=== PATIENT | female | born 1930 | race African-American/Black ===

== ENCOUNTER 2017-01-25 10:47 | Inpatient (IN) | payer OTHER, BC ==
[2017-01-25 11:01] VITALS: BMI 31.3
--- NOTE | 2017-01-25 11:21 | PDOC ---
History of Present Illness - General History Source: Family (Grand-daughter) Exam Limitations: No Limitations - History of Present Illness Initial Comments: 01/25/17 11:23 The patient is an 86-year-old woman, accompanied by her grand-daughter, with a significant past medical history of hypertension, hypercholesterolemia, coronary artery disease, atrial fibrillation (status post mechanical valve placement), left breast Ca(status post left mastectomy) who presents to the emergency department via EMS for further evaluation for shortness of breath and hypoxia. Patient was noted to be in the low 90s on room air and was immediately placed on NC O2 on 2L with improvement. Grand-daughter also states that the patient has been noted to endorse a productive cough with white sputum over the past week with noted increasing bilateral lower leg swelling and shortness of breath. Patient's grand-daughter states that the patient is complaint with a no- sodium diet and drinks lots of water and reports compliance with her Milieu Counselor's recommendation of taking Torsemide (20mg BID) for the past 2 days. She also states that the patient was noted to complain of her thyroid, yesterday. Patient was in this ED on 12/21 for and admitted for congestive heart failure. Grand-daughter also states that the patient has been noted to be increasingly weak over the past week. She states that the patient is able to perform daily activities, such as dressing herself, on her own with minimal help of her health aide. However, the patient has needed some more help than usual. No fever, chills, chest pain, nausea, vomiting, diarrhea. Allergies: No Known Drug Allergies. Past Surgical History: Mechanical Valve Placement. Left Mastectomy. Hysterectomy. Social History: Retired. Lives with daughter and granddaughter. No tobacco, ETOH or recreational drug use. Primary Care Physician: Milieu Counselor: Dr. Michael Bautista [phone] <Taya Sanches - Last Filed: 01/25/17 12:05> <Markell Erickson - Last Filed: 01/25/17 17:39> <Jenn Sheriff - Last Filed: 01/27/17 07:22> - General Chief Complaint: Shortness of Breath Stated Complaint: SOB Time Seen by Provider: 01/25/17 10:52 Past History <Taya Sanches - Last Filed: 01/25/17 12:05> <Markell Erickson - Last Filed: 01/25/17 17:39> - Past Medical History Anemia: No Asthma: No Cancer: Yes (L BREAST) Cardiac Disorders: Yes COPD: No CHF: Yes HTN: Yes Hypercholesterolemia: Yes Thyroid Disease: Yes - Surgical History Cardiac Surgery: Yes (VALVE REPALCEMENT) - Psycho/Social/Smoking Cessation Hx Anxiety: No Suicidal Ideation: No Smoking History: Former smoker Have you smoked in the past 12 months: No If you are a former smoker, when did you quit?: 1996 Information on smoking cessation initiated: No Hx Alcohol Use: No Drug/Substance Use Hx: No Substance Use Type: None <Jenn Sheriff - Last Filed: 01/27/17 07:22> - Past Medical History Allergies/Adverse Reactions: Allergies Allergy/AdvReac Type Severity Reaction Status Date / Time No Known Allergies Allergy Verified 01/25/17 10:51 Home Medications: Ambulatory Orders Allopurinol [Zyloprim -] 100 mg PO DAILY 12/21/16 Cholecalciferol (Vitamin D3) [Vitamin D -] 50,000 unit PO MONTHLY 12/21/16 Methimazole [Tapazole] 5 mg PO DAILY 12/21/16 Nebivolol HCl [Bystolic] 10 mg PO DAILY 12/21/16 Omeprazole 40 mg PO DAILY 12/21/16 Ranolazine [Ranexa] 500 mg PO BID 12/21/16 Rosuvastatin Calcium [Crestor] 10 mg PO HS 12/21/16 Amlodipine Besylate [Norvasc -] 10 mg PO DAILY #30 tablet 12/23/16 Torsemide [Demadex -] 10 mg PO DAILY #30 tablet 12/23/16 Warfarin Na [Coumadin -] 5 mg PO DAILY #0 12/23/16 Review of Systems - Review of Systems Able to Perform ROS?: Yes Comments:: 01/25/17 11:24 GENERAL/CONSTITUTIONAL: Yes: Generalized Weakness. No fever or chills. HEAD, EYES, EARS, NOSE AND THROAT: Yes: Neck Swelling. No change in vision. No ear pain or discharge. No sore throat. CARDIOVASCULAR: Yes: Shortness of breath. No chest pain. RESPIRATORY: Yes: Shortness of breath. No cough, wheezing, or hemoptysis. GASTROINTESTINAL: No nausea, vomiting, diarrhea or constipation. GENITOURINARY: No dysuria, frequency, or change in urination. MUSCULOSKELETAL: Yes: Bilateral lower extremity swelling. No neck or back pain. SKIN: No rash NEUROLOGIC: No headache, vertigo, loss of consciousness, or change in strength/ sensation. ENDOCRINE: No increased thirst. No abnormal weight change. HEMATOLOGIC/LYMPHATIC: No anemia, easy bleeding, or history of blood clots. ALLERGIC/IMMUNOLOGIC: No hives or skin allergy. <Taya Sanches - Last Filed: 01/25/17 12:05> *Physical Exam - Vital Signs Last Vital Signs Temp Pulse Resp BP Pulse Ox 98.3 F 56 L 24 107/54 92 L 01/25/17 10:48 01/25/17 10:48 01/25/17 10:48 01/25/17 10:48 01/25/17 10:48 <Taya Sanches - Last Filed: 01/25/17 12:05> - Vital Signs Last Vital Signs Temp Pulse Resp BP Pulse Ox 98.3 F 61 18 107/72 94 L 01/25/17 10:48 01/25/17 16:57 01/25/17 16:57 01/25/17 16:57 01/25/17 16:57 <Markell Erickson - Last Filed: 01/25/17 17:39> - Vital Signs Last Vital Signs Temp Pulse Resp BP Pulse Ox 98.3 F 56 L 24 107/54 92 L 01/25/17 10:48 01/25/17 10:48 01/25/17 10:48 01/25/17 10:48 01/25/17 10:48 - Physical Exam Comments: GENERAL: Somnolent, awakens to voice, answers yes and no questions. Respirations appear moderately labored. HEAD: No signs of trauma EYES: PERRLA, EOMI, sclera anicteric, conjunctiva clear ENT: Auricles normal inspection, hearing grossly normal, nares patent, oropharynx clear without exudates. Moist mucosa NECK: Normal ROM, supple, no lymphadenopathy, no JVD. +Goiter, nontender. LUNGS: +Diffuse rales. HEART: Regular rate and rhythm, normal S1 and S2, no murmurs, rubs or gallops ABDOMEN: Soft, nontender, normoactive bowel sounds. No guarding, no rebound. No masses EXTREMITIES: Normal range of motion, 2+ pitting edema to BLE, to level of ankles. No clubbing or cyanosis. No cords, erythema, or tenderness NEUROLOGICAL: Cranial nerves II through XII grossly intact. Normal speech, normal gait SKIN: Warm, Dry, normal turgor, no rashes or lesions noted. <Jenn Sheriff - Last Filed: 01/27/17 07:22> Heart Score/ECG Review - ECG Impressions Comment:: EKG read 11:04- afib, ventricular rate 70 bpm, RBBB, LAFB <Jenn Sheriff - Last Filed: 01/27/17 07:22> ED Treatment Course - LABORATORY CBC & Chemistry Diagram: 01/25/17 12:00 01/25/17 12:00 - RADIOLOGY Radiograph Interpretation: 01/25/17 12:05 EXAM: RAD/CHEST X-RAY PORTABLE* IMPRESSION: Since 12/21/2016, there remains moderate cardiomegaly. Interval left lower lobe consolidation/ atelectasis/pneumonia and moderate left pleural effusion. Increased interstitial lung markings are also suggestive of mild pulmonary venous congestion versus interstitial infiltrates in both upper lobes and the right lower lobe. <Taya Sanches - Last Filed: 01/25/17 12:05> - LABORATORY CBC & Chemistry Diagram: 01/25/17 12:00 01/25/17 12:00 - ADDITIONAL ORDERS Additional order review: Laboratory Results 01/25/17 01/25/17 12:00 12:00 INR 21.83 H* Sodium 136 Potassium 4.5 D Chloride 97 L Carbon Dioxide 29 Anion Gap 10 BUN 59 H D Creatinine 3.2 H D Creat Clearance w eGFR 13.70 Random Glucose 107 H Calcium 10.4 H Total Bilirubin 0.6 D AST 19 D ALT 15 D Alkaline Phosphatase 88 D Creatine Kinase 75 Troponin I 0.02 B-Natriuretic Peptide 98960.64 H Total Protein 6.8 Albumin 3.0 L TSH 5.83 H D 01/25/17 12:00 RBC 4.03 MCV 81.5 MCHC 31.0 L RDW 16.3 H MPV 8.5 Neutrophils % 71.4 Lymphocytes % 11.9 Monocytes % 15.3 H Eosinophils % 0.6 Basophils % 0.8 - Medications Given in the ED: ED Medications Discontinued Medications Generic Name Dose Route Start Last Admin Trade Name Justen PRN Reason Stop Dose Admin Furosemide 40 mg 01/25/17 13:41 01/25/17 14:42 Lasix Injection - IVPUSH 01/25/17 13:42 40 mg ONCE ONE Administration <Markell Erickson - Last Filed: 01/25/17 17:39> - LABORATORY CBC & Chemistry Diagram: 01/26/17 07:25 01/26/17 06:30 - RADIOLOGY Radiology Studies Ordered: Category Date Time Status CHEST X-RAY PORTABLE* [RAD] Stat Radiology 01/25/17 10:51 Ordered <Jenn Sheriff - Last Filed: 01/27/17 07:22> *DC/Admit/Observation/Transfer - Attestations Scribe Attestion: 01/25/17 11:24 Documentation prepared by Taya Sanches, acting as medical charge entry specialist for Jenn Sheriff MD. <Taya Sanches - Last Filed: 01/25/17 12:05> - Discharge Dispostion Admit: Yes <Markell Erickson - Last Filed: 01/25/17 17:39> <Jenn Sheriff - Last Filed: 01/27/17 07:22> Diagnosis at time of Disposition: Acute exacerbation of CHF (congestive heart failure) Qualifiers: Congestive heart failure type: diastolic Qualified Code(s): I50.33 - Acute on chronic diastolic (congestive) heart failure - Referrals
[2017-01-25 12:08] LABS: BASOPHIL 0.8 % (0-2.0); EOSINOPHIL 0.6 % (0-4.5); MCH 25.3 pg (25.7-33.7); MEAN CELL VOLUME 81.5 fl (80-96); MEAN PLT VOLUME 8.5 fl (7.5-11.1); NEUTROPHILS 71.4 % (42.8-82.8); PLATELET COUNT 382 K/MM3 (134-434); RDW 16.3 % (11.6-15.6); WHITE BLOOD COUNT 8.8 K/mm3 (4.0-10.0)
[2017-01-25 12:39] LABS: PROTHROMBIN TIME (PATIENT) 255.7 SEC (9.98-11.88)
[2017-01-25 12:41] LABS: BILIRUBIN,TOTAL 0.6 mg/dL (0.2-1.0); CALCIUM 10.4 mg/dL (8.5-10.1); CREATININE 3.2 mg/dL (0.55-1.02); TOT PROT 6.8 g/dl (6.4-8.2)
[2017-01-25 12:42] LABS: INR 21.83 (0.82-1.09)
[2017-01-25 12:49] LABS: THYROID STIMULATING HORMONE 5.83 uIU/ml (0.358-3.74); TROPONIN I 0.02 ng/ml (0.00-0.05)
--- NOTE | 2017-01-25 13:19 | CON.CARD ---
Consult Consult Specialty:: Cardiology Referred by:: Hospitalist Medicine Reason for Consultation:: Dyspnea - History of Present Illness Chief Complaint: Dyspnea History of Present Illness: This is a 86 y/o woman with a past medical history of CAD, angina pectoris, diastolic dysfunction, CKD, paroxysmal aflutter [id number] on coumadin per INR , s/p bioprosthetic MVR and AVR, HCVD, HLD, Left Breast Cancer post mastectomy, mod carotid stenosis, CKD, ILD referred to the emergency room with SOB, productive cough with white phlegm, hypoxia and LE edema despite increased outpatient diuretic regimen. She denies chest tightness, near or true syncope, palpitations, orthopnea, PND, diet or medication noncompliance similar to previous presentation for failure. - History Source History Provided By: Family Member Limitations to Obtaining History: Poor Historian - Past Medical History Cardio/Vascular: Yes: AFIB, CAD, CHF, HTN, Hyperlipdemia - Past Surgical History Past Surgical History: Yes: Valve Replacement - Alcohol/Substance Use Hx Alcohol Use: No - Smoking History Smoking history: Former smoker Have you smoked in the past 12 months: No If you are a former smoker, when did you quit?: 1996 Home Medications - Allergies Allergies/Adverse Reactions: Allergies Allergy/AdvReac Type Severity Reaction Status Date / Time No Known Allergies Allergy Verified 01/25/17 10:51 - Home Medications Home Medications: Ambulatory Orders Allopurinol [Zyloprim -] 100 mg PO DAILY 12/21/16 Cholecalciferol (Vitamin D3) [Vitamin D -] 50,000 unit PO MONTHLY 12/21/16 Methimazole [Tapazole] 5 mg PO DAILY 12/21/16 Nebivolol HCl [Bystolic] 10 mg PO DAILY 12/21/16 Omeprazole 40 mg PO DAILY 12/21/16 Ranolazine [Ranexa] 500 mg PO BID 12/21/16 Rosuvastatin Calcium [Crestor] 10 mg PO HS 12/21/16 Amlodipine Besylate [Norvasc -] 10 mg PO DAILY #30 tablet 12/23/16 Torsemide [Demadex -] 10 mg PO DAILY #30 tablet 12/23/16 Warfarin Na [Coumadin -] 5 mg PO DAILY #0 12/23/16 Review of Systems - Review of Systems Cardiovascular: reports: Edema, Shortness of Breath Respiratory: reports: Cough Vital Signs: Vital Signs Temperature 98.3 F 01/25/17 10:48 Pulse Rate 56 L 01/25/17 10:48 Respiratory Rate 24 01/25/17 10:48 Blood Pressure 107/54 01/25/17 10:48 O2 Sat by Pulse Oximetry (%) 92 L 01/25/17 11:34 Constitutional: Yes: No Distress, Calm Neck: Yes: Supple Respiratory: Yes: Regular, Diminished, On Nasal O2 Gastrointestinal: Yes: Normal Bowel Sounds, Soft, Abdomen, Obese Cardiovascular: Yes: Pulse Irregular JVD: Yes Carotid Bruit: No Heart Sounds: Yes: S1, S2 Murmur: Yes: Systolic Murmur, Grade 2 Edema: Yes Edema: LLE: 1+, RLE: 1+ - Other Data Labs, Other Data: CBC, BMP 01/25/17 12:00 01/25/17 12:00 INR, PTT INR 21.83 (0.82-1.09) H* 01/25/17 12:00 Troponin, BNP 01/25/17 12:00 Troponin I 0.02 B-Natriuretic Peptide 60958.64 H Troponin, BNP 01/25/17 12:00 Troponin I 0.02 B-Natriuretic Peptide 02012.64 H Afib @ 70 RBBB, LAFB similar to previous 12/30/2016 Echo: Report Reviewed Ejection Fraction %: LVEF > or = 40 % Imaging - Results Chest X-ray: Report Reviewed (CHF) Assessment/Plan 04/07/2016 Normal LV and RV size and fxn, mild LAE, bioMVR and AVR with transaortic MG 26 mmHg, RVSP 40-50 mmHg, mild-mod TR 12/22/2016 Normal LV and RV size and fxn, mild LAE, bioMVR and AVR with transvalvular MG 32 mmHg, RVSP 40-50 mmHg, mild-mod TR 1. Acute on chronic diastolic failure recurrent 2. H/o bioMVR, AVR with mildly elevated transaortic gradient, consider prosthesis-patient mismatch 2. Acute on CKD referable to above 3. CAD, angina pectoris 4. Persistent afib on coumadin with supratherapeutic INR 5. Hyperlipidemia 6. Hyperuricemia 7. Left breast ca s/p mastectomy 8. Hyperthyroidism 9. PVC 10. Anemia P: 1. Initiate IV diuresis with monitor diuretic response, renal fxn and electrolytes 2. Continue Bystolic 10 qd, Norvasc 10 qd, Ranexa 500 bid, Crestor 10 qhs and hold coumadin per INR. Resume Benicar once renal fxn stabilizes. Recheck INR, no active bleeding, check FT4 3. Thank you for consultative opportunity
[2017-01-25] MEDS ORDERED: FUROSEMIDE 40 MG/4 ML INJECTABLE VIAL IVPUSH ONE (13:41)
--- NOTE | 2017-01-25 13:58 | EKG ---
Test Reason : Blood Pressure : / mmHG Vent. Rate : 070 BPM Atrial Rate : 214 BPM P-R Int : 000 ms QRS Dur : 160 ms QT Int : 442 ms P-R-T Axes : 000 -63 111 degrees QTc Int : 477 ms ATRIAL FIBRILLATION RIGHT BUNDLE BRANCH BLOCK LEFT ANTERIOR FASCICULAR BLOCK BIFASCICULAR BLOCK T WAVE ABNORMALITY, CONSIDER LATERAL ISCHEMIA ABNORMAL ECG WHEN COMPARED WITH ECG OF 21-DEC-2016 16:35, RIGHT BUNDLE BRANCH BLOCK HAS REPLACED NON-SPECIFIC INTRA-VENTRICULAR CONDUCTION BLOCK Confirmed by LEXIS THOMPSON, XUAN ([id number]) on 01/25/2017 1:58:18 PM Referred By: Confirmed By:XUAN PIRES MD
[2017-01-25] MEDS ORDERED: FUROSEMIDE 40 MG/4 ML INJECTABLE VIAL ONE (14:36)
[2017-01-25] MEDS ORDERED: ACETAMINOPHEN 325 MG TABLET (FP) ONE (16:23)
[2017-01-25] MEDS: ACETAMINOPHEN 325 MG TABLET (FP) PO PRN (16:25)
--- NOTE | 2017-01-25 16:33 | HP ---
CHIEF COMPLAINT: shortness of breath PCP:Dr. Michel Cardio: Dr. Gallo Endocrin: Dr. Ford HISTORY OF PRESENT ILLNESS: 86 yr old woman with CKD, diastolic CHF, hx of breast cancer, afib (on coumadin) , HTN, CAD, bioprosthetic valve(aortic/mitral), BIBEMS for difficulty breathing this morning, presents with worsening dyspnea, weight gain for the past 2 days and cough productive of frothy sputum. Overnight she was frequently getting up to urinate, this morning while in bed she started to have difficulty breathing even with smallest of positional change. She recently went to [place] via bus for the weekend, since she came back she has been having worsening extertional dyspnea and increasing lower leg edema. Yesterday she was 179lbs, this morning she was 182.4lbs. She called Dr. Gallo on Monday, who advised increasing Torsemide from 20mg daily to 40, which she took on Monday and Monday. She also c/o increasing throat size during the last 2 days, left more than right and episodes of "gagging" to food. Family and patient denied dietary indiscretions. Also c/o alternating diarrhea and constipation for past 2 days. Denies fever,chest pain, palpitations, ER course was notable for: (1) BNP 09116.64 (2) Chest xray with pleural effusion in left (3) elevated Cr 3.2, INR 21.83 Recent Travel: [place] PAST MEDICAL HISTORY: Bioprosthetic valves (mitral/aortic)- 2000 CKD Left breast cancer - mastectomy 2005, did not require chemo/radiation, no further follow-up Enlarged thyroid, Hyperthyroidism Afib HTN CAD COPD - chest ct finding of interstitial thickening suggestive of COPD changes PAST SURGICAL HISTORY: Left mastectomy Hysterectomy Partial thyroidectomy - does not remember which side, more than 20 yrs ago Social History: Lives with daughter and granddaughter, 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 Smoking: never Alcohol: none Drugs: none Family History:NC Allergies No Known Allergies Allergy (Verified 01/25/17 10:51) HOME MEDICATIONS: Home Medications Medication Instructions Recorded Allopurinol [Zyloprim -] 100 mg PO DAILY 12/21/16 Cholecalciferol (Vitamin D3) 50,000 unit PO MONTHLY 12/21/16 [Vitamin D -] Methimazole [Tapazole] 5 mg PO DAILY 12/21/16 Nebivolol HCl [Bystolic] 10 mg PO DAILY 12/21/16 Omeprazole 40 mg PO DAILY 12/21/16 Ranolazine [Ranexa] 500 mg PO BID 12/21/16 Rosuvastatin Calcium [Crestor] 10 mg PO HS 12/21/16 Amlodipine Besylate [Norvasc -] 10 mg PO DAILY #30 tablet 12/23/16 Torsemide [Demadex -] 10 mg PO DAILY #30 tablet 12/23/16 Warfarin Na [Coumadin -] 5 mg PO DAILY #0 12/23/16 REVIEW OF SYSTEMS CONSTITUTIONAL: Present:weight change Absent: fever, chills, diaphoresis, generalized weakness, malaise, loss of appetite, HEENT: Absent: rhinorrhea, nasal congestion, throat pain, throat swelling, difficulty swallowing, mouth swelling, ear pain, eye pain, visual changes CARDIOVASCULAR: Present: irregular heart rate,peripheral edema Absent: chest pain, syncope, palpitations, lightheadedness, RESPIRATORY: Present: dyspnea with exertion, Absent: cough, shortness of breath, orthopnea, wheezing, stridor, hemoptysis GASTROINTESTINAL: Present:diarrhea, constipation, Absent: abdominal pain, abdominal distension, nausea, vomiting, melena, hematochezia GENITOURINARY: Absent: dysuria, frequency, urgency, hesitancy, hematuria, flank pain, genital pain MUSCULOSKELETAL: Absent: myalgia, arthralgia, joint swelling, back pain, neck pain SKIN: Absent: rash, itching, pallor HEMATOLOGIC/IMMUNOLOGIC: Absent: easy bleeding, easy bruising, lymphadenopathy, frequent infections ENDOCRINE: Absent: unexplained weight gain, unexplained weight loss, heat intolerance, cold intolerance NEUROLOGIC: Absent: headache, focal weakness or paresthesias, dizziness, unsteady gait, seizure, mental status changes, bladder or bowel incontinence PSYCHIATRIC: Absent: anxiety, depression, suicidal or homicidal ideation, hallucinations. PHYSICAL EXAMINATION Vital Signs - 24 hr 01/25/17 01/25/17 01/25/17 10:48 11:34 13:20 Temperature 98.3 F Pulse Rate 56 L Pulse Rate [ 65 Apical] Respiratory 24 19 Rate Blood Pressure 107/54 Blood Pressure 112/77 [Right] O2 Sat by Pulse 92 L 92 L 93 L Oximetry (%) GENERAL: Awake, alert, and fully oriented, in no acute distress. HEAD: Normal with no signs of trauma. EYES: Pupils equal, round and reactive to light, extraocular movements intact, sclera anicteric, conjunctiva clear. No lid lag. EARS, NOSE, THROAT: Ears normal, nares patent, oropharynx clear without exudates. enlarged thyroid with firm mobile nontender mass on right. Moist mucous membranes. NECK: wnl range of motion, supple, JVD. LUNGS: Breath sounds diminished on left, quiet at right base. No wheezes, and no crackles. No accessory muscle use. CHEST: nontender, s/p left mastectomy. HEART: irregular rate and rhythm, normal S1 and S2 with systolic murmur, rub or gallop. ABDOMEN: Soft, nontender, not distended, normoactive bowel sounds, no guarding, no rebound, no masses. MUSCULOSKELETAL: wnl range of motion at all joints. No bony deformities or tenderness. No CVA tenderness. UPPER EXTREMITIES: 2+ pulses, warm, well-perfused. No cyanosis. No clubbing. No peripheral edema. LOWER EXTREMITIES: 2+ pulses, warm, well-perfused. No calf tenderness. 1+ pitting edema upto b/l knees. NEUROLOGICAL: Cranial nerves II-XII intact. Normal speech. strength 4/5 in UE, 5/5 hand scientist electronics, 2/5 at b/l hips and knees, 5/5 at b/l ankle. no hand tremor PSYCHIATRIC: Cooperative. Good eye contact. Appropriate mood and affect. SKIN: Warm, dry, normal turgor, no rashes or lesions noted. Laboratory Results - last 24 hr 01/25/17 01/25/17 01/25/17 12:00 12:00 12:00 WBC 8.8 RBC 4.03 Hgb 10.2 L Hct 32.8 MCV 81.5 MCHC 31.0 L RDW 16.3 H Plt Count 382 MPV 8.5 Neutrophils % 71.4 Lymphocytes % 11.9 Monocytes % 15.3 H Eosinophils % 0.6 Basophils % 0.8 INR 21.83 H* Sodium 136 Potassium 4.5 D Chloride 97 L Carbon Dioxide 29 Anion Gap 10 BUN 59 H D Creatinine 3.2 H D Creat Clearance w eGFR 13.70 Random Glucose 107 H Calcium 10.4 H Total Bilirubin 0.6 D AST 19 D ALT 15 D Alkaline Phosphatase 88 D Creatine Kinase 75 Troponin I 0.02 B-Natriuretic Peptide 20856.64 H Total Protein 6.8 Albumin 3.0 L TSH 5.83 H D Active Medications Acetaminophen (Tylenol -) 650 mg PO Q6H PRN PRN Reason: FEVER OR PAIN Last Admin: 01/25/17 16:25 Dose: 650 mg Amlodipine Besylate (Norvasc -) 10 mg PO DAILY ALOK Ergocalciferol (Drisdol -) 50,000 unit PO Q30D@10 ALOK Furosemide (Lasix Injection -) 40 mg IVPB BID ALOK Methimazole (Tapazole -) 5 mg PO DAILY ALOK Nebivolol (Bystolic -) 10 mg PO DAILY ALOK Pantoprazole Sodium (Protonix -) 40 mg PO DAILY ALOK Ranolazine (Ranexa -) 500 mg PO BID ALOK Rosuvastatin Calcium (Crestor -) 10 mg PO HS ALOK ASSESSMENT/PLAN: 86 y/o woman multiple co-morbidities presented with difficulty breathing admitted for acute on chronic diastolic CHF. - chest xray with left lower lobe consiladation/atelectasis/pna with moderate left pleural effusion ( no effusion on cxy 12/21/2016, 12/19/[address] shows small left and trace right pleural effusion), low suspicion for infection, likely secondary to chf. provide incentive spirometry and nasal cannula 3lpm, will repeat cxay in the morning. 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 Pt is followed by ENT as outpatient. #Acute on Chronic CHF Exacerbation(given bnp, weight increase) - Lasix 40mg IVPB BID - daily weights, I&O monitoring - Dr. Castellon consulted #MADONNA on CKD (likely stage 4 given last gfr 27, currently gfr <15) - Likely cardiorenal in nature - Will continue to monitor renal function - hold allopurinol #Supratherapeutic INR - no overt signs of bleeding - repeat in the morning - hold coumadin, avoid aspirin #CAD - Continue Bystolic closely monitor renal function #Afib - currently rate controlled - repeat INR, goal 2.5-3.5 #HLD - crestor 10mg po hs #Diet: low sodium #DVT - supratheruapuetic INR, given le edema no scd's Code status: DNR/DNI Visit type - Emergency Visit Emergency Visit: Yes ED Registration Date: 01/25/17 Care time: The patient presented to the Emergency Department on the above date and was hospitalized for further evaluation of their emergent condition. - New Patient This patient is new to me today: Yes Date on this admission: 01/25/17 - Critical Care Critical Care patient: No
--- NOTE | 2017-01-25 18:03 | PN ---
Teaching Attending Note Name of Resident: Tamara Keyes ATTENDING PHYSICIAN STATEMENT I saw and evaluated the patient. I reviewed the resident's note and discussed the case with the resident. I agree with the resident's findings and plan as documented. SUBJECTIVE: This is an 86-year-old woman with a history of chronic diastolic HF , breast cancer, atrial fib, HTN, CAD, bioprosthetic AV/MV, stage 4 CKD who presented to the ER with worsening shortness of breath, cough with frothy sputum , leg swelling, urinary frequency and weight gain. OBJECTIVE: Vital Signs Period Temp Pulse Resp BP Sys/[place] Pulse Ox Last 24 Hr 98.3 F 56-65 18-24 107-112/54-77 82-94 HEART: Irregularly irregular, (+) 2/6 systolic murmur, (+) JVD LUNGS: Bilateral crackles ABDOMEN: Soft, non-tender. non-distended, normal BS EXTREMITIES: 1+ edema ASSESSMENT AND PLAN: 1. Acute on chronic diastolic heart failure - Lasix IV - Monitor intake and output, daily weights - Cardiology consult 2. Acute kidney injury on stage 4 CKD, probable cardiorenal syndrome - Monitor BUN, creatinine with diuresis 3. Permanent atrial fibrillation - Continue Bystolic - Hold Coumadin secondary to INR 21.8 4. CAD - Continue Bystolic, Ranexa, Norvasc 5. Hypertension - Continue Bystolic, Norvasc - On Lasix for CHF 6. Hyperlipidemia - Continue Crestor 7. History of bioprosthetic AV/MV 8. History of breast cancer, left mastectomy
[2017-01-25 20:06] LABS: PROTHROMBIN TIME (PATIENT) 234.7 SEC (9.98-11.88)
[2017-01-25 20:07] LABS: INR 20.07 (0.82-1.09)
[2017-01-25] MEDS: FUROSEMIDE 40 MG/4 ML INJECTABLE VIAL IVPB SCH (21:45)
[2017-01-25] MEDS: ROSUVASTATIN CA 10 MG TABLET (FP) PO SCH (21:46)
[2017-01-25] MEDS: RANOLAZINE E.R. 500 MG TABLET (FP) PO SCH (21:46)
[2017-01-26 07:53] LABS: MCH 26.1 pg (25.7-33.7); MCHC 32.1 g/dl (32.0-36.0); MEAN CELL VOLUME 81.3 fl (80-96); MEAN PLT VOLUME 8.2 fl (7.5-11.1); PLATELET COUNT 367 K/MM3 (134-434); RDW 16.2 % (11.6-15.6); WHITE BLOOD COUNT 9.5 K/mm3 (4.0-10.0)
[2017-01-26 08:00] LABS: BASOPHIL 0.3 % (0-2.0); EOSINOPHIL 0.8 % (0-4.5); MCH 26.3 pg (25.7-33.7); MCHC 32.1 g/dl (32.0-36.0); MEAN CELL VOLUME 81.9 fl (80-96); MEAN PLT VOLUME 8.6 fl (7.5-11.1); NEUTROPHILS 75.1 % (42.8-82.8); PLATELET COUNT 372 K/MM3 (134-434); WHITE BLOOD COUNT 9.5 K/mm3 (4.0-10.0)
[2017-01-26 08:29] LABS: MAGNESIUM 2.6 mg/dL (1.8-2.4)
[2017-01-26 08:33] LABS: TROPONIN I 0.03 ng/ml (0.00-0.05)
[2017-01-26 08:37] LABS: PROTHROMBIN TIME (PATIENT) 295.5 SEC (9.98-11.88)
[2017-01-26 08:41] LABS: INR 25.15 (0.82-1.09)
[2017-01-26 08:43] LABS: CALCIUM 10.3 mg/dL (8.5-10.1); CREATININE 3.6 mg/dL (0.55-1.02); FREE T4 1.03 ng/dl (0.76-1.46)
[2017-01-26 08:48] LABS: MAGNESIUM 2.5 mg/dL (1.8-2.4)
[2017-01-26 08:50] LABS: TROPONIN I 0.03 ng/ml (0.00-0.05)
[2017-01-26] MEDS ORDERED: ERGOCALCIFEROL (VITAMIN D2) 50,000 UNIT CAPSULE (FP) PO SCH (10:00)
[2017-01-26] MEDS: PANTOPRAZOLE 40 MG TABLET (FP) PO SCH (10:10)
[2017-01-26] MEDS: METHIMAZOLE 5 MG TABLET (FP) PO SCH (10:11)
[2017-01-26] MEDS: RANOLAZINE E.R. 500 MG TABLET (FP) PO SCH ×2 (10:11→22:49)
[2017-01-26] MEDS: amLODIPine BESYLATE 10 MG TABLET (FP) PO SCH (10:11)
[2017-01-26] MEDS: NEBIVOLOL 10 MG TABLET (FP) PO SCH (10:45)
[2017-01-26] MEDS: FUROSEMIDE 40 MG/4 ML INJECTABLE VIAL IVPB SCH ×2 (11:11→22:49)
[2017-01-26] MEDS ORDERED: PT OWN MED DRAWER 7, Y5N ONE (11:14)
--- NOTE | 2017-01-26 13:58 | PN ---
Teaching Attending Note Name of Resident: Tamara Keyes ATTENDING PHYSICIAN STATEMENT I saw and evaluated the patient. I reviewed the resident's note and discussed the case with the resident. I agree with the resident's findings and plan as documented. Vital Signs Temperature 98.0 F 01/26/17 13:52 Pulse Rate 60 01/26/17 13:52 Respiratory Rate 17 01/26/17 13:52 Blood Pressure 112/60 01/26/17 10:40 O2 Sat by Pulse Oximetry (%) 94 L 01/25/17 21:00 CBCD WBC 9.5 K/mm3 (4.0-10.0) 01/26/17 07:25 RBC 3.68 M/mm3 (3.60-5.2) 01/26/17 07:25 Hgb 9.6 GM/dL (10.7-15.3) L 01/26/17 07:25 Hct 30.0 % (32.4-45.2) L 01/26/17 07:25 MCV 81.3 fl (80-96) 01/26/17 07:25 MCHC 32.1 g/dl (32.0-36.0) 01/26/17 07:25 RDW 16.2 % (11.6-15.6) H 01/26/17 07:25 Plt Count 367 K/MM3 (134-434) 01/26/17 07:25 MPV 8.2 fl (7.5-11.1) 01/26/17 07:25 CMP Sodium 141 mmol/L (136-145) 01/26/17 06:30 Potassium 4.7 mmol/L (3.5-5.1) 01/26/17 06:30 Chloride 102 mmol/L (98-107) 01/26/17 06:30 Carbon Dioxide 29 mmol/L (21-32) 01/26/17 06:30 Anion Gap 10 (8-16) 01/26/17 06:30 BUN 62 mg/dL (7-18) H 01/26/17 06:30 Creatinine 3.6 mg/dL (0.55-1.02) H 01/26/17 06:30 Creat Clearance w eGFR 13.70 (>60) 01/25/17 12:00 Random Glucose 106 mg/dL (74-106) 01/26/17 06:30 Calcium 10.3 mg/dL (8.5-10.1) H 01/26/17 06:30 Total Bilirubin 0.6 mg/dL (0.2-1.0) D 01/25/17 12:00 AST 19 U/L (15-37) D 01/25/17 12:00 ALT 15 U/L (12-78) D 01/25/17 12:00 Alkaline Phosphatase 88 U/L (45-117) D 01/25/17 12:00 Total Protein 6.8 g/dl (6.4-8.2) 01/25/17 12:00 Albumin 3.0 g/dl (3.4-5.0) L 01/25/17 12:00 CARDIAC ENZYMES Creatine Kinase 217 IU/L (26-192) H D 01/26/17 07:25 Troponin I 0.03 ng/ml (0.00-0.05) 01/26/17 07:25 Current Medications Generic Name Dose Route Start Last Admin Trade Name Freq PRN Reason Stop Dose Admin Acetaminophen 650 mg 01/25/17 16:17 01/25/17 16:25 Tylenol - PO 650 mg Q6H PRN Administration FEVER OR PAIN Amlodipine Besylate 10 mg 01/26/17 10:00 01/26/17 10:11 Norvasc - PO 10 mg DAILY ALOK Administration Ergocalciferol 50,000 unit 01/26/17 10:00 Drisdol - PO Q30D@10 ALOK Furosemide 40 mg 01/25/17 22:00 01/26/17 11:11 Lasix Injection - IVPB 40 mg BID ALOK Administration Methimazole 5 mg 01/26/17 10:00 01/26/17 10:11 Tapazole - PO 5 mg DAILY ALOK Administration Nebivolol 10 mg 01/26/17 10:00 Bystolic - PO DAILY ALOK Pantoprazole Sodium 40 mg 01/26/17 10:00 01/26/17 10:10 Protonix - PO 40 mg DAILY ALOK Administration Ranolazine 500 mg 01/25/17 22:00 01/26/17 10:11 Ranexa - PO 500 mg BID ALOK Administration Rosuvastatin Calcium 10 mg 01/25/17 22:00 01/25/17 21:46 Crestor - PO 10 mg HS ALOK Administration Home Medications Medication Instructions Recorded Allopurinol [Zyloprim -] 100 mg PO DAILY 12/21/16 Cholecalciferol (Vitamin D3) 50,000 unit PO MONTHLY 12/21/16 [Vitamin D -] Methimazole [Tapazole] 5 mg PO DAILY 12/21/16 Nebivolol HCl [Bystolic] 10 mg PO DAILY 12/21/16 Omeprazole 40 mg PO DAILY 12/21/16 Ranolazine [Ranexa] 500 mg PO BID 12/21/16 Rosuvastatin Calcium [Crestor] 10 mg PO HS 12/21/16 Amlodipine Besylate [Norvasc -] 10 mg PO DAILY #30 tablet 12/23/16 Torsemide [Demadex -] 10 mg PO DAILY #30 tablet 12/23/16 Warfarin Na [Coumadin -] 5 mg PO DAILY #0 12/23/16 Laboratory Tests 01/25/17 01/25/17 01/26/17 12:00 18:00 07:25 INR 21.83 H* 20.07 H* 25.15 H* Patient feels better, lying in bed feels tired since has not slept the whole day. chest xray with left lower lobe consiladation/atelectasis/pna with moderate left pleural effusion ( no effusion on cxy 12/21/2016, 12/19/[address] shows small left and trace right pleural effusion), low suspicion for infection, likely secondary to chf. provide incentive spirometry and nasal cannula 3lpm, will repeat cxay in the morning. ECHO :EJF 51% , Moderate to severe TR ASSESSMENT AND PLAN: 86 y/o woman multiple co-morbidities presented with difficulty breathing admitted for acute on chronic diastolic CHF. #Acute on Chronic diastolic CHF Exacerbation with EJF of 51% on 12/23/2016; Lasix 40mg IVPB BID, daily weights, I&O monitoring, cardiology consult appreciated. #MADONNA on CKD BUN/Cr 62/3.2 with Supratherapeutic INR of 25, which can cause renal failure , will give one dose of oral VIt k 5mg , will repeat the level in am. Nephro consult #Supratherapeutic INR - no signs of bleeding , repeat in the morning, ordered one dose of po Vit K 5mg , hold coumadin, avoid aspirin #CAD Continue Bystolic closely monitor renal function # paroxysmal aflutter [id number] on coumadin per INR , currently rate controlled ; repeat INR, goal 2.5-3.5. giving one dose of Vit K. #HLD crestor 10mg po hs # Hx of Hyperthroidism on Tapazole will order TSH level in am # Left breast ca s/p mastectomy #Diet: low sodium #DVT - supratheruapuetic INR, given le edema;no scd's Code status: DNR/DNI
[2017-01-26] MEDS ORDERED: PHYTONADIONE 5 MG TABLET PO ONE (14:45)
--- NOTE | 2017-01-26 16:17 | PN ---
Progress Note, Physician History of Present Illness: Dyspnea, cough and LE edema improving. - Current Medication List Current Medications: Active Medications Acetaminophen (Tylenol -) 650 mg PO Q6H PRN PRN Reason: FEVER OR PAIN Last Admin: 01/25/17 16:25 Dose: 650 mg Amlodipine Besylate (Norvasc -) 10 mg PO DAILY [facility] Last Admin: 01/26/17 10:11 Dose: 10 mg Ergocalciferol (Drisdol -) 50,000 unit PO Q30D@10 [facility] Furosemide (Lasix Injection -) 40 mg IVPB BID [facility] Last Admin: 01/26/17 11:11 Dose: 40 mg Methimazole (Tapazole -) 5 mg PO DAILY [facility] Last Admin: 01/26/17 10:11 Dose: 5 mg Nebivolol (Bystolic -) 10 mg PO DAILY [facility] Pantoprazole Sodium (Protonix -) 40 mg PO DAILY [facility] Last Admin: 01/26/17 10:10 Dose: 40 mg Ranolazine (Ranexa -) 500 mg PO BID [facility] Last Admin: 01/26/17 10:11 Dose: 500 mg Rosuvastatin Calcium (Crestor -) 10 mg PO HS [facility] Last Admin: 01/25/17 21:46 Dose: 10 mg - Objective Vital Signs: Vital Signs Temperature 98.0 F 01/26/17 13:52 Pulse Rate 60 01/26/17 13:52 Respiratory Rate 17 01/26/17 13:52 Blood Pressure 112/60 01/26/17 10:40 O2 Sat by Pulse Oximetry (%) 94 L 01/25/17 21:00 Constitutional: Yes: No Distress, Calm Neck: Yes: Supple Cardiovascular: Yes: Pulse Irregular Respiratory: Yes: Regular, Diminished, On Nasal O2 Gastrointestinal: Yes: Normal Bowel Sounds, Soft, Abdomen, Obese Edema: Yes Edema: LLE: Trace, RLE: Trace Labs: CBC, BMP 01/26/17 07:25 01/26/17 06:30 INR, PTT INR 25.15 (0.82-1.09) H* 01/26/17 07:25 - ....Imaging Chest X-ray: Report Reviewed (Left effusion with ATX) Problem List - Problems (1) A-fib Code(s): I48.91 - UNSPECIFIED ATRIAL FIBRILLATION Qualifiers: Atrial fibrillation type: persistent Qualified Code(s): I48.1 - Persistent atrial fibrillation (2) Acute on chronic diastolic CHF (congestive heart failure) Code(s): I50.33 - ACUTE ON CHRONIC DIASTOLIC (CONGESTIVE) HEART FAILURE (3) Ibgor-ee-xotdscv kidney injury Code(s): N17.9 - ACUTE KIDNEY FAILURE, UNSPECIFIED N18.9 - CHRONIC KIDNEY DISEASE, UNSPECIFIED (4) CAD (coronary artery disease) Code(s): I25.10 - ATHSCL HEART DISEASE OF [place] CORONARY ARTERY W/O ANG PCTRS Qualifiers: Coronary Disease-Associated Artery/Lesion type: [place] artery [place] vs. transplanted heart: [place] heart Associated angina: without angina Qualified Code(s): I25.10 - Atherosclerotic heart disease of [place] coronary artery without angina pectoris (5) HLD (hyperlipidemia) Code(s): E78.5 - HYPERLIPIDEMIA, UNSPECIFIED Qualifiers: Hyperlipidemia type: pure hypercholesterolemia Qualified Code(s): E78.0 - Pure hypercholesterolemia (6) Hypertensive cardiomyopathy Code(s): I11.9 - HYPERTENSIVE HEART DISEASE WITHOUT HEART FAILURE I42.9 - CARDIOMYOPATHY, UNSPECIFIED Qualifiers: Heart failure presence: with heart failure Qualified Code(s): I11.0 - Hypertensive heart disease with heart failure (7) S/P aortic valve replacement with bioprosthetic valve Code(s): Z95.4 - PRESENCE OF OTHER HEART-VALVE REPLACEMENT (9) Shortness of breath Code(s): R06.02 - SHORTNESS OF BREATH (10) Hyperthyroidism Code(s): E05.90 - THYROTOXICOSIS, UNSP WITHOUT THYROTOXIC CRISIS OR STORM Assessment/Plan 04/07/2016 Normal LV and RV size and fxn, mild LAE, bioMVR and AVR with transaortic MG 26 mmHg, RVSP 40-50 mmHg, mild-mod TR 12/22/2016 Normal LV and RV size and fxn, mild LAE, bioMVR and AVR with transvalvular MG 32 mmHg, RVSP 40-50 mmHg, mild-mod TR 1. Recurrent acute on chronic diastolic failure improving 2. H/o bioMVR, AVR with mildly elevated transaortic gradient, consider prosthesis-patient mismatch 2. Acute on CKD referable to above 3. CAD, angina pectoris 4. Persistent afib on coumadin with supratherapeutic INR 5. Hyperlipidemia 6. Hyperuricemia 7. Left breast ca s/p mastectomy 8. Hyperthyroidism 9. PVC 10. Anemia P: 1. Continue IV diuresis with monitor diuretic response, renal fxn and electrolytes 2. Continue Bystolic 10 qd, Norvasc 10 qd, Ranexa 500 bid, Crestor 10 qhs and hold coumadin per INR, given vit K. Resume Benicar once renal fxn stabilizes.
--- NOTE | 2017-01-26 17:25 | RAPID ---
Physical Examination Vital Signs: Vital Signs Temperature 98.0 F 01/26/17 13:52 Pulse Rate 60 01/26/17 13:52 Respiratory Rate 17 01/26/17 13:52 Blood Pressure 112/60 01/26/17 10:40 O2 Sat by Pulse Oximetry (%) 94 L 01/25/17 21:00 Constitutional: Yes: Well Nourished, Calm Eyes: Yes: EOM Intact, PERRL. No: Ptosis HENT: Yes: Atraumatic, Normocephalic. No: Drooling, Hoarseness, Nasal Congestion Neck: Yes: Supple, Other (mass in right throat, mobile) Cardiovascular: Yes: S1, S2 (sytolic murmur) Respiratory: Yes: On Nasal O2 (3lpm), Rales, Rhonchi. No: Accessory Muscle Use Gastrointestinal: Yes: Soft Breast(s): Yes: Other (left mastectomy) Musculoskeletal: No: Joint Stiffness, Muscle Pain Extremities: No: Calf Tenderness Edema: LLE: 1+, RLE: 1+ Neurological: Yes: Alert, Oriented, Cran Nerves II-XII Intact. No: Facial Droop , Lethargy, Loss of Sensation, Tingling, Tremors, Unresponsive ...Motor Strength: LUE (5/5), LLE (2/5), RUE (5/5), RLE (2/5) Psychiatric: Yes: Alert, Oriented Labs: CBC, BMP 01/26/17 07:25 01/26/17 06:30 Rapid Response - Rapid Response Assessment: According to patient's grandson at bedside who was watching her, he says he saw all limbs moving, "shaking," for about 1 minute and then she became non- responsive. He went and told the nurse. As per nursing; patient was talking, moving all limbs with purpose, non- combative, alert, oriented. patient was responding approprately, denied any pain, palpitations, shortness of breath, denied difficulty swallowing. denied feeling cold. says she felt her body move and felt as if she had control over her movements. Gen: NAD, alert, Lungs: scattered rhonchi and rales b/l CV: s1, s2, systolic murmur Abd: soft, nontender, nondistender Neuro: oriented x3, PERRLA, Eomi, cn 2-12 intact, facial symmetry, sensation intact throughout in ue and le, b/l ue strength 5/5 on hand lead pastor, biceps/ triceps. 2/5 b/l at hip, knees. 1+ edema b/l LE. speech normal rate, tone, rhythm, not slurred. BP:135/72, Pulse 70, Resp 15 - stat CT scan r/o infarct, hemorrhage - vit K to reverse elevated INR Critical Care Total Critical Care Time (in minutes): 35 Critical Care Statement: The care of this patient involved high complexity decision making to prevent further life threatening deterioration of the patient 's condition and/or to evalute & treat vital organ system(s) failure or risk of failure.
--- NOTE | 2017-01-26 18:23 | PN ---
Physical Exam: SUBJECTIVE: Patient seen and examined. no difficulties eating breakfast of hash browns and eggs but would prefer meals easier to chew. she had trouble sleeping last night. denies SOB, chest pain, palpitations, dysuria, headache, changes in vision, cough, fever. called by daughter later in the morning; as per daughter patient was having frothy phlegm. Patient denied any distress, productive cough, choking sensation, or hemoptysis OBJECTIVE: Vital Signs Period Temp Pulse Resp BP Sys/[place] Pulse Ox Last 24 Hr 97.4 F-98.4 F 54-68 16-20 112-136/50-82 93-94 GENERAL: The patient is awake, alert, and fully oriented, in no acute distress. EYES: PERRL, extraocular movements intact, sclera anicteric, conjunctiva clear. No ptosis. ENT: oropharynx clear without exudates, moist mucous membranes. LUNGS: diminished breath sounds on left, clear on right HEART: Regular rate and rhythm, S1, S2 systolic murmur, rub or gallop. ABDOMEN: Soft, nontender, nondistended, normoactive bowel sounds EXTREMITIES: 2+ pulses, warm, well-perfused 1+ edema in b/l le upto knees. NEUROLOGICAL: Normal speech, strength 4/5 in UE, 5/5 hand dean of admissions, 2/5 at b/l hips and knees. PSYCH: Normal mood, normal affect. SKIN: Warm, dry, normal turgor, no rashes or lesions noted Laboratory Results - last 24 hr 01/25/17 01/26/17 01/26/17 18:00 06:30 06:30 WBC 9.5 RBC 3.67 Hgb 9.6 L Hct 30.0 L MCV 81.9 MCHC 32.1 RDW 16.0 H Plt Count 372 MPV 8.6 Neutrophils % 75.1 Lymphocytes % 8.9 D Monocytes % 14.9 H Eosinophils % 0.8 Basophils % 0.3 INR 20.07 H* Sodium 141 Potassium 4.7 Chloride 102 Carbon Dioxide 29 Anion Gap 10 BUN 62 H Creatinine 3.6 H Random Glucose 106 Calcium 10.3 H Magnesium Creatine Kinase CK-MB (CK-2) Troponin I Free T4 1.03 01/26/17 01/26/17 01/26/17 06:30 06:30 07:25 WBC 9.5 RBC 3.68 Hgb 9.6 L Hct 30.0 L MCV 81.3 MCHC 32.1 RDW 16.2 H Plt Count 367 MPV 8.2 Neutrophils % Lymphocytes % Monocytes % Eosinophils % Basophils % INR Cancelled Sodium Potassium Chloride Carbon Dioxide Anion Gap BUN Creatinine Random Glucose Calcium Magnesium 2.6 H D Creatine Kinase 180 D CK-MB (CK-2) 4.182 H Troponin I 0.03 Free T4 01/26/17 01/26/17 01/26/17 07:25 07:25 07:25 WBC RBC Hgb Hct MCV MCHC RDW Plt Count MPV Neutrophils % Lymphocytes % Monocytes % Eosinophils % Basophils % INR 25.15 H* Sodium Potassium Chloride Carbon Dioxide Anion Gap BUN Creatinine Random Glucose Calcium Magnesium 2.5 H Creatine Kinase 217 H D CK-MB (CK-2) Troponin I 0.03 Free T4 1.00 D Active Medications Generic Name Dose Route Start Last Admin Trade Name Freq PRN Reason Stop Dose Admin Acetaminophen 650 mg 01/25/17 16:17 01/25/17 16:25 Tylenol - PO 650 mg Q6H PRN Administration FEVER OR PAIN Amlodipine Besylate 10 mg 01/26/17 10:00 01/26/17 10:11 Norvasc - PO 10 mg DAILY ALOK Administration Ergocalciferol 50,000 unit 01/26/17 10:00 Drisdol - PO Q30D@10 ALOK Furosemide 40 mg 01/25/17 22:00 01/26/17 11:11 Lasix Injection - IVPB 40 mg BID ALOK Administration Methimazole 5 mg 01/26/17 10:00 01/26/17 10:11 Tapazole - PO 5 mg DAILY ALOK Administration Nebivolol 10 mg 01/26/17 10:00 Bystolic - PO DAILY ALOK Pantoprazole Sodium 40 mg 01/26/17 10:00 01/26/17 10:10 Protonix - PO 40 mg DAILY ALOK Administration Ranolazine 500 mg 01/25/17 22:00 01/26/17 10:11 Ranexa - PO 500 mg BID ALOK Administration Rosuvastatin Calcium 10 mg 01/25/17 22:00 01/25/17 21:46 Crestor - PO 10 mg HS ALOK Administration ASSESSMENT/PLAN: 86 y/o woman multiple co-morbidities presented with difficulty breathing admitted for acute on chronic diastolic CHF. #Acute on Chronic CHF Exacerbation(given bnp, weight increase), today's weight is 177, loss of 7 lbs - Lasix 40mg IVPB BID - daily weights, I&O monitoring - Dr. Castellon consulted #MADONNA on CKD (likely stage 4 given last gfr 27) - Likely cardiorenal in nature, nephro consulted; urine studies and renal u/s for further evaluation as pt has elevated cr in the past - Will continue to monitor renal function, Cr elevated since yesterday, continue with lasix with close monitering - hold allopurinol #Supratherapeutic INR - no overt signs of bleeding. Vit K given today, ffp ordered. - repeat in the morning - hold coumadin, avoid aspirin #HTN - Continue Bystolic, Norvasc, ranexa - as per cardio, will resume benicar once renal function improves #Afib - persistent - currently rate controlled - repeat INR, goal 2.5-3.5 #HLD - crestor 10mg po hs #Diet: low sodium, chopped, no dairy #DVT - supratheruapuetic INR, given le edema no scd's Code status: DNR/DNI Visit type - Emergency Visit Emergency Visit: No - New Patient This patient is new to me today: No - Critical Care Critical Care patient: No - Discharge Referral Referred to [facility] Med P.C.: No
--- NOTE | 2017-01-26 18:34 | CONSULT ---
Consult Consult Specialty:: Nephrology Reason for Consultation:: MADONNA - History of Present Illness Chief Complaint: shortness of breath History of Present Illness: Pt is an 86 year old female with pmhx of CAD, a-fib on coumadin, CHol, HTN, breast cancer, and valvular heart disease who presents to the ER with increasing shortness of breath. Pt had a productive cough. She was found to be hypoxic in the ER and given oxygen. Pt also has increased lower extremity edema. Pt is on torsemide for CHF as outpt. She was found to be in acute renal failure and I was called to evaluate her. She denies history of kidney disease. She denies nsaid use. Pt denies dysuria or hematuria. She is a poor historian. - History Source History Provided By: Patient, Family Member, Medical Record - Past Medical History Cardio/Vascular: Yes: AFIB, CAD, CHF, HTN, Hyperlipdemia Renal/: Yes: Renal Inusuff - Past Surgical History Past Surgical History: Yes: Valve Replacement - Alcohol/Substance Use Hx Alcohol Use: No - Smoking History Smoking history: Former smoker Have you smoked in the past 12 months: No If you are a former smoker, when did you quit?: 1996 Home Medications - Allergies Allergies/Adverse Reactions: Allergies Allergy/AdvReac Type Severity Reaction Status Date / Time No Known Allergies Allergy Verified 01/25/17 10:51 - Home Medications Home Medications: Ambulatory Orders Allopurinol [Zyloprim -] 100 mg PO DAILY 12/21/16 Cholecalciferol (Vitamin D3) [Vitamin D -] 50,000 unit PO MONTHLY 12/21/16 Methimazole [Tapazole] 5 mg PO DAILY 12/21/16 Nebivolol HCl [Bystolic] 10 mg PO DAILY 12/21/16 Omeprazole 40 mg PO DAILY 12/21/16 Ranolazine [Ranexa] 500 mg PO BID 12/21/16 Rosuvastatin Calcium [Crestor] 10 mg PO HS 12/21/16 Amlodipine Besylate [Norvasc -] 10 mg PO DAILY #30 tablet 12/23/16 Torsemide [Demadex -] 10 mg PO DAILY #30 tablet 12/23/16 Warfarin Na [Coumadin -] 5 mg PO DAILY #0 12/23/16 Family Disease History - Family Disease History Family History: Denies Review of Systems - Review of Systems Constitutional: reports: Malaise. denies: Chills, Fever Eyes: reports: No Symptoms HENT: reports: No Symptoms Neck: reports: No Symptoms Cardiovascular: reports: Edema, Shortness of Breath Respiratory: reports: Cough, SOB Gastrointestinal: reports: No Symptoms Genitourinary: reports: No Symptoms Musculoskeletal: reports: Muscle Weakness Integumentary: reports: No Symptoms Neurological: reports: No Symptoms Endocrine: reports: No Symptoms Hematology/Lymphatic: reports: No Symptoms Psychiatric: reports: No Symptoms Physical Exam Vital Signs: Vital Signs Temperature 98.0 F 01/26/17 13:52 Pulse Rate 60 01/26/17 13:52 Respiratory Rate 17 01/26/17 13:52 Blood Pressure 112/60 01/26/17 10:40 O2 Sat by Pulse Oximetry (%) 95 01/26/17 09:00 Constitutional: Yes: Calm Eyes: Yes: Conjunctiva Clear HENT: Yes: Atraumatic Cardiovascular: Yes: S1, S2 Respiratory: Yes: On Nasal O2, Rhonchi Gastrointestinal: Yes: Soft Renal/: Yes: WNL Musculoskeletal: Yes: Muscle Weakness Edema: Yes Edema: LLE: 1+, RLE: 1+ Neurological: Yes: Oriented Psychiatric: Yes: Oriented Labs: CBC, BMP 01/26/17 07:25 01/26/17 06:30 Laboratory Tests 01/25/17 01/25/17 01/25/17 12:00 12:00 12:00 WBC Hgb 10.2 L Plt Count INR 21.83 H* Sodium Potassium Chloride BUN 59 H D Creatinine 3.2 H D Magnesium Creatine Kinase B-Natriuretic Peptide 51537.64 H TSH 5.83 H D 01/25/17 01/26/17 01/26/17 18:00 06:30 06:30 WBC Hgb 9.6 L Plt Count INR 20.07 H* Sodium 141 Potassium 4.7 Chloride 102 BUN Creatinine 3.6 H Magnesium Creatine Kinase B-Natriuretic Peptide TSH 01/26/17 01/26/17 01/26/17 06:30 07:25 07:25 WBC 9.5 Hgb 9.6 L Plt Count 367 INR 25.15 H* Sodium Potassium Chloride BUN Creatinine Magnesium 2.6 H D Creatine Kinase 180 D B-Natriuretic Peptide TSH 01/26/17 07:25 WBC Hgb Plt Count INR Sodium Potassium Chloride BUN Creatinine Magnesium 2.5 H Creatine Kinase B-Natriuretic Peptide TSH Imaging - Results Chest X-ray: Report Reviewed (left pleural effusion) Problem List - Problems (1) Acute exacerbation of CHF (congestive heart failure) Code(s): I50.9 - HEART FAILURE, UNSPECIFIED Qualifiers: Congestive heart failure type: diastolic Qualified Code(s): I50.33 - Acute on chronic diastolic (congestive) heart failure (2) Hyperthyroidism Code(s): E05.90 - THYROTOXICOSIS, UNSP WITHOUT THYROTOXIC CRISIS OR STORM (3) A-fib Code(s): I48.91 - UNSPECIFIED ATRIAL FIBRILLATION Qualifiers: Atrial fibrillation type: persistent Qualified Code(s): I48.1 - Persistent atrial fibrillation (4) Acute on chronic diastolic CHF (congestive heart failure) Code(s): I50.33 - ACUTE ON CHRONIC DIASTOLIC (CONGESTIVE) HEART FAILURE (5) Anemia Code(s): D64.9 - ANEMIA, UNSPECIFIED Qualifiers: Anemia type: unspecified type Qualified Code(s): D64.9 - Anemia, unspecified (6) Shortness of breath Code(s): R06.02 - SHORTNESS OF BREATH (7) Coumadin toxicity Code(s): T45.511A - POISONING BY ANTICOAGULANTS, ACCIDENTAL, INIT Assessment/Plan Current Medications Generic Name Dose Route Start Last Admin Trade Name Freq PRN Reason Stop Dose Admin Acetaminophen 650 mg 01/25/17 16:17 01/25/17 16:25 Tylenol - PO 650 mg Q6H PRN Administration FEVER OR PAIN Amlodipine Besylate 10 mg 01/26/17 10:00 01/26/17 10:11 Norvasc - PO 10 mg DAILY ALOK Administration Ergocalciferol 50,000 unit 01/26/17 10:00 Drisdol - PO Q30D@10 ALOK Furosemide 40 mg 01/25/17 22:00 01/26/17 11:11 Lasix Injection - IVPB 40 mg BID ALOK Administration Methimazole 5 mg 01/26/17 10:00 01/26/17 10:11 Tapazole - PO 5 mg DAILY ALOK Administration Nebivolol 10 mg 01/26/17 10:00 Bystolic - PO DAILY ALOK Pantoprazole Sodium 40 mg 01/26/17 10:00 01/26/17 10:10 Protonix - PO 40 mg DAILY ALOK Administration Ranolazine 500 mg 01/25/17 22:00 01/26/17 10:11 Ranexa - PO 500 mg BID ALOK Administration Rosuvastatin Calcium 10 mg 01/25/17 22:00 01/25/17 21:46 Crestor - PO 10 mg HS ALOK Administration Impression 1. MADONNA 2. CKD - creatinine has been elevated on previous labs 3. CHF 4. coumadin toxicity 5. valvular heart disease 6. s/p bio-MVR and AVR 7. hyperlipidemia 8. atrial fibrillation 9. anemia 10. hx of breast cancer Plan - agree with lasix as pt has edema and pleural effusions - will order ultrasound of the kidneys and bladder - will order ua and check lytes - cardio input appreciated - discussed pt with primary team - likely cardiorenal disease - will order prelim workup after reviewing urine - will follow Dr Morse
[2017-01-26] MEDS: ROSUVASTATIN CA 10 MG TABLET (FP) PO SCH (22:49)
[2017-01-27 08:07] LABS: BASOPHIL 0.6 % (0-2.0); CALCIUM 10.8 mg/dL (8.5-10.1); CREATININE 3.4 mg/dL (0.55-1.02); EOSINOPHIL 1.4 % (0-4.5); MCHC 31.9 g/dl (32.0-36.0); MEAN CELL VOLUME 81.7 fl (80-96); MEAN PLT VOLUME 8.5 fl (7.5-11.1); NEUTROPHILS 74.3 % (42.8-82.8); PLATELET COUNT 373 K/MM3 (134-434); PROTHROMBIN TIME (PATIENT) 75.4 SEC (9.98-11.88); RDW 16.1 % (11.6-15.6); WHITE BLOOD COUNT 9.6 K/mm3 (4.0-10.0)
[2017-01-27 08:56] LABS: INR 6.6 (0.82-1.09)
--- NOTE | 2017-01-27 09:17 | PN ---
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 Dyspnea, cough and LE edema improving. - Current Medication List Current Medications: Active Medications Acetaminophen (Tylenol -) 650 mg PO Q6H PRN PRN Reason: FEVER OR PAIN Last Admin: 01/25/17 16:25 Dose: 650 mg Amlodipine Besylate (Norvasc -) 10 mg PO DAILY [facility] Last Admin: 01/26/17 10:11 Dose: 10 mg Ergocalciferol (Drisdol -) 50,000 unit PO Q30D@10 [facility] Last Admin: 01/26/17 12:45 Dose: Not Given Furosemide (Lasix Injection -) 40 mg IVPB BID [facility] Last Admin: 01/26/17 22:49 Dose: 40 mg Methimazole (Tapazole -) 5 mg PO DAILY [facility] Last Admin: 01/26/17 10:11 Dose: 5 mg Nebivolol (Bystolic -) 10 mg PO DAILY [facility] Last Admin: 01/26/17 10:45 Dose: Not Given Pantoprazole Sodium (Protonix -) 40 mg PO DAILY [facility] Last Admin: 01/26/17 10:10 Dose: 40 mg Ranolazine (Ranexa -) 500 mg PO BID [facility] Last Admin: 01/26/17 22:49 Dose: 500 mg Rosuvastatin Calcium (Crestor -) 10 mg PO HS [facility] Last Admin: 01/26/17 22:49 Dose: 10 mg - Objective Vital Signs: Vital Signs Temperature 97.0 F L 01/27/17 06:00 Pulse Rate 82 01/27/17 06:00 Respiratory Rate 20 01/27/17 06:00 Blood Pressure 120/60 01/27/17 06:00 O2 Sat by Pulse Oximetry (%) 94 L 01/26/17 21:00 Constitutional: Yes: No Distress, Calm Neck: Yes: Supple Cardiovascular: Yes: Regular Rate and Rhythm Respiratory: Yes: Regular, Diminished, On Nasal O2 Gastrointestinal: Yes: Normal Bowel Sounds, Soft Edema: Yes Labs: CBC, BMP 01/27/17 05:35 01/27/17 05:35 INR, PTT INR 6.60 (0.82-1.09) H* D 01/27/17 05:35 Problem List - Problems (1) A-fib Code(s): I48.91 - UNSPECIFIED ATRIAL FIBRILLATION Qualifiers: Atrial fibrillation type: persistent Qualified Code(s): I48.1 - Persistent atrial fibrillation (2) Acute on chronic diastolic CHF (congestive heart failure) Code(s): I50.33 - ACUTE ON CHRONIC DIASTOLIC (CONGESTIVE) HEART FAILURE (3) [id number] kidney injury Code(s): N17.9 - ACUTE KIDNEY FAILURE, UNSPECIFIED N18.9 - CHRONIC KIDNEY DISEASE, UNSPECIFIED (4) CAD (coronary artery disease) Code(s): I25.10 - ATHSCL HEART DISEASE OF [place] CORONARY ARTERY W/O ANG PCTRS Qualifiers: Coronary Disease-Associated Artery/Lesion type: [place] artery [place] vs. transplanted heart: solomon heart Associated angina: without angina Qualified Code(s): I25.10 - Atherosclerotic heart disease of [place] coronary artery without angina pectoris (5) HLD (hyperlipidemia) Code(s): E78.5 - HYPERLIPIDEMIA, UNSPECIFIED Qualifiers: Hyperlipidemia type: pure hypercholesterolemia Qualified Code(s): E78.0 - Pure hypercholesterolemia (6) Hypertensive cardiomyopathy Code(s): I11.9 - HYPERTENSIVE HEART DISEASE WITHOUT HEART FAILURE I42.9 - CARDIOMYOPATHY, UNSPECIFIED Qualifiers: Heart failure presence: with heart failure Qualified Code(s): I11.0 - Hypertensive heart disease with heart failure (7) S/P aortic valve replacement with bioprosthetic valve Code(s): Z95.4 - PRESENCE OF OTHER HEART-VALVE REPLACEMENT (9) Shortness of breath Code(s): R06.02 - SHORTNESS OF BREATH (10) Hyperthyroidism Code(s): E05.90 - THYROTOXICOSIS, UNSP WITHOUT THYROTOXIC CRISIS OR STORM (11) Premature ventricular complex Code(s): I49.3 - VENTRICULAR PREMATURE DEPOLARIZATION (12) Cerebrovascular disease Code(s): I67.9 - CEREBROVASCULAR DISEASE, UNSPECIFIED Assessment/Plan 04/07/2016 Normal LV and RV size and fxn, mild LAE, bioMVR and AVR with transaortic MG 26 mmHg, RVSP 40-50 mmHg, mild-mod TR 12/22/2016 Normal LV and RV size and fxn, mild LAE, bioMVR and AVR with transvalvular MG 32 mmHg, RVSP 40-50 mmHg, mild-mod TR 1. Possible syncopal episode 2. Recurrent acute on chronic diastolic failure improving 3. H/o bioMVR, AVR with mildly elevated transaortic gradient, consider prosthesis-patient mismatch 4. Acute on CKD referable to above 5. CAD, angina pectoris 6. Persistent afib on coumadin with supratherapeutic INR 7. Hyperlipidemia 8. Hyperuricemia 9. Left breast ca s/p mastectomy 10. Hyperthyroidism 11. PVC 12. Anemia 13. Cerebrovascular disease P: 1. Decrease Lasix 40 IV qd with monitor diuretic response, renal fxn and electrolytes 2. Continue Bystolic 10 qd, Norvasc 10 qd, Ranexa 500 bid, Crestor 10 qhs and hold coumadin per INR, given vit K. Resume Benicar once renal fxn stabilizes. 3. Telemetry monitoring, OOB to chair, mobilize
[2017-01-27 09:28] LABS: THYROXINE (T4) 7.6 ug/dl (4.8-13.9)
[2017-01-27] MEDS ORDERED: PT OWN MED DRAWER 7, Y5N ONE (09:38)
[2017-01-27] MEDS: RANOLAZINE E.R. 500 MG TABLET (FP) PO SCH ×2 (09:59→21:25)
[2017-01-27] MEDS: amLODIPine BESYLATE 10 MG TABLET (FP) PO SCH (09:59)
[2017-01-27] MEDS: NEBIVOLOL 10 MG TABLET (FP) PO SCH (09:59)
[2017-01-27] MEDS: METHIMAZOLE 5 MG TABLET (FP) PO SCH (09:59)
[2017-01-27] MEDS: PANTOPRAZOLE 40 MG TABLET (FP) PO SCH (09:59)
[2017-01-27] MEDS: FUROSEMIDE 40 MG/4 ML INJECTABLE VIAL IVPB SCH (10:01)
[2017-01-27 12:00] LABS: URINE APPEARANCE SLCLOUDY; URINE BILIRUBIN NEGATIVE (NEGATIVE); URINE COLOR YELLOW; URINE GLUCOSE (UA) NEGATIVE (NEGATIVE); URINE KETONE NEGATIVE (NEGATIVE); URINE LEUK ESTERASE NEGATIVE (NEGATIVE); URINE NITRITE NEGATIVE (NEGATIVE); URINE UROBILINOGEN NEGATIVE E.U./dl (0.2-1.0)
[2017-01-27 12:01] LABS: URINE BLOOD 1+ (NEGATIVE); URINE PROTEIN 2+ (NEGATIVE)
[2017-01-27 12:02] LABS: URINE HYALINE CAST 1 /lpf; URINE MUCUS RARE; URINE RBC 4 /hpf (0-3); URINE WBC 3 /hpf (3-5)
--- NOTE | 2017-01-27 12:04 | PN ---
Teaching Attending Note Name of Resident: Tamara Keyes ATTENDING PHYSICIAN STATEMENT I saw and evaluated the patient. I reviewed the resident's note and discussed the case with the resident. I agree with the resident's findings and plan as documented. Patient is having difficulty with her breathing ,her O2 sat. in 80's on RA, place the patient on 100% NR. Vital Signs Temperature 97.9 F 01/27/17 09:00 Pulse Rate 84 01/27/17 09:00 Respiratory Rate 18 01/27/17 09:00 Blood Pressure 126/54 01/27/17 09:00 O2 Sat by Pulse Oximetry (%) 94 L 01/27/17 09:00 CBCD WBC 9.6 K/mm3 (4.0-10.0) 01/27/17 05:35 RBC 3.78 M/mm3 (3.60-5.2) 01/27/17 05:35 Hgb 9.8 GM/dL (10.7-15.3) L 01/27/17 05:35 Hct 30.9 % (32.4-45.2) L 01/27/17 05:35 MCV 81.7 fl (80-96) 01/27/17 05:35 MCHC 31.9 g/dl (32.0-36.0) L 01/27/17 05:35 RDW 16.1 % (11.6-15.6) H 01/27/17 05:35 Plt Count 373 K/MM3 (134-434) 01/27/17 05:35 MPV 8.5 fl (7.5-11.1) 01/27/17 05:35 CMP Sodium 139 mmol/L (136-145) 01/27/17 05:35 Potassium 4.2 mmol/L (3.5-5.1) 01/27/17 05:35 Chloride 98 mmol/L (98-107) 01/27/17 05:35 Carbon Dioxide 31 mmol/L (21-32) 01/27/17 05:35 Anion Gap 10 (8-16) 01/27/17 05:35 BUN 63 mg/dL (7-18) H 01/27/17 05:35 Creatinine 3.4 mg/dL (0.55-1.02) H 01/27/17 05:35 Creat Clearance w eGFR 13.70 (>60) 01/25/17 12:00 Random Glucose 95 mg/dL (74-106) 01/27/17 05:35 Calcium 10.8 mg/dL (8.5-10.1) H 01/27/17 05:35 Total Bilirubin 0.6 mg/dL (0.2-1.0) D 01/25/17 12:00 AST 19 U/L (15-37) D 01/25/17 12:00 ALT 15 U/L (12-78) D 01/25/17 12:00 Alkaline Phosphatase 88 U/L (45-117) D 01/25/17 12:00 Total Protein 6.8 g/dl (6.4-8.2) 01/25/17 12:00 Albumin 3.0 g/dl (3.4-5.0) L 01/25/17 12:00 CARDIAC ENZYMES Creatine Kinase 217 IU/L (26-192) H D 01/26/17 07:25 Troponin I 0.03 ng/ml (0.00-0.05) 01/26/17 07:25 Current Medications Generic Name Dose Route Start Last Admin Trade Name Freq PRN Reason Stop Dose Admin Acetaminophen 650 mg 01/25/17 16:17 01/25/17 16:25 Tylenol - PO 650 mg Q6H PRN Administration FEVER OR PAIN Amlodipine Besylate 10 mg 01/26/17 10:00 01/27/17 09:59 Norvasc - PO 10 mg DAILY ALOK Administration Ergocalciferol 50,000 unit 01/26/17 10:00 01/26/17 12:45 Drisdol - PO Not Given Q30D@10 ALOK Furosemide 40 mg 01/27/17 10:00 01/27/17 10:01 Lasix Injection - IVPB 40 mg DAILY ALOK Administration Methimazole 5 mg 01/26/17 10:00 01/27/17 09:59 Tapazole - PO 5 mg DAILY ALOK Administration Nebivolol 10 mg 01/26/17 10:00 01/27/17 09:59 Bystolic - PO 10 mg DAILY ALOK Administration Pantoprazole Sodium 40 mg 01/26/17 10:00 01/27/17 09:59 Protonix - PO 40 mg DAILY ALOK Administration Ranolazine 500 mg 01/25/17 22:00 01/27/17 09:59 Ranexa - PO 500 mg BID ALOK Administration Rosuvastatin Calcium 10 mg 01/25/17 22:00 01/26/17 22:49 Crestor - PO 10 mg HS ALOK Administration Home Medications Medication Instructions Recorded Allopurinol [Zyloprim -] 100 mg PO DAILY 12/21/16 Cholecalciferol (Vitamin D3) 50,000 unit PO MONTHLY 12/21/16 [Vitamin D -] Methimazole [Tapazole] 5 mg PO DAILY 12/21/16 Nebivolol HCl [Bystolic] 10 mg PO DAILY 12/21/16 Omeprazole 40 mg PO DAILY 12/21/16 Ranolazine [Ranexa] 500 mg PO BID 12/21/16 Rosuvastatin Calcium [Crestor] 10 mg PO HS 12/21/16 Amlodipine Besylate [Norvasc -] 10 mg PO DAILY #30 tablet 12/23/16 Torsemide [Demadex -] 10 mg PO DAILY #30 tablet 12/23/16 Warfarin Na [Coumadin -] 5 mg PO DAILY #0 12/23/16 chest xray with left lower lobe consiladation/atelectasis/pna with moderate left pleural effusion ( no effusion on cxy 12/21/2016, 12/19/[address] shows small left and trace right pleural effusion), low suspicion for infection, likely secondary to chf. provide incentive spirometry and nasal cannula 3lpm, will repeat cxay in the morning. ECHO :EJF 51% , Moderate to severe TR ASSESSMENT AND PLAN: 86 y/o woman multiple co-morbidities presented with difficulty breathing admitted for acute on chronic diastolic CHF. # Acute Hypoxia, will get ABG stat and stat CXr, i dose of lasix stat, 100% NR for now. #Acute on Chronic diastolic CHF Exacerbation with EJF of 51% on 12/23/2016; Lasix 40mg IVPB daily but will give extra dose of lasix since patient is having SOB daily weights, I&O monitoring, cardiology consult appreciated. de oliveira catheter for Is and Os #MADONNA on CKD BUN/Cr 62/3.--63/3.4 today Supratherapeutic INR of 25--> 6 today s/ p FFP one unit and vit K 5mg po , which can cause renal failure , Nephro consult Dr.Samarneh appreciated. #Supratherapeutic INR from 25---> 6 today , no signs of bleeding , repeat in the morning, s/p FFP and Vit K 5mg , hold coumadin, avoid aspirin #CAD Continue Bystolic closely monitor renal function # paroxysmal aflutter [id number] on coumadin per INR , currently rate controlled ; repeat INR, goal 2.5-3.5. giving one dose of Vit K and FFP given yesterday #HLD crestor 10mg po hs # Hx of Hyperthroidism on Tapazole will order TSH level in am # Left breast ca s/p mastectomy #Diet: low sodium #DVT - supratheruapuetic INR, given le edema;no scd's Code status: DNR/DNI
[2017-01-27 12:36] LABS: CHLORIDE,RANDOM URINE < 10 MMOL/L; SODIUM,RANDOM URINE 10 MMOL/L
--- NOTE | 2017-01-27 15:01 | PN ---
Progress Note, Physician History of Present Illness: Pt seen and examined at bedside. She is much more awake and alert today than she was yesterday. - Current Medication List Current Medications: Active Medications Acetaminophen (Tylenol -) 650 mg PO Q6H PRN PRN Reason: FEVER OR PAIN Last Admin: 01/25/17 16:25 Dose: 650 mg Amlodipine Besylate (Norvasc -) 10 mg PO DAILY [facility] Last Admin: 01/27/17 09:59 Dose: 10 mg Ergocalciferol (Drisdol -) 50,000 unit PO Q30D@10 [facility] Last Admin: 01/26/17 12:45 Dose: Not Given Furosemide (Lasix Injection -) 40 mg IVPB DAILY [facility] Last Admin: 01/27/17 10:01 Dose: 40 mg Methimazole (Tapazole -) 5 mg PO DAILY [facility] Last Admin: 01/27/17 09:59 Dose: 5 mg Nebivolol (Bystolic -) 10 mg PO DAILY [facility] Last Admin: 01/27/17 09:59 Dose: 10 mg Pantoprazole Sodium (Protonix -) 40 mg PO DAILY [facility] Last Admin: 01/27/17 09:59 Dose: 40 mg Ranolazine (Ranexa -) 500 mg PO BID [facility] Last Admin: 01/27/17 09:59 Dose: 500 mg Rosuvastatin Calcium (Crestor -) 10 mg PO HS [facility] Last Admin: 01/26/17 22:49 Dose: 10 mg - Objective Vital Signs: Vital Signs Temperature 96.5 F L 01/27/17 14:46 Pulse Rate 68 01/27/17 14:46 Respiratory Rate 20 01/27/17 14:46 Blood Pressure 132/65 01/27/17 14:46 O2 Sat by Pulse Oximetry (%) 94 L 01/27/17 09:00 Constitutional: Yes: Calm Eyes: Yes: Conjunctiva Clear HENT: Yes: Atraumatic Neck: Yes: Supple Cardiovascular: Yes: Pulse Irregular, S1, S2 Respiratory: Yes: On Nasal O2, Rhonchi Gastrointestinal: Yes: Soft Genitourinary: Yes: WNL Musculoskeletal: Yes: Muscle Weakness Edema: Yes Edema: LLE: 1+, RLE: 1+ Neurological: Yes: Oriented Psychiatric: Yes: Oriented Labs: CBC, BMP 01/27/17 05:35 01/27/17 05:35 INR, PTT INR 6.60 (0.82-1.09) H* D 01/27/17 05:35 - ....Imaging Cat Scan: Report Reviewed Problem List - Problems (1) Acute exacerbation of CHF (congestive heart failure) Code(s): I50.9 - HEART FAILURE, UNSPECIFIED Qualifiers: Congestive heart failure type: diastolic Qualified Code(s): I50.33 - Acute on chronic diastolic (congestive) heart failure (2) Hyperthyroidism Code(s): E05.90 - THYROTOXICOSIS, UNSP WITHOUT THYROTOXIC CRISIS OR STORM (3) A-fib Code(s): I48.91 - UNSPECIFIED ATRIAL FIBRILLATION Qualifiers: Atrial fibrillation type: persistent Qualified Code(s): I48.1 - Persistent atrial fibrillation (4) Acute on chronic diastolic CHF (congestive heart failure) Code(s): I50.33 - ACUTE ON CHRONIC DIASTOLIC (CONGESTIVE) HEART FAILURE (5) Anemia Code(s): D64.9 - ANEMIA, UNSPECIFIED Qualifiers: Anemia type: unspecified type Qualified Code(s): D64.9 - Anemia, unspecified (6) Shortness of breath Code(s): R06.02 - SHORTNESS OF BREATH (7) Coumadin toxicity Code(s): T45.511A - POISONING BY ANTICOAGULANTS, ACCIDENTAL, INIT Assessment/Plan Current Medications Generic Name Dose Route Start Last Admin Trade Name Freq PRN Reason Stop Dose Admin Acetaminophen 650 mg 01/25/17 16:17 01/25/17 16:25 Tylenol - PO 650 mg Q6H PRN Administration FEVER OR PAIN Amlodipine Besylate 10 mg 01/26/17 10:00 01/27/17 09:59 Norvasc - PO 10 mg DAILY ALOK Administration Ergocalciferol 50,000 unit 01/26/17 10:00 01/26/17 12:45 Drisdol - PO Not Given Q30D@10 ALOK Furosemide 40 mg 01/27/17 10:00 01/27/17 10:01 Lasix Injection - IVPB 40 mg DAILY ALOK Administration Methimazole 5 mg 01/26/17 10:00 01/27/17 09:59 Tapazole - PO 5 mg DAILY ALOK Administration Nebivolol 10 mg 01/26/17 10:00 01/27/17 09:59 Bystolic - PO 10 mg DAILY ALOK Administration Pantoprazole Sodium 40 mg 01/26/17 10:00 01/27/17 09:59 Protonix - PO 40 mg DAILY ALOK Administration Ranolazine 500 mg 01/25/17 22:00 01/27/17 09:59 Ranexa - PO 500 mg BID ALOK Administration Rosuvastatin Calcium 10 mg 01/25/17 22:00 01/26/17 22:49 Crestor - PO 10 mg HS ALOK Administration Impression 1. MADONNA 2. CKD - creatinine has been elevated on previous labs 3. CHF 4. coumadin toxicity 5. valvular heart disease 6. s/p bio-MVR and AVR 7. hyperlipidemia 8. atrial fibrillation 9. anemia 10. hx of breast cancer Plan - renal function is starting to improve - MADONNA likely from cardiorenal disease - will hold arb for now - cont with lasix, agree with deceasing dose - repeat labs in am - follow up on renal ultrasound - will order prelim workup after reviewing urine - will follow Dr oMrse
[2017-01-27] MEDS ORDERED: FUROSEMIDE 40 MG/4 ML INJECTABLE VIAL IVPB ONE (15:05)
--- NOTE | 2017-01-27 15:54 | PN ---
Physical Exam: SUBJECTIVE: Patient seen and examined pt was saturating 77-88% in nasal cannula, changed to 40% venti mask improved to 89%, changed to 100% non-rebreather saturation improved to 98%. respiratory rate increased but not using accessory muscles, able to speak in full sentences, NAD. patient denied chest pain, palpitations, sob, visual changes. addressed GOC and code status with patient and family at bedside, patient wants to remain DNR/DNI, states understanding of code status and does not want cpr or intubation. answered patient's and family's questions to satisfaction. OBJECTIVE: Vital Signs Period Temp Pulse Resp BP Sys/[place] Pulse Ox Last 24 Hr 96.5 F-99.0 F 68-84 18-20 118-132/54-65 94-94 GENERAL: The patient is awake, alert, and fully oriented, in no acute distress. EYES: PERRL, extraocular movements intact, sclera anicteric, conjunctiva clear. No ptosis. ENT: oropharynx clear without exudates, moist mucous membranes. LUNGS: Breath sounds equal, clear to auscultation bilaterally, no wheezes, no crackles, no accessory muscle use. HEART: irregular rhythm, S1, S2 with systolic murmur. ABDOMEN: Soft, nontender, nondistended, normoactive bowel sounds, no guarding EXTREMITIES: 2+ pulses, warm, well-perfused, trace edema b/l LE NEUROLOGICAL: Cranial nerves II through XII grossly intact. Normal speech. PSYCH: Normal mood, normal affect. Laboratory Results - last 24 hr 01/26/17 01/26/17 01/26/17 11:00 11:00 11:00 WBC RBC Hgb Hct MCV MCHC RDW Plt Count MPV Neutrophils % Lymphocytes % Monocytes % Eosinophils % Basophils % INR Sodium Potassium Chloride Carbon Dioxide Anion Gap BUN Creatinine Random Glucose Calcium Urine Color Yellow Urine Appearance Slcloudy Urine pH 5.0 Ur Specific [place] 1.013 Urine Protein 2+ H Urine Glucose (UA) Negative Urine Ketones Negative Urine Blood 1+ H Urine Nitrite Negative Urine Bilirubin Negative Urine Urobilinogen Negative Ur Leukocyte Esterase Negative Urine RBC 4 Urine WBC 3 Ur Epithelial Cells Rare Hyaline Casts 1 Urine Mucus Rare Ur Random Sodium 10 Ur Random Potassium 26.9 Ur Random Chloride < 10 Ur Random Urea Nitrogn 10 Blood Type Antibody Screen 01/26/17 01/26/17 01/27/17 21:00 21:30 05:35 WBC RBC Hgb Hct MCV MCHC RDW Plt Count MPV Neutrophils % Lymphocytes % Monocytes % Eosinophils % Basophils % INR 6.60 H* D Sodium Potassium Chloride Carbon Dioxide Anion Gap BUN Creatinine Random Glucose Calcium Urine Color Urine Appearance Urine pH Ur Specific [place] Urine Protein Urine Glucose (UA) Urine Ketones Urine Blood Urine Nitrite Urine Bilirubin Urine Urobilinogen Ur Leukocyte Esterase Urine RBC Urine WBC Ur Epithelial Cells Hyaline Casts Urine Mucus Ur Random Sodium Ur Random Potassium Ur Random Chloride Ur Random Urea Nitrogn Blood Type AB POSITIVE AB POSITIVE Antibody Screen Negative 01/27/17 01/27/17 05:35 05:35 WBC 9.6 RBC 3.78 Hgb 9.8 L Hct 30.9 L MCV 81.7 MCHC 31.9 L RDW 16.1 H Plt Count 373 MPV 8.5 Neutrophils % 74.3 Lymphocytes % 10.7 D Monocytes % 13.0 H Eosinophils % 1.4 Basophils % 0.6 INR Sodium 139 Potassium 4.2 Chloride 98 Carbon Dioxide 31 Anion Gap 10 BUN 63 H Creatinine 3.4 H Random Glucose 95 Calcium 10.8 H Urine Color Urine Appearance Urine pH Ur Specific [place] Urine Protein Urine Glucose (UA) Urine Ketones Urine Blood Urine Nitrite Urine Bilirubin Urine Urobilinogen Ur Leukocyte Esterase Urine RBC Urine WBC Ur Epithelial Cells Hyaline Casts Urine Mucus Ur Random Sodium Ur Random Potassium Ur Random Chloride Ur Random Urea Nitrogn Blood Type Antibody Screen Active Medications Generic Name Dose Route Start Last Admin Trade Name Freq PRN Reason Stop Dose Admin Acetaminophen 650 mg 01/25/17 16:17 01/25/17 16:25 Tylenol - PO 650 mg Q6H PRN Administration FEVER OR PAIN Amlodipine Besylate 10 mg 01/26/17 10:00 01/27/17 09:59 Norvasc - PO 10 mg DAILY ALOK Administration Ergocalciferol 50,000 unit 01/26/17 10:00 01/26/17 12:45 Drisdol - PO Not Given Q30D@10 ALOK Furosemide 40 mg 01/27/17 10:00 01/27/17 10:01 Lasix Injection - IVPB 40 mg DAILY ALOK Administration Methimazole 5 mg 01/26/17 10:00 01/27/17 09:59 Tapazole - PO 5 mg DAILY ALOK Administration Nebivolol 10 mg 01/26/17 10:00 01/27/17 09:59 Bystolic - PO 10 mg DAILY ALOK Administration Pantoprazole Sodium 40 mg 01/26/17 10:00 01/27/17 09:59 Protonix - PO 40 mg DAILY ALOK Administration Ranolazine 500 mg 01/25/17 22:00 01/27/17 09:59 Ranexa - PO 500 mg BID ALOK Administration Rosuvastatin Calcium 10 mg 01/25/17 22:00 01/26/17 22:49 Crestor - PO 10 mg HS ALOK Administration ASSESSMENT/PLAN: 86 y/o woman multiple co-morbidities presented with difficulty breathing admitted for acute on chronic diastolic CHF. - stat does of lasix given today afternoon when pt's saturation decreased, cxy similar to yesterday. #Acute on Chronic CHF Exacerbation(given bnp, weight increase), today's weight is 190, 177 yesterday (patient moved beds and floors, clinically edema improved , this may not be accurate weight) - Lasix 40mg IVPB daily - decreased dose due to elevated cr - daily weights, I&O monitoring - Dr. Castellon consulted #MADONNA on CKD (likely stage 4 given last gfr 27) - Likely cardiorenal in nature, nephro consulted; renal u/s for further evaluation as pt has elevated cr in the past - Will continue to monitor renal function, continue with lasix with close monitering - hold allopurinol #Supratherapeutic INR - Vit K given yesterday, INR improved - repeat in the morning - hold coumadin, avoid aspirin #HTN - Continue Bystolic, Norvasc, ranexa - as per cardio, will resume benicar once renal function improves #Afib - persistent - currently rate controlled - repeat INR, goal 2.5-3.5 #HLD - crestor 10mg po hs #Diet: low sodium, chopped, no dairy #DVT - supratheruapuetic INR, given le edema no scd's Code status: DNR/DNI Visit type - Emergency Visit Emergency Visit: No - New Patient This patient is new to me today: No - Critical Care Critical Care patient: No - Discharge Referral Referred to [facility] No
[2017-01-27 16:26] LABS: ARTERIAL BLD GAS O2 SATURATION 97.2 % (90-98.9); ARTERIAL BLOOD GAS BASE EXCESS 4.2 meq/l (-2-2); ARTERIAL BLOOD GAS HCO3 29.6 meq/L (22-26); ARTERIAL BLOOD GAS PO2 94.6 mmHg (68-100)
[2017-01-27 16:27] LABS: ALLENS TEST POSITIVE; ART PUNCT SITE RIGHT RADIAL; LPM/O2% 100; PT. ON O2? YES; TYPE OF O2 NRB
[2017-01-27 16:28] LABS: ARTERIAL BLOOD GAS pH 7.38 (7.35-7.45)
[2017-01-27] MEDS: ROSUVASTATIN CA 10 MG TABLET (FP) PO SCH (21:25)
[2017-01-28 08:21] LABS: BASOPHIL 0.3 % (0-2.0); EOSINOPHIL 0.6 % (0-4.5); MCH 25.4 pg (25.7-33.7); MCHC 31.1 g/dl (32.0-36.0); MEAN CELL VOLUME 81.8 fl (80-96); MEAN PLT VOLUME 8.3 fl (7.5-11.1); NEUTROPHILS 76.9 % (42.8-82.8); PLATELET COUNT 408 K/MM3 (134-434); RDW 16.4 % (11.6-15.6); WHITE BLOOD COUNT 11.2 K/mm3 (4.0-10.0)
[2017-01-28 08:43] LABS: PROTHROMBIN TIME (PATIENT) 113.5 SEC (9.98-11.88)
[2017-01-28 08:45] LABS: BILIRUBIN,TOTAL 0.8 mg/dL (0.2-1.0); CALCIUM 10.7 mg/dL (8.5-10.1); CREATININE 3.4 mg/dL (0.55-1.02); MAGNESIUM 2.6 mg/dL (1.8-2.4); TOT PROT 7.1 g/dl (6.4-8.2)
[2017-01-28 08:46] LABS: INR 9.85 (0.82-1.09)
[2017-01-28] MEDS: FUROSEMIDE 40 MG/4 ML INJECTABLE VIAL IVPB SCH (09:10)
[2017-01-28] MEDS ORDERED: PT OWN MED DRAWER 7, Y5N ONE (09:46)
[2017-01-28] MEDS: NEBIVOLOL 10 MG TABLET (FP) PO SCH (11:09)
[2017-01-28] MEDS: METHIMAZOLE 5 MG TABLET (FP) PO SCH (11:10)
[2017-01-28] MEDS: amLODIPine BESYLATE 10 MG TABLET (FP) PO SCH (11:10)
[2017-01-28] MEDS: PANTOPRAZOLE 40 MG TABLET (FP) PO SCH (11:10)
[2017-01-28] MEDS: RANOLAZINE E.R. 500 MG TABLET (FP) PO SCH ×2 (11:10→21:57)
--- NOTE | 2017-01-28 13:39 | PN ---
Progress Note (short form) - Note Progress Note: RENAL Pt awake and alert had a facemask on daughter present pt is able to answer questions daughter states pt becomes confued when she gets lasix Last Vital Signs Temp Pulse Resp BP Pulse Ox 98.9 F 72 20 114/67 96 01/28/17 10:00 01/28/17 10:00 01/28/17 10:00 01/28/17 10:00 01/28/17 09:00 lungs decreased breath sounds bilat cvs s1s2 irreg, +lm abd soft, obese ext +edema bilat neuro alert CBC, BMP 01/28/17 05:40 01/28/17 05:40 Current Medications Generic Name Dose Route Start Last Admin Trade Name Freq PRN Reason Stop Dose Admin Acetaminophen 650 mg 01/25/17 16:17 01/25/17 16:25 Tylenol - PO 650 mg Q6H PRN Administration FEVER OR PAIN Amlodipine Besylate 10 mg 01/26/17 10:00 01/28/17 11:10 Norvasc - PO 10 mg DAILY ALOK Administration Ergocalciferol 50,000 unit 01/26/17 10:00 01/26/17 12:45 Drisdol - PO Not Given Q30D@10 ALOK Furosemide 40 mg 01/27/17 10:00 01/28/17 09:10 Lasix Injection - IVPB 40 mg DAILY ALOK Administration Methimazole 5 mg 01/26/17 10:00 01/28/17 11:10 Tapazole - PO 5 mg DAILY ALOK Administration Nebivolol 10 mg 01/26/17 10:00 01/28/17 11:09 Bystolic - PO 10 mg DAILY ALOK Administration Pantoprazole Sodium 40 mg 01/26/17 10:00 01/28/17 11:10 Protonix - PO 40 mg DAILY ALOK Administration Ranolazine 500 mg 01/25/17 22:00 01/28/17 11:10 Ranexa - PO 500 mg BID ALOK Administration Rosuvastatin Calcium 10 mg 01/25/17 22:00 01/27/17 21:25 Crestor - PO 10 mg HS ALOK Administration Impression 1. MADONNA- probable cardiorenal. Had a very low urine sodium despite edema and high creat 2. CKD - creatinine has been elevated on previous labs 3. CHF 4. coumadin toxicity 5. valvular heart disease 6. s/p bio-MVR and AVR 7. hyperlipidemia 8. atrial fibrillation 9. anemia 10. hx of breast cancer 11 hypercalcemia with a corrected calcium of over 11 Plan - agree with lasix as pt has edema and pleural effusions - await ultrasound of the kidneys and bladder - check pth - ?bone scan MV
--- NOTE | 2017-01-28 13:40 | PN ---
Progress Note, Physician Chief Complaint: Events noted Dyspnea when taken off oxygen History of Present Illness: Patient was seen and examined. Awake and alert. Chart was reviewed Denies chest pain or palpitations Dyspnea persists Denies dizziness - Current Medication List Current Medications: Active Medications Acetaminophen (Tylenol -) 650 mg PO Q6H PRN PRN Reason: FEVER OR PAIN Last Admin: 01/25/17 16:25 Dose: 650 mg Amlodipine Besylate (Norvasc -) 10 mg PO DAILY [facility] Last Admin: 01/28/17 11:10 Dose: 10 mg Ergocalciferol (Drisdol -) 50,000 unit PO Q30D@10 [facility] Last Admin: 01/26/17 12:45 Dose: Not Given Furosemide (Lasix Injection -) 40 mg IVPB DAILY [facility] Last Admin: 01/28/17 09:10 Dose: 40 mg Methimazole (Tapazole -) 5 mg PO DAILY [facility] Last Admin: 01/28/17 11:10 Dose: 5 mg Nebivolol (Bystolic -) 10 mg PO DAILY [facility] Last Admin: 01/28/17 11:09 Dose: 10 mg Pantoprazole Sodium (Protonix -) 40 mg PO DAILY [facility] Last Admin: 01/28/17 11:10 Dose: 40 mg Ranolazine (Ranexa -) 500 mg PO BID [facility] Last Admin: 01/28/17 11:10 Dose: 500 mg Rosuvastatin Calcium (Crestor -) 10 mg PO HS [facility] Last Admin: 01/27/17 21:25 Dose: 10 mg - Objective Vital Signs: Vital Signs Temperature 98.9 F 01/28/17 10:00 Pulse Rate 72 01/28/17 10:00 Respiratory Rate 20 01/28/17 10:00 Blood Pressure 114/67 01/28/17 10:00 O2 Sat by Pulse Oximetry (%) 96 01/28/17 09:00 Neck: Yes: Supple Cardiovascular: Yes: Regular Rate and Rhythm, S1, S2 Respiratory: Yes: Diminished Gastrointestinal: Yes: Normal Bowel Sounds, Soft. No: Tenderness Edema: No Additional Findings/Remarks: - Review of Systems Constitutional: denies: Chills, Fever Cardiovascular: denies: Chest Pain, (+) Shortness of Breath. denies: Palpitations Respiratory: (+) Cough, SOB. denies: Hemoptysis, Orthopnea, PND Gastrointestinal: denies: Abdominal Pain, Constipation, Diarrhea, Melena, Nausea , Rectal Bleeding, Vomiting Genitourinary: denies: Dysuria Neurological: denies: Dizziness. denies: Headache, Seizure, Syncope Labs: CBC, BMP 01/28/17 05:40 01/28/17 05:40 INR, PTT INR 9.85 (0.82-1.09) H* D 01/28/17 05:40 Problem List - Problems (1) Acute exacerbation of CHF (congestive heart failure) Code(s): I50.9 - HEART FAILURE, UNSPECIFIED Qualifiers: Congestive heart failure type: diastolic Qualified Code(s): I50.33 - Acute on chronic diastolic (congestive) heart failure (2) Cerebrovascular disease Code(s): I67.9 - CEREBROVASCULAR DISEASE, UNSPECIFIED (3) Coumadin toxicity Code(s): T45.511A - POISONING BY ANTICOAGULANTS, ACCIDENTAL, INIT (4) A-fib Code(s): I48.91 - UNSPECIFIED ATRIAL FIBRILLATION Qualifiers: Atrial fibrillation type: persistent Qualified Code(s): I48.1 - Persistent atrial fibrillation (5) Janio-ct-ndnhqct kidney injury Code(s): N17.9 - ACUTE KIDNEY FAILURE, UNSPECIFIED N18.9 - CHRONIC KIDNEY DISEASE, UNSPECIFIED (6) Anemia Code(s): D64.9 - ANEMIA, UNSPECIFIED Qualifiers: Anemia type: unspecified type Qualified Code(s): D64.9 - Anemia, unspecified (7) CAD (coronary artery disease) Code(s): I25.10 - ATHSCL HEART DISEASE OF [place] CORONARY ARTERY W/O ANG PCTRS Qualifiers: Coronary Disease-Associated Artery/Lesion type: [place] artery [place] vs. transplanted heart: [place] heart Associated angina: without angina Qualified Code(s): I25.10 - Atherosclerotic heart disease of [place] coronary artery without angina pectoris (8) HLD (hyperlipidemia) Code(s): E78.5 - HYPERLIPIDEMIA, UNSPECIFIED Qualifiers: Hyperlipidemia type: pure hypercholesterolemia Qualified Code(s): E78.0 - Pure hypercholesterolemia (9) Hypertensive cardiomyopathy Code(s): I11.9 - HYPERTENSIVE HEART DISEASE WITHOUT HEART FAILURE I42.9 - CARDIOMYOPATHY, UNSPECIFIED Qualifiers: Heart failure presence: with heart failure Qualified Code(s): I11.0 - Hypertensive heart disease with heart failure (10) S/P aortic valve replacement with bioprosthetic valve Code(s): Z95.4 - PRESENCE OF OTHER HEART-VALVE REPLACEMENT (12) Shortness of breath Code(s): R06.02 - SHORTNESS OF BREATH Assessment/Plan 1. Possible syncopal episode - hemodynamically stable 2. Recurrent acute on chronic diastolic failure 3. History of MVR and AVR (bioprosthesis) with mildly elevated trans-aortic gradient, consider prosthesis-patient mismatch 4. Acute on CKD 5. CAD, angina pectoris 6. Persistent atrial fibrillation on Coumadin with supratherapeutic INR 7. Hyperlipidemia 8. Hyperuricemia 9. Left breast ca s/p mastectomy 10. Hyperthyroidism 11. PVC 12. Anemia 13. Cerebrovascular disease PLAN: 1. Continue Lasix IV with monitoring renal function and electrolytes 2. Continue Bystolic 10 mg QD, Norvasc 10 mg QD, Ranexa 500 mg BID, Crestor 10 mg QHS and hold Coumadin until INR is normalized. Patient was given Vitamin K as needed. Resume Benicar once renal function stabilizes. 3. Continue telemetry monitoring Further plans are to follow Daljit Pereira MD
--- NOTE | 2017-01-28 16:05 | PN ---
Physical Exam: SUBJECTIVE: Patient seen and examined Patient is on 50% VM, feeling better with no acute distress. Lying in bed , no fever or chills. Her granddaughter at bed side OBJECTIVE: Vital Signs Temperature 98.7 F 01/28/17 14:30 Pulse Rate 75 01/28/17 14:30 Respiratory Rate 18 01/28/17 14:30 Blood Pressure 125/71 01/28/17 14:30 O2 Sat by Pulse Oximetry (%) 96 01/28/17 09:00 GENERAL: The patient is awake, alert, and fully oriented, on VM 50% oxygen comfortable saturation is 94-96%. HEAD: Normal with no signs of trauma. EYES: PERRL, extraocular movements intact, sclera anicteric, conjunctiva clear. ENT: Ears normal, oropharynx clear without exudates, moist mucous membranes. NECK: Trachea midline, full range of motion, supple. LUNGS: Breath sounds equal, clear to auscultation bilaterally, no wheezes, no crackles, no accessory muscle use. HEART: Regular rate and rhythm, S1, S2 positive, positive for JUNG 2/6 , rub or gallop. ABDOMEN: Soft, nontender, nondistended, normoactive bowel sounds, no guarding, no rebound, no hepatosplenomegaly, no masses. EXTREMITIES: 2+ pulses, warm, well-perfused, no edema. NEUROLOGICAL: Cranial nerves II through XII grossly intact. Normal speech, gait not observed. PSYCH: Normal mood, normal affect. SKIN: Warm, dry, normal turgor, no rashes or lesions noted Laboratory Results - last 24 hr 01/27/17 01/28/17 01/28/17 16:00 05:40 05:40 WBC 11.2 H RBC 3.90 Hgb 9.9 L Hct 31.9 L MCV 81.8 MCHC 31.1 L RDW 16.4 H Plt Count 408 MPV 8.3 Neutrophils % 76.9 Lymphocytes % 9.5 Monocytes % 12.7 H Eosinophils % 0.6 Basophils % 0.3 INR Puncture Site Right radial ABG pH 7.38 ABG pCO2 at Pt Temp 51.5 H ABG pO2 at Pt Temp 94.6 ABG HCO3 29.6 H ABG O2 Sat (Measured) 97.2 ABG O2 Content 13.2 L ABG Base Excess 4.2 H Fabio Test Positive O2 Delivery Device Nrb Oxygen Flow Rate 100 PEEP 0.0 Sodium 141 Potassium 4.2 Chloride 100 Carbon Dioxide 34 H Anion Gap 7 L BUN 65 H Creatinine 3.4 H Creat Clearance w eGFR 12.78 Random Glucose 105 Calcium 10.7 H Magnesium 2.6 H Total Bilirubin 0.8 D AST 29 D ALT 15 Alkaline Phosphatase 86 Total Protein 7.1 Albumin 3.0 L 01/28/17 05:40 WBC RBC Hgb Hct MCV MCHC RDW Plt Count MPV Neutrophils % Lymphocytes % Monocytes % Eosinophils % Basophils % INR 9.85 H* D Puncture Site ABG pH ABG pCO2 at Pt Temp ABG pO2 at Pt Temp ABG HCO3 ABG O2 Sat (Measured) ABG O2 Content ABG Base Excess Fabio Test O2 Delivery Device Oxygen Flow Rate PEEP Sodium Potassium Chloride Carbon Dioxide Anion Gap BUN Creatinine Creat Clearance w eGFR Random Glucose Calcium Magnesium Total Bilirubin AST ALT Alkaline Phosphatase Total Protein Albumin Active Medications Generic Name Dose Route Start Last Admin Trade Name Freq PRN Reason Stop Dose Admin Acetaminophen 650 mg 01/25/17 16:17 01/25/17 16:25 Tylenol - PO 650 mg Q6H PRN Administration FEVER OR PAIN Amlodipine Besylate 10 mg 01/26/17 10:00 01/28/17 11:10 Norvasc - PO 10 mg DAILY ALOK Administration Ergocalciferol 50,000 unit 01/26/17 10:00 01/26/17 12:45 Drisdol - PO Not Given Q30D@10 ALOK Furosemide 40 mg 01/27/17 10:00 01/28/17 09:10 Lasix Injection - IVPB 40 mg DAILY ALOK Administration Methimazole 5 mg 01/26/17 10:00 01/28/17 11:10 Tapazole - PO 5 mg DAILY ALOK Administration Nebivolol 10 mg 01/26/17 10:00 01/28/17 11:09 Bystolic - PO 10 mg DAILY ALOK Administration Pantoprazole Sodium 40 mg 01/26/17 10:00 01/28/17 11:10 Protonix - PO 40 mg DAILY ALOK Administration Ranolazine 500 mg 01/25/17 22:00 01/28/17 11:10 Ranexa - PO 500 mg BID ALOK Administration Rosuvastatin Calcium 10 mg 01/25/17 22:00 01/27/17 21:25 Crestor - PO 10 mg HS ALOK Administration Chest xray with left lower lobe consiladation/atelectasis/pna with moderate left pleural effusion ( no effusion on cxy 12/21/2016, 12/19/[address] shows small left and trace right pleural effusion), low suspicion for infection, likely secondary to chf. provide incentive spirometry and nasal cannula 3l, will repeat cxay in the morning. ECHO :EJF 51% , Moderate to severe TR ASSESSMENT AND PLAN: 86 y/o woman multiple co-morbidities presented with difficulty breathing admitted for acute on chronic diastolic CHF. # Acute Hypoxia, due to Pulmonary Congestion improving will increase the dose of Lasix on VM 50% with Sat.of 94-96% , will get CXr in am. #Acute on Chronic diastolic CHF Exacerbation with EJF of 51% on 12/23/2016; Lasix 40mg IVPB daily changed to bid since patient is still SOB and has pulmonary congestion starting in am, and extra dose of lasix now since patient is having SOB , daily weights, Is&Osmonitoring, cardiology on the case, de oliveira catheter for Is and Os continue #MADONNA on CKD BUN/Cr 62/3.--63/3.4-->65/3.4 today Supratherapeutic INR of 25--> 6- -> 9 today s/p FFP one unit and vit K 5mg po. Nephro consult appreciated. #Supratherapeutic INR from 25---> 6--->9 today , no signs of bleeding , repeat in the morning, s/p FFP and Vit K 5mg, hold coumadin, avoid aspirin #CAD Continue Bystolic closely monitor renal function # paroxysmal aflutter [id number] on coumadin per INR , currently rate controlled ; repeat INR, goal 2.5-3.5. giving one dose of Vit K and FFP given yesterday #HLD crestor 10mg po hs # Hx of Hyperthroidism on Tapazole will monitor # Left breast ca s/p mastectomy #Diet: low sodium #DVT - supratheruapuetic INR, given le edema;no scd's Code status: DNR/DNI Visit type - Emergency Visit Emergency Visit: Yes ED Registration Date: 01/25/17 Care time: The patient presented to the Emergency Department on the above date and was hospitalized for further evaluation of their emergent condition. - New Patient This patient is new to me today: No - Critical Care Critical Care patient: No
[2017-01-28] MEDS ORDERED: FUROSEMIDE 40 MG/4 ML INJECTABLE VIAL IVPUSH ONE (16:31)
[2017-01-28] MEDS: ROSUVASTATIN CA 10 MG TABLET (FP) PO SCH (21:57)
[2017-01-29] MEDS ORDERED: FUROSEMIDE 40 MG/4 ML INJECTABLE VIAL IVPB SCH (06:00)
[2017-01-29 08:57] LABS: BASOPHIL 0.3 % (0-2.0); MCH 25.3 pg (25.7-33.7); MEAN CELL VOLUME 81.8 fl (80-96); MEAN PLT VOLUME 8.2 fl (7.5-11.1); NEUTROPHILS 79.1 % (42.8-82.8); PLATELET COUNT 395 K/MM3 (134-434); RDW 16.1 % (11.6-15.6); WHITE BLOOD COUNT 10.5 K/mm3 (4.0-10.0)
--- NOTE | 2017-01-29 08:58 | PN ---
Physical Exam: SUBJECTIVE: Patient seen and examined feels tired. denies sob, chest pain, palpitations, abdominal pain, headache. OBJECTIVE: Vital Signs Period Temp Pulse Resp BP Sys/Gr[place] Pulse Ox Last 24 Hr 97 F-98.9 F 66-78 18-21 114-136/59-77 94-96 GENERAL: The patient is easily arousable, and fully oriented, in no acute distress. EYES: PERRL, extraocular movements intact ENT: oropharynx clear without exudates, moist mucous membranes. non-rebreather mask in place LUNGS: quiet on left base. clear in right. no wheezing or crackles. accessory muscle use, increased rate of respiration. HEART: S1, S2 systolic murmur ABDOMEN: Soft, nontender, nondistended, normoactive bowel sounds EXTREMITIES: 2+ pulses, warm, well-perfused, trace edema. Active Medications Generic Name Dose Route Start Last Admin Trade Name Freq PRN Reason Stop Dose Admin Acetaminophen 650 mg 01/25/17 16:17 01/25/17 16:25 Tylenol - PO 650 mg Q6H PRN Administration FEVER OR PAIN Amlodipine Besylate 10 mg 01/26/17 10:00 01/28/17 11:10 Norvasc - PO 10 mg DAILY ALOK Administration Furosemide 40 mg 01/29/17 06:00 01/29/17 05:52 Lasix Injection - IVPB 40 mg BID@0600,1400 ALOK Administration Methimazole 5 mg 01/26/17 10:00 01/28/17 11:10 Tapazole - PO 5 mg DAILY ALOK Administration Nebivolol 10 mg 01/26/17 10:00 01/28/17 11:09 Bystolic - PO 10 mg DAILY ALOK Administration Pantoprazole Sodium 40 mg 01/26/17 10:00 01/28/17 11:10 Protonix - PO 40 mg DAILY ALOK Administration Ranolazine 500 mg 01/25/17 22:00 01/28/17 21:57 Ranexa - PO 500 mg BID ALOK Administration Rosuvastatin Calcium 10 mg 01/25/17 22:00 01/28/17 21:57 Crestor - PO 10 mg HS ALOK Administration ASSESSMENT/PLAN: 86 y/o woman multiple co-morbidities presented with difficulty breathing admitted for acute on chronic diastolic CHF. - MRI unable to be completed due to pt's surgical history #Episodes of hypoxia - likely from chf/pleural effusion, maintain on non- rebreather, Bipap as needed - repeat cxry in the am, echo in the AM to reasses cardiac function as pt continues to have SOB despite increased doses of lasix #Acute on Chronic CHF Exacerbation(given bnp, weight increase) - today's weight is 182lbs(standing scale), 190 yesterday (built in scale) - Lasix 60mg IVPB BID - daily weights, I&O monitoring - Dr. Castellon consulted #MADONNA on CKD - improved - Likely cardiorenal in nature, nephro consulted; left renal cyst seen on renal u/s, no hydro noted. - Will continue to monitor renal function, continue with lasix with close monitering - hold allopurinol #Supratherapeutic INR - INR trending up, unclear etiology;pt is not on medication that prevent warfarin metabolism, continue to trend - vitamin K 5mg po today - repeat in the morning - hold coumadin, avoid aspirin #HTN - Continue Bystolic, Norvasc - as per cardio, will resume benicar once renal function improves #Afib - persistent - currently rate controlled - repeat INR, goal 2.5-3.5 #HLD - crestor 10mg po hs #Hyperthyroidism - methimazole 5mg po daily #Diet: low sodium, chopped, no dairy #DVT - supratheruapuetic INR, given le edema no scd's Code status: DNR/DNI Visit type - Emergency Visit Emergency Visit: No - New Patient This patient is new to me today: No - Critical Care Critical Care patient: No - Discharge Referral Referred to [facility] No
[2017-01-29 09:31] LABS: ALBUMIN 2.6 g/dl (3.4-5.0); BILIRUBIN,TOTAL 0.9 mg/dL (0.2-1.0); CALCIUM 10.6 mg/dL (8.5-10.1); CREATININE 2.7 mg/dL (0.55-1.02); TOT PROT 6.6 g/dl (6.4-8.2)
[2017-01-29 09:58] LABS: PROTHROMBIN TIME (PATIENT) 129.7 SEC (9.98-11.88)
[2017-01-29 10:00] LABS: INR 11.22 (0.82-1.09)
--- NOTE | 2017-01-29 10:01 | PN ---
Progress Note, Physician Chief Complaint: Events noted Dyspnea persists Currently on O2 via NRB History of Present Illness: Patient was seen and examined. Awake and alert. Chart was reviewed Denies chest pain or palpitations Dyspnea persists - Current Medication List Current Medications: Active Medications Acetaminophen (Tylenol -) 650 mg PO Q6H PRN PRN Reason: FEVER OR PAIN Last Admin: 01/25/17 16:25 Dose: 650 mg Amlodipine Besylate (Norvasc -) 10 mg PO DAILY [facility] Last Admin: 01/28/17 11:10 Dose: 10 mg Furosemide (Lasix Injection -) 40 mg IVPB BID@0600,1400 [facility] Last Admin: 01/29/17 05:52 Dose: 40 mg Methimazole (Tapazole -) 5 mg PO DAILY [facility] Last Admin: 01/28/17 11:10 Dose: 5 mg Nebivolol (Bystolic -) 10 mg PO DAILY [facility] Last Admin: 01/28/17 11:09 Dose: 10 mg Pantoprazole Sodium (Protonix -) 40 mg PO DAILY [facility] Last Admin: 01/28/17 11:10 Dose: 40 mg Ranolazine (Ranexa -) 500 mg PO BID [facility] Last Admin: 01/28/17 21:57 Dose: 500 mg Rosuvastatin Calcium (Crestor -) 10 mg PO HS [facility] Last Admin: 01/28/17 21:57 Dose: 10 mg - Objective Vital Signs: Vital Signs Temperature 98 F 01/29/17 06:00 Pulse Rate 78 01/29/17 06:00 Respiratory Rate 20 01/29/17 06:00 Blood Pressure 122/66 01/29/17 06:00 O2 Sat by Pulse Oximetry (%) 94 L 01/28/17 20:41 Neck: Yes: Supple Cardiovascular: Yes: Regular Rate and Rhythm, Murmur (Soft SM), S1, S2 Respiratory: Yes: Diminished, On Venti-Mask, SOB Gastrointestinal: Yes: Normal Bowel Sounds, Soft. No: Tenderness Edema: No Additional Findings/Remarks: - Review of Systems Constitutional: denies: Chills, Fever Cardiovascular: denies: Chest Pain, (+) Shortness of Breath. denies: Palpitations Respiratory: (+) Cough, SOB. denies: Hemoptysis, Orthopnea, PND Gastrointestinal: denies: Abdominal Pain, Constipation, Diarrhea, Melena, Nausea , Rectal Bleeding, Vomiting Genitourinary: denies: Dysuria Neurological: denies: Dizziness. denies: Headache, Seizure, Syncope Labs: CBC, BMP 01/29/17 08:25 01/29/17 08:25 INR, PTT INR 9.85 (0.82-1.09) H* D 01/28/17 05:40 Problem List - Problems (1) Acute exacerbation of CHF (congestive heart failure) Code(s): I50.9 - HEART FAILURE, UNSPECIFIED Qualifiers: Congestive heart failure type: diastolic Qualified Code(s): I50.33 - Acute on chronic diastolic (congestive) heart failure (2) Cerebrovascular disease Code(s): I67.9 - CEREBROVASCULAR DISEASE, UNSPECIFIED (3) Coumadin toxicity Code(s): T45.511A - POISONING BY ANTICOAGULANTS, ACCIDENTAL, INIT (4) A-fib Code(s): I48.91 - UNSPECIFIED ATRIAL FIBRILLATION Qualifiers: Atrial fibrillation type: persistent Qualified Code(s): I48.1 - Persistent atrial fibrillation (5) Oihqt-uf-psatglg kidney injury Code(s): N17.9 - ACUTE KIDNEY FAILURE, UNSPECIFIED N18.9 - CHRONIC KIDNEY DISEASE, UNSPECIFIED (6) Anemia Code(s): D64.9 - ANEMIA, UNSPECIFIED Qualifiers: Anemia type: unspecified type Qualified Code(s): D64.9 - Anemia, unspecified (7) CAD (coronary artery disease) Code(s): I25.10 - ATHSCL HEART DISEASE OF [place] CORONARY ARTERY W/O ANG PCTRS Qualifiers: Coronary Disease-Associated Artery/Lesion type: [place] artery [place] vs. transplanted heart: [place] heart Associated angina: without angina Qualified Code(s): I25.10 - Atherosclerotic heart disease of [place] coronary artery without angina pectoris (8) HLD (hyperlipidemia) Code(s): E78.5 - HYPERLIPIDEMIA, UNSPECIFIED Qualifiers: Hyperlipidemia type: pure hypercholesterolemia Qualified Code(s): E78.0 - Pure hypercholesterolemia (9) Hypertensive cardiomyopathy Code(s): I11.9 - HYPERTENSIVE HEART DISEASE WITHOUT HEART FAILURE I42.9 - CARDIOMYOPATHY, UNSPECIFIED Qualifiers: Heart failure presence: with heart failure Qualified Code(s): I11.0 - Hypertensive heart disease with heart failure (10) S/P aortic valve replacement with bioprosthetic valve Code(s): Z95.4 - PRESENCE OF OTHER HEART-VALVE REPLACEMENT (12) Shortness of breath Code(s): R06.02 - SHORTNESS OF BREATH Assessment/Plan 1. Possible syncopal episode - hemodynamically stable 2. Recurrent acute on chronic diastolic failure 3. History of MVR and AVR (bioprosthesis) with elevated trans-aortic gradient, consider prosthesis-patient mismatch 4. Acute on CKD 5. CAD, angina pectoris 6. Persistent atrial fibrillation on Coumadin with supratherapeutic INR 7. Hyperlipidemia 8. Hyperuricemia 9. Left breast ca s/p mastectomy 10. Hyperthyroidism 11. PVC 12. Anemia 13. Cerebrovascular disease PLAN: 1. Continue Lasix IV with monitoring renal function and electrolytes 2. Continue Bystolic 10 mg QD, Norvasc 10 mg QD, Ranexa 500 mg BID, Crestor 10 mg QHS and hold Coumadin until INR is normalized. Patient can be given Vitamin K as needed. Resume Benicar or equivalent once renal function stabilizes. 3. Continue telemetry monitoring 4. Transthoracic echocardiography reveals mildly elevated transaortic gradient which should be closely followed. Patient certainly would not be an ideal candidate for reop Further plans are to follow Daljit Pereira MD
[2017-01-29] MEDS ORDERED: PHYTONADIONE 5 MG TABLET PO ONE (10:30)
[2017-01-29] MEDS ORDERED: PT OWN MED DRAWER 7, Y5N ONE (11:08)
[2017-01-29] MEDS: NEBIVOLOL 10 MG TABLET (FP) PO SCH (11:19)
[2017-01-29] MEDS: METHIMAZOLE 5 MG TABLET (FP) PO SCH (11:19)
[2017-01-29] MEDS: amLODIPine BESYLATE 10 MG TABLET (FP) PO SCH (11:20)
--- NOTE | 2017-01-29 12:14 | PN ---
Progress Note (short form) - Note Progress Note: RENAL Pt awake and alert had a facemask on denied complaints pt is able to answer questions Last Vital Signs Temp Pulse Resp BP Pulse Ox 98 F 78 20 122/66 94 L 01/29/17 06:00 01/29/17 06:00 01/29/17 06:00 01/29/17 06:00 01/28/17 20:41 lungs decreased breath sounds bilat cvs s1s2 irreg, +lm abd soft, obese ext +edema bilat neuro alert CBC, BMP 01/29/17 08:25 01/29/17 08:25 Current Medications Current Medications Generic Name Dose Route Start Last Admin Trade Name Freq PRN Reason Stop Dose Admin Acetaminophen 650 mg 01/25/17 16:17 01/25/17 16:25 Tylenol - PO 650 mg Q6H PRN Administration FEVER OR PAIN Amlodipine Besylate 10 mg 01/26/17 10:00 01/29/17 11:20 Norvasc - PO 10 mg DAILY ALOK Administration Furosemide 60 mg 01/29/17 10:06 Lasix Injection - IVPB BID@0600,1400 ALOK Methimazole 5 mg 01/26/17 10:00 01/29/17 11:19 Tapazole - PO 5 mg DAILY ALOK Administration Nebivolol 10 mg 01/26/17 10:00 01/29/17 11:19 Bystolic - PO 10 mg DAILY ALOK Administration Pantoprazole Sodium 40 mg 01/29/17 11:13 Protonix Packets For Oral Suspension - GT DAILY ALOK Rosuvastatin Calcium 10 mg 01/25/17 22:00 01/28/17 21:57 Crestor - PO 10 mg HS ALOK Administration Impression 1. MADONNA- probable cardiorenal. Had a very low urine sodium despite edema and high creat 2. CKD - creatinine has been elevated on previous labs 3. CHF 4. coumadin toxicity 5. valvular heart disease 6. s/p bio-MVR and AVR 7. hyperlipidemia 8. atrial fibrillation 9. anemia 10. hx of breast cancer 11 hypercalcemia with a corrected calcium of over 11 Plan - agree with lasix as pt has edema and pleural effusions - renal sono report reviewed. No hydro - check pth - ?bone scan - agree with higher dose of lasix since she has edema and her creatinine is actually better MV
[2017-01-29] MEDS: FUROSEMIDE 40 MG/4 ML INJECTABLE VIAL IVPB SCH (15:53)
--- NOTE | 2017-01-29 16:06 | PN ---
Teaching Attending Note Name of Resident: Tamara Keyes ATTENDING PHYSICIAN STATEMENT I saw and evaluated the patient. I reviewed the resident's note and discussed the case with the resident. I agree with the resident's findings and plan as documented. Patient is feeling slightly better but feels tired. Vital Signs Temperature 98.2 F 01/29/17 14:05 Pulse Rate 76 01/29/17 14:05 Respiratory Rate 20 01/29/17 14:05 Blood Pressure 127/64 01/29/17 14:05 O2 Sat by Pulse Oximetry (%) 94 L 01/28/17 20:41 CBCD WBC 10.5 K/mm3 (4.0-10.0) H 01/29/17 08:25 RBC 3.74 M/mm3 (3.60-5.2) 01/29/17 08:25 Hgb 9.5 GM/dL (10.7-15.3) L 01/29/17 08:25 Hct 30.6 % (32.4-45.2) L 01/29/17 08:25 MCV 81.8 fl (80-96) 01/29/17 08:25 MCHC 31.0 g/dl (32.0-36.0) L 01/29/17 08:25 RDW 16.1 % (11.6-15.6) H 01/29/17 08:25 Plt Count 395 K/MM3 (134-434) 01/29/17 08:25 MPV 8.2 fl (7.5-11.1) 01/29/17 08:25 CMP Sodium 144 mmol/L (136-145) 01/29/17 08:25 Potassium 4.0 mmol/L (3.5-5.1) 01/29/17 08:25 Chloride 103 mmol/L (98-107) 01/29/17 08:25 Carbon Dioxide 34 mmol/L (21-32) H 01/29/17 08:25 Anion Gap 7 (8-16) L 01/29/17 08:25 BUN 60 mg/dL (7-18) H 01/29/17 08:25 Creatinine 2.7 mg/dL (0.55-1.02) H D 01/29/17 08:25 Creat Clearance w eGFR 16.67 (>60) 01/29/17 08:25 Random Glucose 104 mg/dL (74-106) 01/29/17 08:25 Calcium 10.6 mg/dL (8.5-10.1) H 01/29/17 08:25 Total Bilirubin 0.9 mg/dL (0.2-1.0) 01/29/17 08:25 AST 25 U/L (15-37) 01/29/17 08:25 ALT 15 U/L (12-78) 01/29/17 08:25 Alkaline Phosphatase 78 U/L (45-117) 01/29/17 08:25 Total Protein 6.6 g/dl (6.4-8.2) 01/29/17 08:25 Albumin 2.6 g/dl (3.4-5.0) L 01/29/17 08:25 CARDIAC ENZYMES Creatine Kinase 217 IU/L (26-192) H D 01/26/17 07:25 Troponin I 0.03 ng/ml (0.00-0.05) 01/26/17 07:25 Current Medications Generic Name Dose Route Start Last Admin Trade Name Freq PRN Reason Stop Dose Admin Acetaminophen 650 mg 01/25/17 16:17 01/25/17 16:25 Tylenol - PO 650 mg Q6H PRN Administration FEVER OR PAIN Amlodipine Besylate 10 mg 01/26/17 10:00 01/29/17 11:20 Norvasc - PO 10 mg DAILY ALOK Administration Furosemide 60 mg 01/29/17 10:06 01/29/17 15:53 Lasix Injection - IVPB 60 mg BID@0600,1400 ALOK Administration Methimazole 5 mg 01/26/17 10:00 01/29/17 11:19 Tapazole - PO 5 mg DAILY ALOK Administration Nebivolol 10 mg 01/26/17 10:00 01/29/17 11:19 Bystolic - PO 10 mg DAILY ALOK Administration Pantoprazole Sodium 40 mg 01/29/17 11:13 Protonix Packets For Oral Suspension - GT DAILY ALOK Rosuvastatin Calcium 10 mg 01/25/17 22:00 01/28/17 21:57 Crestor - PO 10 mg HS ALOK Administration Home Medications Medication Instructions Recorded Allopurinol [Zyloprim -] 100 mg PO DAILY 12/21/16 Cholecalciferol (Vitamin D3) 50,000 unit PO MONTHLY 12/21/16 [Vitamin D -] Methimazole [Tapazole] 5 mg PO DAILY 12/21/16 Nebivolol HCl [Bystolic] 10 mg PO DAILY 12/21/16 Omeprazole 40 mg PO DAILY 12/21/16 Ranolazine [Ranexa] 500 mg PO BID 12/21/16 Rosuvastatin Calcium [Crestor] 10 mg PO HS 12/21/16 Amlodipine Besylate [Norvasc -] 10 mg PO DAILY #30 tablet 12/23/16 Torsemide [Demadex -] 10 mg PO DAILY #30 tablet 12/23/16 Warfarin Na [Coumadin -] 5 mg PO DAILY #0 12/23/16 Chest xray with left lower lobe consiladation/atelectasis/pna with moderate left pleural effusion ( no effusion on cxy 12/21/2016, 12/19/[address] shows small left and trace right pleural effusion), ECHO :EJF 51% , Moderate to severe TR ASSESSMENT AND PLAN: 86 y/o woman multiple co-morbidities presented with difficulty breathing admitted for acute on chronic diastolic CHF. # Acute Hypoxia continues , patient on VM 50% otherwise her saturation drops due to her Pulmonary congestion ; will repeat CXR in am, also discussed with where suggested that we repeat the ECHo since continues to have Pulmonary Congestion despite on Lasix IV 40mg bid , also increased the dose of Lasix to 60mg IV bid , will continue with VM 50% keep sat above 91% , will get CXr in am. Bipap at bed time prn. #Acute on Chronic diastolic CHF Exacerbation with EJF of 51% on 12/23/2016; will reapeat the ECHO as per discussion with , also increased Lasix 40mg to 60mg IVPB BID since patient is still SOB and has pulmonary congestion , daily weights, Is&Os monitoring, cardiology on the case, de oliveira catheter for Is and Os continue #MADONNA on CKD BUN/Cr 62/3.--63/3.4-->65/3.4-->60/2.7 today with Supratherapeutic INR of 25--> 6--> 9-->11. today will give her another dose of vit K 5mg po. Nephro consult appreciated. #Supratherapeutic INR from 25---> 6--->9-->11 today , no signs of bleeding , repeat in am the level s/p FFP and Vit K 5mg, hold coumadin, avoid aspirin will give another dose of vit.K 5mg po #CAD Continue Bystolic closely monitor renal function # paroxysmal aflutter [id number] off coumadin since INR is elevated ; repeat INR, goal 2.5-3.5. s/p Vit K and FFP will give another dose of vitamin k 5mg #HLD crestor 10mg po hs # Hx of Hyperthroidism on Tapazole will monitor # Left breast ca s/p mastectomy #Diet: low sodium #DVT - supratheruapuetic INR, given le edema;no scd's Code status: DNR/DNI
[2017-01-29] MEDS: ROSUVASTATIN CA 10 MG TABLET (FP) PO SCH (21:46)
[2017-01-30] MEDS: FUROSEMIDE 40 MG/4 ML INJECTABLE VIAL IVPB SCH ×2 (05:23→14:17)
[2017-01-30 08:31] LABS: BASOPHIL 0.4 % (0-2.0); EOSINOPHIL 0.6 % (0-4.5); MCH 25.2 pg (25.7-33.7); MCHC 30.8 g/dl (32.0-36.0); MEAN PLT VOLUME 8.4 fl (7.5-11.1); NEUTROPHILS 79.3 % (42.8-82.8); PLATELET COUNT 425 K/MM3 (134-434); WHITE BLOOD COUNT 11.6 K/mm3 (4.0-10.0)
[2017-01-30 08:42] LABS: INR 2.26 (0.82-1.09); PROTHROMBIN TIME (PATIENT) 25.3 SEC (9.98-11.88)
--- NOTE | 2017-01-30 08:42 | PN ---
Teaching Attending Note Name of Resident: Tamara Keyes ATTENDING PHYSICIAN STATEMENT I saw and evaluated the patient. I reviewed the resident's note and discussed the case with the resident. I agree with the resident's findings and plan as documented. Patient is feeling better on NC today, improved her breathing , was on VM and Bipap at night but needing only NC now Vital Signs Temperature 97.9 F 01/30/17 05:00 Pulse Rate 70 01/30/17 05:00 Respiratory Rate 20 01/30/17 05:00 Blood Pressure 135/72 01/30/17 05:00 O2 Sat by Pulse Oximetry (%) 96 01/29/17 21:00 CBCD WBC 11.6 K/mm3 (4.0-10.0) H 01/30/17 07:50 RBC 3.74 M/mm3 (3.60-5.2) 01/30/17 07:50 Hgb 9.4 GM/dL (10.7-15.3) L 01/30/17 07:50 Hct 30.6 % (32.4-45.2) L 01/30/17 07:50 MCV 82.0 fl (80-96) 01/30/17 07:50 MCHC 30.8 g/dl (32.0-36.0) L 01/30/17 07:50 RDW 16.0 % (11.6-15.6) H 01/30/17 07:50 Plt Count 425 K/MM3 (134-434) 01/30/17 07:50 MPV 8.4 fl (7.5-11.1) 01/30/17 07:50 CMP Sodium 146 mmol/L (136-145) H 01/30/17 07:50 Potassium 3.7 mmol/L (3.5-5.1) 01/30/17 07:50 Chloride 103 mmol/L (98-107) 01/30/17 07:50 Carbon Dioxide 34 mmol/L (21-32) H 01/30/17 07:50 Anion Gap 9 (8-16) 01/30/17 07:50 BUN 57 mg/dL (7-18) H 01/30/17 07:50 Creatinine 2.3 mg/dL (0.55-1.02) H 01/30/17 07:50 Creat Clearance w eGFR 20.06 (>60) 01/30/17 07:50 Random Glucose 113 mg/dL (74-106) H 01/30/17 07:50 Calcium 10.6 mg/dL (8.5-10.1) H 01/30/17 07:50 Total Bilirubin 1.3 mg/dL (0.2-1.0) H D 01/30/17 07:50 AST 31 U/L (15-37) D 01/30/17 07:50 ALT 15 U/L (12-78) 01/30/17 07:50 Alkaline Phosphatase 83 U/L (45-117) 01/30/17 07:50 Total Protein 6.7 g/dl (6.4-8.2) 01/30/17 07:50 Albumin 2.7 g/dl (3.4-5.0) L 01/30/17 07:50 CARDIAC ENZYMES Creatine Kinase 217 IU/L (26-192) H D 01/26/17 07:25 Troponin I 0.03 ng/ml (0.00-0.05) 01/26/17 07:25 CARDIAC ENZYMES Creatine Kinase 217 IU/L (26-192) H D 01/26/17 07:25 Troponin I 0.03 ng/ml (0.00-0.05) 01/26/17 07:25 Current Medications Generic Name Dose Route Start Last Admin Trade Name Freq PRN Reason Stop Dose Admin Acetaminophen 650 mg 01/25/17 16:17 01/25/17 16:25 Tylenol - PO 650 mg Q6H PRN Administration FEVER OR PAIN Amlodipine Besylate 5 mg 01/29/17 16:16 Norvasc - PO DAILY ALOK Furosemide 60 mg 01/29/17 10:06 01/30/17 05:23 Lasix Injection - IVPB 60 mg BID@0600,1400 ALOK Administration Methimazole 5 mg 01/26/17 10:00 01/29/17 11:19 Tapazole - PO 5 mg DAILY ALOK Administration Nebivolol 10 mg 01/26/17 10:00 01/29/17 11:19 Bystolic - PO 10 mg DAILY ALOK Administration Pantoprazole Sodium 40 mg 01/29/17 11:13 Protonix Packets For Oral Suspension - GT DAILY ALOK Rosuvastatin Calcium 10 mg 01/25/17 22:00 01/29/17 21:46 Crestor - PO 10 mg HS COUNT INCLUDES THE [facility] Administration Home Medications Medication Instructions Recorded Allopurinol [Zyloprim -] 100 mg PO DAILY 12/21/16 Cholecalciferol (Vitamin D3) 50,000 unit PO MONTHLY 12/21/16 [Vitamin D -] Methimazole [Tapazole] 5 mg PO DAILY 12/21/16 Nebivolol HCl [Bystolic] 10 mg PO DAILY 12/21/16 Omeprazole 40 mg PO DAILY 12/21/16 Ranolazine [Ranexa] 500 mg PO BID 12/21/16 Rosuvastatin Calcium [Crestor] 10 mg PO HS 12/21/16 Amlodipine Besylate [Norvasc -] 10 mg PO DAILY #30 tablet 12/23/16 Torsemide [Demadex -] 10 mg PO DAILY #30 tablet 12/23/16 Warfarin Na [Coumadin -] 5 mg PO DAILY #0 12/23/16 Chest xray with left lower lobe consiladation/atelectasis/pna with moderate left pleural effusion ( no effusion on cxy 12/21/2016, 12/19/[address] shows small left and trace right pleural effusion), ECHO :EJF 51% , Moderate to severe TR ASSESSMENT AND PLAN: 86 y/o woman multiple co-morbidities presented with difficulty breathing admitted for acute on chronic diastolic CHF. # Acute Hypoxia due to Pulmonary congestion improving on NC now saturation of 95 % ; will repeat CXR in am, repeat the ECHo result reviewed continue Lasix IV 60mg bid , Bipap at bed time prn. #Acute on Chronic diastolic CHF Exacerbation with EJF of 51% on 12/23/2016; repeat ECHO reviewed continue 60mg IVPB BID for 1 more day then will adjust the dose , daily weights, Is&Os monitoring, cardiology on the case, foly catheter for Is and Os to continue #MADONNA on CKD BUN/Cr 62/3.--63/3.4-->65/3.4-->60/2.7-->57/2.3 today with INR of 25 --> 6--> 9-->11-->2.26 . Nephro consult appreciated. #s/p Supratherapeutic INR from 25---> 6--->9-->11--> 2.26 today , repeat level in am s/p FFP and Vit K 5mg, continue coumadin, avoid aspirin will give another dose of vit.K 5mg po #CAD Continue Bystolic closely monitor renal function # paroxysmal aflutter [id number] continue coumadin since INR is 2.26 today; repeat INR, goal 2.5-3.5. s/p Vit K x2 doses and FFP #HLD crestor 10mg po hs # Hx of Hyperthroidism on Tapazole will monitor # Left breast ca s/p mastectomy #Diet: low sodium #DVT - on coumadin Code status: DNR/DNI
[2017-01-30 08:58] LABS: ALBUMIN 2.7 g/dl (3.4-5.0); BILIRUBIN,TOTAL 1.3 mg/dL (0.2-1.0); CALCIUM 10.6 mg/dL (8.5-10.1); CREATININE 2.3 mg/dL (0.55-1.02); TOT PROT 6.7 g/dl (6.4-8.2)
[2017-01-30 09:07] LABS: THYROID STIMULATING HORMONE 3.37 uIU/ml (0.358-3.74)
--- NOTE | 2017-01-30 09:39 | PN ---
Physical Exam: SUBJECTIVE: Patient seen and examined Says she feels well, says she has no trouble swallowing. Denies sob, chest pain, palpitations. OBJECTIVE: Vital Signs Period Temp Pulse Resp BP Sys/Grissom Pulse Ox Last 24 Hr 97.9 F-98.4 F 70-82 20-20 119-140/62-73 96 GENERAL: The patient is awake, alert, and fully oriented, in no acute distress. EYES: extraocular movements intact, sclera anicteric, conjunctiva clear. ENT: oropharynx clear without exudates, nasal cannula in the place, breathing through pursed lips. NECK: Trachea midline, full range of motion, supple. LUNGS: Breath sounds equal, clear in right lung, quiet on left base. without wheezing/crackles. HEART: rate-controlled and irregular rhythm, S1, S2 with systolic murmur ABDOMEN: Soft, nontender, nondistended, normoactive bowel sounds, no guarding, no rebound. EXTREMITIES: 2+ pulses, warm, well-perfused, no edema. Laboratory Results - last 24 hr 01/29/17 01/30/17 01/30/17 08:25 07:50 07:50 WBC RBC Hgb Hct MCV MCHC RDW Plt Count MPV Neutrophils % Lymphocytes % Monocytes % Eosinophils % Basophils % INR 11.22 H* 2.26 H D Sodium 146 H Potassium 3.7 Chloride 103 Carbon Dioxide 34 H Anion Gap 9 BUN 57 H Creatinine 2.3 H Creat Clearance w eGFR 20.06 Random Glucose 113 H Calcium 10.6 H Total Bilirubin 1.3 H D AST 31 D ALT 15 Alkaline Phosphatase 83 Total Protein 6.7 Albumin 2.7 L TSH 3.37 D 01/30/17 07:50 WBC 11.6 H RBC 3.74 Hgb 9.4 L Hct 30.6 L MCV 82.0 MCHC 30.8 L RDW 16.0 H Plt Count 425 MPV 8.4 Neutrophils % 79.3 Lymphocytes % 8.7 D Monocytes % 11.0 H Eosinophils % 0.6 Basophils % 0.4 INR Sodium Potassium Chloride Carbon Dioxide Anion Gap BUN Creatinine Creat Clearance w eGFR Random Glucose Calcium Total Bilirubin AST ALT Alkaline Phosphatase Total Protein Albumin TSH Active Medications Generic Name Dose Route Start Last Admin Trade Name Freq PRN Reason Stop Dose Admin Acetaminophen 650 mg 01/25/17 16:17 01/25/17 16:25 Tylenol - PO 650 mg Q6H PRN Administration FEVER OR PAIN Amlodipine Besylate 5 mg 01/29/17 16:16 Norvasc - PO DAILY ALOK Furosemide 60 mg 01/29/17 10:06 01/30/17 05:23 Lasix Injection - IVPB 60 mg BID@0600,1400 ALOK Administration Methimazole 5 mg 01/26/17 10:00 01/29/17 11:19 Tapazole - PO 5 mg DAILY ALOK Administration Nebivolol 10 mg 01/26/17 10:00 01/29/17 11:19 Bystolic - PO 10 mg DAILY ALOK Administration Pantoprazole Sodium 40 mg 01/29/17 11:13 Protonix Packets For Oral Suspension - GT DAILY ALOK Rosuvastatin Calcium 10 mg 01/25/17 22:00 01/29/17 21:46 Crestor - PO 10 mg HS ALOK Administration ASSESSMENT/PLAN: 86 y/o woman multiple co-morbidities presented with difficulty breathing admitted for acute on chronic diastolic CHF. - MRI unable to be completed due to pt's surgical history - despite pt denying SOB, she is breathing through pursed lips with accessory muscle use. few episodes of hypoxia recorded overnight on monitor, maintain on continous oxygen, Bipap as needed #Episodes of hypoxia - repeat cxry unchanged, Chest CT with aeration maintained in lungs with imaging findings consistent with obstructive type emhypema without overt pulmonary interstial edema. small pleural effusion at both bases and compressive atelectasis of both lower lobe segments. - echo to assess cardiac transaortic gradient #COPD - maintain on nasal cannula. #Acute on Chronic CHF Exacerbation(given bnp, weight increase) - Lasix 60mg IVPB BID - daily weights, I&O monitoring(net negative fluid balance for past 3 days). de oliveira placed 01/26 - Dr. Castellon consulted #MADONNA on CKD - improving - Likely cardiorenal in nature, nephro consulted; left renal cyst seen on renal u/s, no hydro noted. - Will continue to monitor renal function, continue with lasix with close monitering - hold allopurinol #Supratherapeutic INR - INR decreased today, will resume warfarin 5mg po daily - repeat in the morning - coumadin #HTN - Continue Bystolic, Norvasc - as per cardio, will resume benicar once renal function improves #Afib - persistent - currently rate controlled - repeat INR, goal 2.5-3.5 #HLD - crestor 10mg po hs #Hyperthyroidism - methimazole 5mg po daily #Diet: low sodium, chopped, no dairy #DVT - supratheruapuetic INR, given le edema no scd's Code status: DNR/DNI Visit type - Emergency Visit Emergency Visit: No - New Patient This patient is new to me today: No - Critical Care Critical Care patient: No - Discharge Referral Referred to [facility] No
--- NOTE | 2017-01-30 10:19 | PN ---
Progress Note, Physician Chief Complaint: Events noted Dyspnea persists, but appears a little better History of Present Illness: Patient was seen and examined. Awake and alert. Chart was reviewed Denies chest pain or palpitations Dyspnea persists, feels better Transthoracic echocardiography ordered Tolerating Furosemide - Current Medication List Current Medications: Active Medications Acetaminophen (Tylenol -) 650 mg PO Q6H PRN PRN Reason: FEVER OR PAIN Last Admin: 01/25/17 16:25 Dose: 650 mg Amlodipine Besylate (Norvasc -) 5 mg PO DAILY [facility] Furosemide (Lasix Injection -) 60 mg IVPB BID@0600,1400 [facility] Last Admin: 01/30/17 05:23 Dose: 60 mg Methimazole (Tapazole -) 5 mg PO DAILY [facility] Last Admin: 01/29/17 11:19 Dose: 5 mg Nebivolol (Bystolic -) 10 mg PO DAILY [facility] Last Admin: 01/29/17 11:19 Dose: 10 mg Pantoprazole Sodium (Protonix Packets For Oral Suspension -) 40 mg GT DAILY [facility] Rosuvastatin Calcium (Crestor -) 10 mg PO HS [facility] Last Admin: 01/29/17 21:46 Dose: 10 mg - Objective Vital Signs: Vital Signs Temperature 97.9 F 01/30/17 05:00 Pulse Rate 70 01/30/17 05:00 Respiratory Rate 20 01/30/17 05:00 Blood Pressure 135/72 01/30/17 05:00 O2 Sat by Pulse Oximetry (%) 96 01/29/17 21:00 Neck: Yes: Supple Cardiovascular: Yes: Regular Rate and Rhythm, Murmur (Soft SM), S1, S2 Respiratory: Yes: Diminished Gastrointestinal: Yes: Normal Bowel Sounds, Soft. No: Tenderness Edema: No Additional Findings/Remarks: - Review of Systems Constitutional: denies: Chills, Fever Cardiovascular: denies: Chest Pain, (+) Shortness of Breath. denies: Palpitations Respiratory: (+) Cough, SOB. denies: Hemoptysis, Orthopnea, PND Gastrointestinal: denies: Abdominal Pain, Constipation, Diarrhea, Melena, Nausea , Rectal Bleeding, Vomiting Genitourinary: denies: Dysuria Neurological: denies: Dizziness. denies: Headache, Seizure, Syncope Labs: CBC, BMP 01/30/17 07:50 01/30/17 07:50 INR, PTT INR 2.26 (0.82-1.09) H D 01/30/17 07:50 - ....Imaging Chest X-ray: Report Reviewed Problem List - Problems (1) Acute exacerbation of CHF (congestive heart failure) Code(s): I50.9 - HEART FAILURE, UNSPECIFIED Qualifiers: Congestive heart failure type: diastolic Qualified Code(s): I50.33 - Acute on chronic diastolic (congestive) heart failure (2) Cerebrovascular disease Code(s): I67.9 - CEREBROVASCULAR DISEASE, UNSPECIFIED (3) Coumadin toxicity Code(s): T45.511A - POISONING BY ANTICOAGULANTS, ACCIDENTAL, INIT Qualifiers: Encounter type: sequela Injury intent: undetermined intent Qualified Code(s): T45.514S - Poisoning by anticoagulants, undetermined, sequela (4) A-fib Code(s): I48.91 - UNSPECIFIED ATRIAL FIBRILLATION Qualifiers: Atrial fibrillation type: persistent Qualified Code(s): I48.1 - Persistent atrial fibrillation (5) [id number] kidney injury Code(s): N17.9 - ACUTE KIDNEY FAILURE, UNSPECIFIED N18.9 - CHRONIC KIDNEY DISEASE, UNSPECIFIED (6) Anemia Code(s): D64.9 - ANEMIA, UNSPECIFIED Qualifiers: Anemia type: unspecified type Qualified Code(s): D64.9 - Anemia, unspecified (7) CAD (coronary artery disease) Code(s): I25.10 - ATHSCL HEART DISEASE OF [place] CORONARY ARTERY W/O ANG PCTRS Qualifiers: Coronary Disease-Associated Artery/Lesion type: [place] artery [place] vs. transplanted heart: [place] heart Associated angina: without angina Qualified Code(s): I25.10 - Atherosclerotic heart disease of [place] coronary artery without angina pectoris (8) HLD (hyperlipidemia) Code(s): E78.5 - HYPERLIPIDEMIA, UNSPECIFIED Qualifiers: Hyperlipidemia type: pure hypercholesterolemia Qualified Code(s): E78.0 - Pure hypercholesterolemia (9) Hypertensive cardiomyopathy Code(s): I11.9 - HYPERTENSIVE HEART DISEASE WITHOUT HEART FAILURE I42.9 - CARDIOMYOPATHY, UNSPECIFIED Qualifiers: Heart failure presence: with heart failure Qualified Code(s): I11.0 - Hypertensive heart disease with heart failure (10) S/P aortic valve replacement with bioprosthetic valve Code(s): Z95.4 - PRESENCE OF OTHER HEART-VALVE REPLACEMENT (12) Shortness of breath Code(s): R06.02 - SHORTNESS OF BREATH Assessment/Plan 1. Possible syncopal episode - hemodynamically stable 2. Recurrent acute on chronic diastolic failure 3. History of MVR and AVR (bioprosthesis) with elevated trans-aortic gradient, consider prosthesis-patient mismatch 4. Acute on CKD 5. CAD, angina pectoris 6. Persistent atrial fibrillation on Coumadin with supratherapeutic INR - now therapeutic 7. Hyperlipidemia 8. Hyperuricemia 9. Left breast ca s/p mastectomy 10. Hyperthyroidism 11. PVC 12. Anemia 13. Cerebrovascular disease PLAN: 1. Continue Lasix IV (increased yesterday) with monitoring renal function and electrolytes 2. Continue Bystolic 10 mg QD, Norvasc 10 mg QD, Ranexa 500 mg BID, Crestor 10 mg QHS and hold Coumadin until INR is normalized. Patient can be given Vitamin K as needed. Coumadin should be resumed with INR between 2 to 3. Resume Benicar or equivalent once renal function stabilizes. 3. Continue telemetry monitoring 4. Transthoracic echocardiography reveals mildly elevated transaortic gradient which should be closely followed. Patient certainly would not be an ideal candidate for reop, but echocardiography should be repeated nonetheless for further decision Further plans are to follow Daljit Pereira MD
[2017-01-30] MEDS: PANTOPRAZOLE SOD 40 MG SUSPENSION PACKET GT SCH (10:21)
[2017-01-30] MEDS: NEBIVOLOL 10 MG TABLET (FP) PO SCH (10:21)
[2017-01-30] MEDS: amLODIPine BESYLATE 5 MG TABLET (FP) PO SCH (10:21)
[2017-01-30] MEDS: METHIMAZOLE 5 MG TABLET (FP) PO SCH (10:21)
[2017-01-30] MEDS ORDERED: SENNOSIDES 8.6MG TABLET (FP) PO PRN (11:38)
[2017-01-30] MEDS ORDERED: DOCUSATE SODIUM 100 MG CAPSULE (FP) PO PRN (11:38)
--- NOTE | 2017-01-30 15:49 | PN ---
Progress Note, Physician History of Present Illness: Pt seen and examined at bedside. She still required oxygen. She denies chest pain or palpitations. - Current Medication List Current Medications: Active Medications Acetaminophen (Tylenol -) 650 mg PO Q6H PRN PRN Reason: FEVER OR PAIN Last Admin: 01/25/17 16:25 Dose: 650 mg Amlodipine Besylate (Norvasc -) 5 mg PO DAILY [facility] Last Admin: 01/30/17 10:21 Dose: 5 mg Docusate Sodium (Colace -) 100 mg PO BID PRN PRN Reason: CONSTIPATION Furosemide (Lasix Injection -) 60 mg IVPB BID@0600,1400 [facility] Last Admin: 01/30/17 14:17 Dose: 60 mg Methimazole (Tapazole -) 5 mg PO DAILY [facility] Last Admin: 01/30/17 10:21 Dose: 5 mg Nebivolol (Bystolic -) 10 mg PO DAILY [facility] Last Admin: 01/30/17 10:21 Dose: 10 mg Pantoprazole Sodium (Protonix Packets For Oral Suspension -) 40 mg GT DAILY [facility] Last Admin: 01/30/17 10:21 Dose: 40 mg Rosuvastatin Calcium (Crestor -) 10 mg PO HS [facility] Last Admin: 01/29/17 21:46 Dose: 10 mg Senna (Senna -) 2 tab PO HS PRN PRN Reason: CONSTIPATION Warfarin Sodium (Coumadin -) 5 mg PO DAILY@1800 [facility] - Objective Vital Signs: Vital Signs Temperature 99.4 F 01/30/17 09:00 Pulse Rate 79 01/30/17 11:57 Respiratory Rate 20 01/30/17 09:00 Blood Pressure 124/58 01/30/17 09:00 O2 Sat by Pulse Oximetry (%) 90 L 01/30/17 11:57 Constitutional: Yes: Calm Eyes: Yes: Conjunctiva Clear HENT: Yes: Atraumatic Neck: Yes: Supple Cardiovascular: Yes: Murmur, S1, S2 Respiratory: Yes: On Nasal O2 Gastrointestinal: Yes: Soft Genitourinary: Yes: Rico Present Musculoskeletal: Yes: Muscle Weakness Edema: Yes Edema: LLE: 1+, RLE: 1+ Neurological: Yes: Oriented Psychiatric: Yes: Oriented Labs: CBC, BMP 01/30/17 07:50 01/30/17 07:50 INR, PTT INR 2.26 (0.82-1.09) H D 01/30/17 07:50 Problem List - Problems (1) Acute exacerbation of CHF (congestive heart failure) Code(s): I50.9 - HEART FAILURE, UNSPECIFIED Qualifiers: Congestive heart failure type: diastolic Qualified Code(s): I50.33 - Acute on chronic diastolic (congestive) heart failure (2) Hyperthyroidism Code(s): E05.90 - THYROTOXICOSIS, UNSP WITHOUT THYROTOXIC CRISIS OR STORM (3) A-fib Code(s): I48.91 - UNSPECIFIED ATRIAL FIBRILLATION Qualifiers: Atrial fibrillation type: persistent Qualified Code(s): I48.1 - Persistent atrial fibrillation (4) Acute on chronic diastolic CHF (congestive heart failure) Code(s): I50.33 - ACUTE ON CHRONIC DIASTOLIC (CONGESTIVE) HEART FAILURE (5) Anemia Code(s): D64.9 - ANEMIA, UNSPECIFIED Qualifiers: Anemia type: unspecified type Qualified Code(s): D64.9 - Anemia, unspecified (6) Shortness of breath Code(s): R06.02 - SHORTNESS OF BREATH (7) Coumadin toxicity Code(s): T45.511A - POISONING BY ANTICOAGULANTS, ACCIDENTAL, INIT Qualifiers: Encounter type: sequela Injury intent: undetermined intent Qualified Code(s): T45.514S - Poisoning by anticoagulants, undetermined, sequela Assessment/Plan Current Medications Generic Name Dose Route Start Last Admin Trade Name Freq PRN Reason Stop Dose Admin Acetaminophen 650 mg 01/25/17 16:17 01/25/17 16:25 Tylenol - PO 650 mg Q6H PRN Administration FEVER OR PAIN Amlodipine Besylate 5 mg 01/29/17 16:16 01/30/17 10:21 Norvasc - PO 5 mg DAILY [facility] Administration Docusate Sodium 100 mg 01/30/17 11:38 Colace - PO BID PRN CONSTIPATION Furosemide 60 mg 01/29/17 10:06 01/30/17 14:17 Lasix Injection - IVPB 60 mg BID@0600,1400 [facility] Administration Methimazole 5 mg 01/26/17 10:00 01/30/17 10:21 Tapazole - PO 5 mg DAILY [facility] Administration Nebivolol 10 mg 01/26/17 10:00 01/30/17 10:21 Bystolic - PO 10 mg DAILY [facility] Administration Pantoprazole Sodium 40 mg 01/29/17 11:13 01/30/17 10:21 Protonix Packets For Oral Suspension - GT 40 mg DAILY [facility] Administration Rosuvastatin Calcium 10 mg 01/25/17 22:00 01/29/17 21:46 Crestor - PO 10 mg HS ALOK Administration Senna 2 tab 01/30/17 11:38 Senna - PO HS PRN CONSTIPATION Warfarin Sodium 5 mg 01/30/17 18:00 Coumadin - PO DAILY@1800 [facility] Laboratory Tests 01/26/17 11:00 Urine Protein 2+ H Urine Blood 1+ H Impression 1. MADONNA 2. CKD - creatinine has been elevated on previous labs 3. CHF 4. coumadin toxicity 5. valvular heart disease 6. s/p bio-MVR and AVR 7. hyperlipidemia 8. atrial fibrillation 9. anemia 10. hx of breast cancer 11. renal cyst Plan - renal function is improve - continue with diuretics - will check bmp tomorrow and likely restart arb if stable - cardiology input appreciated - monitor pulse ox - MADONNA likely from cardiorenal disease - renal cyst will need to be followed - urine studies reviewed and pt does have an active sediment, will check prt/ nurse chemical dependency ratio - repeat labs in am - will follow Dr Morse
[2017-01-30] MEDS ORDERED: WARFARIN NA 5 MG TABLET (UD) PO SCH (18:00)
[2017-01-30 20:56] LABS: URINE CREATININE 26.3 mg/dL
[2017-01-30] MEDS: ROSUVASTATIN CA 10 MG TABLET (FP) PO SCH (22:01)
[2017-01-31] MEDS: FUROSEMIDE 40 MG/4 ML INJECTABLE VIAL IVPB SCH ×2 (06:04→13:49)
[2017-01-31 07:44] LABS: MCH 25.2 pg (25.7-33.7); MEAN CELL VOLUME 81.4 fl (80-96); MEAN PLT VOLUME 8.1 fl (7.5-11.1); PLATELET COUNT 423 K/MM3 (134-434); RDW 16.6 % (11.6-15.6)
[2017-01-31 07:54] LABS: CREATININE 1.9 mg/dL (0.55-1.02)
[2017-01-31 08:00] LABS: INR 1.9 (0.82-1.09); PROTHROMBIN TIME (PATIENT) 21.2 SEC (9.98-11.88)
[2017-01-31] MEDS ORDERED: POTASSIUM CHLORIDE TABS 20 MEQ TABLET.ER (FP) PO ONE (09:21)
[2017-01-31] MEDS ORDERED: oxyCODONE HCL 5 MG TABLET PO ONE (09:22)
[2017-01-31] MEDS ORDERED: POLYETHYLENE GLYCOL 3350 119 GM BTL PO ONE (09:23)
[2017-01-31] MEDS: PANTOPRAZOLE SOD 40 MG SUSPENSION PACKET GT SCH (09:30)
[2017-01-31] MEDS: NEBIVOLOL 10 MG TABLET (FP) PO SCH (09:31)
[2017-01-31] MEDS: amLODIPine BESYLATE 5 MG TABLET (FP) PO SCH (09:32)
[2017-01-31 09:38] LABS: ARTERIAL BLD GAS O2 SATURATION 82.3 % (90-98.9); ARTERIAL BLOOD GAS HCO3 35.3 meq/L (22-26); ARTERIAL BLOOD GAS pH 7.44 (7.35-7.45)
[2017-01-31 09:39] LABS: ALLENS TEST POSITIVE; ART PUNCT SITE LEFT BRACHIAL; ARTERIAL BLOOD GAS PO2 48.5 mmHg (68-100); LPM/O2% 5L; PT. ON O2? YES; TYPE OF O2 NASAL CANNULA
[2017-01-31] MEDS: METHIMAZOLE 5 MG TABLET (FP) PO SCH (10:00)
--- NOTE | 2017-01-31 11:38 | PN ---
Progress Note (short form) - Note Progress Note: Chief Complaint: Events noted, notes reviewed, confused and disoriented, denies any chest pain, dyspnea persists but improving History of Present Illness: Seen and examined on telemetry. Events noted, notes reviewed, confused and disoriented, denies any chest pain, dyspnea persists but improving - Current Medication List Current Medications Acetaminophen (Tylenol -) 650 mg PO Q6H PRN PRN Reason: FEVER OR PAIN Last Admin: 01/25/17 16:25 Dose: 650 mg Amlodipine Besylate (Norvasc -) 5 mg PO DAILY [facility] Last Admin: 01/31/17 09:32 Dose: 5 mg Docusate Sodium (Colace -) 100 mg PO BID PRN PRN Reason: CONSTIPATION Furosemide (Lasix Injection -) 60 mg IVPB BID@0600,1400 [facility] Last Admin: 01/31/17 06:04 Dose: 60 mg Methimazole (Tapazole -) 5 mg PO DAILY [facility] Last Admin: 01/30/17 10:21 Dose: 5 mg Nebivolol (Bystolic -) 10 mg PO DAILY [facility] Last Admin: 01/31/17 09:31 Dose: 10 mg Pantoprazole Sodium (Protonix Packets For Oral Suspension -) 40 mg GT DAILY [facility] Last Admin: 01/31/17 09:30 Dose: 40 mg Rosuvastatin Calcium (Crestor -) 10 mg PO HS [facility] Last Admin: 01/30/17 22:01 Dose: 10 mg Senna (Senna -) 2 tab PO HS PRN PRN Reason: CONSTIPATION Warfarin Sodium (Coumadin -) 5 mg PO DAILY@1800 [facility] Last Admin: 01/30/17 17:26 Dose: 5 mg - Objective Vital Signs: Last Vital Signs Temp Pulse Resp BP Pulse Ox 98.6 F 76 20 137/68 95 01/31/17 06:00 01/31/17 06:00 01/31/17 06:00 01/31/17 06:00 01/30/17 21:00 Neck: Supple Negative JVD No Bruit Cardiovascular: S1 S2 Regular Rate and Rhythm Grade 2/6 JUNG Respiratory: Diminished at the Bases Bilaterally Gastrointestinal: Soft Benign Normal Bowel Sounds Ext: No edema Labs: CBC, BMP 01/31/17 07:20 01/31/17 07:20 INR, PTT INR 1.90 (0.82-1.09) H 01/31/17 07:20 Assessment/Plan ASSESSMENT: 1. Acute on chronic LV diastolic failure, class II-III NYHA classification LV failure, resolving 2. CAD, angina pectoris 3. History of MVR and AVR (Bio-prosthesis) with elevated trans-aortic gradient, restonosis vs. prosthesis-patient mismatch 4. Persistent atrial fibrillation on Coumadin with sub-therapeutic INR 5. HTN 6. Hyperlipidemia 7. Confusion and disorientation, OBS 8. Cerebrovascular disease 9. Hyperthyroidism 10. Acute on CKD 11. Hyperuricemia 12. Anemia PLAN: 1. Continue Lasix IV with close monitoring renal function and electrolytes 2. Continue Bystolic 3. Continue Norvasc 4. Continue Crestor 5. Continue Coumadin as per INR 6. Consider neurological evaluation for the above noted presentation Michael Gallo MD
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
--- NOTE | 2017-01-31 13:28 | CON.PULM ---
Consult Consult Specialty:: PULMONARY/CCM Referred by:: Dr. Keyes Reason for Consultation:: COPD - History of Present Illness Chief Complaint: shortness of breath History of Present Illness: 86yo female with h/o HTN, hyperlipidemia, CAD, LV diastolic dysfunction, pulmonary HTN, CKD, paroxysmal atrial flutter, s/p bioprosthetic MVR/AVR, h/o left breast ca s/p mastectomy, ILD who was admitted with worsening shortness of breath, cough and hypoxia. Started on IV diuresis, pt unable to provide history at this time as she is lethargic. Placed on NRB today after ABG showing low paO2. Per granddaughter at bedside, she is independent, conversant at baseline. No history of asthma or COPD. She was a remote smoker, quit more than [address] chest done yesterday showing congestive changes, bilateral effusions with compressive atelectasis. - History Source History Provided By: Family Member, Medical Record Limitations to Obtaining History: Clinical Condition - Past Medical History Cardio/Vascular: Yes: AFIB, CAD, CHF, HTN, Hyperlipdemia Renal/: Yes: Renal Inusuff - Past Surgical History Past Surgical History: Yes: Mastectomy (left), Valve Replacement - Alcohol/Substance Use Hx Alcohol Use: No - Smoking History Smoking history: Former smoker Have you smoked in the past 12 months: No If you are a former smoker, when did you quit?: 1996 Home Medications - Allergies Allergies/Adverse Reactions: Allergies Allergy/AdvReac Type Severity Reaction Status Date / Time No Known Allergies Allergy Verified 01/25/17 10:51 - Home Medications Home Medications: Ambulatory Orders Allopurinol [Zyloprim -] 100 mg PO DAILY 12/21/16 Cholecalciferol (Vitamin D3) [Vitamin D -] 50,000 unit PO MONTHLY 12/21/16 Methimazole [Tapazole] 5 mg PO DAILY 12/21/16 Nebivolol HCl [Bystolic] 10 mg PO DAILY 12/21/16 Omeprazole 40 mg PO DAILY 12/21/16 Ranolazine [Ranexa] 500 mg PO BID 12/21/16 Rosuvastatin Calcium [Crestor] 10 mg PO HS 12/21/16 Amlodipine Besylate [Norvasc -] 10 mg PO DAILY #30 tablet 12/23/16 Torsemide [Demadex -] 10 mg PO DAILY #30 tablet 12/23/16 Warfarin Na [Coumadin -] 5 mg PO DAILY #0 12/23/16 Family Disease History - Family Disease History Other Family History: non-contributory Review of Systems Unable to obtain ROS, reason: pt lethargic Physical Exam Vital Sings: Vital Signs Temperature 98 F 01/31/17 10:00 Pulse Rate 66 01/31/17 10:00 Respiratory Rate 18 01/31/17 10:00 Blood Pressure 120/52 01/31/17 10:00 O2 Sat by Pulse Oximetry (%) 92 L 01/31/17 09:00 Constitutional: Yes: Moderate Distress, Other (lethargic) Eyes: Yes: Conjunctiva Clear, EOM Intact HENT: Yes: Atraumatic, Normocephalic Neck: Yes: Supple, Trachea Midline Cardiovascular: Yes: Regular Rate and Rhythm Respiratory: Yes: Diminished (decreased breath sounds at the bases) ...Clubbing: No Gastrointestinal: Yes: Normal Bowel Sounds, Soft. No: Tenderness Edema: Yes (RUE) Neurological: Yes: Lethargy Labs: CBC, BMP 01/31/17 07:20 01/31/17 07:20 ABG Results ABG pH 7.44 (7.35-7.45) 01/31/17 09:35 ABG pCO2 at Pt Temp 52.8 mmHg (35-45) H 01/31/17 09:35 ABG pO2 at Pt Temp 48.5 mmHg (68-100) L* D 01/31/17 09:35 ABG HCO3 35.3 meq/L (22-26) H 01/31/17 09:35 ABG O2 Sat (Measured) 82.3 % (90-98.9) L 01/31/17 09:35 ABG O2 Content 10.9 % vol (15-22) L 01/31/17 09:35 ABG Base Excess 10.0 meq/l (-2-2) H 01/31/17 09:35 Imaging - Results Cat Scan: Report Reviewed, Image Reviewed (ground glass opacities, bilateral effusions, cardiomegaly, compressive atelectasis) Problem List - Problems (1) Altered mental status Code(s): R41.82 - ALTERED MENTAL STATUS, UNSPECIFIED (2) Acute on chronic diastolic CHF (congestive heart failure) Code(s): I50.33 - ACUTE ON CHRONIC DIASTOLIC (CONGESTIVE) HEART FAILURE (3) Afjjn-hd-omctbco kidney injury Code(s): N17.9 - ACUTE KIDNEY FAILURE, UNSPECIFIED N18.9 - CHRONIC KIDNEY DISEASE, UNSPECIFIED (4) Paroxysmal atrial flutter Code(s): I48.92 - UNSPECIFIED ATRIAL FLUTTER (5) Coumadin toxicity Code(s): T45.511A - POISONING BY ANTICOAGULANTS, ACCIDENTAL, INIT Qualifiers: Encounter type: sequela Injury intent: undetermined intent Qualified Code(s): T45.514S - Poisoning by anticoagulants, undetermined, sequela (6) CAD (coronary artery disease) Code(s): I25.10 - ATHSCL HEART DISEASE OF [place] CORONARY ARTERY W/O ANG PCTRS Qualifiers: Coronary Disease-Associated Artery/Lesion type: [place] artery [place] vs. transplanted heart: [place] heart Associated angina: without angina Qualified Code(s): I25.10 - Atherosclerotic heart disease of [place] coronary artery without angina pectoris Assessment/Plan Altered Mental Status Acute on Chronic LV Diastolic Heart Failure Pulmonary HTN Pleural Effusion Compressive Atelectasis Paroxysmal Atrial Flutter s/p AVR/MVR HTN - repeat ABG to r/o acute hypercapnea - may need CT head if no explanation for her lethargy as her INR was supratherapeutic - IV lasix - monitor urine output, creatinine - daily weights, I/Os - monitor CXR - rate controlled - O2 to keep SpO2 >90% - aspiration precautions - do not suspect COPD as etiology of her dyspnea given her imaging, clinical exam, no prior history of COPD and remote smoking history - DVT prophylaxis
[2017-01-31 14:13] LABS: ARTERIAL BLD GAS O2 SATURATION 98.6 % (90-98.9); ARTERIAL BLOOD GAS BASE EXCESS 8.8 meq/l (-2-2); ARTERIAL BLOOD GAS HCO3 35.8 meq/L (22-26); ARTERIAL BLOOD GAS pH 7.34 (7.35-7.45)
[2017-01-31 14:15] LABS: ALLENS TEST POSITIVE; ART PUNCT SITE LEFT RADIAL; LPM/O2% 100%; PT. ON O2? YES; TYPE OF O2 NONREBREATHER
[2017-01-31 14:19] LABS: CALCIUM 10.8 mg/dL (8.7-10.3)
--- NOTE | 2017-01-31 15:25 | PN ---
Teaching Attending Note Name of Resident: Tamara Keyes ATTENDING PHYSICIAN STATEMENT I saw and evaluated the patient. I reviewed the resident's note and discussed the case with the resident. I agree with the resident's findings and plan as documented. Events noted. Patient had low grade fever last night. Patient was found hypoxic , called by the nurse due to having low oxygen level and patient is becoming confused. Vital Signs Temperature 98.0 F 01/31/17 13:58 Pulse Rate 67 01/31/17 13:58 Respiratory Rate 18 01/31/17 13:58 Blood Pressure 118/64 01/31/17 13:58 O2 Sat by Pulse Oximetry (%) 94 L 01/31/17 14:25 CBCD WBC 11.0 K/mm3 (4.0-10.0) H 01/31/17 07:20 RBC 3.68 M/mm3 (3.60-5.2) 01/31/17 07:20 Hgb 9.3 GM/dL (10.7-15.3) L 01/31/17 07:20 Hct 30.0 % (32.4-45.2) L 01/31/17 07:20 MCV 81.4 fl (80-96) 01/31/17 07:20 MCHC 31.0 g/dl (32.0-36.0) L 01/31/17 07:20 RDW 16.6 % (11.6-15.6) H 01/31/17 07:20 Plt Count 423 K/MM3 (134-434) 01/31/17 07:20 MPV 8.1 fl (7.5-11.1) 01/31/17 07:20 CMP Sodium 148 mmol/L (136-145) H 01/31/17 07:20 Potassium 3.1 mmol/L (3.5-5.1) L 01/31/17 07:20 Chloride 106 mmol/L (98-107) 01/31/17 07:20 Carbon Dioxide 36 mmol/L (21-32) H 01/31/17 07:20 Anion Gap 6 (8-16) L 01/31/17 07:20 BUN 50 mg/dL (7-18) H 01/31/17 07:20 Creatinine 1.9 mg/dL (0.55-1.02) H 01/31/17 07:20 Creat Clearance w eGFR 20.06 (>60) 01/30/17 07:50 Random Glucose 118 mg/dL (74-106) H 01/31/17 07:20 Calcium 11.0 mg/dL (8.5-10.1) H 01/31/17 07:20 Total Bilirubin 1.3 mg/dL (0.2-1.0) H D 01/30/17 07:50 AST 31 U/L (15-37) D 01/30/17 07:50 ALT 15 U/L (12-78) 01/30/17 07:50 Alkaline Phosphatase 83 U/L (45-117) 01/30/17 07:50 Total Protein 6.7 g/dl (6.4-8.2) 01/30/17 07:50 Albumin 2.7 g/dl (3.4-5.0) L 01/30/17 07:50 CARDIAC ENZYMES Creatine Kinase 217 IU/L (26-192) H D 01/26/17 07:25 Troponin I 0.03 ng/ml (0.00-0.05) 01/26/17 07:25 Current Medications Generic Name Dose Route Start Last Admin Trade Name Freq PRN Reason Stop Dose Admin Acetaminophen 650 mg 01/25/17 16:17 01/25/17 16:25 Tylenol - PO 650 mg Q6H PRN Administration FEVER OR PAIN Amlodipine Besylate 5 mg 01/29/17 16:16 01/31/17 09:32 Norvasc - PO 5 mg DAILY ALOK Administration Docusate Sodium 100 mg 01/30/17 11:38 Colace - PO BID PRN CONSTIPATION Furosemide 60 mg 01/29/17 10:06 01/31/17 13:49 Lasix Injection - IVPB 60 mg BID@0600,1400 ALOK Administration Methimazole 5 mg 01/26/17 10:00 01/31/17 10:00 Tapazole - PO 5 mg DAILY ALOK Administration Nebivolol 10 mg 01/26/17 10:00 01/31/17 09:31 Bystolic - PO 10 mg DAILY ALOK Administration Pantoprazole Sodium 40 mg 01/29/17 11:13 01/31/17 09:30 Protonix Packets For Oral Suspension - GT 40 mg DAILY ALOK Administration Piperacillin Sod/Tazobactam Sod 3.375 gm 01/31/17 15:22 Zosyn 3.375gm Ivpb (Pre-Docked) IV 01/31/17 15:23 ONCE ONE Protocol Rosuvastatin Calcium 10 mg 01/25/17 22:00 01/30/17 22:01 Crestor - PO 10 mg HS ALOK Administration Senna 2 tab 01/30/17 11:38 Senna - PO HS PRN CONSTIPATION Warfarin Sodium 5 mg 01/30/17 18:00 01/30/17 17:26 Coumadin - PO 5 mg DAILY@1800 ALOK Administration Home Medications Medication Instructions Recorded Allopurinol [Zyloprim -] 100 mg PO DAILY 12/21/16 Cholecalciferol (Vitamin D3) 50,000 unit PO MONTHLY 12/21/16 [Vitamin D -] Methimazole [Tapazole] 5 mg PO DAILY 12/21/16 Nebivolol HCl [Bystolic] 10 mg PO DAILY 12/21/16 Omeprazole 40 mg PO DAILY 12/21/16 Ranolazine [Ranexa] 500 mg PO BID 12/21/16 Rosuvastatin Calcium [Crestor] 10 mg PO HS 12/21/16 Amlodipine Besylate [Norvasc -] 10 mg PO DAILY #30 tablet 12/23/16 Torsemide [Demadex -] 10 mg PO DAILY #30 tablet 12/23/16 Warfarin Na [Coumadin -] 5 mg PO DAILY #0 12/23/[address] on 01/26/2017 : negative for bleed Microbiology 01/27/17 11:00 Urine - Urine - Catheterized Urine Culture - Final NO GROWTH OBTAINED Chest xray with left lower lobe consiladation/atelectasis/pna with moderate left pleural effusion ( no effusion on cxy 12/21/2016, 12/19/[address] shows small left and trace right pleural effusion), ECHO :EJF 51% , Moderate to severe TR ASSESSMENT AND PLAN: 86 y/o woman multiple co-morbidities presented with difficulty breathing admitted for acute on chronic diastolic CHF. # Acute Hypoxemia noted on the ABG today ; placed the patient on NR , ABG result P02 of 43 and PCO2 of 50 , possible due to Pulmonary congestion ;Placed the patient on BIPAP now and prn , pulmonary consult seen the patient and discussed with. # POssible Aspiration Pneumonia will give the patient one dose of zosyn , ID consult for further management. ABG to be repeated in 3 hr. #s/p Supratherapeutic INR from 25---> 6--->9-->11--> 2.26-->1.9 today , repeat level in am s/p FFP and Vit K 5mg, continue coumadin 7.5mg , avoid aspirin will give another dose of vit.K 5mg po. Increased coumadin 7.5mg for tonight. Head CT was ordered for today to r/o bleed. 1st CT was negative that was done on #Acute on Chronic diastolic CHF Exacerbation with EJF of 51% on 12/23/2016; repeat ECHO reviewed ; continue 60mg IVPB BID , daily weights, Is&Os monitoring, cardiology on the case, foly catheter for Is and Os to continue #MADONNA on CKD BUN/Cr 62/3.--63/3.4-->65/3.4-->60/2.7-->57/2.3 today with INR of 25 --> 6--> 9-->11-->2.26-->1.9 today . Nephro consult Dr.Samarneh talavera. #CAD Continue Bystolic closely monitor renal function # paroxysmal aflutter [id number] ; increased coumadin to 7.5mg since INR is 1.9 today; repeat INR in am , goal 2.5-3.5. s/p Vit K x2 doses and FFP since INR was in range of 20-25 #HLD crestor 10mg po hs # Hx of Hyperthroidism on Tapazole will monitor # Left breast ca s/p mastectomy #Diet: low sodium #DVT - on coumadin Code status: DNR/DNI Discussed with , will repeat CT of the head once more stable , patient is on Bipap now will repeat the level in 3 hrs. Zosyn IV x one dose now, for consult for further management.
[2017-01-31] MEDS ORDERED: ENOXAPARIN NA (PORCINE) 80 MG/0.8 ML DISP.SYRIN SQ ONE (15:45)
--- NOTE | 2017-01-31 15:54 | CONSULT ---
Consultation: REQUESTING PROVIDER: CONSULT REQUEST: We have been asked to medically evaluate this patient for sob. HISTORY OF PRESENT ILLNESS: This is an 86 yo F with PMH of pulmonary HTN, ILD, Breast CA s/p mastectomy, CAD , HFPEF, HTN, HLD, CKD, paroxysmal atrial flutter, bioprosthetic MVR and AVR, who presented with worsening sobx 1d, weight gain of 4 lb over 2 d, cough with frothy sputum and hypoxia. Patient initially on NC O2, then on venturi mask. ABG showed CO2 retention and hypoxia and patient is now on BIPAP and unable to provide history due to confusion and lethargy. According to family, patient is responsive and sharp at baseline. She smoked "a little" when she was younger but quit 30 years ago . She has been treated with diuresis so far. Information obtained from record and family REVIEW OF SYSTEMS: unable to obtain PHYSICAL EXAMINATION Vital Signs - 24 hr 01/30/17 01/30/17 01/30/17 16:59 18:00 21:00 Temperature 98.8 F 100.4 F H Pulse Rate 102 H 84 Respiratory 22 21 Rate Blood Pressure 139/74 125/61 O2 Sat by Pulse 95 Oximetry (%) 01/30/17 01/31/17 01/31/17 22:00 06:00 09:00 Temperature 99.2 F 98.6 F Pulse Rate 76 76 Respiratory 20 20 Rate Blood Pressure 127/76 137/68 O2 Sat by Pulse 92 L Oximetry (%) 01/31/17 01/31/17 01/31/17 10:00 13:58 14:25 Temperature 98 F 98.0 F Pulse Rate 66 67 Respiratory 18 18 Rate Blood Pressure 120/52 118/64 O2 Sat by Pulse 94 L Oximetry (%) GENERAL: Awake, lethargic HEAD: Normal with no signs of trauma. EYES: Pupils equal, round and reactive to light, extraocular movements intact, sclera anicteric, conjunctiva clear. EARS, NOSE, THROAT: Moist mucous membranes. NECK: supple without JVD LUNGS: RUL ronchi, diffusely coarse breath sounds HEART: Regular rate and rhythm, normal S1 and S2 ABDOMEN: Soft, nontender, not distended, normoactive bowel sounds MUSCULOSKELETAL: No CVA tenderness. UPPER EXTREMITIES: 2+ pulses, warm, well-perfused LOWER EXTREMITIES: 2+ pulses, warm, well-perfused. 1+ peripheral edema. NEUROLOGICAL: Cranial nerves II-XII grossly intact. PSYCHIATRIC: lethargic SKIN: Warm, dry Laboratory Results - last 24 hr 01/30/17 01/30/17 01/31/17 07:50 18:20 07:20 WBC RBC Hgb Hct MCV MCHC RDW Plt Count MPV INR Puncture Site ABG pH ABG pCO2 at Pt Temp ABG pO2 at Pt Temp ABG HCO3 ABG O2 Sat (Measured) ABG O2 Content ABG Base Excess Fabio Test O2 Delivery Device Oxygen Flow Rate Sodium 148 H Potassium 3.1 L Chloride 106 Carbon Dioxide 36 H Anion Gap 6 L BUN 50 H Creatinine 1.9 H Random Glucose 118 H Calcium 10.8 H 11.0 H PTH Intact 241 H PTH Intact Intraop 0 m U Random Total Protein 54 H Urine Creatinine 26.3 Protein/Creatinin Ratio 2.05 01/31/17 01/31/17 01/31/17 07:20 07:20 09:35 WBC 11.0 H RBC 3.68 Hgb 9.3 L Hct 30.0 L MCV 81.4 MCHC 31.0 L RDW 16.6 H Plt Count 423 MPV 8.1 INR 1.90 H Puncture Site Left brachial ABG pH 7.44 ABG pCO2 at Pt Temp 52.8 H ABG pO2 at Pt Temp 48.5 L* D ABG HCO3 35.3 H ABG O2 Sat (Measured) 82.3 L ABG O2 Content 10.9 L ABG Base Excess 10.0 H Fabio Test Positive O2 Delivery Device Nasal cannula Oxygen Flow Rate 5l Sodium Potassium Chloride Carbon Dioxide Anion Gap BUN Creatinine Random Glucose Calcium PTH Intact PTH Intact Intraop 0 m U Random Total Protein Urine Creatinine Protein/Creatinin Ratio 01/31/17 14:10 WBC RBC Hgb Hct MCV MCHC RDW Plt Count MPV INR Puncture Site Left radial ABG pH 7.34 L ABG pCO2 at Pt Temp 69.0 H* D ABG pO2 at Pt Temp 122.0 H D ABG HCO3 35.8 H ABG O2 Sat (Measured) 98.6 ABG O2 Content 12.8 L ABG Base Excess 8.8 H Fabio Test Positive O2 Delivery Device Nonrebreather Oxygen Flow Rate 100% Sodium Potassium Chloride Carbon Dioxide Anion Gap BUN Creatinine Random Glucose Calcium PTH Intact PTH Intact Intraop 0 m U Random Total Protein Urine Creatinine Protein/Creatinin Ratio Active Medications Generic Name Dose Route Start Last Admin Trade Name Justen PRN Reason Stop Dose Admin Acetaminophen 650 mg 01/25/17 16:17 01/25/17 16:25 Tylenol - PO 650 mg Q6H PRN Administration FEVER OR PAIN Amlodipine Besylate 5 mg 01/29/17 16:16 01/31/17 09:32 Norvasc - PO 5 mg DAILY ALOK Administration Docusate Sodium 100 mg 01/30/17 11:38 Colace - PO BID PRN CONSTIPATION Furosemide 60 mg 01/29/17 10:06 01/31/17 13:49 Lasix Injection - IVPB 60 mg BID@0600,1400 ALOK Administration Methimazole 5 mg 01/26/17 10:00 01/31/17 10:00 Tapazole - PO 5 mg DAILY ALOK Administration Nebivolol 10 mg 01/26/17 10:00 01/31/17 09:31 Bystolic - PO 10 mg DAILY ALOK Administration Pantoprazole Sodium 40 mg 01/29/17 11:13 01/31/17 09:30 Protonix Packets For Oral Suspension - GT 40 mg DAILY ALOK Administration Piperacillin Sod/Tazobactam Sod 3.375 gm 01/31/17 16:00 Zosyn 3.375gm Ivpb (Pre-Docked) IVPB 01/31/17 16:01 ONCE ONE Protocol Rosuvastatin Calcium 10 mg 01/25/17 22:00 01/30/17 22:01 Crestor - PO 10 mg HS ALOK Administration Senna 2 tab 01/30/17 11:38 Senna - PO HS PRN CONSTIPATION Warfarin Sodium 7.5 mg 01/31/17 15:42 Coumadin - PO DAILY@1800 [facility] ASSESSMENT/PLAN: Acute hypercapneic hypoxic respiratory failure -possibly due to HFPEF exacerbation -unlikely COPD, no smoking history, imaging not suggestive -CT chest pulm congestion, b/l effusions with compressive atelectasis -Now on bipap -repeat ABG -repeat cxr Altered mental status -likley due to hypercarbia/hypoxia -consider CT head HFPEF -s/p s/p AVR/MVR -possible exacerbation -IV lasix -daily weights -strict I and O -tele monitoring Paroxysmal Atrial Flutter -rate controlled HLD -crestor Dispo: We will continue to follow the patient. Thank you for this consultative opportunity. Visit type - Emergency Visit Emergency Visit: Yes ED Registration Date: 01/25/17 Care time: The patient presented to the Emergency Department on the above date and was hospitalized for further evaluation of their emergent condition. - New Patient This patient is new to me today: Yes Date on this admission: 01/31/17 - Critical Care Critical Care patient: No
--- NOTE | 2017-01-31 15:56 | CONSULT ---
Consult Consult Specialty:: Infectious Disease Referred by:: [place] Reason for Consultation:: Possible pneumonia. leukocytosis - History of Present Illness Chief Complaint: leukocytosis History of Present Illness: 86F PMH HTN, hld, CAD, LV diastolic dysfunction, pulmonary HTN, CKD, paroxysmal atrial flutter, s/p bioprosthetic MVR/AVR, h/o left breast ca s/p mastectomy, ILD who was admitted for SOB and cough. Initally treated for CHF exacerbation with diuresis, she has had persistent leukocytosis for past 4 days and had a fever spike yesterday to 100.4. Placed on Non rebreather today after ABG showing hypoxia, however she is currently on BiPAP. Per medical chart she is independent and conversant at baseline. No history of asthma or COPD. She was a remote smoker, quit more than [address] chest done yesterday showing congestive changes, bilateral effusions with compressive atelectasis. CT chest did not show any pneumonia. patient did not converse with me during the interview and was not responding to questions rather she was staring at her hands and watching them fling up and down. A review of systems was not able to be performed. - History Source History Provided By: Medical Record Limitations to Obtaining History: Clinical Condition - Past Medical History Cardio/Vascular: Yes: AFIB, CAD, CHF, HTN, Hyperlipdemia Renal/: Yes: Renal Inusuff - Past Surgical History Past Surgical History: Yes: Mastectomy (left), Valve Replacement - Alcohol/Substance Use Hx Alcohol Use: No - Smoking History Smoking history: Former smoker Have you smoked in the past 12 months: No If you are a former smoker, when did you quit?: 1996 Home Medications - Allergies Allergies/Adverse Reactions: Allergies Allergy/AdvReac Type Severity Reaction Status Date / Time No Known Allergies Allergy Verified 01/25/17 10:51 - Home Medications Home Medications: Ambulatory Orders Allopurinol [Zyloprim -] 100 mg PO DAILY 12/21/16 Cholecalciferol (Vitamin D3) [Vitamin D -] 50,000 unit PO MONTHLY 12/21/16 Methimazole [Tapazole] 5 mg PO DAILY 12/21/16 Nebivolol HCl [Bystolic] 10 mg PO DAILY 12/21/16 Omeprazole 40 mg PO DAILY 12/21/16 Ranolazine [Ranexa] 500 mg PO BID 12/21/16 Rosuvastatin Calcium [Crestor] 10 mg PO HS 12/21/16 Amlodipine Besylate [Norvasc -] 10 mg PO DAILY #30 tablet 12/23/16 Torsemide [Demadex -] 10 mg PO DAILY #30 tablet 12/23/16 Warfarin Na [Coumadin -] 5 mg PO DAILY #0 12/23/16 Family Disease History - Family Disease History Family History: Unable to Obtain (altered mental status) Other Family History: non-contributory Review of Systems Unable to obtain ROS, reason: altered mental status Physical Exam Vital Signs: Vital Signs Temperature 98.0 F 01/31/17 13:58 Pulse Rate 67 01/31/17 13:58 Respiratory Rate 18 01/31/17 13:58 Blood Pressure 118/64 01/31/17 13:58 O2 Sat by Pulse Oximetry (%) 94 L 01/31/17 14:25 Constitutional: Yes: No Distress, Obese Eyes: Yes: Conjunctiva Clear HENT: Yes: Atraumatic Neck: Yes: Supple Cardiovascular: Yes: Pulse Irregular Respiratory: Yes: On BiPap, Other (distant breath sounds diminished with fine expiratory crackles at bases bilaterally) Gastrointestinal: Yes: Soft, Abdomen, Obese Edema: No Labs: CBC, BMP 01/31/17 07:20 01/31/17 07:20 Imaging - Results Chest X-ray: Report Reviewed, Image Reviewed Cat Scan: Report Reviewed, Image Reviewed Problem List - Problems (1) Acute exacerbation of CHF (congestive heart failure) Code(s): I50.9 - HEART FAILURE, UNSPECIFIED Qualifiers: Congestive heart failure type: diastolic Qualified Code(s): I50.33 - Acute on chronic diastolic (congestive) heart failure (2) Altered mental status Code(s): R41.82 - ALTERED MENTAL STATUS, UNSPECIFIED (3) Paroxysmal atrial flutter Code(s): I48.92 - UNSPECIFIED ATRIAL FLUTTER (4) A-fib Code(s): I48.91 - UNSPECIFIED ATRIAL FIBRILLATION Qualifiers: Atrial fibrillation type: persistent Qualified Code(s): I48.1 - Persistent atrial fibrillation (5) Acute on chronic diastolic CHF (congestive heart failure) Code(s): I50.33 - ACUTE ON CHRONIC DIASTOLIC (CONGESTIVE) HEART FAILURE (6) Fehat-df-sorkmar kidney injury Code(s): N17.9 - ACUTE KIDNEY FAILURE, UNSPECIFIED N18.9 - CHRONIC KIDNEY DISEASE, UNSPECIFIED (7) Anemia Code(s): D64.9 - ANEMIA, UNSPECIFIED Qualifiers: Anemia type: unspecified type Qualified Code(s): D64.9 - Anemia, unspecified (8) CAD (coronary artery disease) Code(s): I25.10 - ATHSCL HEART DISEASE OF [place] CORONARY ARTERY W/O ANG PCTRS Qualifiers: Coronary Disease-Associated Artery/Lesion type: [place] artery [place] vs. transplanted heart: [place] heart Associated angina: without angina Qualified Code(s): I25.10 - Atherosclerotic heart disease of [place] coronary artery without angina pectoris (9) HLD (hyperlipidemia) Code(s): E78.5 - HYPERLIPIDEMIA, UNSPECIFIED Qualifiers: Hyperlipidemia type: pure hypercholesterolemia Qualified Code(s): E78.0 - Pure hypercholesterolemia (10) Shortness of breath Code(s): R06.02 - SHORTNESS OF BREATH (11) Hypoxemia Code(s): R09.02 - HYPOXEMIA (12) Leukocytosis Code(s): D72.829 - ELEVATED WHITE BLOOD CELL COUNT, UNSPECIFIED Assessment/Plan 86F with multiple medical problems with altered mental status persistent leukocytosis hypoxia and a fever spike yesterday to 100.4 will observe off Abx at this time-CT scan not impressive for pneumonia if spikes again do fever work up- get full set of cultures UA UCx BCx CXR continue trending labs pulmonology consult noted continue treatment with diuresis thank you for this consult will follow Case discussed with attending Dr. Arriaga
[2017-01-31] MEDS ORDERED: PIPERACILLIN/TAZOB 3.375 GM/50 ML PRE-DOCKED IVPB ONE (16:00)
--- NOTE | 2017-01-31 16:47 | PN ---
Teaching Attending Note Name of Resident: Shade Muñoz ATTENDING PHYSICIAN STATEMENT I saw and evaluated the patient. I reviewed the resident's note and discussed the case with the resident. I agree with the resident's findings and plan as documented. SUBJECTIVE: OBJECTIVE: ASSESSMENT AND PLAN: Low grade temp, leukocytosis CT bilateral pleural effusions, compressive atelectasis Observe off antibiotics
--- NOTE | 2017-01-31 17:37 | PN ---
Progress Note, Physician History of Present Illness: Pt seen and examined at bedside. She is now on BiPap. Pt is more confused today. - Current Medication List Current Medications: Active Medications Acetaminophen (Tylenol -) 650 mg PO Q6H PRN PRN Reason: FEVER OR PAIN Last Admin: 01/25/17 16:25 Dose: 650 mg Amlodipine Besylate (Norvasc -) 5 mg PO DAILY [facility] Last Admin: 01/31/17 09:32 Dose: 5 mg Docusate Sodium (Colace -) 100 mg PO BID PRN PRN Reason: CONSTIPATION Furosemide (Lasix Injection -) 60 mg IVPB BID@0600,1400 [facility] Last Admin: 01/31/17 13:49 Dose: 60 mg Methimazole (Tapazole -) 5 mg PO DAILY [facility] Last Admin: 01/31/17 10:00 Dose: 5 mg Nebivolol (Bystolic -) 10 mg PO DAILY [facility] Last Admin: 01/31/17 09:31 Dose: 10 mg Pantoprazole Sodium (Protonix Packets For Oral Suspension -) 40 mg GT DAILY [facility] Last Admin: 01/31/17 09:30 Dose: 40 mg Rosuvastatin Calcium (Crestor -) 10 mg PO HS [facility] Last Admin: 01/30/17 22:01 Dose: 10 mg Senna (Senna -) 2 tab PO HS PRN PRN Reason: CONSTIPATION Warfarin Sodium (Coumadin -) 7.5 mg PO DAILY@1800 [facility] Last Admin: 01/31/17 17:19 Dose: 7.5 mg - Objective Vital Signs: Vital Signs Temperature 98.0 F 01/31/17 13:58 Pulse Rate 67 01/31/17 13:58 Respiratory Rate 18 01/31/17 13:58 Blood Pressure 118/64 01/31/17 13:58 O2 Sat by Pulse Oximetry (%) 94 L 01/31/17 14:25 Constitutional: Yes: Anxious Eyes: Yes: Conjunctiva Clear Cardiovascular: Yes: Murmur, S1, S2 Respiratory: Yes: On BiPap Gastrointestinal: Yes: Soft, Abdomen, Obese Genitourinary: Yes: [place] Present Musculoskeletal: Yes: Muscle Weakness Edema: Yes Edema: LLE: Trace, RLE: Trace Integumentary: Yes: Venous Stasis Changes Psychiatric: Yes: Agitated Labs: CBC, BMP 01/31/17 07:20 01/31/17 07:20 INR, PTT INR 1.90 (0.82-1.09) H 01/31/17 07:20 - ....Imaging Chest X-ray: Report Reviewed Problem List - Problems (1) Acute exacerbation of CHF (congestive heart failure) Code(s): I50.9 - HEART FAILURE, UNSPECIFIED Qualifiers: Congestive heart failure type: diastolic Qualified Code(s): I50.33 - Acute on chronic diastolic (congestive) heart failure (2) Hyperthyroidism Code(s): E05.90 - THYROTOXICOSIS, UNSP WITHOUT THYROTOXIC CRISIS OR STORM (3) A-fib Code(s): I48.91 - UNSPECIFIED ATRIAL FIBRILLATION Qualifiers: Atrial fibrillation type: persistent Qualified Code(s): I48.1 - Persistent atrial fibrillation (4) Acute on chronic diastolic CHF (congestive heart failure) Code(s): I50.33 - ACUTE ON CHRONIC DIASTOLIC (CONGESTIVE) HEART FAILURE (5) Anemia Code(s): D64.9 - ANEMIA, UNSPECIFIED Qualifiers: Anemia type: unspecified type Qualified Code(s): D64.9 - Anemia, unspecified (6) Shortness of breath Code(s): R06.02 - SHORTNESS OF BREATH (7) Coumadin toxicity Code(s): T45.511A - POISONING BY ANTICOAGULANTS, ACCIDENTAL, INIT Qualifiers: Encounter type: sequela Injury intent: undetermined intent Qualified Code(s): T45.514S - Poisoning by anticoagulants, undetermined, sequela Assessment/Plan Current Medications Generic Name Dose Route Start Last Admin Trade Name Freq PRN Reason Stop Dose Admin Acetaminophen 650 mg 01/25/17 16:17 01/25/17 16:25 Tylenol - PO 650 mg Q6H PRN Administration FEVER OR PAIN Amlodipine Besylate 5 mg 01/29/17 16:16 01/31/17 09:32 Norvasc - PO 5 mg DAILY ALOK Administration Docusate Sodium 100 mg 01/30/17 11:38 Colace - PO BID PRN CONSTIPATION Furosemide 60 mg 01/29/17 10:06 01/31/17 13:49 Lasix Injection - IVPB 60 mg BID@0600,1400 ALOK Administration Methimazole 5 mg 01/26/17 10:00 01/31/17 10:00 Tapazole - PO 5 mg DAILY ALOK Administration Nebivolol 10 mg 01/26/17 10:00 01/31/17 09:31 Bystolic - PO 10 mg DAILY ALOK Administration Pantoprazole Sodium 40 mg 01/29/17 11:13 01/31/17 09:30 Protonix Packets For Oral Suspension - GT 40 mg DAILY ALOK Administration Rosuvastatin Calcium 10 mg 01/25/17 22:00 01/30/17 22:01 Crestor - PO 10 mg HS ALOK Administration Senna 2 tab 01/30/17 11:38 Senna - PO HS PRN CONSTIPATION Warfarin Sodium 7.5 mg 01/31/17 18:00 01/31/17 17:19 Coumadin - PO 7.5 mg DAILY@1800 ALOK Administration Impression 1. MADONNA 2. CKD - creatinine has been elevated on previous labs 3. CHF 4. coumadin toxicity 5. valvular heart disease 6. s/p bio-MVR and AVR 7. hyperlipidemia 8. atrial fibrillation 9. anemia 10. hx of breast cancer 11. renal cyst 12. hypercalcemia Plan - cont lasix - check parathyroid scan - pth is elevated in the setting of hypercalcemia - cont bipap - renal function is improving - MADONNA likely from cardiorenal disease - renal cyst will need to be followed - repeat labs in am - will follow - overall prognosis guarded Dr Morse
[2017-01-31] MEDS ORDERED: WARFARIN NA 7.5 MG TABLET (FP) PO SCH (18:00)
[2017-01-31 19:54] LABS: ARTERIAL BLD GAS O2 SATURATION 87.2 % (90-98.9); ARTERIAL BLOOD GAS BASE EXCESS 10.7 meq/l (-2-2); ARTERIAL BLOOD GAS PO2 53.6 mmHg (68-100); ARTERIAL BLOOD GAS pH 7.45 (7.35-7.45)
[2017-01-31 19:56] LABS: ALLENS TEST POSITIVE; ART PUNCT SITE RIGHT RADIAL; LPM/O2% 45%; PT. ON O2? YES; TYPE OF O2 BIPAP; VENT RATE 16
--- NOTE | 2017-02-01 06:54 | PN ---
Physical Exam: SUBJECTIVE: Patient seen and examined. Altered mental status. 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 is not following commands. keeps waving her hand in front her. denies chest pain, shortness of breath or being in distress, says she is "just fine." unable to be sent for head ct or u/s because she could not lay still. OBJECTIVE: Vital Signs Period Temp Pulse Resp BP Sys/Gr[place]om Pulse Ox Last 24 Hr 98 F-98.3 F 66-87 18-20 118-142/52-71 91-94 GENERAL: The patient is awake, alert, in no acute distress. HEAD: Normal with no signs of trauma. EYES: PERRL, extraocular movements intact, sclera anicteric, conjunctiva clear. No ptosis. ENT:bipap in place LUNGS: breath sounds with rhonchi, coarse, quiet at bases. HEART: irregular rhythm, S1, S2 with systolic murmur ABDOMEN: Soft, nontender, nondistended, normoactive bowel sounds EXTREMITIES: 2+ pulses, warm, well-perfused, no edema. strength 2/5 in b/l hip, 5/5 in hand lamp shade sewer/biceps/triceps/shoulder. no tremor. sensation intact in upper and lower extremity. NEUROLOGICAL: Cranial nerves II through XII grossly intact. Normal tone, rate of speech, no slurred speech, facial symmetry. PSYCH: calm, makes eye contact.following some commands Laboratory Results - last 24 hr 01/30/17 01/31/17 01/31/17 07:50 07:20 07:20 WBC 11.0 H RBC 3.68 Hgb 9.3 L Hct 30.0 L MCV 81.4 MCHC 31.0 L RDW 16.6 H Plt Count 423 MPV 8.1 INR Puncture Site ABG pH ABG pCO2 at Pt Temp ABG pO2 at Pt Temp ABG HCO3 ABG O2 Sat (Measured) ABG O2 Content ABG Base Excess Fabio Test O2 Delivery Device Oxygen Flow Rate Vent Mode Vent Rate PEEP Pressure Support Vent Sodium 148 H Potassium 3.1 L Chloride 106 Carbon Dioxide 36 H Anion Gap 6 L BUN 50 H Creatinine 1.9 H Random Glucose 118 H Calcium 10.8 H 11.0 H PTH Intact 241 H PTH Intact Intraop 0 m 01/31/17 01/31/17 01/31/17 07:20 09:35 14:10 WBC RBC Hgb Hct MCV MCHC RDW Plt Count MPV INR 1.90 H Puncture Site Left brachial Left radial ABG pH 7.44 7.34 L ABG pCO2 at Pt Temp 52.8 H 69.0 H* D ABG pO2 at Pt Temp 48.5 L* D 122.0 H D ABG HCO3 35.3 H 35.8 H ABG O2 Sat (Measured) 82.3 L 98.6 ABG O2 Content 10.9 L 12.8 L ABG Base Excess 10.0 H 8.8 H Fabio Test Positive Positive O2 Delivery Device Nasal cannula Nonrebreather Oxygen Flow Rate 5l 100% Vent Mode Vent Rate PEEP Pressure Support Vent Sodium Potassium Chloride Carbon Dioxide Anion Gap BUN Creatinine Random Glucose Calcium PTH Intact PTH Intact Intraop 0 m 01/31/17 19:50 WBC RBC Hgb Hct MCV MCHC RDW Plt Count MPV INR Puncture Site Right radial ABG pH 7.45 ABG pCO2 at Pt Temp 53.2 H D ABG pO2 at Pt Temp 53.6 L D ABG HCO3 36.0 H ABG O2 Sat (Measured) 87.2 L ABG O2 Content 11.6 L ABG Base Excess 10.7 H Fabio Test Positive O2 Delivery Device Bipap Oxygen Flow Rate 45% Vent Mode S/t Vent Rate 16 PEEP 0.0 Pressure Support Vent 12/6 Sodium Potassium Chloride Carbon Dioxide Anion Gap BUN Creatinine Random Glucose Calcium PTH Intact PTH Intact Intraop 0 m Active Medications Acetaminophen (Tylenol -) 650 mg PO Q6H PRN PRN Reason: FEVER OR PAIN Last Admin: 01/25/17 16:25 Dose: 650 mg Amlodipine Besylate (Norvasc -) 5 mg PO DAILY [facility] Last Admin: 02/01/17 10:27 Dose: 5 mg Docusate Sodium (Colace -) 100 mg PO BID PRN PRN Reason: CONSTIPATION Furosemide (Lasix Injection -) 60 mg IVPB DAILY [facility] Methimazole (Tapazole -) 5 mg PO DAILY [facility] Last Admin: 02/01/17 10:27 Dose: 5 mg Nebivolol (Bystolic -) 10 mg PO DAILY [facility] Last Admin: 02/01/17 10:27 Dose: 10 mg Pantoprazole Sodium (Protonix Packets For Oral Suspension -) 40 mg GT DAILY [facility] Last Admin: 02/01/17 10:27 Dose: 40 mg Rosuvastatin Calcium (Crestor -) 10 mg PO HS [facility] Last Admin: 02/01/17 07:01 Dose: Not Given Senna (Senna -) 2 tab PO HS PRN PRN Reason: CONSTIPATION Warfarin Sodium (Coumadin -) 5 mg PO DAILY@1800 [facility] Last Admin: 02/01/17 17:46 Dose: 5 mg - MRI unable to be completed due to pt's surgical history - Chest CT with aeration maintained in lungs with imaging findings consistent with obstructive type emphysema without overt pulmonary interstial edema. small pleural effusion at both bases and compressive atelectasis of both lower lobe segments. - echo; lv systolic fxn normal, rt vent systolic pressure elevated, aortic mean pressure gradient = 39mmhg ASSESSMENT/PLAN: 86 y/o woman multiple co-morbidities presented with difficulty breathing admitted for acute on chronic diastolic CHF complicated by acute hypoxic hypercapnic respiratory distress and altered mental status, found to have hypercalcemia and elevated PTH. - monitor off antibiotics for fever, given persistent cbc, surveillance blood cx drawn as per ID consult due to patient's bioprosthetic valves. - right arm swelling, u/s pending, unable to send today due to hypoxia, bedside ultrasound would be limited. will attempt tomorrow, if patient's breathing improves. #Hypoxic respiratory failure - maintain on bipap as tolerated; iapa12, epap 8 fio2 50 rate 16 - likely from CHF given pleural effusion and chest xray findings, however now with hypernatremia will decrease lasix to 60 ivpb qdaily #Hypercalcemia, hyperparathyroidism - PTHrp to be drawn in the morning to r/o malignancy as cause of hypercalcemia, prior auth approved. - due to pt's chf cannot add fluids - Dr. Mathias consulted for evaluation #Acute on Chronic diastolic CHF Exacerbation(given bnp, weight increase) - Lasix 60mg IVPB qdaily - daily weights, I&O monitoring(net negative fluid balance). de oliveira placed 01/26 - Dr. Castellon consulted #MADONNA on CKD - improving - Likely cardiorenal in nature, nephro consulted; left renal cyst seen on renal u/s, no hydro noted. - Will continue to monitor renal function, continue with lasix with close monitering - hold allopurinol #Supratherapeutic INR - INR at goal - repeat in the morning - coumadin 5mg po daily #HTN - Continue Bystolic, Norvasc #Afib - persistent - currently rate controlled #HLD - crestor 10mg po hs #Hyperthyroidism - methimazole 5mg po daily #Diet: low sodium, chopped, no dairy #DVT -on coumadin Code status: DNR/DNI Visit type - Emergency Visit Emergency Visit: No - New Patient This patient is new to me today: No - Critical Care Critical Care patient: No
[2017-02-01] MEDS: ROSUVASTATIN CA 10 MG TABLET (FP) PO SCH ×2 (07:01→22:23)
[2017-02-01] MEDS: FUROSEMIDE 40 MG/4 ML INJECTABLE VIAL IVPB SCH ×2 (07:03→13:27)
[2017-02-01 07:25] LABS: ARTERIAL BLD GAS O2 SATURATION 88.5 % (90-98.9); ARTERIAL BLOOD GAS BASE EXCESS 10.9 meq/l (-2-2); ARTERIAL BLOOD GAS HCO3 36.5 meq/L (22-26); ARTERIAL BLOOD GAS pH 7.43 (7.35-7.45)
[2017-02-01 07:26] LABS: ALLENS TEST POSITIVE; ART PUNCT SITE RIGHT BRACHIAL; LPM/O2% 50%; PT. ON O2? YES; TYPE OF O2 BIPAP
[2017-02-01 07:27] LABS: MECH. VENT. BIPAP; VENT RATE 16; VT/PRESS IPAP 12/EPAP 6
[2017-02-01 07:28] LABS: ARTERIAL BLOOD GAS PO2 56.3 mmHg (68-100)
[2017-02-01 08:59] LABS: BASOPHIL 0.7 % (0-2.0); EOSINOPHIL 2.8 % (0-4.5); MCH 25.1 pg (25.7-33.7); MCHC 30.9 g/dl (32.0-36.0); MEAN CELL VOLUME 81.2 fl (80-96); MEAN PLT VOLUME 8.3 fl (7.5-11.1); NEUTROPHILS 79.2 % (42.8-82.8); PLATELET COUNT 418 K/MM3 (134-434); RDW 16.4 % (11.6-15.6); WHITE BLOOD COUNT 10.1 K/mm3 (4.0-10.0)
[2017-02-01 09:15] LABS: CALCIUM 12.1 mg/dL (8.5-10.1); CREATININE 1.6 mg/dL (0.55-1.02)
[2017-02-01 09:20] LABS: INR 2.45 (0.82-1.09); PROTHROMBIN TIME (PATIENT) 27.4 SEC (9.98-11.88)
[2017-02-01] MEDS: NEBIVOLOL 10 MG TABLET (FP) PO SCH (10:27)
[2017-02-01] MEDS: amLODIPine BESYLATE 5 MG TABLET (FP) PO SCH (10:27)
[2017-02-01] MEDS: METHIMAZOLE 5 MG TABLET (FP) PO SCH (10:27)
[2017-02-01] MEDS: PANTOPRAZOLE SOD 40 MG SUSPENSION PACKET GT SCH (10:27)
--- NOTE | 2017-02-01 12:18 | PN ---
Progress Note (short form) - Note Progress Note: S: 86 year old female, history of coronary artery disease, angina pectoris, s/p Bioprosthetic mitral and aortic valve replacements, permanent atrial fibrillation, left bundle branch block, hyperlipidemia, hypertension, history of organic brain syndrome, hypothyroidism, hyperuricemia, history of anemia and chronic kidney disease. Admitted with left ventricular failure, currently on BIPAP. Patient remains confused and has periods of agitation, unable to communicate. Hemodynamics appear to be stable. Active Medications Generic Name Dose Route Start Last Admin Trade Name Freq PRN Reason Stop Dose Admin Acetaminophen 650 mg 01/25/17 16:17 01/25/17 16:25 Tylenol - PO 650 mg Q6H PRN Administration FEVER OR PAIN Amlodipine Besylate 5 mg 01/29/17 16:16 02/01/17 10:27 Norvasc - PO 5 mg DAILY ALOK Administration Docusate Sodium 100 mg 01/30/17 11:38 Colace - PO BID PRN CONSTIPATION Furosemide 60 mg 01/29/17 10:06 02/01/17 07:03 Lasix Injection - IVPB 60 mg BID@0600,1400 ALOK Administration Methimazole 5 mg 01/26/17 10:00 02/01/17 10:27 Tapazole - PO 5 mg DAILY ALOK Administration Nebivolol 10 mg 01/26/17 10:00 02/01/17 10:27 Bystolic - PO 10 mg DAILY ALOK Administration Pantoprazole Sodium 40 mg 01/29/17 11:13 02/01/17 10:27 Protonix Packets For Oral Suspension - GT 40 mg DAILY ALOK Administration Rosuvastatin Calcium 10 mg 01/25/17 22:00 02/01/17 07:01 Crestor - PO Not Given HS ALOK Senna 2 tab 01/30/17 11:38 Senna - PO HS PRN CONSTIPATION Warfarin Sodium 7.5 mg 01/31/17 18:00 01/31/17 17:19 Coumadin - PO 7.5 mg DAILY@1800 ALOK Administration O: 86 year old female, is agitated, confused and on BIPAP. Last Vital Signs Temp Pulse Resp BP Pulse Ox 97.0 F L 73 Irregularly irregular 16 116/25 91 L 02/01/17 08:20 02/01/17 08:20 02/01/17 10:44 02/01/17 08:20 02/01/17 10:44 Neck: Supple, pulsatile neck veins, positive HJR, carotids were equal and upstrokes were normal. Heart: PMI was in the 5th intercostal space, slight left parasternal heave, heart sounds were distant and partly obscured by breath sounds. Unable to hear murmur or gallops. Lungs: Bilaterally decreased breath sounds at both bases and anteriorly coarse breath sounds were present. Abdomen: Soft, nontender, portuberant, no hepatosplenomegaly appreciated, and no palpable masses were felt. Extremities: No calf tenderness or dependent edema. CBC, BMP 02/01/17 08:25 02/01/17 08:25 Laboratory Results - last 24 hr 01/30/17 01/31/17 01/31/17 07:50 14:10 19:50 WBC RBC Hgb Hct MCV MCHC RDW Plt Count MPV Neutrophils % Lymphocytes % Monocytes % Eosinophils % Basophils % INR Puncture Site Left radial Right radial ABG pH 7.34 L 7.45 ABG pCO2 at Pt Temp 69.0 H* D 53.2 H D ABG pO2 at Pt Temp 122.0 H D 53.6 L D ABG HCO3 35.8 H 36.0 H ABG O2 Sat (Measured) 98.6 87.2 L ABG O2 Content 12.8 L 11.6 L ABG Base Excess 8.8 H 10.7 H Fabio Test Positive Positive O2 Delivery Device Nonrebreather Bipap Oxygen Flow Rate 100% 45% Vent Mode S/t Vent Rate 16 Mechanical Rate PEEP 0.0 Pressure Support Vent 12/6 Sodium Potassium Chloride Carbon Dioxide Anion Gap BUN Creatinine Random Glucose Calcium 10.8 H PTH Intact 241 H PTH Intact Intraop 0 m 02/01/17 02/01/17 02/01/17 07:20 08:25 08:25 WBC 10.1 H RBC 3.75 Hgb 9.4 L Hct 30.5 L MCV 81.2 MCHC 30.9 L RDW 16.4 H Plt Count 418 MPV 8.3 Neutrophils % 79.2 Lymphocytes % 7.3 L Monocytes % 10.0 Eosinophils % 2.8 D Basophils % 0.7 INR Puncture Site Right brachial ABG pH 7.43 ABG pCO2 at Pt Temp 55.8 H ABG pO2 at Pt Temp 56.3 L ABG HCO3 36.5 H ABG O2 Sat (Measured) 88.5 L ABG O2 Content 12.0 L ABG Base Excess 10.9 H Fabio Test Positive O2 Delivery Device Bipap Oxygen Flow Rate 50% Vent Mode S/t Vent Rate 16 Mechanical Rate Bipap PEEP 0.0 Pressure Support Vent Ipap 12/epap 6 Sodium 154 H Potassium 3.7 Chloride 107 Carbon Dioxide 36 H Anion Gap 11 BUN 47 H Creatinine 1.6 H Random Glucose 103 Calcium 12.1 H PTH Intact PTH Intact Intraop 0 m 02/01/17 08:25 WBC RBC Hgb Hct MCV MCHC RDW Plt Count MPV Neutrophils % Lymphocytes % Monocytes % Eosinophils % Basophils % INR 2.45 H Puncture Site ABG pH ABG pCO2 at Pt Temp ABG pO2 at Pt Temp ABG HCO3 ABG O2 Sat (Measured) ABG O2 Content ABG Base Excess Fabio Test O2 Delivery Device Oxygen Flow Rate Vent Mode Vent Rate Mechanical Rate PEEP Pressure Support Vent Sodium Potassium Chloride Carbon Dioxide Anion Gap BUN Creatinine Random Glucose Calcium PTH Intact PTH Intact Intraop 0 m Echocardiogram 01/30/17 Impression: The left ventricle is normal in size. There is mild concentric left ventricular hypertrophy. Left ventricular systolic function is normal. No regional wall motion abnormalities noted. The left atrium is moderately dilated. There is a bioprosthetic mitral valve. The prosthetic mitral valve is well seated. There is moderate mitral valve thickening. here is mild mitral regurgitation. There is severe tricuspid regurgitation. Right ventricular systolic pressure is elevated at 40-50 mmHg There is mild pulmonary hypertension. There is a bioprosthetic aortic valve. The prosthetic aortic valve is well seated. Aortic mean pressure gradient = 39 mmHg. No aortic regurgitation is present. 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 Code(s): Z95.4 - PRESENCE OF OTHER HEART-VALVE REPLACEMENT (3) S/P bioprosthetic mitral valve prosthesis (4) Severe Tricuspid regurgitation, by echocardiographic criteria Code(s): I07.1 - RHEUMATIC TRICUSPID INSUFFICIENCY (5) Hypertension, Hypertensive cardiovascular disease Code(s): I11.9 - HYPERTENSIVE HEART DISEASE WITHOUT HEART FAILURE I42.9 - CARDIOMYOPATHY, UNSPECIFIED Qualifiers: Heart failure presence: with heart failure Qualified Code(s): I11.0 - Hypertensive heart disease with heart failure (6) Cerebrovascular disease Code(s): I67.9 - CEREBROVASCULAR DISEASE, UNSPECIFIED (7) Permanent Atrial fibrillation with controlled ventricular response Code(s): I48.91 - UNSPECIFIED ATRIAL FIBRILLATION Qualifiers: Atrial fibrillation type: persistent Qualified Code(s): I48.1 - Persistent atrial fibrillation (8) Yrozx-ii-geadype kidney disease Code(s): N17.9 - ACUTE KIDNEY FAILURE, UNSPECIFIED N18.9 - CHRONIC KIDNEY DISEASE, UNSPECIFIED (9) Anemia Code(s): D64.9 - ANEMIA, UNSPECIFIED Qualifiers: Anemia type: unspecified type Qualified Code(s): D64.9 - Anemia, unspecified (10) CAD (coronary artery disease) Code(s): I25.10 - ATHSCL HEART DISEASE OF [place] CORONARY ARTERY W/O ANG PCTRS Qualifiers: Coronary Disease-Associated Artery/Lesion type: [place] artery [place] vs. transplanted heart: [place] heart Associated angina: without angina Qualified Code(s): I25.10 - Atherosclerotic heart disease of [place] coronary artery without angina pectoris (11) Organic brain syndrome Code(s): F09 - UNSP MENTAL DISORDER DUE TO KNOWN PHYSIOLOGICAL CONDITION (12) History of hyperthyroidism (13) Hypercalcemia associated with elevated PTH levels, consistent with primary hyperparathyroidism Recommendations: 1. Consider addition of low dose of Aldactone under close observation of electrolytes and renal function. 2. Endocrine consultation ordered by Dr. Singh. Prognosis: Critical Attestation: Documentation prepared by Elvis Ricks, acting as biomedical instrument technician for Celso Simms MD.
--- NOTE | 2017-02-01 12:19 | PN ---
Progress Note (short form) - Note Progress Note: PULMONARY APPEARS COMFORTABLE ON BIPAP VSS/AFEBRILE FAMILY IN ATTENDANCE ANICTERIC DISTANT BREATH SOUNDS S1S2 BS+ DIMINISHED LOWER EXT EDEMA LABS/MEDS/NOTES/IMAGING REVIEWED Altered Mental Status Hyperparathyroidism/hypercalcemia Acute on Chronic LV Diastolic Heart Failure Hypoxemic hypercapneic resp failure Pulmonary HTN Pleural Effusion Compressive Atelectasis Paroxysmal Atrial Flutter s/p AVR/MVR HTN - endo consult today - IV lasix/correct calcium - monitor urine output, creatinine - daily weights, I/Os - monitor CXR - rate controlled - O2 to keep SpO2 >90% - aspiration precautions - DVT prophylaxis Antwon MCLEAN
[2017-02-01] MEDS ORDERED: WARFARIN NA 5 MG TABLET (UD) PO SCH (13:25)
--- NOTE | 2017-02-01 13:48 | PN ---
Progress Note, Physician History of Present Illness: Pt seen and examined at bedside. She remains confused. Pt is still on BIPap. - Current Medication List Current Medications: Active Medications Acetaminophen (Tylenol -) 650 mg PO Q6H PRN PRN Reason: FEVER OR PAIN Last Admin: 01/25/17 16:25 Dose: 650 mg Amlodipine Besylate (Norvasc -) 5 mg PO DAILY [facility] Last Admin: 02/01/17 10:27 Dose: 5 mg Docusate Sodium (Colace -) 100 mg PO BID PRN PRN Reason: CONSTIPATION Furosemide (Lasix Injection -) 60 mg IVPB DAILY [facility] Methimazole (Tapazole -) 5 mg PO DAILY [facility] Last Admin: 02/01/17 10:27 Dose: 5 mg Nebivolol (Bystolic -) 10 mg PO DAILY [facility] Last Admin: 02/01/17 10:27 Dose: 10 mg Pantoprazole Sodium (Protonix Packets For Oral Suspension -) 40 mg GT DAILY [facility] Last Admin: 02/01/17 10:27 Dose: 40 mg Rosuvastatin Calcium (Crestor -) 10 mg PO HS [facility] Last Admin: 02/01/17 07:01 Dose: Not Given Senna (Senna -) 2 tab PO HS PRN PRN Reason: CONSTIPATION Warfarin Sodium (Coumadin -) 5 mg PO DAILY@1800 [facility] - Objective Vital Signs: Vital Signs Temperature 97.0 F L 02/01/17 08:20 Pulse Rate 99 H 02/01/17 13:39 Respiratory Rate 16 02/01/17 10:44 Blood Pressure 116/25 02/01/17 08:20 O2 Sat by Pulse Oximetry (%) 92 L 02/01/17 13:39 Constitutional: Yes: Calm Eyes: Yes: Conjunctiva Clear HENT: Yes: Atraumatic Cardiovascular: Yes: S1, S2 Respiratory: Yes: On BiPap Gastrointestinal: Yes: Soft Genitourinary: Yes: Rico Present Musculoskeletal: Yes: Muscle Weakness Edema: Yes Edema: LLE: Trace, RLE: Trace Neurological: Yes: Confusion Labs: CBC, BMP 02/01/17 08:25 02/01/17 08:25 INR, PTT INR 2.45 (0.82-1.09) H 02/01/17 08:25 Problem List - Problems (1) Acute exacerbation of CHF (congestive heart failure) Code(s): I50.9 - HEART FAILURE, UNSPECIFIED Qualifiers: Congestive heart failure type: diastolic Qualified Code(s): I50.33 - Acute on chronic diastolic (congestive) heart failure (2) Hyperthyroidism Code(s): E05.90 - THYROTOXICOSIS, UNSP WITHOUT THYROTOXIC CRISIS OR STORM (3) A-fib Code(s): I48.91 - UNSPECIFIED ATRIAL FIBRILLATION Qualifiers: Atrial fibrillation type: persistent Qualified Code(s): I48.1 - Persistent atrial fibrillation (4) Acute on chronic diastolic CHF (congestive heart failure) Code(s): I50.33 - ACUTE ON CHRONIC DIASTOLIC (CONGESTIVE) HEART FAILURE (5) Anemia Code(s): D64.9 - ANEMIA, UNSPECIFIED Qualifiers: Anemia type: unspecified type Qualified Code(s): D64.9 - Anemia, unspecified (6) Shortness of breath Code(s): R06.02 - SHORTNESS OF BREATH (7) Coumadin toxicity Code(s): T45.511A - POISONING BY ANTICOAGULANTS, ACCIDENTAL, INIT Qualifiers: Encounter type: sequela Injury intent: undetermined intent Qualified Code(s): T45.514S - Poisoning by anticoagulants, undetermined, sequela Assessment/Plan Current Medications Generic Name Dose Route Start Last Admin Trade Name Freq PRN Reason Stop Dose Admin Acetaminophen 650 mg 01/25/17 16:17 01/25/17 16:25 Tylenol - PO 650 mg Q6H PRN Administration FEVER OR PAIN Amlodipine Besylate 5 mg 01/29/17 16:16 02/01/17 10:27 Norvasc - PO 5 mg DAILY ALOK Administration Docusate Sodium 100 mg 01/30/17 11:38 Colace - PO BID PRN CONSTIPATION Furosemide 60 mg 02/02/17 10:00 Lasix Injection - IVPB DAILY ALOK Methimazole 5 mg 01/26/17 10:00 02/01/17 10:27 Tapazole - PO 5 mg DAILY ALOK Administration Nebivolol 10 mg 01/26/17 10:00 02/01/17 10:27 Bystolic - PO 10 mg DAILY ALOK Administration Pantoprazole Sodium 40 mg 01/29/17 11:13 02/01/17 10:27 Protonix Packets For Oral Suspension - GT 40 mg DAILY ALOK Administration Rosuvastatin Calcium 10 mg 01/25/17 22:00 02/01/17 07:01 Crestor - PO Not Given HS ALOK Senna 2 tab 01/30/17 11:38 Senna - PO HS PRN CONSTIPATION Warfarin Sodium 5 mg 02/01/17 13:25 Coumadin - PO DAILY@1800 ALOK Impression 1. MADONNA 2. CKD - creatinine has been elevated on previous labs 3. CHF 4. coumadin toxicity 5. valvular heart disease 6. s/p bio-MVR and AVR 7. hyperlipidemia 8. atrial fibrillation 9. anemia 10. hx of breast cancer 11. renal cyst 12. hypercalcemia Plan - sodium is rising, pt is not taking in free water. Can add d5w if PO intake remains poor - repeat cxr - consider decreasing dose of diuretics for not - check parathyroid scan - pth is elevated in the setting of hypercalcemia, will need to evaluate parathyroid gland - cont bipap - renal function is improving - MADONNA likely from cardiorenal disease - renal cyst will need to be followed, however this can be done as outpt - will follow - overall prognosis guarded Dr Morse
--- NOTE | 2017-02-01 14:01 | PN ---
Progress Note, Physician History of Present Illness: patient seen and examined at bedside Afebrile Mental status not at baseline but improved clinically patient looks better - Current Medication List Current Medications: Active Medications Acetaminophen (Tylenol -) 650 mg PO Q6H PRN PRN Reason: FEVER OR PAIN Last Admin: 01/25/17 16:25 Dose: 650 mg Amlodipine Besylate (Norvasc -) 5 mg PO DAILY [facility] Last Admin: 02/01/17 10:27 Dose: 5 mg Docusate Sodium (Colace -) 100 mg PO BID PRN PRN Reason: CONSTIPATION Furosemide (Lasix Injection -) 60 mg IVPB DAILY [facility] Methimazole (Tapazole -) 5 mg PO DAILY [facility] Last Admin: 02/01/17 10:27 Dose: 5 mg Nebivolol (Bystolic -) 10 mg PO DAILY [facility] Last Admin: 02/01/17 10:27 Dose: 10 mg Pantoprazole Sodium (Protonix Packets For Oral Suspension -) 40 mg GT DAILY [facility] Last Admin: 02/01/17 10:27 Dose: 40 mg Rosuvastatin Calcium (Crestor -) 10 mg PO HS [facility] Last Admin: 02/01/17 07:01 Dose: Not Given Senna (Senna -) 2 tab PO HS PRN PRN Reason: CONSTIPATION Warfarin Sodium (Coumadin -) 5 mg PO DAILY@1800 [facility] - Objective Vital Signs: Vital Signs Temperature 97.0 F L 02/01/17 08:20 Pulse Rate 99 H 02/01/17 13:39 Respiratory Rate 16 02/01/17 10:44 Blood Pressure 116/25 02/01/17 08:20 O2 Sat by Pulse Oximetry (%) 92 L 02/01/17 13:39 Constitutional: Yes: No Distress, Obese Eyes: Yes: Conjunctiva Clear HENT: Yes: Atraumatic Neck: Yes: Supple Cardiovascular: Yes: Pulse Irregular loud systolic murmur at left sternal border Respiratory: Yes: On BiPap, Other (distant breath sounds diminished with fine expiratory crackles at bases bilaterally LLL wheezing ) Gastrointestinal: Yes: Soft, Abdomen, Obese Edema: No Labs: CBC, BMP 02/01/17 08:25 02/01/17 08:25 INR, PTT INR 2.45 (0.82-1.09) H 02/01/17 08:25 Problem List - Problems (1) Acute exacerbation of CHF (congestive heart failure) Code(s): I50.9 - HEART FAILURE, UNSPECIFIED Qualifiers: Congestive heart failure type: diastolic Qualified Code(s): I50.33 - Acute on chronic diastolic (congestive) heart failure (2) Altered mental status Code(s): R41.82 - ALTERED MENTAL STATUS, UNSPECIFIED (3) Paroxysmal atrial flutter Code(s): I48.92 - UNSPECIFIED ATRIAL FLUTTER (4) A-fib Code(s): I48.91 - UNSPECIFIED ATRIAL FIBRILLATION Qualifiers: Atrial fibrillation type: persistent Qualified Code(s): I48.1 - Persistent atrial fibrillation (5) Acute on chronic diastolic CHF (congestive heart failure) Code(s): I50.33 - ACUTE ON CHRONIC DIASTOLIC (CONGESTIVE) HEART FAILURE (6) Lxhso-ii-bhsesjq kidney injury Code(s): N17.9 - ACUTE KIDNEY FAILURE, UNSPECIFIED N18.9 - CHRONIC KIDNEY DISEASE, UNSPECIFIED (7) Anemia Code(s): D64.9 - ANEMIA, UNSPECIFIED Qualifiers: Anemia type: unspecified type Qualified Code(s): D64.9 - Anemia, unspecified (8) CAD (coronary artery disease) Code(s): I25.10 - ATHSCL HEART DISEASE OF [place] CORONARY ARTERY W/O ANG PCTRS Qualifiers: Coronary Disease-Associated Artery/Lesion type: [place] artery [place] vs. transplanted heart: [place] heart Associated angina: without angina Qualified Code(s): I25.10 - Atherosclerotic heart disease of [place] coronary artery without angina pectoris (9) HLD (hyperlipidemia) Code(s): E78.5 - HYPERLIPIDEMIA, UNSPECIFIED Qualifiers: Hyperlipidemia type: pure hypercholesterolemia Qualified Code(s): E78.0 - Pure hypercholesterolemia (10) Shortness of breath Code(s): R06.02 - SHORTNESS OF BREATH (11) Hypoxemia Code(s): R09.02 - HYPOXEMIA (12) Leukocytosis Code(s): D72.829 - ELEVATED WHITE BLOOD CELL COUNT, UNSPECIFIED Assessment/Plan 86F with multiple medical problems with altered mental status persistent leukocytosis hypoxia and a fever spike yesterday to 100.4 Hypercalcemia Patient has prosthetic valves-will send surveillance blood cultures given persistent leukocytosis will continue to observe off Abx at this time- patient received 1 dose of zosyn yesterday given by primary team-CT scan not impressive for pneumonia if spikes again do fever work up- get full set of cultures UA UCx BCx continue trending labs pulmonology consult noted Correct electrolytes thank you for this consult will follow Case discussed with attending Dr. Chavis
--- NOTE | 2017-02-01 14:04 | PN ---
Teaching Attending Note Name of Resident: Shade Muñoz ATTENDING PHYSICIAN STATEMENT I saw and evaluated the patient. I reviewed the resident's note and discussed the case with the resident. I agree with the resident's findings and plan as documented. SUBJECTIVE: more alert, no fevers on bipap OBJECTIVE: Vital Signs Period Temp Pulse Resp BP Sys/[place] Pulse Ox Last 24 Hr 96.8 F-98.3 F 66-99 16-20 116-142/25-71 91-94 cor-rrr lungs decreased bs at bases abd soft, nt ext no edema CBC, BMP 02/01/17 08:25 02/01/17 08:25 ASSESSMENT AND PLAN: CHF hypercalcemia/elevated PTH- for endocrine evaluation AVR/MVR atelectasis slightly elevated WBDC-would obtain surveillance blood cultures
--- NOTE | 2017-02-01 15:32 | PN ---
Physical Exam: SUBJECTIVE: Patient seen and examined Patient resting in bed NAD. No acute events. Afebrile and hemodynamically stable. condition unchanged. Granddaughter at bedside. Patient nods that she remembers me from yesterday but is unable to answer further questions. She is below her mental baseline. OBJECTIVE: Vital Signs Period Temp Pulse Resp BP Sys/[place] Pulse Ox Last 24 Hr 96.8 F-98.3 F 66-99 16-20 116-142/25-77 91-92 GENERAL: Awake, lethargic HEAD: Normal with no signs of trauma. EYES: Pupils equal, round and reactive to light, extraocular movements intact, sclera anicteric, conjunctiva clear. EARS, NOSE, THROAT: Moist mucous membranes. NECK: supple without JVD LUNGS: RUL ronchi, diffusely coarse breath sounds HEART: Regular rate and rhythm, normal S1 and S2 ABDOMEN: Soft, nontender, not distended, normoactive bowel sounds MUSCULOSKELETAL: No CVA tenderness. UPPER EXTREMITIES: 2+ pulses, warm, well-perfused LOWER EXTREMITIES: 2+ pulses, warm, well-perfused. 1+ peripheral edema. NEUROLOGICAL: Cranial nerves II-XII grossly intact. PSYCHIATRIC: lethargic SKIN: Warm, dry Laboratory Results - last 24 hr 01/31/17 02/01/17 02/01/17 19:50 07:20 08:25 WBC 10.1 H RBC 3.75 Hgb 9.4 L Hct 30.5 L MCV 81.2 MCHC 30.9 L RDW 16.4 H Plt Count 418 MPV 8.3 Neutrophils % 79.2 Lymphocytes % 7.3 L Monocytes % 10.0 Eosinophils % 2.8 D Basophils % 0.7 INR Puncture Site Right radial Right brachial ABG pH 7.45 7.43 ABG pCO2 at Pt Temp 53.2 H D 55.8 H ABG pO2 at Pt Temp 53.6 L D 56.3 L ABG HCO3 36.0 H 36.5 H ABG O2 Sat (Measured) 87.2 L 88.5 L ABG O2 Content 11.6 L 12.0 L ABG Base Excess 10.7 H 10.9 H Fabio Test Positive Positive O2 Delivery Device Bipap Bipap Oxygen Flow Rate 45% 50% Vent Mode S/t S/t Vent Rate 16 16 Mechanical Rate Bipap PEEP 0.0 0.0 Pressure Support Vent 12/6 Ipap 12/epap 6 Sodium Potassium Chloride Carbon Dioxide Anion Gap BUN Creatinine Random Glucose Calcium 02/01/17 02/01/17 08:25 08:25 WBC RBC Hgb Hct MCV MCHC RDW Plt Count MPV Neutrophils % Lymphocytes % Monocytes % Eosinophils % Basophils % INR 2.45 H Puncture Site ABG pH ABG pCO2 at Pt Temp ABG pO2 at Pt Temp ABG HCO3 ABG O2 Sat (Measured) ABG O2 Content ABG Base Excess Fabio Test O2 Delivery Device Oxygen Flow Rate Vent Mode Vent Rate Mechanical Rate PEEP Pressure Support Vent Sodium 154 H Potassium 3.7 Chloride 107 Carbon Dioxide 36 H Anion Gap 11 BUN 47 H Creatinine 1.6 H Random Glucose 103 Calcium 12.1 H Active Medications Generic Name Dose Route Start Last Admin Trade Name Freq PRN Reason Stop Dose Admin Acetaminophen 650 mg 01/25/17 16:17 01/25/17 16:25 Tylenol - PO 650 mg Q6H PRN Administration FEVER OR PAIN Amlodipine Besylate 5 mg 01/29/17 16:16 02/01/17 10:27 Norvasc - PO 5 mg DAILY [facility] Administration Docusate Sodium 100 mg 01/30/17 11:38 Colace - PO BID PRN CONSTIPATION Furosemide 60 mg 02/02/17 10:00 Lasix Injection - IVPB DAILY [facility] Methimazole 5 mg 01/26/17 10:00 02/01/17 10:27 Tapazole - PO 5 mg DAILY [facility] Administration Nebivolol 10 mg 01/26/17 10:00 02/01/17 10:27 Bystolic - PO 10 mg DAILY [facility] Administration Pantoprazole Sodium 40 mg 01/29/17 11:13 02/01/17 10:27 Protonix Packets For Oral Suspension - GT 40 mg DAILY [facility] Administration Rosuvastatin Calcium 10 mg 01/25/17 22:00 02/01/17 07:01 Crestor - PO Not Given HS ALOK Senna 2 tab 01/30/17 11:38 Senna - PO HS PRN CONSTIPATION Warfarin Sodium 5 mg 02/01/17 13:25 Coumadin - PO DAILY@1800 [facility] ASSESSMENT/PLAN: Acute hypercapneic hypoxic respiratory failure -possibly due to HFPEF exacerbation -unlikely COPD, no smoking history, imaging not suggestive -CT chest pulm congestion, b/l effusions with compressive atelectasis -Now on bipap, comfortable. -repeat ABG about the same CO2 retention -repeat cxr Altered mental status -likley due to hypercarbia/hypoxia -consider CT head Hypernatremia -awaiting endoctinology consult HFPEF -s/p s/p AVR/MVR -possible exacerbation -IV lasix -daily weights -strict I and O -tele monitoring Paroxysmal Atrial Flutter -rate controlled HLD -crestor Dispo: We will continue to follow the patient. Thank you for this consultative opportunity. Visit type - Emergency Visit Emergency Visit: Yes ED Registration Date: 01/25/17 Care time: The patient presented to the Emergency Department on the above date and was hospitalized for further evaluation of their emergent condition. - New Patient This patient is new to me today: No - Critical Care Critical Care patient: No - Discharge Referral Referred to [facility] No
--- NOTE | 2017-02-01 19:11 | PN ---
Teaching Attending Note Name of Resident: Tamara Keyes ATTENDING PHYSICIAN STATEMENT I saw and evaluated the patient. I reviewed the resident's note and discussed the case with the resident. I agree with the resident's findings and plan as documented. SUBJECTIVE: denies pain , SOB is better . OBJECTIVE: NAD , BIPAP mask on . knows her age and location , not year Cv : RRR, JVD Lungs: decreased breath sounds at bases Abd: soft, NT, ND , NL BS Ext : edema over R arm neck possible enlargement of L thyroid lobe . ASSESSMENT AND PLAN: 86 y/o lady with h/o CHF, COPD , PUlm HTn, bioprosthetic aortic valve replacement and other co-morbidities who presented with SOB and was found to have acute resp failure due to acute D CHF 1- Acute hypoxic , hypercapnic resp failure due to acute on chronic diastolic CHF exacerbation : cont to need BIPAP due to hypoxia . - Decrease lasix to 60 daily due to signs of dehydration. - no evidence of PNA , monitor off Abx. lood cx sent - no evidence of acute COPD exacerbation . monitor off steroids - echo reviewed. 2- Coumadin coagulopathy : INR 2.4 today . resolved 3- P A flutter : cont coumadin . give 5 tonight . cont BB 4- MADONNA : due to prerenal azotemia in the setting of CHF improved with diuresis 5- hypercalcemia : likely due to hyperparathyroid( neck mass ,elevated PTH) in combination with immobilization . has h/o breast cancer. ? active . - can't give IVF due to CHF - spoke to pharmacist, we carry calcitonine . will order q 12 hr. if there is response will continue for now - endo consult placed 6- AMS : multifactorial . resp failure, hypercalcemia , dehydration . correct all the factors. 7- RUE edema . US ordered Code status: DNR/DNI
[2017-02-01] MEDS ORDERED: CALCITONIN - SALMON SYNTHETIC 400 UNIT/2 ML VIAL SQ ONE (19:23)
--- NOTE | 2017-02-01 20:09 | CONSULT ---
Consult Consult Specialty:: endocrine Referred by:: dr.dematteo alex Reason for Consultation:: hyperparathyroidism,hypercalcemia - History of Present Illness Chief Complaint: confused weak dyspnea on bipap History of Present Illness: 86-year-old woman, accompanied by her grand-daughter, with a significant past medical history of hypertension,left breast cancer,mvr,chf, hypercholesterolemia , coronary artery disease, atrial fibrillation (status post mechanical valve placement),has hyperthyroidism,hypercalcemia,hyperparathyroidism [place],not responding to lasix or calcitonin - Past Medical History Cardio/Vascular: Yes: AFIB, CAD, CHF, HTN, Hyperlipdemia Renal/: Yes: Renal Inusuff - Past Surgical History Past Surgical History: Yes: Mastectomy (left), Valve Replacement - Alcohol/Substance Use Hx Alcohol Use: No - Smoking History Smoking history: Former smoker Have you smoked in the past 12 months: No If you are a former smoker, when did you quit?: 1996 Home Medications - Allergies Allergies/Adverse Reactions: Allergies Allergy/AdvReac Type Severity Reaction Status Date / Time No Known Allergies Allergy Verified 01/25/17 10:51 - Home Medications Home Medications: Ambulatory Orders Allopurinol [Zyloprim -] 100 mg PO DAILY 12/21/16 Cholecalciferol (Vitamin D3) [Vitamin D -] 50,000 unit PO MONTHLY 12/21/16 Methimazole [Tapazole] 5 mg PO DAILY 12/21/16 Nebivolol HCl [Bystolic] 10 mg PO DAILY 12/21/16 Omeprazole 40 mg PO DAILY 12/21/16 Ranolazine [Ranexa] 500 mg PO BID 12/21/16 Rosuvastatin Calcium [Crestor] 10 mg PO HS 12/21/16 Amlodipine Besylate [Norvasc -] 10 mg PO DAILY #30 tablet 12/23/16 Torsemide [Demadex -] 10 mg PO DAILY #30 tablet 12/23/16 Warfarin Na [Coumadin -] 5 mg PO DAILY #0 12/23/16 Family Disease History - Family Disease History Other Family History: non-contributory Review of Systems Unable to obtain ROS, reason: confused weak dyspneic - Review of Systems Constitutional: reports: Lethargy, Weakness Physical Exam Vital Signs: Vital Signs Temperature 99.1 F 02/01/17 18:00 Pulse Rate 63 02/01/17 18:00 Respiratory Rate 17 02/01/17 18:00 Blood Pressure 156/61 02/01/17 18:00 O2 Sat by Pulse Oximetry (%) 96 02/01/17 18:52 Constitutional: Yes: Anxious Eyes: Yes: EOM Intact HENT: Yes: Normocephalic Neck: Yes: Trachea Midline Cardiovascular: Yes: Tachycardia, Murmur Respiratory: Yes: On BiPap, Rales Gastrointestinal: Yes: Normal Bowel Sounds ...Rectal Exam: Yes: Deferred Renal/: Yes: WNL Breast(s): Yes: Left Musculoskeletal: Yes: Muscle Pain, Muscle Weakness Extremities: Yes: Cool Edema: No Neurological: Yes: Confusion, Weakness Labs: CBC, BMP 02/01/17 08:25 02/01/17 08:25 Problem List - Problems (1) Hyperthyroidism Code(s): E05.90 - THYROTOXICOSIS, UNSP WITHOUT THYROTOXIC CRISIS OR STORM (2) Hypercalcemia Code(s): E83.52 - HYPERCALCEMIA (3) Hyperparathyroidism Code(s): E21.3 - HYPERPARATHYROIDISM, UNSPECIFIED Assessment/Plan Current Active Problems Acute exacerbation of CHF (congestive heart failure) (Acute) Altered mental status (Acute) Cerebrovascular disease (Acute) Coumadin toxicity (Acute) Hyperthyroidism (Acute) Hypoxemia (Acute) Leukocytosis (Acute) Organic brain syndrome (Acute) Paroxysmal atrial flutter (Acute) Respiratory failure (Acute) Tricuspid regurgitation (Acute) hypercalcemia hyperparathyroidism adenoma vs pthrp Abnormal Lab Results 02/01/17 02/01/17 02/01/17 07:20 08:25 08:25 WBC 10.1 H Hgb 9.4 L Hct 30.5 L MCHC 30.9 L RDW 16.4 H Lymphocytes % 7.3 L INR ABG pCO2 at Pt Temp 55.8 H ABG pO2 at Pt Temp 56.3 L ABG HCO3 36.5 H ABG O2 Sat (Measured) 88.5 L ABG O2 Content 12.0 L ABG Base Excess 10.9 H Sodium 154 H Carbon Dioxide 36 H BUN 47 H Creatinine 1.6 H Calcium 12.1 H 02/01/17 08:25 WBC Hgb Hct MCHC RDW Lymphocytes % INR 2.45 H ABG pCO2 at Pt Temp ABG pO2 at Pt Temp ABG HCO3 ABG O2 Sat (Measured) ABG O2 Content ABG Base Excess Sodium Carbon Dioxide BUN Creatinine Calcium Laboratory Results - last 24 hr 02/01/17 02/01/17 02/01/17 07:20 08:25 08:25 WBC 10.1 H RBC 3.75 Hgb 9.4 L Hct 30.5 L MCV 81.2 MCHC 30.9 L RDW 16.4 H Plt Count 418 MPV 8.3 Neutrophils % 79.2 Lymphocytes % 7.3 L Monocytes % 10.0 Eosinophils % 2.8 D Basophils % 0.7 INR Puncture Site Right brachial ABG pH 7.43 ABG pCO2 at Pt Temp 55.8 H ABG pO2 at Pt Temp 56.3 L ABG HCO3 36.5 H ABG O2 Sat (Measured) 88.5 L ABG O2 Content 12.0 L ABG Base Excess 10.9 H Fabio Test Positive O2 Delivery Device Bipap Oxygen Flow Rate 50% Vent Mode S/t Vent Rate 16 Mechanical Rate Bipap PEEP 0.0 Pressure Support Vent Ipap 12/epap 6 Sodium 154 H Potassium 3.7 Chloride 107 Carbon Dioxide 36 H Anion Gap 11 BUN 47 H Creatinine 1.6 H Random Glucose 103 Calcium 12.1 H 02/01/17 08:25 WBC RBC Hgb Hct MCV MCHC RDW Plt Count MPV Neutrophils % Lymphocytes % Monocytes % Eosinophils % Basophils % INR 2.45 H Puncture Site ABG pH ABG pCO2 at Pt Temp ABG pO2 at Pt Temp ABG HCO3 ABG O2 Sat (Measured) ABG O2 Content ABG Base Excess Fabio Test O2 Delivery Device Oxygen Flow Rate Vent Mode Vent Rate Mechanical Rate PEEP Pressure Support Vent Sodium Potassium Chloride Carbon Dioxide Anion Gap BUN Creatinine Random Glucose Calcium Laboratory Tests 01/30/17 01/30/17 02/01/17 07:50 07:50 08:25 Calcium 12.1 H TSH 3.37 D PTH Intact 241 H plan: since pth surgery risk factors vs benifit start cinacalcet 30mg bid titrate dose ck ionized calcium pthrp
[2017-02-01] MEDS: CINACALCET HCL 30 MG TAB (FP) PO SCH (22:23)
[2017-02-02 08:43] LABS: ALBUMIN 2.5 g/dl (3.4-5.0); CALCIUM 11.3 mg/dL (8.5-10.1); CREATININE 1.5 mg/dL (0.55-1.02)
[2017-02-02 08:58] LABS: MCH 25.3 pg (25.7-33.7); MCHC 30.4 g/dl (32.0-36.0); MEAN CELL VOLUME 83.2 fl (80-96); MEAN PLT VOLUME 8.2 fl (7.5-11.1); PLATELET COUNT 379 K/MM3 (134-434); RDW 16.7 % (11.6-15.6)
[2017-02-02] MEDS ORDERED: FUROSEMIDE 40 MG/4 ML INJECTABLE VIAL IVPB SCH (10:00)
[2017-02-02] MEDS ORDERED: DEXTROSE 5%-WATER - 1,000 ML IV SCH (10:15)
[2017-02-02] MEDS: amLODIPine BESYLATE 5 MG TABLET (FP) PO SCH (10:43)
[2017-02-02] MEDS: NEBIVOLOL 10 MG TABLET (FP) PO SCH (10:43)
[2017-02-02] MEDS: PANTOPRAZOLE SOD 40 MG SUSPENSION PACKET GT SCH (10:43)
[2017-02-02] MEDS: CINACALCET HCL 30 MG TAB (FP) PO SCH ×2 (10:43→21:31)
[2017-02-02] MEDS: METHIMAZOLE 5 MG TABLET (FP) PO SCH (10:44)
[2017-02-02 11:43] LABS: PROTHROMBIN TIME (PATIENT) 45.6 SEC (9.98-11.88)
[2017-02-02 11:43] LABS: ARTERIAL BLD GAS O2 SATURATION 95.5 % (90-98.9); ARTERIAL BLOOD GAS BASE EXCESS 14.2 meq/l (-2-2); ARTERIAL BLOOD GAS HCO3 39.8 meq/L (22-26); ARTERIAL BLOOD GAS PO2 73.6 mmHg (68-100); ARTERIAL BLOOD GAS pH 7.46 (7.35-7.45)
[2017-02-02 11:44] LABS: ALLENS TEST POSITIVE; ART PUNCT SITE RIGHT BRACHIAL; LPM/O2% 50%; PT. ON O2? YES; TYPE OF O2 BIPAP; VENT RATE 16
--- NOTE | 2017-02-02 12:09 | PN ---
Progress Note, Physician History of Present Illness: Continues on bipap for hypercapneic, hypoxemic respiratory failure with improving ABG. - Current Medication List Current Medications: Active Medications Acetaminophen (Tylenol -) 650 mg PO Q6H PRN PRN Reason: FEVER OR PAIN Last Admin: 01/25/17 16:25 Dose: 650 mg Amlodipine Besylate (Norvasc -) 5 mg PO DAILY [facility] Last Admin: 02/02/17 10:43 Dose: Not Given Cinacalcet (Sensipar -) 30 mg PO BID [facility] Last Admin: 02/02/17 10:43 Dose: Not Given Docusate Sodium (Colace -) 100 mg PO BID PRN PRN Reason: CONSTIPATION Dextrose (D5w -) 1,000 mls @ 40 mls/hr IV .[id number] [facility] Last Admin: 02/02/17 10:46 Dose: 40 mls/hr Methimazole (Tapazole -) 5 mg PO DAILY [facility] Last Admin: 02/02/17 10:44 Dose: Not Given Nebivolol (Bystolic -) 10 mg PO DAILY [facility] Last Admin: 02/02/17 10:43 Dose: Not Given Pantoprazole Sodium (Protonix Packets For Oral Suspension -) 40 mg GT DAILY [facility] Last Admin: 02/02/17 10:43 Dose: Not Given Rosuvastatin Calcium (Crestor -) 10 mg PO HS [facility] Last Admin: 02/01/17 22:23 Dose: 10 mg Senna (Senna -) 2 tab PO HS PRN PRN Reason: CONSTIPATION Warfarin Sodium (Coumadin -) 5 mg PO DAILY@1800 [facility] Last Admin: 02/01/17 17:46 Dose: 5 mg - Objective Vital Signs: Vital Signs Temperature 98.2 F 02/02/17 08:30 Pulse Rate 102 H 02/02/17 08:30 Respiratory Rate 20 02/02/17 08:30 Blood Pressure 98/56 02/02/17 08:30 O2 Sat by Pulse Oximetry (%) 96 02/01/17 22:15 Constitutional: Yes: No Distress, Calm Neck: Yes: Supple Cardiovascular: Yes: Pulse Irregular Respiratory: Yes: Regular, Diminished, On BiPap Gastrointestinal: Yes: Normal Bowel Sounds, Soft Edema: No Labs: CBC, BMP 02/02/17 06:00 02/02/17 05:37 INR, PTT INR 2.45 (0.82-1.09) H 02/01/17 08:25 - ....Imaging Chest X-ray: Report Reviewed (Slight improvement in congestion) Problem List - Problems (1) A-fib Code(s): I48.91 - UNSPECIFIED ATRIAL FIBRILLATION Qualifiers: Atrial fibrillation type: persistent Qualified Code(s): I48.1 - Persistent atrial fibrillation (2) Acute on chronic diastolic CHF (congestive heart failure) Code(s): I50.33 - ACUTE ON CHRONIC DIASTOLIC (CONGESTIVE) HEART FAILURE (3) Agyiy-mi-dmdukvp kidney injury Code(s): N17.9 - ACUTE KIDNEY FAILURE, UNSPECIFIED N18.9 - CHRONIC KIDNEY DISEASE, UNSPECIFIED (4) CAD (coronary artery disease) Code(s): I25.10 - ATHSCL HEART DISEASE OF [place] CORONARY ARTERY W/O ANG PCTRS Qualifiers: Coronary Disease-Associated Artery/Lesion type: [place] artery [place] vs. transplanted heart: [place] heart Associated angina: without angina Qualified Code(s): I25.10 - Atherosclerotic heart disease of [place] coronary artery without angina pectoris (5) HLD (hyperlipidemia) Code(s): E78.5 - HYPERLIPIDEMIA, UNSPECIFIED Qualifiers: Hyperlipidemia type: pure hypercholesterolemia Qualified Code(s): E78.0 - Pure hypercholesterolemia (6) Hypertensive cardiomyopathy Code(s): I11.9 - HYPERTENSIVE HEART DISEASE WITHOUT HEART FAILURE I42.9 - CARDIOMYOPATHY, UNSPECIFIED Qualifiers: Heart failure presence: with heart failure Qualified Code(s): I11.0 - Hypertensive heart disease with heart failure (7) S/P aortic valve replacement with bioprosthetic valve Code(s): Z95.4 - PRESENCE OF OTHER HEART-VALVE REPLACEMENT (9) Shortness of breath Code(s): R06.02 - SHORTNESS OF BREATH (10) Hyperthyroidism Code(s): E05.90 - THYROTOXICOSIS, UNSP WITHOUT THYROTOXIC CRISIS OR STORM (11) Premature ventricular complex Code(s): I49.3 - VENTRICULAR PREMATURE DEPOLARIZATION (12) Cerebrovascular disease Code(s): I67.9 - CEREBROVASCULAR DISEASE, UNSPECIFIED Assessment/Plan 04/07/2016 Normal LV and RV size and fxn, mild LAE, bioMVR and AVR with transaortic MG 26 mmHg, RVSP 40-50 mmHg, mild-mod TR 12/22/2016 Normal LV and RV size and fxn, mild LAE, bioMVR and AVR with transvalvular MG 32 mmHg, RVSP 40-50 mmHg, mild-mod TR Echocardiogram 01/30/17 Impression: The left ventricle is normal in size. There is mild concentric left ventricular hypertrophy. Left ventricular systolic function is normal. No regional wall motion abnormalities noted. The left atrium is moderately dilated. There is a bioprosthetic mitral valve. The prosthetic mitral valve is well seated. There is moderate mitral valve thickening. here is mild mitral regurgitation. There is severe tricuspid regurgitation. Right ventricular systolic pressure is elevated at 40-50 mmHg There is mild pulmonary hypertension. There is a bioprosthetic aortic valve. The prosthetic aortic valve is well seated. Aortic mean pressure gradient = 39 mmHg. No aortic regurgitation is present. 1. Acute hypoxic, hypercapneic respiratory failure due to 2. Recurrent acute on chronic diastolic failure improving 3. H/o bioMVR, AVR with elevated transaortic gradient, consider prosthesis- patient mismatch 4. Acute on CKD referable to above improving now with hypernatremia 5. CAD, angina pectoris 6. Persistent afib on coumadin with supratherapeutic INR 7. Hyperlipidemia 8. Hyperuricemia 9. Left breast ca s/p mastectomy 10. Hyperthyroidism 11. PVC 12. Anemia 13. Cerebrovascular disease 14. Hypercalcemia due to hyperparathyroidism 15. RUE edema, U/S pending P: 1. Off diuretics with monitor renal fxn and electrolytes, free water repletion 2. Continue Bystolic 10 qd, Norvasc 10 qd, Crestor 10 qhs and hold coumadin per INR. Resume Benicar once renal fxn stabilizes. 3. Wean bipap as tolerated per ABG
[2017-02-02 12:22] LABS: INR 4.03 (0.82-1.09)
[2017-02-02 12:27] LABS: PLATELET ESTIMATE DECREASED (NORMAL)
--- NOTE | 2017-02-02 13:58 | PN ---
Progress Note, Physician History of Present Illness: patient seen and examined at bedside Afebrile Mental status not at baseline but continues to improved able to follow simple commands and answer simple questions clinically patient looks better - Current Medication List Current Medications: Active Medications Acetaminophen (Tylenol -) 650 mg PO Q6H PRN PRN Reason: FEVER OR PAIN Last Admin: 01/25/17 16:25 Dose: 650 mg Amlodipine Besylate (Norvasc -) 5 mg PO DAILY [facility] Last Admin: 02/02/17 10:43 Dose: Not Given Cinacalcet (Sensipar -) 30 mg PO BID [facility] Last Admin: 02/02/17 10:43 Dose: Not Given Docusate Sodium (Colace -) 100 mg PO BID PRN PRN Reason: CONSTIPATION Dextrose (D5w -) 1,000 mls @ 40 mls/hr IV .[id number] [facility] Last Admin: 02/02/17 10:46 Dose: 40 mls/hr Methimazole (Tapazole -) 5 mg PO DAILY [facility] Last Admin: 02/02/17 10:44 Dose: Not Given Nebivolol (Bystolic -) 10 mg PO DAILY [facility] Last Admin: 02/02/17 10:43 Dose: Not Given Pantoprazole Sodium (Protonix Packets For Oral Suspension -) 40 mg GT DAILY [facility] Last Admin: 02/02/17 10:43 Dose: Not Given Rosuvastatin Calcium (Crestor -) 10 mg PO HS [facility] Last Admin: 02/01/17 22:23 Dose: 10 mg Senna (Senna -) 2 tab PO HS PRN PRN Reason: CONSTIPATION - Objective Vital Signs: Vital Signs Temperature 98.2 F 02/02/17 08:30 Pulse Rate 102 H 02/02/17 08:30 Respiratory Rate 20 02/02/17 08:30 Blood Pressure 98/56 02/02/17 08:30 O2 Sat by Pulse Oximetry (%) 96 02/01/17 22:15 Constitutional: Yes: No Distress, Obese Eyes: Yes: Conjunctiva Clear HENT: Yes: Atraumatic Neck: Yes: Supple Cardiovascular: Yes: Pulse Irregular loud systolic murmur at left sternal border Respiratory: Yes: On BiPap, Other (distant breath sounds diminished with fine expiratory crackles at bases bilaterally) rudy exam improved Gastrointestinal: Yes: Soft, Abdomen, Obese Edema: No Labs: CBC, BMP 03/09/17 06:00 02/02/17 05:37 INR, PTT INR 4.03 (0.82-1.09) H* D 02/02/17 10:20 Problem List - Problems (1) Acute exacerbation of CHF (congestive heart failure) Code(s): I50.9 - HEART FAILURE, UNSPECIFIED Qualifiers: Congestive heart failure type: diastolic Qualified Code(s): I50.33 - Acute on chronic diastolic (congestive) heart failure (2) Altered mental status Code(s): R41.82 - ALTERED MENTAL STATUS, UNSPECIFIED (3) Paroxysmal atrial flutter Code(s): I48.92 - UNSPECIFIED ATRIAL FLUTTER (4) A-fib Code(s): I48.91 - UNSPECIFIED ATRIAL FIBRILLATION Qualifiers: Atrial fibrillation type: persistent Qualified Code(s): I48.1 - Persistent atrial fibrillation (5) Acute on chronic diastolic CHF (congestive heart failure) Code(s): I50.33 - ACUTE ON CHRONIC DIASTOLIC (CONGESTIVE) HEART FAILURE (6) Ivphk-jd-pudmwaq kidney injury Code(s): N17.9 - ACUTE KIDNEY FAILURE, UNSPECIFIED N18.9 - CHRONIC KIDNEY DISEASE, UNSPECIFIED (7) Anemia Code(s): D64.9 - ANEMIA, UNSPECIFIED Qualifiers: Anemia type: unspecified type Qualified Code(s): D64.9 - Anemia, unspecified (8) CAD (coronary artery disease) Code(s): I25.10 - ATHSCL HEART DISEASE OF [place] CORONARY ARTERY W/O ANG PCTRS Qualifiers: Coronary Disease-Associated Artery/Lesion type: [place] artery [place] vs. transplanted heart: [place] heart Associated angina: without angina Qualified Code(s): I25.10 - Atherosclerotic heart disease of [place] coronary artery without angina pectoris (9) HLD (hyperlipidemia) Code(s): E78.5 - HYPERLIPIDEMIA, UNSPECIFIED Qualifiers: Hyperlipidemia type: pure hypercholesterolemia Qualified Code(s): E78.0 - Pure hypercholesterolemia (10) Shortness of breath Code(s): R06.02 - SHORTNESS OF BREATH (11) Hypoxemia Code(s): R09.02 - HYPOXEMIA (12) Leukocytosis Code(s): D72.829 - ELEVATED WHITE BLOOD CELL COUNT, UNSPECIFIED (13) Hypernatremia Code(s): E87.0 - HYPEROSMOLALITY AND HYPERNATREMIA (14) Acute hypernatremia Code(s): E87.0 - HYPEROSMOLALITY AND HYPERNATREMIA Assessment/Plan 86F with multiple medical problems with altered mental status persistent leukocytosis hypoxia and a fever spike yesterday to 100.4 Hypercalcemia hypernatremia Patient has prosthetic valves-surveillance blood cultures sent given persistent leukocytosis blood cultures no growth so far Leukocystosis resolved CXR improved today will continue to observe off Abx at this time- patient received 1 dose of zosyn yesterday given by primary team-CT scan not impressive for pneumonia if spikes again do fever work up- get full set of cultures UA UCx BCx continue trending labs pulmonology consult noted Correct electrolytes ween off bipap thank you for this consult-please recall of we can be of any assistance Case discussed with attending Dr. Arriaga
--- NOTE | 2017-02-02 14:54 | PN ---
Teaching Attending Note Name of Resident: Tamara Keyes ATTENDING PHYSICIAN STATEMENT I saw and evaluated the patient. I reviewed the resident's note and discussed the case with the resident. I agree with the resident's findings and plan as documented. SUBJECTIVE: no fever or chills, denies any pain .feels her SOb is better OBJECTIVE: NAD , BIPAP mask on .deos not know her age , or year . she recognizes she is in hospital Cv : RRR, JVD Lungs: decreased breath sounds at bases otherwise clear Abd: soft, NT, ND , NL BS Ext : edema over R arm ASSESSMENT AND PLAN: 86 y/o lady with h/o CHF, COPD , PUlm HTn, bioprosthetic aortic valve replacement and other co-morbidities who presented with SOB and was found to have acute resp failure due to acute D CHF 1- Acute hypoxic , hypercapnic resp failure due to acute on chronic diastolic CHF exacerbation : cont to need BIPAP due to persistent hypoxia . -will hold lasix for now , as there are signs fo dehydration , and now NPO due to AMs - no evidence of PNA , monitor off Abx. follow blood cx - no evidence of acute COPD exacerbation . monitor off steroids , unless lung exam changes - cont BB 2- Coumadin coagulopathy : INR 4 today will hold coumadiin 3- P A flutter : hold coumadin due to elevated INR . will repeat in AM and dose accordingly cont BB 4- MADONNA : due to pre-renal azotemia in the setting of CHF improved with diuresis 5- Hypercalcemia : likely due to hyperparathyroid ( neck mass ,elevated PTH) in combination with immobilization . has h/o breast cancer. ? active . - Ca level improved with calcitonine and cinacalcet . - cont cinacalcet . - follow Ionized calcium 6- dehydration : due to decreased oral intake in setting of diuresis : will add D5w @ 42 cc/hr for 1 bag and reassess 7-AMS : multi-factorial . resp failure, hypercalcemia , dehydration . correct all the factors. 8- RUE edema . US ordered Code status: DNR/DNI
--- NOTE | 2017-02-02 15:01 | PN ---
Progress Note (short form) - Note Progress Note: PULMONARY Remains on BiPAP. More alert, awake. Last Vital Signs Temp Pulse Resp BP Pulse Ox 98.2 F 102 H 20 98/56 95 02/02/17 08:30 02/02/17 14:18 02/02/17 08:30 02/02/17 08:30 02/02/17 14:19 Gen: less tachypneic, more awake Heart: tachycardic Lung: decreased breath sounds at the bases Abd: soft, nontender Ext: less edema CBC, BMP 02/02/17 06:00 02/02/17 05:37 Active Medications Acetaminophen (Tylenol -) 650 mg PO Q6H PRN PRN Reason: FEVER OR PAIN Last Admin: 01/25/17 16:25 Dose: 650 mg Amlodipine Besylate (Norvasc -) 5 mg PO DAILY [facility] Last Admin: 02/02/17 10:43 Dose: Not Given Cinacalcet (Sensipar -) 30 mg PO BID [facility] Last Admin: 02/02/17 10:43 Dose: Not Given Docusate Sodium (Colace -) 100 mg PO BID PRN PRN Reason: CONSTIPATION Dextrose (D5w -) 1,000 mls @ 40 mls/hr IV .[id number] [facility] Last Admin: 02/02/17 10:46 Dose: 40 mls/hr Methimazole (Tapazole -) 5 mg PO DAILY [facility] Last Admin: 02/02/17 10:44 Dose: Not Given Nebivolol (Bystolic -) 10 mg PO DAILY [facility] Last Admin: 02/02/17 10:43 Dose: Not Given Pantoprazole Sodium (Protonix Packets For Oral Suspension -) 40 mg GT DAILY [facility] Last Admin: 02/02/17 10:43 Dose: Not Given Rosuvastatin Calcium (Crestor -) 10 mg PO HS [facility] Last Admin: 02/01/17 22:23 Dose: 10 mg Senna (Senna -) 2 tab PO HS PRN PRN Reason: CONSTIPATION A/P Altered Mental Status improving Acute on Chronic LV Diastolic Heart Failure Pulmonary HTN Pleural Effusion Compressive Atelectasis Paroxysmal Atrial Flutter s/p AVR/MVR HTN - continue lasix as needed - monitor urine output, creatinine - daily weights, I/Os - monitor CXR - rate controlled - O2 to keep SpO2 >90%, can try ventimask - BiPAP as needed - aspiration precautions - DVT prophylaxis Problem List - Problems (1) Altered mental status Code(s): R41.82 - ALTERED MENTAL STATUS, UNSPECIFIED (2) Acute on chronic diastolic CHF (congestive heart failure) Code(s): I50.33 - ACUTE ON CHRONIC DIASTOLIC (CONGESTIVE) HEART FAILURE (3) Wigui-jh-yjrvhoi kidney injury Code(s): N17.9 - ACUTE KIDNEY FAILURE, UNSPECIFIED N18.9 - CHRONIC KIDNEY DISEASE, UNSPECIFIED (4) Paroxysmal atrial flutter Code(s): I48.92 - UNSPECIFIED ATRIAL FLUTTER (5) Coumadin toxicity Code(s): T45.511A - POISONING BY ANTICOAGULANTS, ACCIDENTAL, INIT Qualifiers: Encounter type: sequela Injury intent: undetermined intent Qualified Code(s): T45.514S - Poisoning by anticoagulants, undetermined, sequela (6) CAD (coronary artery disease) Code(s): I25.10 - ATHSCL HEART DISEASE OF [place] CORONARY ARTERY W/O ANG PCTRS Qualifiers: Coronary Disease-Associated Artery/Lesion type: [place] artery [place] vs. transplanted heart: [place] heart Associated angina: without angina Qualified Code(s): I25.10 - Atherosclerotic heart disease of [place] coronary artery without angina pectoris
--- NOTE | 2017-02-02 16:03 | PN ---
Progress Note, Physician History of Present Illness: Pt seen and examined at bedside. She is awake but confused. She is off of bipap. - Current Medication List Current Medications: Active Medications Acetaminophen (Tylenol -) 650 mg PO Q6H PRN PRN Reason: FEVER OR PAIN Last Admin: 01/25/17 16:25 Dose: 650 mg Amlodipine Besylate (Norvasc -) 5 mg PO DAILY [facility] Last Admin: 02/02/17 10:43 Dose: Not Given Cinacalcet (Sensipar -) 30 mg PO BID [facility] Last Admin: 02/02/17 10:43 Dose: Not Given Docusate Sodium (Colace -) 100 mg PO BID PRN PRN Reason: CONSTIPATION Dextrose (D5w -) 1,000 mls @ 40 mls/hr IV .[id number] [facility] Last Admin: 02/02/17 10:46 Dose: 40 mls/hr Methimazole (Tapazole -) 5 mg PO DAILY [facility] Last Admin: 02/02/17 10:44 Dose: Not Given Nebivolol (Bystolic -) 10 mg PO DAILY [facility] Last Admin: 02/02/17 10:43 Dose: Not Given Pantoprazole Sodium (Protonix Packets For Oral Suspension -) 40 mg GT DAILY [facility] Last Admin: 02/02/17 10:43 Dose: Not Given Rosuvastatin Calcium (Crestor -) 10 mg PO HS [facility] Last Admin: 02/01/17 22:23 Dose: 10 mg Senna (Senna -) 2 tab PO HS PRN PRN Reason: CONSTIPATION - Objective Vital Signs: Vital Signs Temperature 98.3 F 02/02/17 14:00 Pulse Rate 102 H 02/02/17 14:18 Respiratory Rate 20 02/02/17 14:00 Blood Pressure 133/56 02/02/17 14:00 O2 Sat by Pulse Oximetry (%) 95 02/02/17 14:19 Constitutional: Yes: Calm Eyes: Yes: Conjunctiva Clear HENT: Yes: Atraumatic Cardiovascular: Yes: S1, S2 Respiratory: Yes: On Venti-Mask Gastrointestinal: Yes: Soft Genitourinary: Yes: Rico Present Musculoskeletal: Yes: Muscle Weakness Edema: Yes Edema: LUE: 1+, RUE: 1+ Neurological: Yes: Confusion Labs: CBC, BMP 02/02/17 06:00 02/02/17 05:37 INR, PTT INR 4.03 (0.82-1.09) H* D 02/02/17 10:20 Problem List - Problems (1) Acute exacerbation of CHF (congestive heart failure) Code(s): I50.9 - HEART FAILURE, UNSPECIFIED Qualifiers: Congestive heart failure type: diastolic Qualified Code(s): I50.33 - Acute on chronic diastolic (congestive) heart failure (2) Hyperthyroidism Code(s): E05.90 - THYROTOXICOSIS, UNSP WITHOUT THYROTOXIC CRISIS OR STORM (3) A-fib Code(s): I48.91 - UNSPECIFIED ATRIAL FIBRILLATION Qualifiers: Atrial fibrillation type: persistent Qualified Code(s): I48.1 - Persistent atrial fibrillation (4) Acute on chronic diastolic CHF (congestive heart failure) Code(s): I50.33 - ACUTE ON CHRONIC DIASTOLIC (CONGESTIVE) HEART FAILURE (5) Anemia Code(s): D64.9 - ANEMIA, UNSPECIFIED Qualifiers: Anemia type: unspecified type Qualified Code(s): D64.9 - Anemia, unspecified (6) Shortness of breath Code(s): R06.02 - SHORTNESS OF BREATH (7) Coumadin toxicity Code(s): T45.511A - POISONING BY ANTICOAGULANTS, ACCIDENTAL, INIT Qualifiers: Encounter type: sequela Injury intent: undetermined intent Qualified Code(s): T45.514S - Poisoning by anticoagulants, undetermined, sequela Assessment/Plan Current Medications Generic Name Dose Route Start Last Admin Trade Name Freq PRN Reason Stop Dose Admin Acetaminophen 650 mg 01/25/17 16:17 01/25/17 16:25 Tylenol - PO 650 mg Q6H PRN Administration FEVER OR PAIN Amlodipine Besylate 5 mg 01/29/17 16:16 02/02/17 10:43 Norvasc - PO Not Given DAILY [facility] Cinacalcet 30 mg 02/01/17 22:00 02/02/17 10:43 Sensipar - PO Not Given BID [facility] Docusate Sodium 100 mg 01/30/17 11:38 Colace - PO BID PRN CONSTIPATION Dextrose 1,000 mls @ 40 mls/hr 02/02/17 10:15 02/02/17 10:46 D5w - IV 40 mls/hr .[id number] [facility] Administration Methimazole 5 mg 01/26/17 10:00 02/02/17 10:44 Tapazole - PO Not Given DAILY [facility] Nebivolol 10 mg 01/26/17 10:00 02/02/17 10:43 Bystolic - PO Not Given DAILY [facility] Pantoprazole Sodium 40 mg 01/29/17 11:13 02/02/17 10:43 Protonix Packets For Oral Suspension - GT Not Given DAILY [facility] Rosuvastatin Calcium 10 mg 01/25/17 22:00 02/01/17 22:23 Crestor - PO 10 mg HS [facility] Administration Senna 2 tab 01/30/17 11:38 Senna - PO HS PRN CONSTIPATION Impression 1. MADONNA 2. CKD - creatinine has been elevated on previous labs 3. CHF 4. coumadin toxicity 5. valvular heart disease 6. s/p bio-MVR and AVR 7. hyperlipidemia 8. atrial fibrillation 9. anemia 10. hx of breast cancer 11. renal cyst 12. hypercalcemia Plan - lasix PRN - calcium improving - cont sensipar, discussed with endocrine - check labs daily - lasix PRN - discussed with PMD - cont d5 - cxr shows some improvement - monitor sodium - renal function is improving - renal cyst will need to be followed, however this can be done as outpt - will follow - overall prognosis guarded Dr Morse
--- NOTE | 2017-02-02 19:19 | PN ---
Teaching Attending Note Name of Resident: Shade Muñoz ATTENDING PHYSICIAN STATEMENT I saw and evaluated the patient. I reviewed the resident's note and discussed the case with the resident. I agree with the resident's findings and plan as documented. SUBJECTIVE: More awake and alert No complaints offered Breathing non-labored on ventimask OBJECTIVE:afebrile cor S1S2 decreased BS bilaterally ASSESSMENT AND PLAN: Fever/ leukocytosis- improved Bilateral pleural effusions/ atelectasis Observe off antibiotics
[2017-02-02] MEDS ORDERED: PT OWN MED DRAWER 7, Y5N ONE (21:30)
[2017-02-02] MEDS: ROSUVASTATIN CA 10 MG TABLET (FP) PO SCH (21:31)
--- NOTE | 2017-02-02 21:43 | PN ---
Physical Exam: SUBJECTIVE: Patient seen and examined. NAD, waving hands infront of her. follows commads, has control over her movements, but is not making eye contact and does not answer orientation questions appropriately. Denies chest pain, palpitations, sob or distress of any kind. OBJECTIVE: Vital Signs Period Temp Pulse Resp BP Sys/[place] Pulse Ox Last 24 Hr 98 F-98.8 F 70-102 18-20 98-140/56-97 95-96 GENERAL: The patient is awake, alert, in no acute distress. HEAD: Normal with no signs of trauma. EYES: PERRL, extraocular movements intact, sclera anicteric, conjunctiva clear. No ptosis. ENT: nares patent, oropharynx clear without exudates, dry mucous membranes. LUNGS: quiet at bases, scattered rhonchi HEART: afib, S1, S2 systolic murmur ABDOMEN: Soft, nontender, nondistended, normoactive bowel sounds, no guarding, no rebound, EXTREMITIES: 2+ pulses, warm, well-perfused, no edema. Right arm swollen>left. NEUROLOGICAL: Cranial nerves II through XII grossly intact. Normal speech SKIN: Warm, dry, normal turgor, no rashes or lesions noted De Oliveira with clear yellow urine. Laboratory Results - last 24 hr 01/30/17 02/02/17 02/02/17 07:50 05:37 06:00 WBC 10.0 RBC 3.97 Hgb 10.1 L Hct 33.0 MCV 83.2 MCHC 30.4 L RDW 16.7 H Plt Count 379 MPV 8.2 Neutrophils % 79.0 Lymphocytes % 15.0 D Monocytes % 4.0 Myelocytes 1 Nucleated RBCs 1 H Differential Comment Manual diff done Platelet Estimate Decreased INR Puncture Site ABG pH ABG pCO2 at Pt Temp ABG pO2 at Pt Temp ABG HCO3 ABG O2 Sat (Measured) ABG O2 Content ABG Base Excess Fabio Test O2 Delivery Device Oxygen Flow Rate Vent Mode Vent Rate Pressure Support Vent Sodium 153 H Potassium 3.8 Chloride 107 Carbon Dioxide 39 H Anion Gap 7 L BUN 41 H Creatinine 1.5 H Random Glucose 107 H Calcium 11.3 H Albumin 2.5 L Vit D 1,25-Dihydroxy 20.3 02/02/17 02/02/17 10:20 11:40 WBC RBC Hgb Hct MCV MCHC RDW Plt Count MPV Neutrophils % Lymphocytes % Monocytes % Myelocytes Nucleated RBCs Differential Comment Platelet Estimate INR 4.03 H* D Puncture Site Right brachial ABG pH 7.46 H ABG pCO2 at Pt Temp 56.7 H ABG pO2 at Pt Temp 73.6 D ABG HCO3 39.8 H ABG O2 Sat (Measured) 95.5 ABG O2 Content 12.5 L ABG Base Excess 14.2 H Fabio Test Positive O2 Delivery Device Bipap Oxygen Flow Rate 50% Vent Mode Bipap Vent Rate 16 Pressure Support Vent 12/8 Sodium Potassium Chloride Carbon Dioxide Anion Gap BUN Creatinine Random Glucose Calcium Albumin Vit D 1,25-Dihydroxy Active Medications Generic Name Dose Route Start Last Admin Trade Name Freq PRN Reason Stop Dose Admin Acetaminophen 650 mg 01/25/17 16:17 01/25/17 16:25 Tylenol - PO 650 mg Q6H PRN Administration FEVER OR PAIN Amlodipine Besylate 5 mg 01/29/17 16:16 02/02/17 10:43 Norvasc - PO Not Given DAILY [facility] Cinacalcet 30 mg 02/01/17 22:00 02/02/17 10:43 Sensipar - PO Not Given BID [facility] Docusate Sodium 100 mg 01/30/17 11:38 Colace - PO BID PRN CONSTIPATION Dextrose 1,000 mls @ 40 mls/hr 02/02/17 10:15 02/02/17 10:46 D5w - IV 40 mls/hr .[id number] [facility] Administration Methimazole 5 mg 01/26/17 10:00 02/02/17 10:44 Tapazole - PO Not Given DAILY [facility] Nebivolol 10 mg 01/26/17 10:00 02/02/17 10:43 Bystolic - PO Not Given DAILY [facility] Pantoprazole Sodium 40 mg 01/29/17 11:13 02/02/17 10:43 Protonix Packets For Oral Suspension - GT Not Given DAILY [facility] Rosuvastatin Calcium 10 mg 01/25/17 22:00 02/01/17 22:23 Crestor - PO 10 mg HS [facility] Administration Senna 2 tab 01/30/17 11:38 Senna - PO HS PRN CONSTIPATION ASSESSMENT/PLAN: 86 y/o woman multiple co-morbidities presented with difficulty breathing admitted for acute on chronic diastolic CHF complicated by acute hypoxic hypercapnic respiratory distress and altered mental status, found to have hypercalcemia and elevated PTH. - blood cx NGTD - right arm swelling; u/s without DVT #Hypoxic respiratory failure - maintain on bipap as tolerated; iapa12, epap 8 fio2 50 rate 16 - unlikely from pna/copd/chf #Hypercalcemia, hyperparathyroidism- given calcitonin and cinacalcet yesterday, will continue with cinacalcet BID - PTHrp pending - ionized calcium pending - Dr. Mathias consulted for evaluation #Acute on Chronic diastolic CHF Exacerbation - Lasix 60mg IVPB qdaily - held now, pt appears dehydrated; no edema, hypernatermia, will add d5w @40cc/ml for 1 bag and reassess to prevent fluid overload - daily weights, I&O monitoring(net negative fluid balance). de oliveira placed 01/26, replaced 02/02 - Dr. Castellon consulted #MADONNA on CKD - improving - Likely cardiorenal in nature, nephro consulted; left renal cyst seen on renal u/s, no hydro noted. - Will continue to monitor renal function - hold allopurinol #Supratherapeutic INR - INR elevated, hold coumadin - repeat in the morning - coumadin 5mg po daily - held #HTN - Continue Bystolic, Norvasc #Afib - persistent - currently rate controlled #HLD - crestor 10mg po hs #Hyperthyroidism - methimazole 5mg po daily #Diet: low sodium, chopped, no dairy #DVT -on coumadin Code status: DNR/DNI Visit type - Emergency Visit Emergency Visit: No - New Patient This patient is new to me today: No - Critical Care Critical Care patient: No - Discharge Referral Referred to [facility] No
[2017-02-03 08:02] LABS: PROTHROMBIN TIME (PATIENT) 61.5 SEC (9.98-11.88)
[2017-02-03 08:34] LABS: CALCIUM 10.5 mg/dL (8.5-10.1); CREATININE 1.3 mg/dL (0.55-1.02); MAGNESIUM 2.2 mg/dL (1.8-2.4)
[2017-02-03 08:38] LABS: INR 5.4 (0.82-1.09)
[2017-02-03] MEDS: amLODIPine BESYLATE 5 MG TABLET (FP) PO SCH (09:20)
[2017-02-03] MEDS: NEBIVOLOL 10 MG TABLET (FP) PO SCH (09:20)
[2017-02-03] MEDS: PANTOPRAZOLE SOD 40 MG SUSPENSION PACKET GT SCH (09:20)
[2017-02-03] MEDS: METHIMAZOLE 5 MG TABLET (FP) PO SCH (09:20)
[2017-02-03] MEDS ORDERED: PT OWN MED DRAWER 7, Y5N ONE (09:26)
[2017-02-03] MEDS: CINACALCET HCL 30 MG TAB (FP) PO SCH ×2 (09:28→21:43)
--- NOTE | 2017-02-03 09:59 | PN ---
Progress Note, Physician History of Present Illness: Weaned off bipap, now on 40% VM. - Current Medication List Current Medications: Active Medications Acetaminophen (Tylenol -) 650 mg PO Q6H PRN PRN Reason: FEVER OR PAIN Last Admin: 01/25/17 16:25 Dose: 650 mg Amlodipine Besylate (Norvasc -) 5 mg PO DAILY [facility] Last Admin: 02/03/17 09:20 Dose: 5 mg Cinacalcet (Sensipar -) 30 mg PO BID [facility] Last Admin: 02/03/17 09:28 Dose: 30 mg Docusate Sodium (Colace -) 100 mg PO BID PRN PRN Reason: CONSTIPATION Dextrose (D5w -) 1,000 mls @ 40 mls/hr IV .[id number] [facility] Last Admin: 02/02/17 10:46 Dose: 40 mls/hr Methimazole (Tapazole -) 5 mg PO DAILY [facility] Last Admin: 02/03/17 09:20 Dose: 5 mg Nebivolol (Bystolic -) 10 mg PO DAILY [facility] Last Admin: 02/03/17 09:20 Dose: 10 mg Pantoprazole Sodium (Protonix Packets For Oral Suspension -) 40 mg GT DAILY [facility] Last Admin: 02/03/17 09:20 Dose: 40 mg Rosuvastatin Calcium (Crestor -) 10 mg PO HS [facility] Last Admin: 02/02/17 21:31 Dose: 10 mg Senna (Senna -) 2 tab PO HS PRN PRN Reason: CONSTIPATION - Objective Vital Signs: Vital Signs Temperature 98.6 F 02/03/17 06:00 Pulse Rate 71 02/03/17 06:00 Respiratory Rate 18 02/03/17 06:00 Blood Pressure 129/60 02/03/17 06:00 O2 Sat by Pulse Oximetry (%) 97 02/03/17 07:27 Constitutional: Yes: No Distress, Calm Neck: Yes: Supple Cardiovascular: Yes: Pulse Irregular Respiratory: Yes: Regular, Diminished, On Venti-Mask Gastrointestinal: Yes: Normal Bowel Sounds, Soft Edema: No Labs: CBC, BMP 02/02/17 06:00 02/03/17 05:35 INR, PTT INR 5.40 (0.82-1.09) H* D 02/03/17 05:35 - ....Imaging Chest X-ray: Report Reviewed (Improved congestion) Ultrasound: Report Reviewed (NO RUE DVT) Problem List - Problems (1) A-fib Code(s): I48.91 - UNSPECIFIED ATRIAL FIBRILLATION Qualifiers: Atrial fibrillation type: persistent Qualified Code(s): I48.1 - Persistent atrial fibrillation (2) Acute on chronic diastolic CHF (congestive heart failure) Code(s): I50.33 - ACUTE ON CHRONIC DIASTOLIC (CONGESTIVE) HEART FAILURE (3) [id number] kidney injury Code(s): N17.9 - ACUTE KIDNEY FAILURE, UNSPECIFIED N18.9 - CHRONIC KIDNEY DISEASE, UNSPECIFIED (4) CAD (coronary artery disease) Code(s): I25.10 - ATHSCL HEART DISEASE OF [place] CORONARY ARTERY W/O ANG PCTRS Qualifiers: Coronary Disease-Associated Artery/Lesion type: [place] artery [place] vs. transplanted heart: [place] heart Associated angina: without angina Qualified Code(s): I25.10 - Atherosclerotic heart disease of [place] coronary artery without angina pectoris (5) HLD (hyperlipidemia) Code(s): E78.5 - HYPERLIPIDEMIA, UNSPECIFIED Qualifiers: Hyperlipidemia type: pure hypercholesterolemia Qualified Code(s): E78.0 - Pure hypercholesterolemia (6) Hypertensive cardiomyopathy Code(s): I11.9 - HYPERTENSIVE HEART DISEASE WITHOUT HEART FAILURE I42.9 - CARDIOMYOPATHY, UNSPECIFIED Qualifiers: Heart failure presence: with heart failure Qualified Code(s): I11.0 - Hypertensive heart disease with heart failure (7) S/P aortic valve replacement with bioprosthetic valve Code(s): Z95.4 - PRESENCE OF OTHER HEART-VALVE REPLACEMENT (9) Shortness of breath Code(s): R06.02 - SHORTNESS OF BREATH (10) Hyperthyroidism Code(s): E05.90 - THYROTOXICOSIS, UNSP WITHOUT THYROTOXIC CRISIS OR STORM (11) Premature ventricular complex Code(s): I49.3 - VENTRICULAR PREMATURE DEPOLARIZATION (12) Cerebrovascular disease Code(s): I67.9 - CEREBROVASCULAR DISEASE, UNSPECIFIED (13) Coumadin toxicity Code(s): T45.511A - POISONING BY ANTICOAGULANTS, ACCIDENTAL, INIT Qualifiers: Encounter type: sequela Injury intent: undetermined intent Qualified Code(s): T45.514S - Poisoning by anticoagulants, undetermined, sequela Assessment/Plan 04/07/2016 Normal LV and RV size and fxn, mild LAE, bioMVR and AVR with transaortic MG 26 mmHg, RVSP 40-50 mmHg, mild-mod TR 12/22/2016 Normal LV and RV size and fxn, mild LAE, bioMVR and AVR with transvalvular MG 32 mmHg, RVSP 40-50 mmHg, mild-mod TR Echocardiogram 01/30/17 Impression: The left ventricle is normal in size. There is mild concentric left ventricular hypertrophy. Left ventricular systolic function is normal. No regional wall motion abnormalities noted. The left atrium is moderately dilated. There is a bioprosthetic mitral valve. The prosthetic mitral valve is well seated. There is moderate mitral valve thickening. here is mild mitral regurgitation. There is severe tricuspid regurgitation. Right ventricular systolic pressure is elevated at 40-50 mmHg There is mild pulmonary hypertension. There is a bioprosthetic aortic valve. The prosthetic aortic valve is well seated. Aortic mean pressure gradient = 39 mmHg. No aortic regurgitation is present. 1. Acute hypoxic, hypercapneic respiratory failure due to 2. Recurrent acute on chronic diastolic failure improving 3. H/o bioMVR, AVR with elevated transaortic gradient, consider prosthesis- patient mismatch 4. Acute on CKD referable to above improving now with hypernatremia 5. CAD, angina pectoris 6. Persistent afib on coumadin with supratherapeutic INR 7. Hyperlipidemia 8. Hyperuricemia 9. Left breast ca s/p mastectomy 10. Hyperthyroidism 11. PVC 12. Anemia 13. Cerebrovascular disease 14. Hypercalcemia due to hyperparathyroidism 15. RUE edema, U/S pending P: 1. Off diuretics with monitor renal fxn and electrolytes, free water repletion, replete K 2. Continue Bystolic 10 qd, Norvasc 10 qd, Crestor 10 qhs and hold coumadin per INR. Resume Benicar once renal fxn stabilizes. 3. Wean FIO2 as tolerated per ABG
[2017-02-03] MEDS ORDERED: POTASSIUM CHLORIDE 40 MEQ/30 ML UNIT DOSE CUP PO ONE (11:15)
--- NOTE | 2017-02-03 12:02 | PN ---
Progress Note (short form) - Note Progress Note: PULMONARY RESPONSIVE VSS/AFEBRILE ANICTERIC DISTANT BREATH SOUNDS S1S2 BS+ DIMINISHED LOWER EXT [facility] LABS/MEDS/NOTES/IMAGING REVIEWED INR 5.4 Altered Mental Status Hyperparathyroidism/hypercalcemia Acute on Chronic LV Diastolic Heart Failure Hypoxemic hypercapneic resp failure Pulmonary HTN Pleural Effusion Compressive Atelectasis Paroxysmal Atrial Flutter s/p AVR/MVR HTN - hold coumadin - monitor urine output, creatinine,lytes - daily weights, I/Os - monitor CXR - rate controlled - O2 to keep SpO2 >90% - aspiration precautions - DVT prophylaxis Antwon MCLEAN
--- NOTE | 2017-02-03 14:51 | PN ---
Progress Note, Physician History of Present Illness: Pt seen and examined at bedside. She is more awake today. She is still on ventimask. - Current Medication List Current Medications: Active Medications Acetaminophen (Tylenol -) 650 mg PO Q6H PRN PRN Reason: FEVER OR PAIN Last Admin: 01/25/17 16:25 Dose: 650 mg Amlodipine Besylate (Norvasc -) 5 mg PO DAILY [facility] Last Admin: 02/03/17 09:20 Dose: 5 mg Cinacalcet (Sensipar -) 30 mg PO BID [facility] Last Admin: 02/03/17 09:28 Dose: 30 mg Docusate Sodium (Colace -) 100 mg PO BID PRN PRN Reason: CONSTIPATION Dextrose (D5w -) 1,000 mls @ 40 mls/hr IV .[id number] [facility] Last Admin: 02/02/17 10:46 Dose: 40 mls/hr Methimazole (Tapazole -) 5 mg PO DAILY [facility] Last Admin: 02/03/17 09:20 Dose: 5 mg Nebivolol (Bystolic -) 10 mg PO DAILY [facility] Last Admin: 02/03/17 09:20 Dose: 10 mg Pantoprazole Sodium (Protonix Packets For Oral Suspension -) 40 mg GT DAILY [facility] Last Admin: 02/03/17 09:20 Dose: 40 mg Rosuvastatin Calcium (Crestor -) 10 mg PO HS [facility] Last Admin: 02/02/17 21:31 Dose: 10 mg Senna (Senna -) 2 tab PO HS PRN PRN Reason: CONSTIPATION - Objective Vital Signs: Vital Signs Temperature 97.7 F 02/03/17 10:00 Pulse Rate 60 02/03/17 10:00 Respiratory Rate 23 02/03/17 10:00 Blood Pressure 143/50 02/03/17 10:00 O2 Sat by Pulse Oximetry (%) 95 02/03/17 09:00 Constitutional: Yes: Calm Eyes: Yes: Conjunctiva Clear Cardiovascular: Yes: Murmur, S1, S2 Respiratory: Yes: On Venti-Mask Gastrointestinal: Yes: Soft Genitourinary: Yes: Rico Present Musculoskeletal: Yes: Muscle Weakness Edema: Yes Edema: LUE: 1+, RUE: 1+ Neurological: Yes: Other (awake) Labs: CBC, BMP 02/02/17 06:00 02/03/17 05:35 INR, PTT INR 5.40 (0.82-1.09) H* D 02/03/17 05:35 Problem List - Problems (1) Acute exacerbation of CHF (congestive heart failure) Code(s): I50.9 - HEART FAILURE, UNSPECIFIED Qualifiers: Congestive heart failure type: diastolic Qualified Code(s): I50.33 - Acute on chronic diastolic (congestive) heart failure (2) Hyperthyroidism Code(s): E05.90 - THYROTOXICOSIS, UNSP WITHOUT THYROTOXIC CRISIS OR STORM (3) A-fib Code(s): I48.91 - UNSPECIFIED ATRIAL FIBRILLATION Qualifiers: Atrial fibrillation type: persistent Qualified Code(s): I48.1 - Persistent atrial fibrillation (4) Acute on chronic diastolic CHF (congestive heart failure) Code(s): I50.33 - ACUTE ON CHRONIC DIASTOLIC (CONGESTIVE) HEART FAILURE (5) Anemia Code(s): D64.9 - ANEMIA, UNSPECIFIED Qualifiers: Anemia type: unspecified type Qualified Code(s): D64.9 - Anemia, unspecified (6) Shortness of breath Code(s): R06.02 - SHORTNESS OF BREATH (7) Coumadin toxicity Code(s): T45.511A - POISONING BY ANTICOAGULANTS, ACCIDENTAL, INIT Qualifiers: Encounter type: sequela Injury intent: undetermined intent Qualified Code(s): T45.514S - Poisoning by anticoagulants, undetermined, sequela Assessment/Plan Current Medications Generic Name Dose Route Start Last Admin Trade Name Freq PRN Reason Stop Dose Admin Acetaminophen 650 mg 01/25/17 16:17 01/25/17 16:25 Tylenol - PO 650 mg Q6H PRN Administration FEVER OR PAIN Amlodipine Besylate 5 mg 01/29/17 16:16 02/03/17 09:20 Norvasc - PO 5 mg DAILY ALOK Administration Cinacalcet 30 mg 02/01/17 22:00 02/03/17 09:28 Sensipar - PO 30 mg BID ALOK Administration Docusate Sodium 100 mg 01/30/17 11:38 Colace - PO BID PRN CONSTIPATION Dextrose 1,000 mls @ 40 mls/hr 02/02/17 10:15 02/02/17 10:46 D5w - IV 40 mls/hr .[id number] ALOK Administration Methimazole 5 mg 01/26/17 10:00 02/03/17 09:20 Tapazole - PO 5 mg DAILY ALOK Administration Nebivolol 10 mg 01/26/17 10:00 02/03/17 09:20 Bystolic - PO 10 mg DAILY ALOK Administration Pantoprazole Sodium 40 mg 01/29/17 11:13 02/03/17 09:20 Protonix Packets For Oral Suspension - GT 40 mg DAILY ALOK Administration Rosuvastatin Calcium 10 mg 01/25/17 22:00 02/02/17 21:31 Crestor - PO 10 mg HS ALOK Administration Senna 2 tab 01/30/17 11:38 Senna - PO HS PRN CONSTIPATION Impression 1. MADONNA 2. CKD - creatinine has been elevated on previous labs 3. CHF 4. coumadin toxicity 5. valvular heart disease 6. s/p bio-MVR and AVR 7. hyperlipidemia 8. atrial fibrillation 9. anemia 10. hx of breast cancer 11. renal cyst 12. hypercalcemia Plan - can restart lasix at lower dose - cont sensipar - calcium is improving - cont d5w as pt is not eating - monitor sodium - renal function is improving - renal cyst will need to be followed, however this can be done as outpt - will follow - overall prognosis guarded - discussed with family - repeat cxr in am Dr Morse
[2017-02-03] MEDS ORDERED: DEXTROSE 5%-WATER - 1,000 ML IV SCH (18:00)
--- NOTE | 2017-02-03 18:38 | PN ---
Teaching Attending Note Name of Resident: Shade Muñoz ATTENDING PHYSICIAN STATEMENT I saw and evaluated the patient. I reviewed the resident's note and discussed the case with the resident. I agree with the resident's findings and plan as documented. SUBJECTIVE: limited hx but denies pain OBJECTIVE: NAD , venti mask on . Cv : RRR, JVD Lungs: decreased breath sounds at bases and minimal crackles at R base Abd: soft, NT, ND , NL BS Ext : edema over R arm ASSESSMENT AND PLAN: 86 y/o lady with h/o CHF, COPD , PUlm HTn, bioprosthetic aortic valve replacement and other co-morbidities who presented with SOB and was found to have acute resp failure due to acute D CHF 1- Acute hypoxic , hypercapnic resp failure due to acute on chronic diastolic CHF exacerbation : cont venti mask. although she has JVD ( due to severe TR ) and now minimal crackles, still I think she is dehydrated due to diuresis in the seting og poor po intake - cont to hold lasix - No evidence of PNA , monitor off Abx. follow blood cx - no evidence of acute COPD exacerbation . monitor off steroids - cont BB 2- Coumadin coagulopathy : INR 5.4 today will cont to hold coumadiin 3- P A flutter : hold coumadin due to elevated INR . will repeat in AM and dose accordingly cont BB 4- MADONNA : due to pre-renal azotemia in the setting of CHF improved 5- Hypercalcemia : likely due to hyperparathyroid ( neck mass ,elevated PTH) in combination with immobilization . has h/o breast cancer. ? active . - Cont cinacalcet . - follow Ionized calcium 6- Dehydration : due to decreased oral intake in setting of diuresis : COnt D5w @ 42 cc/hr for 1 bag and reassess 7-AMS : multi-factorial . resp failure, hypercalcemia , dehydration . correct all the factors. 8- RUE edema . US with no DVT Code status: DNR/DNI speech eval poor prognosis
--- NOTE | 2017-02-03 18:39 | PN ---
Physical Exam: SUBJECTIVE: Patient seen and examined at bedside able to respond to simple commands unable to do an accurate review of systems OBJECTIVE: Vital Signs Period Temp Pulse Resp BP Sys/Grissom Pulse Ox Last 24 Hr 97.7 F-98.8 F 60-82 18-23 117-143/47-69 95-98 GENERAL: The patient is awake, alert HEAD: Normal with no signs of trauma. NECK: left sided nodule felt possible to be parathyroid LUNGS: Crackles at bases bilaterally HEART: irregular S1, S2 systolic murmur ABDOMEN: Soft, nontender, nondistended EXTREMITIES: warm well perfused RUE swelling Neuro: moving all extremities. moves legs and squeezes hands on command Laboratory Results - last 24 hr 02/03/17 02/03/17 05:35 05:35 INR 5.40 H* D Sodium 153 H Potassium 3.2 L Chloride 105 Carbon Dioxide 38 H Anion Gap 10 BUN 38 H Creatinine 1.3 H Random Glucose 107 H Calcium 10.5 H Magnesium 2.2 Active Medications Generic Name Dose Route Start Last Admin Trade Name Freq PRN Reason Stop Dose Admin Acetaminophen 650 mg 01/25/17 16:17 01/25/17 16:25 Tylenol - PO 650 mg Q6H PRN Administration FEVER OR PAIN Amlodipine Besylate 5 mg 01/29/17 16:16 02/03/17 09:20 Norvasc - PO 5 mg DAILY ALOK Administration Cinacalcet 30 mg 02/01/17 22:00 02/03/17 09:28 Sensipar - PO 30 mg BID ALOK Administration Docusate Sodium 100 mg 01/30/17 11:38 Colace - PO BID PRN CONSTIPATION Dextrose 1,000 mls @ 40 mls/hr 02/02/17 10:15 02/02/17 10:46 D5w - IV 40 mls/hr .[id number] ALOK Administration Dextrose 1,000 mls @ 42 mls/hr 02/03/17 18:00 D5w - IV 02/04/17 17:49 ASDIR ALOK Methimazole 5 mg 01/26/17 10:00 02/03/17 09:20 Tapazole - PO 5 mg DAILY ALOK Administration Nebivolol 10 mg 01/26/17 10:00 02/03/17 09:20 Bystolic - PO 10 mg DAILY ALOK Administration Pantoprazole Sodium 40 mg 01/29/17 11:13 02/03/17 09:20 Protonix Packets For Oral Suspension - GT 40 mg DAILY ALOK Administration Rosuvastatin Calcium 10 mg 01/25/17 22:00 02/02/17 21:31 Crestor - PO 10 mg HS ALOK Administration Senna 2 tab 01/30/17 11:38 Senna - PO HS PRN CONSTIPATION ASSESSMENT/PLAN: 86F with multiple medical problems initially presented with shortness of breath likely secondary to CHF exacerbation Hypoxic hypercapneic respiratory failure: likely from diastolic Acute on chronic congestive heart failure exacerbation Chest CT noted-not significant for pneumonia US-no DVT of upper extremity wean off BiPAP on FM O2 Possible due to aspiration-will get speech/swallow eval make NPO for now until evaluation Acute on Chronic diastolic Congetive Heart Failure Exacerbation hold Lasix patient does not appear fluid overloaded rather she appears dry daily weight I/O Rico for I/O monitoring Cardiology consult appreciated Hypernatremia: Will give D5W @ 42ml/hr as patient has free water deficit recheck BMP in AM Altered Mental Status: likely from a combination of electrolyte abnormalities, environment, hypercapnea and hypoxia Needs correction Leukocytosis:Resolved all cultures no growth so far do not suspect infectious cause will monitor WBC count intermittently Hypercalcemia secondary to primary hyperparathyroidism- Already given calcitonin continue cincalcet PTHrp and ionized calcium still pending endocrinology consult recheck calcium in AM Acute on chronic renal failure avoid nephrotoxic meds Cr improving today 1.3 will trend Supratherapeutic INR repeat INR in AM Hold coumadin HTN well controlled continue bystolic and norvasc Atrial fibrillation continue bystolic HLD -continue crestor 10mg po hs Hyperthyroidism continue methimazole 5mg po dailly FEN: D5W @ 42ml/hr hypernatremia hypercalcemia NPO for now - speech and swallow evaluation PPx: INR elevated protonix DNR/DNI Problem List - Problems (1) Acute exacerbation of CHF (congestive heart failure) Code(s): I50.9 - HEART FAILURE, UNSPECIFIED Qualifiers: Congestive heart failure type: diastolic Qualified Code(s): I50.33 - Acute on chronic diastolic (congestive) heart failure (2) Altered mental status Code(s): R41.82 - ALTERED MENTAL STATUS, UNSPECIFIED (3) Paroxysmal atrial flutter Code(s): I48.92 - UNSPECIFIED ATRIAL FLUTTER (4) A-fib Code(s): I48.91 - UNSPECIFIED ATRIAL FIBRILLATION Qualifiers: Atrial fibrillation type: persistent Qualified Code(s): I48.1 - Persistent atrial fibrillation (5) Acute on chronic diastolic CHF (congestive heart failure) Code(s): I50.33 - ACUTE ON CHRONIC DIASTOLIC (CONGESTIVE) HEART FAILURE (6) [id number] kidney injury Code(s): N17.9 - ACUTE KIDNEY FAILURE, UNSPECIFIED N18.9 - CHRONIC KIDNEY DISEASE, UNSPECIFIED (7) Anemia Code(s): D64.9 - ANEMIA, UNSPECIFIED Qualifiers: Anemia type: unspecified type Qualified Code(s): D64.9 - Anemia, unspecified (8) CAD (coronary artery disease) Code(s): I25.10 - ATHSCL HEART DISEASE OF [place] CORONARY ARTERY W/O ANG PCTRS Qualifiers: Coronary Disease-Associated Artery/Lesion type: [place] artery Three Affiliated vs. transplanted heart: [place] heart Associated angina: without angina Qualified Code(s): I25.10 - Atherosclerotic heart disease of [place] coronary artery without angina pectoris (9) HLD (hyperlipidemia) Code(s): E78.5 - HYPERLIPIDEMIA, UNSPECIFIED Qualifiers: Hyperlipidemia type: pure hypercholesterolemia Qualified Code(s): E78.0 - Pure hypercholesterolemia (10) Shortness of breath Code(s): R06.02 - SHORTNESS OF BREATH (11) Hypoxemia Code(s): R09.02 - HYPOXEMIA (12) Leukocytosis Code(s): D72.829 - ELEVATED WHITE BLOOD CELL COUNT, UNSPECIFIED (13) Hypernatremia Code(s): E87.0 - HYPEROSMOLALITY AND HYPERNATREMIA (14) Acute hypernatremia Code(s): E87.0 - HYPEROSMOLALITY AND HYPERNATREMIA Visit type - Emergency Visit Emergency Visit: Yes ED Registration Date: 01/25/17 Care time: The patient presented to the Emergency Department on the above date and was hospitalized for further evaluation of their emergent condition. - New Patient This patient is new to me today: Yes Date on this admission: 02/03/17 - Critical Care Critical Care patient: No
[2017-02-03] MEDS: ROSUVASTATIN CA 10 MG TABLET (FP) PO SCH (21:44)
--- NOTE | 2017-02-04 01:14 | PN ---
Progress Note, Physician Chief Complaint: confused at times restless History of Present Illness: hypercalcemia,hyperparathyroidism,history breast cancer,confused and restless, chf,ckd - Current Medication List Current Medications: Active Medications Acetaminophen (Tylenol -) 650 mg PO Q6H PRN PRN Reason: FEVER OR PAIN Last Admin: 01/25/17 16:25 Dose: 650 mg Amlodipine Besylate (Norvasc -) 5 mg PO DAILY [facility] Last Admin: 02/03/17 09:20 Dose: 5 mg Cinacalcet (Sensipar -) 30 mg PO BID [facility] Last Admin: 02/03/17 21:43 Dose: 30 mg Docusate Sodium (Colace -) 100 mg PO BID PRN PRN Reason: CONSTIPATION Dextrose (D5w -) 1,000 mls @ 40 mls/hr IV .[id number] [facility] Last Admin: 02/02/17 10:46 Dose: 40 mls/hr Dextrose (D5w -) 1,000 mls @ 42 mls/hr IV ASDIR [facility] Stop: 02/04/17 17:49 Methimazole (Tapazole -) 5 mg PO DAILY [facility] Last Admin: 02/03/17 09:20 Dose: 5 mg Nebivolol (Bystolic -) 10 mg PO DAILY [facility] Last Admin: 02/03/17 09:20 Dose: 10 mg Pantoprazole Sodium (Protonix Packets For Oral Suspension -) 40 mg GT DAILY [facility] Last Admin: 02/03/17 09:20 Dose: 40 mg Rosuvastatin Calcium (Crestor -) 10 mg PO HS [facility] Last Admin: 02/03/17 21:44 Dose: 10 mg Senna (Senna -) 2 tab PO HS PRN PRN Reason: CONSTIPATION - Objective Vital Signs: Vital Signs Temperature 97.7 F 02/03/17 22:00 Pulse Rate 71 02/03/17 22:00 Respiratory Rate 22 02/03/17 22:00 Blood Pressure 144/72 02/03/17 22:00 O2 Sat by Pulse Oximetry (%) 95 02/03/17 22:30 Constitutional: Yes: Anxious Eyes: Yes: EOM Intact HENT: Yes: Normocephalic Neck: Yes: Trachea Midline Cardiovascular: Yes: Tachycardia Respiratory: Yes: On Venti-Mask, Orthopnea, Tachypnea Gastrointestinal: Yes: Normal Bowel Sounds ...Rectal Exam: Yes: Deferred Genitourinary: Yes: WNL Breast(s): Yes: WNL Musculoskeletal: Yes: WNL Extremities: Yes: WNL Edema: No Neurological: Yes: Weakness Psychiatric: Yes: Agitated Labs: CBC, BMP 02/02/17 06:00 02/03/17 05:35 INR, PTT INR 5.40 (0.82-1.09) H* D 02/03/17 05:35 Problem List - Problems (1) Hyperthyroidism Code(s): E05.90 - THYROTOXICOSIS, UNSP WITHOUT THYROTOXIC CRISIS OR STORM (2) Hypercalcemia Code(s): E83.52 - HYPERCALCEMIA (3) Hyperparathyroidism Code(s): E21.3 - HYPERPARATHYROIDISM, UNSPECIFIED Assessment/Plan Current Active Problems Acute exacerbation of CHF (congestive heart failure) (Acute) Acute hypernatremia (Acute) Altered mental status (Acute) Cerebrovascular disease (Acute) Coumadin toxicity (Acute) Hypercalcemia (Acute) Hypernatremia (Acute) Hyperparathyroidism (Acute) Hyperthyroidism (Acute) Hypoxemia (Acute) Leukocytosis (Acute) Organic brain syndrome (Acute) Paroxysmal atrial flutter (Acute) Respiratory failure (Acute) Tricuspid regurgitation (Acute) Abnormal Lab Results 02/02/17 02/03/17 02/03/17 08:00 05:35 05:35 INR 5.40 H* D Sodium 153 H Potassium 3.2 L Carbon Dioxide 38 H BUN 38 H Creatinine 1.3 H Random Glucose 107 H Calcium 10.5 H Ionized Calcium 6.7 H Laboratory Tests 01/31/17 02/01/17 02/02/17 07:20 08:25 05:37 Calcium 11.0 H 12.1 H 11.3 H 02/03/17 05:35 Calcium 10.5 H Current Medications Generic Name Dose Route Start Last Admin Trade Name Freq PRN Reason Stop Dose Admin Acetaminophen 650 mg 01/25/17 16:17 01/25/17 16:25 Tylenol - PO 650 mg Q6H PRN Administration FEVER OR PAIN Amlodipine Besylate 5 mg 01/29/17 16:16 02/03/17 09:20 Norvasc - PO 5 mg DAILY ALOK Administration Cinacalcet 30 mg 02/01/17 22:00 02/03/17 21:43 Sensipar - PO 30 mg BID ALOK Administration Docusate Sodium 100 mg 01/30/17 11:38 Colace - PO BID PRN CONSTIPATION Dextrose 1,000 mls @ 40 mls/hr 02/02/17 10:15 02/02/17 10:46 D5w - IV 40 mls/hr .[id number] ALOK Administration Dextrose 1,000 mls @ 42 mls/hr 02/03/17 18:00 D5w - IV 02/04/17 17:49 ASDIR ALOK Methimazole 5 mg 01/26/17 10:00 02/03/17 09:20 Tapazole - PO 5 mg DAILY ALOK Administration Nebivolol 10 mg 01/26/17 10:00 02/03/17 09:20 Bystolic - PO 10 mg DAILY ALOK Administration Pantoprazole Sodium 40 mg 01/29/17 11:13 02/03/17 09:20 Protonix Packets For Oral Suspension - GT 40 mg DAILY ALOK Administration Rosuvastatin Calcium 10 mg 01/25/17 22:00 02/03/17 21:44 Crestor - PO 10 mg HS ALOK Administration Senna 2 tab 01/30/17 11:38 Senna - PO HS PRN CONSTIPATION hyperparathroidism: continue sensipar 30mg bid hyperthyroidism continue tapazole 5mg daily monitor ca level family aware pt risk for surgery and accepting plan of supportive care
[2017-02-04 08:17] LABS: PROTHROMBIN TIME (PATIENT) 48.8 SEC (9.98-11.88)
[2017-02-04] MEDS ORDERED: PT OWN MED DRAWER 7, Y5N ONE (08:30)
[2017-02-04 08:36] LABS: INR 4.31 (0.82-1.09)
[2017-02-04 08:46] LABS: CALCIUM 10.8 mg/dL (8.5-10.1); CREATININE 1.3 mg/dL (0.55-1.02)
[2017-02-04] MEDS: NEBIVOLOL 10 MG TABLET (FP) PO SCH (09:21)
[2017-02-04] MEDS: CINACALCET HCL 30 MG TAB (FP) PO SCH ×2 (09:21→22:22)
[2017-02-04] MEDS: PANTOPRAZOLE SOD 40 MG SUSPENSION PACKET GT SCH (09:21)
[2017-02-04] MEDS: amLODIPine BESYLATE 5 MG TABLET (FP) PO SCH (09:21)
[2017-02-04] MEDS: METHIMAZOLE 5 MG TABLET (FP) PO SCH (09:22)
[2017-02-04 09:38] LABS: ALLENS TEST POSITIVE; ARTERIAL BLD GAS O2 SATURATION 94.5 % (90-98.9); ARTERIAL BLOOD GAS BASE EXCESS 12.8 meq/l (-2-2); ARTERIAL BLOOD GAS HCO3 39.4 meq/L (22-26); ARTERIAL BLOOD GAS PO2 71.1 mmHg (68-100)
[2017-02-04 09:39] LABS: ART PUNCT SITE RIGHT RADIAL; LPM/O2% 50%; PT. ON O2? YES; TYPE OF O2 BIPAP; VENT RATE 16
[2017-02-04] MEDS ORDERED: POTASSIUM CHLORIDE 40 MEQ/30 ML UNIT DOSE CUP PO SCH (10:00)
--- NOTE | 2017-02-04 10:44 | PN ---
Progress Note (short form) - Note Progress Note: Chief Complaint: Events noted, notes reviewed, patient was lethargic with moderate degree of respiratory distress and bradycardia related to PCO2 retention which resolved post CPAP application, confusion and disorientation are persistent, History of Present Illness: Seen and examined on telemetry. Events noted, notes reviewed, patient was lethargic with moderate degree of respiratory distress and bradycardia related to PCO2 retention which resolved post CPAP application, confusion and disorientation are persistent, Spoke at length with patient's granddaughter who is at the bedside in reference to her overall poor prognosis - Current Medication List Current Medications Acetaminophen (Tylenol -) 650 mg PO Q6H PRN PRN Reason: FEVER OR PAIN Last Admin: 01/25/17 16:25 Dose: 650 mg Amlodipine Besylate (Norvasc -) 5 mg PO DAILY [facility] Last Admin: 02/04/17 09:21 Dose: Not Given Cinacalcet (Sensipar -) 30 mg PO BID [facility] Last Admin: 02/04/17 09:21 Dose: Not Given Docusate Sodium (Colace -) 100 mg PO BID PRN PRN Reason: CONSTIPATION Dextrose (D5w -) 1,000 mls @ 40 mls/hr IV .[id number] [facility] Last Admin: 02/02/17 10:46 Dose: 40 mls/hr Dextrose (D5w -) 1,000 mls @ 42 mls/hr IV ASDIR [facility] Stop: 02/04/17 17:49 Methimazole (Tapazole -) 5 mg PO DAILY [facility] Last Admin: 02/04/17 09:22 Dose: Not Given Nebivolol (Bystolic -) 10 mg PO DAILY [facility] Last Admin: 02/04/17 09:21 Dose: Not Given Pantoprazole Sodium (Protonix Packets For Oral Suspension -) 40 mg GT DAILY [facility] Last Admin: 02/04/17 09:21 Dose: Not Given Potassium Chloride (Kcl Oral Solution -) 40 meq PO BID [facility] Stop: 02/04/17 22:01 Last Admin: 02/04/17 09:29 Dose: Not Given Rosuvastatin Calcium (Crestor -) 10 mg PO HS [facility] Last Admin: 02/03/17 21:44 Dose: 10 mg Senna (Senna -) 2 tab PO HS PRN PRN Reason: CONSTIPATION Review of Systems - Review of Systems Unable to Obtain, related to lethargy - Objective Vital Signs: Last Vital Signs Temp Pulse Resp BP Pulse Ox 96.9 F L 54 L 22 124/78 91 L 02/04/17 09:12 02/04/17 09:12 02/04/17 09:12 02/04/17 09:12 02/04/17 09:00 Neck: Supple Negative JVD No Bruit Cardiovascular: S1 S2 Irregularly Irregular Grade 2/6 JUNG Respiratory: Diminished at the Bases Bilaterally Gastrointestinal: Soft Benign Normal Bowel Sounds Ext: No edema Labs: CBC, BMP 02/02/17 06:00 02/04/17 05:35 INR, PTT INR 4.31 (0.82-1.09) H* 02/04/17 05:35 Assessment/Plan ASSESSMENT: 1. Acute respiratory distress probably multi-factorial including related to acute on chronic LV diastolic failure, class II-III NYHA classification LV failure, resolving, intrinsic lung disease, atelectasis, possible aspiration 2. CAD, angina pectoris 3. History of MVR and AVR (Bio-prosthesis) with elevated trans-aortic gradient, restonosis vs. prosthesis-patient mismatch 4. Persistent atrial fibrillation on Coumadin with supra-therapeutic INR 5. HTN 6. Hyperlipidemia 7. Confusion and disorientation, OBS 8. Cerebrovascular disease 9. Hyperthyroidism 10. Acute on CKD 11. Hypokalemia 12. Hypernatremia 13. Anemia PLAN: 1. Continue to hold Lasix related to above noted Hypernatremia 2. Continue Bystolic 3. Continue Norvasc 4. Continue Crestor 5. Hold Coumadin and administer as per INR 6. Continue CPAP utilization 7. Overall poor prognosis as outlined above Michael Gallo MD
[2017-02-04] MEDS ORDERED: DEXTROSE 5%-WATER - 1,000 ML IV SCH (12:15)
--- NOTE | 2017-02-04 12:36 | PN ---
Teaching Attending Note Name of Resident: Shade Muñoz ATTENDING PHYSICIAN STATEMENT I saw and evaluated the patient. I reviewed the resident's note and discussed the case with the resident. I agree with the resident's findings and plan as documented. SUBJECTIVE: can't obtain full hx due tp BIPAP and AMS . she denies any pain. Events this am : she was bradycardic, ABG with hypercapnia . she was paced back on BIPAP OBJECTIVE: NAD, BIPAP mask on . Cv: RRR, JVD Lungs: decreased breath sounds at bases ( worse than before) and minimal crackles at R base Abd: soft, NT, ND , NL BS Ext : edema over R arm ASSESSMENT AND PLAN: 86 y/o lady with h/o CHF, COPD , PUlm HTn, bioprosthetic aortic valve replacement and other co-morbidities who presented with SOB and was found to have acute resp failure due to acute D CHF 1- Acute hypoxic , hypercapnic resp failure due to acute on chronic diastolic CHF exacerbation : -Due to hypercapnea and decreased breath sounds, with h/o COPD , will start steroids - cont to hold lasix - co nt BIPAP support - cont BB 2- Coumadin coagulopathy : INR 4.1 today will cont to hold coumadiin 3- P A flutter: hold coumadin due to elevated INR. will repeat in AM and dose accordingly cont BB 4- MADONNA : due to pre-renal azotemia in the setting of CHF improved 5- Hypercalcemia : likely due to hyperparathyroid. Has h/o breast cancer. ? active . - Cont cinacalcet . - follow PTHrp 6- Dehydration : due to decreased oral intake in setting of diuresis : COnt D5w @ 42 cc/hr , reassess in am . 7-AMS : multi-factorial . resp failure, hypercalcemia , dehydration . correct all the factors. 8- RUE edema . US with no DVT Code status: DNR/DNI spoke to granddaughter about poor prognosis . Family wishes to continue medical plan as it its . will place a palliative care consult
--- NOTE | 2017-02-04 13:04 | PN ---
Physical Exam: SUBJECTIVE: Patient seen and examined at bedside patient was noted to be in respiratory distress this AM back on BiPAP this AM ABG done and she was hypercapneic OBJECTIVE: Vital Signs Period Temp Pulse Resp BP Sys/Grissom Pulse Ox Last 24 Hr 96.9 F-98.6 F 54-82 22-24 124-144/60-78 91-95 GENERAL: The patient is awake, alert HEAD: Normal with no signs of trauma. NECK: left sided nodule felt possible to be parathyroid LUNGS: Crackles at bases bilaterally HEART: irregular S1, S2 systolic murmur ABDOMEN: Soft, nontender, nondistended EXTREMITIES: warm well perfused RUE swelling Neuro: moving all extremities. does not follow commands as much as she did yesterday Laboratory Results - last 24 hr 02/02/17 02/04/17 02/04/17 08:00 05:35 05:35 INR 4.31 H* Anticoagulation Therapy Puncture Site ABG pH ABG pCO2 at Pt Temp ABG pO2 at Pt Temp ABG HCO3 ABG O2 Sat (Measured) ABG O2 Content ABG Base Excess Fabio Test O2 Delivery Device Oxygen Flow Rate Vent Mode Vent Rate Mechanical Rate PEEP Pressure Support Vent Sodium 152 H Potassium 3.4 L Chloride 106 Carbon Dioxide 41 H Anion Gap 5 L BUN 34 H Creatinine 1.3 H Random Glucose 101 Calcium 10.8 H Ionized Calcium 6.7 H 02/04/17 09:35 INR Anticoagulation Therapy Y Puncture Site Right radial ABG pH 7.40 ABG pCO2 at Pt Temp 64.5 H* ABG pO2 at Pt Temp 71.1 ABG HCO3 39.4 H ABG O2 Sat (Measured) 94.5 ABG O2 Content 13.1 L ABG Base Excess 12.8 H Fabio Test Positive O2 Delivery Device Bipap Oxygen Flow Rate 50% Vent Mode S/t Vent Rate 16 Mechanical Rate Y PEEP 0.0 Pressure Support Vent 12/8 Sodium Potassium Chloride Carbon Dioxide Anion Gap BUN Creatinine Random Glucose Calcium Ionized Calcium Active Medications Generic Name Dose Route Start Last Admin Trade Name Freq PRN Reason Stop Dose Admin Acetaminophen 650 mg 01/25/17 16:17 01/25/17 16:25 Tylenol - PO 650 mg Q6H PRN Administration FEVER OR PAIN Amlodipine Besylate 5 mg 01/29/17 16:16 02/04/17 09:21 Norvasc - PO Not Given DAILY ALOK Cinacalcet 30 mg 03/08/17 22:00 02/04/17 09:21 Sensipar - PO Not Given BID ALOK Docusate Sodium 100 mg 01/30/17 11:38 Colace - PO BID PRN CONSTIPATION Dextrose 1,000 mls @ 42 mls/hr 02/03/17 18:00 D5w - IV 02/04/17 17:49 ASDIR ALOK Dextrose 1,000 mls @ 42 mls/hr 02/04/17 12:15 D5w - IV .[id number] ALOK Potassium Chloride 100 mls @ 100 mls/hr 02/04/17 12:30 Potassium Chloride 10 Meq Premix Ivpb - IVPB 02/04/17 14:29 Q60M ALOK Methimazole 5 mg 01/26/17 10:00 02/04/17 09:22 Tapazole - PO Not Given DAILY [facility] Methylprednisolone Sodium Succinate 40 mg 02/04/17 12:15 Solu-Medrol - IVPB DAILY [facility] Nebivolol 10 mg 01/26/17 10:00 02/04/17 09:21 Bystolic - PO Not Given DAILY [facility] Pantoprazole Sodium 40 mg 01/29/17 11:13 02/04/17 09:21 Protonix Packets For Oral Suspension - GT Not Given DAILY [facility] Rosuvastatin Calcium 10 mg 01/25/17 22:00 02/03/17 21:44 Crestor - PO 10 mg HS ALOK Administration Senna 2 tab 01/30/17 11:38 Senna - PO HS PRN CONSTIPATION ASSESSMENT/PLAN: 86F with multiple medical problems initially presented with shortness of breath likely secondary to CHF exacerbation Hypoxic hypercapneic respiratory failure: likely from diastolic Acute on chronic congestive heart failure exacerbation Chest CT noted-not significant for pneumonia US-no DVT of upper extremity Possible due to aspiration-will get speech/swallow eval make NPO for now until evaluation went back on BiPAP Will start steroids solu-medrol 40mg daily and reassess in AM to see if she improved ABG Acute on Chronic diastolic Congestive Heart Failure Exacerbation hold Lasix patient does not appear fluid overloaded rather she appears dry daily weight I/O [place] for I/O monitoring Cardiology consult appreciated Hypernatremia: Will continue D5W @ 42ml/hr as patient has free water deficit recheck BMP in AM Altered Mental Status: likely from a combination of electrolyte abnormalities, environment, hypercapnea and hypoxia Needs correction Leukocytosis:Resolved all cultures no growth so far do not suspect infectious cause will monitor WBC count intermittently Hypercalcemia secondary to primary hyperparathyroidism- Already given calcitonin continue cincalcet PTHrp and ionized calcium still pending endocrinology consult recheck calcium in AM Acute on chronic renal failure avoid nephrotoxic meds Cr today 1.3 unchanged from yesterday will trend Supratherapeutic INR repeat INR in AM Hold coumadin HTN well controlled continue bystolic and norvasc Atrial fibrillation continue bystolic HLD -continue crestor 10mg po hs Hyperthyroidism continue methimazole 5mg po dailly FEN: D5W @ 42ml/hr hypernatremia hypercalcemia NPO for now - speech and swallow evaluation PPx: INR elevated protonix DNR/DNI Problem List - Problems (1) Acute exacerbation of CHF (congestive heart failure) Code(s): I50.9 - HEART FAILURE, UNSPECIFIED Qualifiers: Congestive heart failure type: diastolic Qualified Code(s): I50.33 - Acute on chronic diastolic (congestive) heart failure (2) Altered mental status Code(s): R41.82 - ALTERED MENTAL STATUS, UNSPECIFIED (3) Paroxysmal atrial flutter Code(s): I48.92 - UNSPECIFIED ATRIAL FLUTTER (4) A-fib Code(s): I48.91 - UNSPECIFIED ATRIAL FIBRILLATION Qualifiers: Atrial fibrillation type: persistent Qualified Code(s): I48.1 - Persistent atrial fibrillation (5) Acute on chronic diastolic CHF (congestive heart failure) Code(s): I50.33 - ACUTE ON CHRONIC DIASTOLIC (CONGESTIVE) HEART FAILURE (6) [id number] kidney injury Code(s): N17.9 - ACUTE KIDNEY FAILURE, UNSPECIFIED N18.9 - CHRONIC KIDNEY DISEASE, UNSPECIFIED (7) Anemia Code(s): D64.9 - ANEMIA, UNSPECIFIED Qualifiers: Anemia type: unspecified type Qualified Code(s): D64.9 - Anemia, unspecified (8) CAD (coronary artery disease) Code(s): I25.10 - ATHSCL HEART DISEASE OF [place] CORONARY ARTERY W/O ANG PCTRS Qualifiers: Coronary Disease-Associated Artery/Lesion type: [place] artery [place] vs. transplanted heart: [place] heart Associated angina: without angina Qualified Code(s): I25.10 - Atherosclerotic heart disease of [place] coronary artery without angina pectoris (9) HLD (hyperlipidemia) Code(s): E78.5 - HYPERLIPIDEMIA, UNSPECIFIED Qualifiers: Hyperlipidemia type: pure hypercholesterolemia Qualified Code(s): E78.0 - Pure hypercholesterolemia (10) Shortness of breath Code(s): R06.02 - SHORTNESS OF BREATH (11) Hypoxemia Code(s): R09.02 - HYPOXEMIA (12) Leukocytosis Code(s): D72.829 - ELEVATED WHITE BLOOD CELL COUNT, UNSPECIFIED (13) Hypernatremia Code(s): E87.0 - HYPEROSMOLALITY AND HYPERNATREMIA (14) Acute hypernatremia Code(s): E87.0 - HYPEROSMOLALITY AND HYPERNATREMIA Visit type - Emergency Visit Emergency Visit: Yes ED Registration Date: 01/25/17 Care time: The patient presented to the Emergency Department on the above date and was hospitalized for further evaluation of their emergent condition. - New Patient This patient is new to me today: No - Critical Care Critical Care patient: No
--- NOTE | 2017-02-04 13:47 | PN ---
Progress Note (short form) - Note Progress Note: PULMONARY FAMILY AND [employer] IN ATTENDANCE VSS/AFEBRILE ANICTERIC DISTANT BREATH SOUNDS S1S2 BS+ DIMINISHED LOWER EXT EDEMA LABS/MEDS/NOTES/IMAGING/ABG REVIEWED Altered Mental Status Hyperparathyroidism/hypercalcemia Acute on Chronic LV Diastolic Heart Failure Hypoxemic hypercapneic resp failure Pulmonary HTN Pleural Effusion Compressive Atelectasis Paroxysmal Atrial Flutter s/p AVR/MVR HTN - bipap as needed - monitor urine output, creatinine,lytes - daily weights, I/Os - monitor CXR - rate controlled - O2 to keep SpO2 >90% - aspiration precautions - DVT prophylaxis - hold coumadin - prognosis philip MCLEAN
[2017-02-04] MEDS: methylPREDNISolone NA SUCC 40 MG/1 ML VIAL IVPB SCH (13:54)
[2017-02-04] MEDS: KCL 10 MEQ IVPB 100 ML IVPB SCH ×2 (13:54→15:43)
--- NOTE | 2017-02-04 17:26 | PN ---
Progress Note, Physician History of Present Illness: Pt seen and examined at bedside. She is confused. - Current Medication List Current Medications: Active Medications Acetaminophen (Tylenol -) 650 mg PO Q6H PRN PRN Reason: FEVER OR PAIN Last Admin: 01/25/17 16:25 Dose: 650 mg Amlodipine Besylate (Norvasc -) 5 mg PO DAILY [facility] Last Admin: 02/04/17 09:21 Dose: Not Given Cinacalcet (Sensipar -) 30 mg PO BID [facility] Last Admin: 02/04/17 09:21 Dose: Not Given Docusate Sodium (Colace -) 100 mg PO BID PRN PRN Reason: CONSTIPATION Dextrose (D5w -) 1,000 mls @ 42 mls/hr IV ASDIR [facility] Stop: 02/05/17 12:04 Last Admin: 02/04/17 13:54 Dose: 42 mls/hr Methimazole (Tapazole -) 5 mg PO DAILY [facility] Last Admin: 02/04/17 09:22 Dose: Not Given Methylprednisolone Sodium Succinate (Solu-Medrol -) 40 mg IVPB DAILY [facility] Last Admin: 02/04/17 13:54 Dose: 40 mg Nebivolol (Bystolic -) 10 mg PO DAILY [facility] Last Admin: 02/04/17 09:21 Dose: Not Given Pantoprazole Sodium (Protonix Packets For Oral Suspension -) 40 mg GT DAILY [facility] Last Admin: 02/04/17 09:21 Dose: Not Given Rosuvastatin Calcium (Crestor -) 10 mg PO HS [facility] Last Admin: 02/03/17 21:44 Dose: 10 mg Senna (Senna -) 2 tab PO HS PRN PRN Reason: CONSTIPATION - Objective Vital Signs: Vital Signs Temperature 98.0 F 02/04/17 15:45 Pulse Rate 66 02/04/17 15:45 Respiratory Rate 22 02/04/17 15:45 Blood Pressure 101/70 02/04/17 15:45 O2 Sat by Pulse Oximetry (%) 90 L 02/04/17 12:47 Constitutional: Yes: Anxious Eyes: Yes: Conjunctiva Clear Cardiovascular: Yes: S1, S2 Respiratory: Yes: On BiPap Gastrointestinal: Yes: Soft, Abdomen, Obese Genitourinary: Yes: Rico Present Musculoskeletal: Yes: Muscle Weakness Edema: Yes Edema: LUE: 1+, RUE: 1+ Neurological: Yes: Confusion Psychiatric: Yes: Oriented Labs: CBC, BMP 02/02/17 06:00 02/04/17 05:35 INR, PTT INR 4.31 (0.82-1.09) H* 02/04/17 05:35 Problem List - Problems (1) Acute exacerbation of CHF (congestive heart failure) Code(s): I50.9 - HEART FAILURE, UNSPECIFIED Qualifiers: Congestive heart failure type: diastolic Qualified Code(s): I50.33 - Acute on chronic diastolic (congestive) heart failure (2) Hyperthyroidism Code(s): E05.90 - THYROTOXICOSIS, UNSP WITHOUT THYROTOXIC CRISIS OR STORM (3) A-fib Code(s): I48.91 - UNSPECIFIED ATRIAL FIBRILLATION Qualifiers: Atrial fibrillation type: persistent Qualified Code(s): I48.1 - Persistent atrial fibrillation (4) Acute on chronic diastolic CHF (congestive heart failure) Code(s): I50.33 - ACUTE ON CHRONIC DIASTOLIC (CONGESTIVE) HEART FAILURE (5) Anemia Code(s): D64.9 - ANEMIA, UNSPECIFIED Qualifiers: Anemia type: unspecified type Qualified Code(s): D64.9 - Anemia, unspecified (6) Shortness of breath Code(s): R06.02 - SHORTNESS OF BREATH (7) Coumadin toxicity Code(s): T45.511A - POISONING BY ANTICOAGULANTS, ACCIDENTAL, INIT Qualifiers: Encounter type: sequela Injury intent: undetermined intent Qualified Code(s): T45.514S - Poisoning by anticoagulants, undetermined, sequela Assessment/Plan Current Medications Generic Name Dose Route Start Last Admin Trade Name Freq PRN Reason Stop Dose Admin Acetaminophen 650 mg 01/25/17 16:17 01/25/17 16:25 Tylenol - PO 650 mg Q6H PRN Administration FEVER OR PAIN Amlodipine Besylate 5 mg 01/29/17 16:16 02/04/17 09:21 Norvasc - PO Not Given DAILY ALOK Cinacalcet 30 mg 02/01/17 22:00 02/04/17 09:21 Sensipar - PO Not Given BID ALOK Docusate Sodium 100 mg 01/30/17 11:38 Colace - PO BID PRN CONSTIPATION Dextrose 1,000 mls @ 42 mls/hr 02/04/17 12:15 02/04/17 13:54 D5w - IV 02/05/17 12:04 42 mls/hr ASDIR ALOK Administration Methimazole 5 mg 01/26/17 10:00 02/04/17 09:22 Tapazole - PO Not Given DAILY ALOK Methylprednisolone Sodium Succinate 40 mg 02/04/17 12:15 02/04/17 13:54 Solu-Medrol - IVPB 40 mg DAILY ALOK Administration Nebivolol 10 mg 01/26/17 10:00 02/04/17 09:21 Bystolic - PO Not Given DAILY [facility] Pantoprazole Sodium 40 mg 01/29/17 11:13 02/04/17 09:21 Protonix Packets For Oral Suspension - GT Not Given DAILY [facility] Rosuvastatin Calcium 10 mg 01/25/17 22:00 02/03/17 21:44 Crestor - PO 10 mg HS ALOK Administration Senna 2 tab 01/30/17 11:38 Senna - PO HS PRN CONSTIPATION Impression 1. MADONNA 2. CKD - creatinine has been elevated on previous labs 3. CHF 4. coumadin toxicity 5. valvular heart disease 6. s/p bio-MVR and AVR 7. hyperlipidemia 8. atrial fibrillation 9. anemia 10. hx of breast cancer 11. renal cyst 12. hypercalcemia Plan - replace potassium - monitor calcium - can keep on d5 as she is not eating - discussed with family at length - renal cyst will need to be followed, however this can be done as outpt - will follow - cont BiPap - overall prognosis guarded - repeat cxr reviewed Dr Morse
[2017-02-04] MEDS: ROSUVASTATIN CA 10 MG TABLET (FP) PO SCH (22:21)
--- NOTE | 2017-02-04 23:31 | PN ---
Progress Note, Physician Chief Complaint: confused,and restless in bed family at bedside History of Present Illness: hypercalcemia,hyperthyroidism,chf,hypoxia,hypercapnea,on bipap remains confused and restless - Current Medication List Current Medications: Active Medications Acetaminophen (Tylenol -) 650 mg PO Q6H PRN PRN Reason: FEVER OR PAIN Last Admin: 01/25/17 16:25 Dose: 650 mg Amlodipine Besylate (Norvasc -) 5 mg PO DAILY [facility] Last Admin: 02/04/17 09:21 Dose: Not Given Cinacalcet (Sensipar -) 30 mg PO BID [facility] Last Admin: 02/04/17 22:22 Dose: Not Given Docusate Sodium (Colace -) 100 mg PO BID PRN PRN Reason: CONSTIPATION Dextrose (D5w -) 1,000 mls @ 42 mls/hr IV ASDIR [facility] Stop: 02/05/17 12:04 Last Admin: 02/04/17 13:54 Dose: 42 mls/hr Methimazole (Tapazole -) 5 mg PO DAILY [facility] Last Admin: 02/04/17 09:22 Dose: Not Given Methylprednisolone Sodium Succinate (Solu-Medrol -) 40 mg IVPB DAILY [facility] Last Admin: 02/04/17 13:54 Dose: 40 mg Nebivolol (Bystolic -) 10 mg PO DAILY [facility] Last Admin: 02/04/17 09:21 Dose: Not Given Pantoprazole Sodium (Protonix Packets For Oral Suspension -) 40 mg GT DAILY [facility] Last Admin: 02/04/17 09:21 Dose: Not Given Rosuvastatin Calcium (Crestor -) 10 mg PO HS [facility] Last Admin: 02/04/17 22:21 Dose: Not Given Senna (Senna -) 2 tab PO HS PRN PRN Reason: CONSTIPATION - Objective Vital Signs: Vital Signs Temperature 98.7 F 02/04/17 18:00 Pulse Rate 97 H 02/04/17 18:00 Respiratory Rate 22 02/04/17 18:00 Blood Pressure 140/95 02/04/17 18:00 O2 Sat by Pulse Oximetry (%) 96 02/04/17 21:50 Constitutional: Yes: Anxious Eyes: Yes: EOM Intact HENT: Yes: Normocephalic Neck: Yes: Trachea Midline, Thyromegaly Cardiovascular: Yes: Tachycardia Respiratory: Yes: On BiPap, Poor Air Entry, Rales, SOB, Tachypnea Gastrointestinal: Yes: Normal Bowel Sounds ...Rectal Exam: Yes: Deferred Genitourinary: Yes: WNL Musculoskeletal: Yes: Muscle Weakness Neurological: Yes: Alert Labs: CBC, BMP 02/02/17 06:00 02/04/17 05:35 INR, PTT INR 4.31 (0.82-1.09) H* 02/04/17 05:35 Problem List - Problems (1) Hyperthyroidism Code(s): E05.90 - THYROTOXICOSIS, UNSP WITHOUT THYROTOXIC CRISIS OR STORM (2) Hypercalcemia Code(s): E83.52 - HYPERCALCEMIA (3) Hyperparathyroidism Code(s): E21.3 - HYPERPARATHYROIDISM, UNSPECIFIED Assessment/Plan Current Active Problems Acute exacerbation of CHF (congestive heart failure) (Acute) Acute hypernatremia (Acute) Altered mental status (Acute) Cerebrovascular disease (Acute) Coumadin toxicity (Acute) Hypercalcemia (Acute) Hypernatremia (Acute) Hyperparathyroidism (Acute) Hyperthyroidism (Acute) Hypoxemia (Acute) Leukocytosis (Acute) Organic brain syndrome (Acute) Paroxysmal atrial flutter (Acute) Respiratory failure (Acute) Tricuspid regurgitation (Acute) Abnormal Lab Results 02/02/17 02/04/17 02/04/17 08:00 05:35 05:35 INR 4.31 H* ABG pCO2 at Pt Temp ABG HCO3 ABG O2 Content ABG Base Excess Sodium 152 H Potassium 3.4 L Carbon Dioxide 41 H Anion Gap 5 L BUN 34 H Creatinine 1.3 H Calcium 10.8 H Ionized Calcium 6.7 H 02/04/17 09:35 INR ABG pCO2 at Pt Temp 64.5 H* ABG HCO3 39.4 H ABG O2 Content 13.1 L ABG Base Excess 12.8 H Sodium Potassium Carbon Dioxide Anion Gap BUN Creatinine Calcium Ionized Calcium plan: ck amonia level neurology consult repeat tsh free t4 mg and phosphorus
[2017-02-05] MEDS ORDERED: PT OWN MED DRAWER 7, Y5N ONE (08:53)
[2017-02-05 08:54] LABS: BASOPHIL 0.2 % (0-2.0); EOSINOPHIL 0.1 % (0-4.5); MCH 24.7 pg (25.7-33.7); MCHC 29.7 g/dl (32.0-36.0); MEAN PLT VOLUME 8.8 fl (7.5-11.1); NEUTROPHILS 87.2 % (42.8-82.8); PLATELET COUNT 366 K/MM3 (134-434); RDW 16.7 % (11.6-15.6)
--- NOTE | 2017-02-05 09:21 | PN ---
Progress Note (short form) - Note Progress Note: Chief Complaint: Events noted, notes reviewed, more awake and alert remains on BiPAP, confusion and disorientation are persistent History of Present Illness: Seen and examined on telemetry. Events noted, notes reviewed, more awake and alert remains on BiPAP, confusion and disorientation are persistent Diuretics remain on hold - Current Medication List Current Medications Acetaminophen (Tylenol -) 650 mg PO Q6H PRN PRN Reason: FEVER OR PAIN Last Admin: 01/25/17 16:25 Dose: 650 mg Amlodipine Besylate (Norvasc -) 5 mg PO DAILY [facility] Last Admin: 02/04/17 09:21 Dose: Not Given Cinacalcet (Sensipar -) 30 mg PO BID [facility] Last Admin: 02/04/17 22:22 Dose: Not Given Docusate Sodium (Colace -) 100 mg PO BID PRN PRN Reason: CONSTIPATION Dextrose (D5w -) 1,000 mls @ 42 mls/hr IV ASDIR [facility] Stop: 02/05/17 12:04 Last Admin: 02/04/17 13:54 Dose: 42 mls/hr Methimazole (Tapazole -) 5 mg PO DAILY [facility] Last Admin: 02/04/17 09:22 Dose: Not Given Methylprednisolone Sodium Succinate (Solu-Medrol -) 40 mg IVPB DAILY [facility] Last Admin: 02/04/17 13:54 Dose: 40 mg Nebivolol (Bystolic -) 10 mg PO DAILY [facility] Last Admin: 02/04/17 09:21 Dose: Not Given Pantoprazole Sodium (Protonix Packets For Oral Suspension -) 40 mg GT DAILY [facility] Last Admin: 02/04/17 09:21 Dose: Not Given Rosuvastatin Calcium (Crestor -) 10 mg PO HS [facility] Last Admin: 02/04/17 22:21 Dose: Not Given Senna (Senna -) 2 tab PO HS PRN PRN Reason: CONSTIPATION Review of Systems - Review of Systems Unable to Obtain, related to lethargy - Objective Vital Signs: Last Vital Signs Temp Pulse Resp BP Pulse Ox 98.2 F 72 20 113/60 96 02/05/17 03:00 02/05/17 07:00 02/05/17 07:00 02/05/17 07:00 02/05/17 06:15 Neck: Supple Negative JVD No Bruit Cardiovascular: S1 S2 Irregularly Irregular Grade 2/6 JUNG Respiratory: Diminished at the Bases Bilaterally Gastrointestinal: Soft Benign Normal Bowel Sounds Ext: No edema Labs: CBC, BMP 02/05/17 08:35 BMP and INR from this AM pending INR, PTT INR 4.31 (0.82-1.09) H* 02/04/17 05:35 Assessment/Plan ASSESSMENT: 1. Acute on respiratory distress probably multi-factorial; including related to acute on chronic LV diastolic failure, class II-III NYHA classification LV failure, resolving, intrinsic lung disease, atelectasis 2. CAD, angina pectoris 3. History of MVR and AVR (Bio-prosthesis) with elevated trans-aortic gradient, restonosis vs. prosthesis-patient mismatch 4. Persistent atrial fibrillation on Coumadin with supra-therapeutic INR, AM INR pending 5. HTN 6. Hyperlipidemia 7. Confusion and disorientation, OBS/dementia 8. Cerebro-vascular disease 9. Hyperthyroidism 10. Probable hyperparathyroidism 11. Acute on CKD 12. Anemia PLAN: 1. Continue to hold Lasix, related to dehydration and Hypernatremia 2. Continue Bystolic 3. Continue Norvasc 4. Continue Crestor 5. Administer Coumadin as per INR, pending today's INR 6. Continue BiPAP utilization 7. Overall poor prognosis as outlined above Michael Gallo MD
[2017-02-05 09:22] LABS: CALCIUM 10.6 mg/dL (8.5-10.1); CREATININE 1.2 mg/dL (0.55-1.02); MAGNESIUM 2.3 mg/dL (1.8-2.4); PHOSPHOROUS 2.4 mg/dL (2.5-4.9)
[2017-02-05 09:30] LABS: THYROID STIMULATING HORMONE 2.01 uIU/ml (0.358-3.74)
[2017-02-05 10:03] LABS: PROTHROMBIN TIME (PATIENT) 66.6 SEC (9.98-11.88)
[2017-02-05 10:10] LABS: INR 5.84 (0.82-1.09)
--- NOTE | 2017-02-05 10:18 | PN ---
Progress Note (short form) - Note Progress Note: PULMONARY CONFUSED/ON BIPAP VSS/AFEBRILE ANICTERIC DISTANT BREATH SOUNDS S1S2 BS+ OBESE DIMINISHED LOWER EXT EDEMA LABS/MEDS/NOTES/IMAGING/ABG REVIEWED Altered Mental Status Hyperparathyroidism/hypercalcemia Acute on Chronic LV Diastolic Heart Failure Hypoxemic hypercapneic resp failure Pulmonary HTN Pleural Effusion Compressive Atelectasis Paroxysmal Atrial Flutter s/p AVR/MVR HTN - bipap as needed - monitor urine output, creatinine,lytes - daily weights, I/Os - monitor CXR - rate controlled - O2 to keep SpO2 >90% - aspiration precautions - DVT prophylaxis - hold coumadin - prognosis philip MCLEAN
[2017-02-05] MEDS ORDERED: INSULIN (NOVOLOG) ASPART 100 UNITS/ML 10ML VIAL ONE (10:24)
[2017-02-05] MEDS: CINACALCET HCL 30 MG TAB (FP) PO SCH ×2 (10:26→22:44)
[2017-02-05] MEDS: PANTOPRAZOLE SOD 40 MG SUSPENSION PACKET GT SCH (10:26)
[2017-02-05] MEDS: METHIMAZOLE 5 MG TABLET (FP) PO SCH (10:26)
[2017-02-05] MEDS: amLODIPine BESYLATE 5 MG TABLET (FP) PO SCH (10:26)
[2017-02-05] MEDS: NEBIVOLOL 10 MG TABLET (FP) PO SCH (10:27)
[2017-02-05] MEDS: methylPREDNISolone NA SUCC 40 MG/1 ML VIAL IVPB SCH (10:29)
[2017-02-05 11:01] LABS: FREE T4 0.93 ng/dl (0.76-1.46)
--- NOTE | 2017-02-05 15:36 | PN ---
Progress Note (short form) - Note Progress Note: Subjective: can't obtain hx. family reports improvement Objective: Vital Signs: Last Vital Signs Temp Pulse Resp BP Pulse Ox 98.3 F 69 20 140/64 98 02/05/17 15:27 02/05/17 15:27 02/05/17 15:27 02/05/17 15:27 02/05/17 11:13 I&O: Intake & Output 02/02/17 02/03/17 02/04/17 02/06/17 23:59 23:59 23:59 00:59 Intake Total 760 1740 570 504 Output Total 1750 1600 1100 600 Balance -990 140 -530 -96 Weight 166 lb 9.6 oz 166 lb 168 lb 167 lb 12.8 oz Physical Exam: NAD, BIPAP mask on . Cv: RRR, JVD Lungs: decreased breath sounds at bases Ext : edema over R arm Labs: Laboratory Results - last 24 hr 02/04/17 02/05/17 02/05/17 23:45 08:20 08:35 WBC RBC Hgb Hct MCV MCHC RDW Plt Count MPV Neutrophils % Lymphocytes % Monocytes % Eosinophils % Basophils % INR 5.84 H* D Sodium 145 Potassium 3.4 L Chloride 103 Carbon Dioxide 38 H Anion Gap 4 L BUN 36 H Creatinine 1.2 H Random Glucose 312 H* D Calcium 10.6 H Phosphorus 2.4 L D Magnesium 2.3 Ammonia 10.55 L Vitamin B12 1479 H TSH 2.01 D Free T4 0.93 D 02/05/17 02/05/17 08:35 08:35 WBC 11.0 H RBC 3.61 Hgb 8.9 L D Hct 29.9 L MCV 83.0 MCHC 29.7 L RDW 16.7 H Plt Count 366 MPV 8.8 Neutrophils % 87.2 H Lymphocytes % 6.2 L D Monocytes % 6.3 Eosinophils % 0.1 D Basophils % 0.2 INR Sodium Potassium Chloride Carbon Dioxide Anion Gap BUN Creatinine Random Glucose Calcium Phosphorus Magnesium Ammonia Vitamin B12 Cancelled TSH Free T4 Cancelled Assessment/Plan: 86 y/o lady with h/o CHF, COPD , PUlm HTn, bioprosthetic aortic valve replacement and other co-morbidities who presented with SOB and was found to have acute resp failure due to acute D CHF 1- Acute hypoxic , hypercapnic resp failure due to acute on chronic diastolic CHF exacerbation and possibly COPD exa: -cont steroids - cont to hold lasix - cont BIPAP support - cont BB 2- Coumadin coagulopathy : INR 5.8 today . no bleeld . will cont to hold coumadin 3- P A flutter: hold coumadin due to elevated INR. will repeat in AM cont BB 4- MADONNA : due to pre-renal azotemia in the setting of CHF improved 5- Hypercalcemia : likely due to hyperparathyroid. Has h/o breast cancer. ? active . - Cont cinacalcet . - follow PTHrp 6- Dehydration : due to decreased oral intake in setting of diuresis. Na 145 today . hold D5w and lasix . 7-AMS : multi-factorial . resp failure, hypercalcemia , dehydration . correct all the factors. 8- RUE edema . US with no DVT Code status: DNR/DNI plan d/w family . palliative care consult Visit type - Emergency Visit Emergency Visit: Yes ED Registration Date: 01/25/17 Care time: The patient presented to the Emergency Department on the above date and was hospitalized for further evaluation of their emergent condition. - New Patient This patient is new to me today: No - Critical Care Critical Care patient: No
--- NOTE | 2017-02-05 17:51 | PN ---
Progress Note, Physician History of Present Illness: Pt seen and examined at bedside. She is on bipap. Pt remains confused. - Current Medication List Current Medications: Active Medications Acetaminophen (Tylenol -) 650 mg PO Q6H PRN PRN Reason: FEVER OR PAIN Last Admin: 01/25/17 16:25 Dose: 650 mg Amlodipine Besylate (Norvasc -) 5 mg PO DAILY [facility] Last Admin: 02/05/17 10:26 Dose: Not Given Cinacalcet (Sensipar -) 30 mg PO BID [facility] Last Admin: 02/05/17 10:26 Dose: Not Given Docusate Sodium (Colace -) 100 mg PO BID PRN PRN Reason: CONSTIPATION Methimazole (Tapazole -) 5 mg PO DAILY [facility] Last Admin: 02/05/17 10:26 Dose: Not Given Methylprednisolone Sodium Succinate (Solu-Medrol -) 40 mg IVPB DAILY [facility] Last Admin: 02/05/17 10:29 Dose: 40 mg Nebivolol (Bystolic -) 10 mg PO DAILY [facility] Last Admin: 02/05/17 10:27 Dose: Not Given Pantoprazole Sodium (Protonix Packets For Oral Suspension -) 40 mg GT DAILY [facility] Last Admin: 02/05/17 10:26 Dose: Not Given Rosuvastatin Calcium (Crestor -) 10 mg PO HS [facility] Last Admin: 02/04/17 22:21 Dose: Not Given Senna (Senna -) 2 tab PO HS PRN PRN Reason: CONSTIPATION - Objective Vital Signs: Vital Signs Temperature 98.3 F 02/05/17 15:27 Pulse Rate 69 02/05/17 15:27 Respiratory Rate 20 02/05/17 15:27 Blood Pressure 140/64 02/05/17 15:27 O2 Sat by Pulse Oximetry (%) 98 02/05/17 11:13 Constitutional: Yes: Calm Eyes: Yes: Conjunctiva Clear HENT: Yes: Atraumatic Neck: Yes: Supple Cardiovascular: Yes: S1, S2 Respiratory: Yes: On BiPap Gastrointestinal: Yes: Soft Genitourinary: Yes: Rico Present Musculoskeletal: Yes: Muscle Weakness Edema: No Neurological: Yes: Lethargy Labs: CBC, BMP 02/05/17 08:35 02/05/17 08:35 INR, PTT INR 5.84 (0.82-1.09) H* D 02/05/17 08:20 Problem List - Problems (1) Acute exacerbation of CHF (congestive heart failure) Code(s): I50.9 - HEART FAILURE, UNSPECIFIED Qualifiers: Congestive heart failure type: diastolic Qualified Code(s): I50.33 - Acute on chronic diastolic (congestive) heart failure (2) Hyperthyroidism Code(s): E05.90 - THYROTOXICOSIS, UNSP WITHOUT THYROTOXIC CRISIS OR STORM (3) A-fib Code(s): I48.91 - UNSPECIFIED ATRIAL FIBRILLATION Qualifiers: Atrial fibrillation type: persistent Qualified Code(s): I48.1 - Persistent atrial fibrillation (4) Acute on chronic diastolic CHF (congestive heart failure) Code(s): I50.33 - ACUTE ON CHRONIC DIASTOLIC (CONGESTIVE) HEART FAILURE (5) Anemia Code(s): D64.9 - ANEMIA, UNSPECIFIED Qualifiers: Anemia type: unspecified type Qualified Code(s): D64.9 - Anemia, unspecified (6) Shortness of breath Code(s): R06.02 - SHORTNESS OF BREATH (7) Coumadin toxicity Code(s): T45.511A - POISONING BY ANTICOAGULANTS, ACCIDENTAL, INIT Qualifiers: Encounter type: sequela Injury intent: undetermined intent Qualified Code(s): T45.514S - Poisoning by anticoagulants, undetermined, sequela Assessment/Plan Current Medications Generic Name Dose Route Start Last Admin Trade Name Freq PRN Reason Stop Dose Admin Acetaminophen 650 mg 01/25/17 16:17 01/25/17 16:25 Tylenol - PO 650 mg Q6H PRN Administration FEVER OR PAIN Amlodipine Besylate 5 mg 01/29/17 16:16 02/05/17 10:26 Norvasc - PO Not Given DAILY ALOK Cinacalcet 30 mg 02/01/17 22:00 02/05/17 10:26 Sensipar - PO Not Given BID ALOK Docusate Sodium 100 mg 01/30/17 11:38 Colace - PO BID PRN CONSTIPATION Methimazole 5 mg 01/26/17 10:00 02/05/17 10:26 Tapazole - PO Not Given DAILY ALOK Methylprednisolone Sodium Succinate 40 mg 02/04/17 12:15 02/05/17 10:29 Solu-Medrol - IVPB 40 mg DAILY ALOK Administration Nebivolol 10 mg 01/26/17 10:00 02/05/17 10:27 Bystolic - PO Not Given DAILY ALOK Pantoprazole Sodium 40 mg 01/29/17 11:13 02/05/17 10:26 Protonix Packets For Oral Suspension - GT Not Given DAILY ALOK Rosuvastatin Calcium 10 mg 01/25/17 22:00 02/04/17 22:21 Crestor - PO Not Given HS ALOK Senna 2 tab 01/30/17 11:38 Senna - PO HS PRN CONSTIPATION Impression 1. MADONNA 2. CKD - creatinine has been elevated on previous labs 3. CHF 4. coumadin toxicity 5. valvular heart disease 6. s/p bio-MVR and AVR 7. hyperlipidemia 8. atrial fibrillation 9. anemia 10. hx of breast cancer 11. renal cyst 12. hypercalcemia Plan - renal function stabilizing - agree with stopping d5w, cont to monitor - blood sugar elevated, steroids contributing - cotn bipap - overall prognosis is poor, this was explained to family - monitor calcium - renal cyst will need to be followed - will follow - cont BiPap Dr Morse
[2017-02-05] MEDS: ROSUVASTATIN CA 10 MG TABLET (FP) PO SCH (22:43)
[2017-02-06 07:29] LABS: BASOPHIL 0.2 % (0-2.0); EOSINOPHIL 1.2 % (0-4.5); MCH 24.8 pg (25.7-33.7); MCHC 29.7 g/dl (32.0-36.0); MEAN CELL VOLUME 83.6 fl (80-96); MEAN PLT VOLUME 8.9 fl (7.5-11.1); NEUTROPHILS 81.5 % (42.8-82.8); PLATELET COUNT 398 K/MM3 (134-434); RDW 16.7 % (11.6-15.6); WHITE BLOOD COUNT 11.1 K/mm3 (4.0-10.0)
[2017-02-06 07:45] LABS: PROTHROMBIN TIME (PATIENT) 85.7 SEC (9.98-11.88)
[2017-02-06 08:01] LABS: CALCIUM 11.9 mg/dL (8.5-10.1); CREATININE 1.2 mg/dL (0.55-1.02)
[2017-02-06 08:09] LABS: INR 7.48 (0.82-1.09)
--- NOTE | 2017-02-06 08:35 | PN ---
Progress Note, Physician History of Present Illness: Confused on bipap. - Current Medication List Current Medications: Active Medications Acetaminophen (Tylenol -) 650 mg PO Q6H PRN PRN Reason: FEVER OR PAIN Last Admin: 01/25/17 16:25 Dose: 650 mg Amlodipine Besylate (Norvasc -) 5 mg PO DAILY [facility] Last Admin: 02/05/17 10:26 Dose: Not Given Cinacalcet (Sensipar -) 30 mg PO BID [facility] Last Admin: 02/05/17 22:44 Dose: Not Given Docusate Sodium (Colace -) 100 mg PO BID PRN PRN Reason: CONSTIPATION Methimazole (Tapazole -) 5 mg PO DAILY [facility] Last Admin: 02/05/17 10:26 Dose: Not Given Methylprednisolone Sodium Succinate (Solu-Medrol -) 40 mg IVPB DAILY [facility] Last Admin: 02/05/17 10:29 Dose: 40 mg Nebivolol (Bystolic -) 10 mg PO DAILY [facility] Last Admin: 02/05/17 10:27 Dose: Not Given Pantoprazole Sodium (Protonix Packets For Oral Suspension -) 40 mg GT DAILY [facility] Last Admin: 02/05/17 10:26 Dose: Not Given Rosuvastatin Calcium (Crestor -) 10 mg PO HS [facility] Last Admin: 02/05/17 22:43 Dose: Not Given Senna (Senna -) 2 tab PO HS PRN PRN Reason: CONSTIPATION - Objective Vital Signs: Vital Signs Temperature 98.0 F 02/06/17 05:47 Pulse Rate 66 02/06/17 05:47 Respiratory Rate 20 02/06/17 05:47 Blood Pressure 138/70 02/06/17 05:47 O2 Sat by Pulse Oximetry (%) 98 02/06/17 06:15 Neck: Yes: Supple Cardiovascular: Yes: Pulse Irregular, Murmur (2/6 SM) Respiratory: Yes: Regular, Diminished, On BiPap Gastrointestinal: Yes: Soft, Hypoactive Bowel Sounds Edema: No Neurological: Yes: Confusion Labs: CBC, BMP 02/06/17 05:35 02/06/17 05:35 INR, PTT INR 7.48 (0.82-1.09) H* 02/06/17 05:35 Problem List - Problems (1) A-fib Code(s): I48.91 - UNSPECIFIED ATRIAL FIBRILLATION Qualifiers: Atrial fibrillation type: persistent Qualified Code(s): I48.1 - Persistent atrial fibrillation (2) Acute on chronic diastolic CHF (congestive heart failure) Code(s): I50.33 - ACUTE ON CHRONIC DIASTOLIC (CONGESTIVE) HEART FAILURE (3) [id number] kidney injury Code(s): N17.9 - ACUTE KIDNEY FAILURE, UNSPECIFIED N18.9 - CHRONIC KIDNEY DISEASE, UNSPECIFIED (4) CAD (coronary artery disease) Code(s): I25.10 - ATHSCL HEART DISEASE OF [place] CORONARY ARTERY W/O ANG PCTRS Qualifiers: Coronary Disease-Associated Artery/Lesion type: [place] artery [place] vs. transplanted heart: [place] heart Associated angina: without angina Qualified Code(s): I25.10 - Atherosclerotic heart disease of [place] coronary artery without angina pectoris (5) HLD (hyperlipidemia) Code(s): E78.5 - HYPERLIPIDEMIA, UNSPECIFIED Qualifiers: Hyperlipidemia type: pure hypercholesterolemia Qualified Code(s): E78.0 - Pure hypercholesterolemia (6) Hypertensive cardiomyopathy Code(s): I11.9 - HYPERTENSIVE HEART DISEASE WITHOUT HEART FAILURE I42.9 - CARDIOMYOPATHY, UNSPECIFIED Qualifiers: Heart failure presence: with heart failure Qualified Code(s): I11.0 - Hypertensive heart disease with heart failure (7) S/P aortic valve replacement with bioprosthetic valve Code(s): Z95.4 - PRESENCE OF OTHER HEART-VALVE REPLACEMENT (9) Shortness of breath Code(s): R06.02 - SHORTNESS OF BREATH (10) Hyperthyroidism Code(s): E05.90 - THYROTOXICOSIS, UNSP WITHOUT THYROTOXIC CRISIS OR STORM (11) Premature ventricular complex Code(s): I49.3 - VENTRICULAR PREMATURE DEPOLARIZATION (12) Cerebrovascular disease Code(s): I67.9 - CEREBROVASCULAR DISEASE, UNSPECIFIED (13) Coumadin toxicity Code(s): T45.511A - POISONING BY ANTICOAGULANTS, ACCIDENTAL, INIT Qualifiers: Encounter type: sequela Injury intent: undetermined intent Qualified Code(s): T45.514S - Poisoning by anticoagulants, undetermined, sequela Assessment/Plan 1. Acute on respiratory distress probably multi-factorial; including related to acute on chronic LV diastolic failure, class II-III NYHA classification LV failure, resolving, intrinsic lung disease, atelectasis 2. CAD, angina pectoris 3. History of MVR and AVR (Bio-prosthesis) with elevated trans-aortic gradient, restonosis vs. prosthesis-patient mismatch 4. Persistent atrial fibrillation on Coumadin with supra-therapeutic INR, AM INR pending 5. HTN 6. Hyperlipidemia 7. Confusion and disorientation, OBS/dementia 8. Cerebro-vascular disease 9. Hyperthyroidism 10. Probable hyperparathyroidism with hypercalcemia 11. Acute on CKD with hypernatremia 12. Anemia PLAN: 1. Continue to hold Lasix, free water repletion 2. Continue Bystolic 10 qd 3. Continue Norvasc 5 qd 4. Continue Crestor 10 qhs 5. Hold Coumadin per INR 6. Continue BiPAP as needed 7. Overall poor prognosis as outlined above
[2017-02-06] MEDS: DEXTROSE 5%-WATER - 1,000 ML IV SCH (10:46)
[2017-02-06] MEDS: methylPREDNISolone NA SUCC 40 MG/1 ML VIAL IVPB SCH (10:47)
[2017-02-06] MEDS: CINACALCET HCL 30 MG TAB (FP) PO SCH ×2 (10:52→21:11)
[2017-02-06] MEDS: PANTOPRAZOLE SOD 40 MG SUSPENSION PACKET GT SCH (10:53)
[2017-02-06] MEDS: amLODIPine BESYLATE 5 MG TABLET (FP) PO SCH (10:53)
[2017-02-06] MEDS: NEBIVOLOL 10 MG TABLET (FP) PO SCH (10:53)
--- NOTE | 2017-02-06 11:29 | CONSULT ---
Admitting History and Physical - Primary Care Physician PCP: Evelyn Vincent - Admission History of Present Illness: Acute exacerbation of CHF (congestive heart failure) (Acute) Acute hypernatremia (Acute) Altered mental status (Acute) Cerebrovascular disease (Acute) Coumadin toxicity (Acute) Hypercalcemia (Acute) Hypernatremia (Acute) Hyperparathyroidism (Acute) Hyperthyroidism (Acute) Hypoxemia (Acute) Leukocytosis (Acute) Organic brain syndrome (Acute) Paroxysmal atrial flutter (Acute) Respiratory failure (Acute) Tricuspid regurgitation (Acute) NPO. Confused on BIPAP History Source: Medical Record Limitations to Obtaining History: Clinical Condition (Very confused. Keeps eyes closed. Opens upon command by limited eye contact. Verbal, strong vocal quality but confused. Desaturates quickly when off bipap.) - Past Medical History Cardiovascular: Yes: AFIB, CAD, CHF, HTN, Hyperlipdemia Renal/: Yes: Renal Inusuff - Past Surgical History Past Surgical History: Yes: Mastectomy (left), Valve Replacement - Smoking History Smoking history: Former smoker Have you smoked in the past 12 months: No If you are a former smoker, when did you quit?: 1996 - Alcohol/Substance Use Hx Alcohol Use: No History - Admission Reason For Visit: ACUTE CHRONIC CHF - General Mental Status: Able to Follow Commands, Combative (due to confused. Calms down when explained that she is in hospital receiving care,), Confused - Hearing Hearing: Normal Speech Evaluation - Communication Primary Language: BULG[place] Communication: Yes: Simple Responses - Speech Production Intelligibility: Yes: WNL - Speech Characteristics Voice Loudness: Normal Voice Pitch: Yes: Normal Voice Phonatory-based Quality: Yes: Normal Speech Pattern: Normal Speech Clarity: < 75% Nasal Resonance: Normal Articulation: Yes: Precise - Language/Auditory Comprehension Follows: Yes: 1 Stage Simple Commands Observation: Able to respond to yes/no queries: Yes, Comprehends Conversational Speech: Yes (simple) - Language/Verbal Expression Able to Respond to Simple Queries: Yes: Severely Impaired (tangential, unrelated comments) Able to Communicate Wants and Needs: Yes: Moderately Impaired Attempts to Correct Errors: No - Swallow Evaluation/Bedside Assessment Current Nutritional Intake: NPO Oral Secretions: Yes: WFL Dentition: Yes: Missing Teeth Facial Symmetry at Rest: Symmetrical Facial Symmetry on Retraction: Symmetrical Lingual Movement: Symmetric Recommendations - Speech Evaluation, Impression/Plan Impression: Very confused. Keeps eyes closed. Opens upon command by limited eye contact. Verbal, strong vocal quality but confused.Good vocal quality. Desaturates quickly when off bipap. PO not attempted due to confusion, defensiveness and need for BIPAP and risk of aspiration. Once both improve, may tolerate PO trial. Recommended Frequency for Therapy: Follow Up PRN (as pt improves.) - Dysphagia Impressions/Plan Dysphagia Impressions: Ongoing Evaluation *Silent aspiration: cannot be R/O at bedside Recommendations: Palliative Care, Other (RD f/u. Consider clinimix, if not medically contraindicated.) - Recommendations Diet Consistency: NPO
[2017-02-06] MEDS: METHIMAZOLE 5 MG TABLET (FP) PO SCH (12:25)
--- NOTE | 2017-02-06 12:26 | PN ---
Progress Note, Physician History of Present Illness: Pt seen and examined at bedside. She remains confused. - Current Medication List Current Medications: Active Medications Acetaminophen (Tylenol -) 650 mg PO Q6H PRN PRN Reason: FEVER OR PAIN Last Admin: 01/25/17 16:25 Dose: 650 mg Amlodipine Besylate (Norvasc -) 5 mg PO DAILY [facility] Last Admin: 02/06/17 10:53 Dose: Not Given Cinacalcet (Sensipar -) 30 mg PO BID [facility] Last Admin: 02/06/17 10:52 Dose: Not Given Docusate Sodium (Colace -) 100 mg PO BID PRN PRN Reason: CONSTIPATION Dextrose (D5w -) 1,000 mls @ 50 mls/hr IV ASDIR [facility] Last Admin: 02/06/17 10:46 Dose: 50 mls/hr Methimazole (Tapazole -) 5 mg PO DAILY [facility] Last Admin: 02/05/17 10:26 Dose: Not Given Methylprednisolone Sodium Succinate (Solu-Medrol -) 40 mg IVPB DAILY [facility] Last Admin: 02/06/17 10:47 Dose: 40 mg Nebivolol (Bystolic -) 10 mg PO DAILY [facility] Last Admin: 02/06/17 10:53 Dose: Not Given Pantoprazole Sodium (Protonix Packets For Oral Suspension -) 40 mg GT DAILY [facility] Last Admin: 02/06/17 10:53 Dose: Not Given Rosuvastatin Calcium (Crestor -) 10 mg PO HS [facility] Last Admin: 02/05/17 22:43 Dose: Not Given Senna (Senna -) 2 tab PO HS PRN PRN Reason: CONSTIPATION - Objective Vital Signs: Vital Signs Temperature 98.9 F 02/06/17 09:00 Pulse Rate 89 02/06/17 09:00 Respiratory Rate 22 02/06/17 09:00 Blood Pressure 140/90 02/06/17 09:00 O2 Sat by Pulse Oximetry (%) 97 02/06/17 09:00 Constitutional: Yes: Calm Eyes: Yes: Conjunctiva Clear HENT: Yes: Atraumatic Neck: Yes: Supple Cardiovascular: Yes: S1, S2 Respiratory: Yes: On BiPap Gastrointestinal: Yes: Soft Genitourinary: Yes: Rico Present Musculoskeletal: Yes: Muscle Weakness Edema: Yes Edema: LUE: Trace, RUE: Trace Neurological: Yes: Confusion Psychiatric: Yes: Agitated Labs: CBC, BMP 02/06/17 05:35 02/06/17 05:35 INR, PTT INR 7.48 (0.82-1.09) H* 02/06/17 05:35 Problem List - Problems (1) Acute exacerbation of CHF (congestive heart failure) Code(s): I50.9 - HEART FAILURE, UNSPECIFIED Qualifiers: Congestive heart failure type: diastolic Qualified Code(s): I50.33 - Acute on chronic diastolic (congestive) heart failure (2) Hyperthyroidism Code(s): E05.90 - THYROTOXICOSIS, UNSP WITHOUT THYROTOXIC CRISIS OR STORM (3) A-fib Code(s): I48.91 - UNSPECIFIED ATRIAL FIBRILLATION Qualifiers: Atrial fibrillation type: persistent Qualified Code(s): I48.1 - Persistent atrial fibrillation (4) Acute on chronic diastolic CHF (congestive heart failure) Code(s): I50.33 - ACUTE ON CHRONIC DIASTOLIC (CONGESTIVE) HEART FAILURE (5) Anemia Code(s): D64.9 - ANEMIA, UNSPECIFIED Qualifiers: Anemia type: unspecified type Qualified Code(s): D64.9 - Anemia, unspecified (6) Shortness of breath Code(s): R06.02 - SHORTNESS OF BREATH (7) Coumadin toxicity Code(s): T45.511A - POISONING BY ANTICOAGULANTS, ACCIDENTAL, INIT Qualifiers: Encounter type: sequela Injury intent: undetermined intent Qualified Code(s): T45.514S - Poisoning by anticoagulants, undetermined, sequela Assessment/Plan Current Medications Generic Name Dose Route Start Last Admin Trade Name Freq PRN Reason Stop Dose Admin Acetaminophen 650 mg 01/25/17 16:17 01/25/17 16:25 Tylenol - PO 650 mg Q6H PRN Administration FEVER OR PAIN Amlodipine Besylate 5 mg 01/29/17 16:16 02/06/17 10:53 Norvasc - PO Not Given DAILY ALOK Cinacalcet 30 mg 02/01/17 22:00 02/06/17 10:52 Sensipar - PO Not Given BID ALOK Docusate Sodium 100 mg 01/30/17 11:38 Colace - PO BID PRN CONSTIPATION Dextrose 1,000 mls @ 50 mls/hr 02/06/17 10:00 02/06/17 10:46 D5w - IV 50 mls/hr ASDIR ALOK Administration Methimazole 5 mg 01/26/17 10:00 02/05/17 10:26 Tapazole - PO Not Given DAILY ALOK Methylprednisolone Sodium Succinate 40 mg 02/04/17 12:15 02/06/17 10:47 Solu-Medrol - IVPB 40 mg DAILY ALOK Administration Nebivolol 10 mg 01/26/17 10:00 02/06/17 10:53 Bystolic - PO Not Given DAILY [facility]OK Pantoprazole Sodium 40 mg 01/29/17 11:13 02/06/17 10:53 Protonix Packets For Oral Suspension - GT Not Given DAILY ALOK Rosuvastatin Calcium 10 mg 01/25/17 22:00 02/05/17 22:43 Crestor - PO Not Given HS ALOK Senna 2 tab 01/30/17 11:38 Senna - PO HS PRN CONSTIPATION Impression 1. MADONNA 2. CKD - creatinine has been elevated on previous labs 3. CHF 4. coumadin toxicity 5. valvular heart disease 6. s/p bio-MVR and AVR 7. hyperlipidemia 8. atrial fibrillation 9. anemia 10. hx of breast cancer 11. renal cyst 12. hypercalcemia Plan - cont current management - speech/swallow input appreciated - calcium and sodium elevated - hydration restarted - cont bipap - overall prognosis is poor - will follow Dr Morse
--- NOTE | 2017-02-06 14:01 | PN ---
Progress Note (short form) - Note Progress Note: PULMONARY Remains on BiPAP. Confused. Last Vital Signs Temp Pulse Resp BP Pulse Ox 98.9 F 74 22 140/90 97 02/06/17 09:00 02/06/17 10:40 02/06/17 09:00 02/06/17 09:00 02/06/17 11:50 Intake & Output 02/03/17 02/04/17 02/05/17 02/06/17 22:59 22:59 23:59 23:59 Intake Total 724 Output Total 1000 Balance -276 Weight 168 lb 4 oz Gen: mildly tachypneic on BiPAP Heart: RRR Lung: decreased breath sounds at the bases Abd: soft, nontender Ext: less edema CBC, BMP 02/06/17 05:35 02/06/17 05:35 Active Medications Acetaminophen (Tylenol -) 650 mg PO Q6H PRN PRN Reason: FEVER OR PAIN Last Admin: 01/25/17 16:25 Dose: 650 mg Amlodipine Besylate (Norvasc -) 5 mg PO DAILY [facility] Last Admin: 02/06/17 10:53 Dose: Not Given Cinacalcet (Sensipar -) 30 mg PO BID [facility] Last Admin: 02/06/17 10:52 Dose: Not Given Docusate Sodium (Colace -) 100 mg PO BID PRN PRN Reason: CONSTIPATION Dextrose (D5w -) 1,000 mls @ 50 mls/hr IV ASDIR [facility] Last Admin: 02/06/17 10:46 Dose: 50 mls/hr Methimazole (Tapazole -) 5 mg PO DAILY [facility] Last Admin: 02/06/17 12:25 Dose: Not Given Methylprednisolone Sodium Succinate (Solu-Medrol -) 40 mg IVPB DAILY [facility] Last Admin: 02/06/17 10:47 Dose: 40 mg Nebivolol (Bystolic -) 10 mg PO DAILY [facility] Last Admin: 02/06/17 10:53 Dose: Not Given Pantoprazole Sodium (Protonix Packets For Oral Suspension -) 40 mg GT DAILY [facility] Last Admin: 02/06/17 10:53 Dose: Not Given Rosuvastatin Calcium (Crestor -) 10 mg PO HS [facility] Last Admin: 02/05/17 22:43 Dose: Not Given Senna (Senna -) 2 tab PO HS PRN PRN Reason: CONSTIPATION A/P Altered Mental Status Acute on Chronic LV Diastolic Heart Failure Pulmonary HTN Pleural Effusion Compressive Atelectasis Paroxysmal Atrial Flutter s/p AVR/MVR HTN - continue lasix as needed - monitor urine output, creatinine - daily weights, I/Os - monitor CXR - rate controlled - O2 to keep SpO2 >90%, can try ventimask - BiPAP as needed - aspiration precautions - DVT prophylaxis - poor overall prognosis Problem List - Problems (1) Altered mental status Code(s): R41.82 - ALTERED MENTAL STATUS, UNSPECIFIED (2) Acute on chronic diastolic CHF (congestive heart failure) Code(s): I50.33 - ACUTE ON CHRONIC DIASTOLIC (CONGESTIVE) HEART FAILURE (3) [id number] kidney injury Code(s): N17.9 - ACUTE KIDNEY FAILURE, UNSPECIFIED N18.9 - CHRONIC KIDNEY DISEASE, UNSPECIFIED (4) Paroxysmal atrial flutter Code(s): I48.92 - UNSPECIFIED ATRIAL FLUTTER (5) Coumadin toxicity Code(s): T45.511A - POISONING BY ANTICOAGULANTS, ACCIDENTAL, INIT Qualifiers: Encounter type: sequela Injury intent: undetermined intent Qualified Code(s): T45.514S - Poisoning by anticoagulants, undetermined, sequela (6) CAD (coronary artery disease) Code(s): I25.10 - ATHSCL HEART DISEASE OF [place] CORONARY ARTERY W/O ANG PCTRS Qualifiers: Coronary Disease-Associated Artery/Lesion type: [place] artery [place] vs. transplanted heart: [place] heart Associated angina: without angina Qualified Code(s): I25.10 - Atherosclerotic heart disease of [place] coronary artery without angina pectoris
--- NOTE | 2017-02-06 15:17 | PN ---
Physical Exam: SUBJECTIVE: Patient seen and examined at bedside mental status worse today still able to follow simple commands D5W stopped yesterday for hyperglycemia and labs showed hypernatremia resolved however this may have been a lab error or the blood may have been drawn from a vein that had the D5W running through it as today her blood glucose is normal and her hypernatremia is worse which may account for her worsening mental status OBJECTIVE: Vital Signs Period Temp Pulse Resp BP Sys/Grissom Pulse Ox Last 24 Hr 98.0 F-98.9 F 65-89 20-22 138-154/47-90 92-99 GENERAL: The patient is awake, alert HEAD: Normal with no signs of trauma. NECK: left sided nodule felt possible to be parathyroid LUNGS: Crackles at bases bilaterally HEART: irregular S1, S2 systolic murmur best heard at left sternal border +JVD ABDOMEN: Soft, nontender, nondistended EXTREMITIES: warm well perfused RUE swelling slightly improved Neuro: moving all extremities. does not follow commands as much as she did yesterday Laboratory Results - last 24 hr 02/02/17 02/06/17 02/06/17 09:40 05:35 05:35 WBC 11.1 H RBC 3.95 Hgb 9.8 L D Hct 33.0 MCV 83.6 MCHC 29.7 L RDW 16.7 H Plt Count 398 MPV 8.9 Neutrophils % 81.5 Lymphocytes % 8.9 D Monocytes % 8.2 Eosinophils % 1.2 D Basophils % 0.2 INR 7.48 H* Sodium Potassium Chloride Carbon Dioxide Anion Gap BUN Creatinine Random Glucose Calcium PTH Related Protein < 1.1 02/06/17 05:35 WBC RBC Hgb Hct MCV MCHC RDW Plt Count MPV Neutrophils % Lymphocytes % Monocytes % Eosinophils % Basophils % INR Sodium 156 H Potassium 4.0 Chloride 109 H Carbon Dioxide 41 H Anion Gap 6 L BUN 42 H Creatinine 1.2 H Random Glucose 82 D Calcium 11.9 H PTH Related Protein Active Medications Generic Name Dose Route Start Last Admin Trade Name Freq PRN Reason Stop Dose Admin Acetaminophen 650 mg 01/25/17 16:17 01/25/17 16:25 Tylenol - PO 650 mg Q6H PRN Administration FEVER OR PAIN Amlodipine Besylate 5 mg 01/29/17 16:16 02/06/17 10:53 Norvasc - PO Not Given DAILY ALOK Cinacalcet 30 mg 02/01/17 22:00 02/06/17 10:52 Sensipar - PO Not Given BID ALOK Docusate Sodium 100 mg 01/30/17 11:38 Colace - PO BID PRN CONSTIPATION Dextrose 1,000 mls @ 50 mls/hr 02/06/17 10:00 02/06/17 10:46 D5w - IV 50 mls/hr ASDIR ALOK Administration Methimazole 5 mg 01/26/17 10:00 02/06/17 12:25 Tapazole - PO Not Given DAILY ALOK Methylprednisolone Sodium Succinate 40 mg 02/04/17 12:15 02/06/17 10:47 Solu-Medrol - IVPB 40 mg DAILY ALOK Administration Nebivolol 10 mg 01/26/17 10:00 02/06/17 10:53 Bystolic - PO Not Given DAILY ALOK Pantoprazole Sodium 40 mg 01/29/17 11:13 02/06/17 10:53 Protonix Packets For Oral Suspension - GT Not Given DAILY ALOK Rosuvastatin Calcium 10 mg 01/25/17 22:00 02/05/17 22:43 Crestor - PO Not Given HS ALOK Senna 2 tab 01/30/17 11:38 Senna - PO HS PRN CONSTIPATION ASSESSMENT/PLAN: 86F with multiple medical problems initially presented with shortness of breath likely secondary to CHF exacerbation Hypoxic hypercapneic respiratory failure: likely from diastolic Acute on chronic congestive heart failure exacerbation Chest CT noted-not significant for pneumonia US-no DVT of upper extremity Possible due to aspiration-speech and swallow eval appreciated and noted keep NPO for now back on BiPAP pulmonary consult appreciated-will try to wean to face mask O2 continue solu-medrol 40mg daily palliative care consult for goals of care Acute on Chronic diastolic Congestive Heart Failure Exacerbation hold Lasix patient does not appear fluid overloaded rather she appears dry daily weight I/O [place] for I/O monitoring Cardiology consult appreciated Hypernatremia: restart D5W @ 50ml/hr as patient has free water deficit recheck BMP in AM Altered Mental Status: likely from a combination of electrolyte abnormalities, environment, hypercapnea and hypoxia Needs correction Leukocytosis: WBC count is trending back upwards again likely from steroids all cultures no growth so far do not suspect infectious cause will monitor WBC count Hypercalcemia secondary to primary hyperparathyroidism- Already given calcitonin continue cincalcet PTHrp still pending endocrinology consult appreciated and noted recheck calcium in AM Acute on chronic renal failure avoid nephrotoxic meds Cr today 1.2-improved will trend Supratherapeutic INR-continues to increase today is 7.5 repeat INR in AM continue to hold coumadin HTN well controlled continue bystolic and norvasc Atrial fibrillation continue bystolic hold coumadin for now HLD -continue crestor 10mg po hs Hyperthyroidism continue methimazole 5mg po dailly FEN: D5W @ 50ml/hr hypernatremia hypercalcemia hyperkalemia improved NPO for now PPx: INR elevated protonix DNR/DNI palliative care consult Problem List - Problems (1) Acute exacerbation of CHF (congestive heart failure) Code(s): I50.9 - HEART FAILURE, UNSPECIFIED Qualifiers: Congestive heart failure type: diastolic Qualified Code(s): I50.33 - Acute on chronic diastolic (congestive) heart failure (2) Altered mental status Code(s): R41.82 - ALTERED MENTAL STATUS, UNSPECIFIED (3) Paroxysmal atrial flutter Code(s): I48.92 - UNSPECIFIED ATRIAL FLUTTER (4) A-fib Code(s): I48.91 - UNSPECIFIED ATRIAL FIBRILLATION Qualifiers: Atrial fibrillation type: persistent Qualified Code(s): I48.1 - Persistent atrial fibrillation (5) Acute on chronic diastolic CHF (congestive heart failure) Code(s): I50.33 - ACUTE ON CHRONIC DIASTOLIC (CONGESTIVE) HEART FAILURE (6) Avxaj-ed-dwgyurs kidney injury Code(s): N17.9 - ACUTE KIDNEY FAILURE, UNSPECIFIED N18.9 - CHRONIC KIDNEY DISEASE, UNSPECIFIED (7) Anemia Code(s): D64.9 - ANEMIA, UNSPECIFIED Qualifiers: Anemia type: unspecified type Qualified Code(s): D64.9 - Anemia, unspecified (8) CAD (coronary artery disease) Code(s): I25.10 - ATHSCL HEART DISEASE OF [place] CORONARY ARTERY W/O ANG PCTRS Qualifiers: Coronary Disease-Associated Artery/Lesion type: [place] artery [place] vs. transplanted heart: [place] heart Associated angina: without angina Qualified Code(s): I25.10 - Atherosclerotic heart disease of [place] coronary artery without angina pectoris (9) HLD (hyperlipidemia) Code(s): E78.5 - HYPERLIPIDEMIA, UNSPECIFIED Qualifiers: Hyperlipidemia type: pure hypercholesterolemia Qualified Code(s): E78.00 - Pure hypercholesterolemia, unspecified; E78.0 - Pure hypercholesterolemia (10) Shortness of breath Code(s): R06.02 - SHORTNESS OF BREATH (11) Hypoxemia Code(s): R09.02 - HYPOXEMIA (12) Leukocytosis Code(s): D72.829 - ELEVATED WHITE BLOOD CELL COUNT, UNSPECIFIED (13) Hypernatremia Code(s): E87.0 - HYPEROSMOLALITY AND HYPERNATREMIA (14) Acute hypernatremia Code(s): E87.0 - HYPEROSMOLALITY AND HYPERNATREMIA Visit type - Emergency Visit Emergency Visit: Yes ED Registration Date: 01/25/17 Care time: The patient presented to the Emergency Department on the above date and was hospitalized for further evaluation of their emergent condition. - New Patient This patient is new to me today: No - Critical Care Critical Care patient: No
--- NOTE | 2017-02-06 18:44 | PN ---
Teaching Attending Note Name of Resident: Shade Muñoz ATTENDING PHYSICIAN STATEMENT I saw and evaluated the patient. I reviewed the resident's note and discussed the case with the resident. I agree with the resident's findings and plan as documented. SUBJECTIVE: unable to obtain hx OBJECTIVE: NAD, BIPAP mask on . Cv: RRR, JVD Lungs: decreased breath sounds at bases Ext : edema over R arm Assessment/Plan: 86 y/o lady with h/o CHF, COPD , PUlm HTn, bioprosthetic aortic valve replacement and other co-morbidities who presented with SOB and was found to have acute resp failure due to acute D CHF 1- Acute hypoxic , hypercapnic resp failure due to acute on chronic diastolic CHF exacerbation and possibly COPD exa: -cont steroids - cont to hold lasix - cont BIPAP support - cont BB 2- Coumadin coagulopathy : INR 57.4 today . no bleed . if it cont to rise tomorrow, will give Vit K 3- P A flutter: hold coumadin due to elevated INR. will repeat in AM cont BB 4- MADONNA : due to pre-renal azotemia in the setting of CHF improved 5- Hypercalcemia: likely due to hyperparathyroid. Has h/o breast cancer. ? active. - Cont cinacalcet . - follow PTHrp 6- Dehydration : due to decreased oral intake in setting of diuresis. cont D5w 7-AMS : multi-factorial . resp failure, hypercalcemia , dehydration . correct all the factors. 8- RUE edema . US with no DVT Code status: DNR/DNI
[2017-02-06] MEDS: ROSUVASTATIN CA 10 MG TABLET (FP) PO SCH (21:07)
--- NOTE | 2017-02-07 09:17 | PN ---
Progress Note, Physician History of Present Illness: Pt seen and examined at bedside. No new events. - Current Medication List Current Medications: Active Medications Acetaminophen (Tylenol -) 650 mg PO Q6H PRN PRN Reason: FEVER OR PAIN Last Admin: 01/25/17 16:25 Dose: 650 mg Amlodipine Besylate (Norvasc -) 5 mg PO DAILY [facility] Last Admin: 02/06/17 10:53 Dose: Not Given Cinacalcet (Sensipar -) 30 mg PO BID [facility] Last Admin: 02/06/17 21:11 Dose: Not Given Docusate Sodium (Colace -) 100 mg PO BID PRN PRN Reason: CONSTIPATION Dextrose (D5w -) 1,000 mls @ 50 mls/hr IV ASDIR [facility] Last Admin: 02/06/17 10:46 Dose: 50 mls/hr Methimazole (Tapazole -) 5 mg PO DAILY [facility] Last Admin: 02/06/17 12:25 Dose: Not Given Methylprednisolone Sodium Succinate (Solu-Medrol -) 40 mg IVPB DAILY [facility] Last Admin: 02/06/17 10:47 Dose: 40 mg Nebivolol (Bystolic -) 10 mg PO DAILY [facility] Last Admin: 02/06/17 10:53 Dose: Not Given Pantoprazole Sodium (Protonix Packets For Oral Suspension -) 40 mg GT DAILY [facility] Last Admin: 02/06/17 10:53 Dose: Not Given Rosuvastatin Calcium (Crestor -) 10 mg PO HS [facility] Last Admin: 02/06/17 21:07 Dose: Not Given Senna (Senna -) 2 tab PO HS PRN PRN Reason: CONSTIPATION - Objective Vital Signs: Vital Signs Temperature 98.2 F 02/07/17 02:00 Pulse Rate 88 02/07/17 02:00 Respiratory Rate 20 02/07/17 02:00 Blood Pressure 142/62 02/07/17 02:00 O2 Sat by Pulse Oximetry (%) 98 02/06/17 20:57 Constitutional: Yes: Anxious Eyes: Yes: Conjunctiva Clear HENT: Yes: Atraumatic Cardiovascular: Yes: S1, S2 Respiratory: Yes: On BiPap Gastrointestinal: Yes: Soft Genitourinary: Yes: Rico Present Musculoskeletal: Yes: Muscle Weakness Edema: No Neurological: Yes: Confusion Labs: CBC, BMP 02/06/17 05:35 02/06/17 05:35 INR, PTT INR 7.48 (0.82-1.09) H* 02/06/17 05:35 Problem List - Problems (1) Acute exacerbation of CHF (congestive heart failure) Code(s): I50.9 - HEART FAILURE, UNSPECIFIED Qualifiers: Congestive heart failure type: diastolic Qualified Code(s): I50.33 - Acute on chronic diastolic (congestive) heart failure (2) Hyperthyroidism Code(s): E05.90 - THYROTOXICOSIS, UNSP WITHOUT THYROTOXIC CRISIS OR STORM (3) A-fib Code(s): I48.91 - UNSPECIFIED ATRIAL FIBRILLATION Qualifiers: Atrial fibrillation type: persistent Qualified Code(s): I48.1 - Persistent atrial fibrillation (4) Acute on chronic diastolic CHF (congestive heart failure) Code(s): I50.33 - ACUTE ON CHRONIC DIASTOLIC (CONGESTIVE) HEART FAILURE (5) Anemia Code(s): D64.9 - ANEMIA, UNSPECIFIED Qualifiers: Anemia type: unspecified type Qualified Code(s): D64.9 - Anemia, unspecified (6) Shortness of breath Code(s): R06.02 - SHORTNESS OF BREATH (7) Coumadin toxicity Code(s): T45.511A - POISONING BY ANTICOAGULANTS, ACCIDENTAL, INIT Qualifiers: Encounter type: sequela Injury intent: undetermined intent Qualified Code(s): T45.514S - Poisoning by anticoagulants, undetermined, sequela Assessment/Plan Current Medications Generic Name Dose Route Start Last Admin Trade Name Freq PRN Reason Stop Dose Admin Acetaminophen 650 mg 01/25/17 16:17 01/25/17 16:25 Tylenol - PO 650 mg Q6H PRN Administration FEVER OR PAIN Amlodipine Besylate 5 mg 01/29/17 16:16 02/06/17 10:53 Norvasc - PO Not Given DAILY ALOK Cinacalcet 30 mg 02/01/17 22:00 02/06/17 21:11 Sensipar - PO Not Given BID ALOK Docusate Sodium 100 mg 01/30/17 11:38 Colace - PO BID PRN CONSTIPATION Dextrose 1,000 mls @ 50 mls/hr 02/06/17 10:00 02/06/17 10:46 D5w - IV 50 mls/hr ASDIR ALOK Administration Methimazole 5 mg 01/26/17 10:00 02/06/17 12:25 Tapazole - PO Not Given DAILY ALOK Methylprednisolone Sodium Succinate 40 mg 02/04/17 12:15 02/06/17 10:47 Solu-Medrol - IVPB 40 mg DAILY ALOK Administration Nebivolol 10 mg 01/26/17 10:00 02/06/17 10:53 Bystolic - PO Not Given DAILY ALOK Pantoprazole Sodium 40 mg 01/29/17 11:13 02/06/17 10:53 Protonix Packets For Oral Suspension - GT Not Given DAILY ALOK Rosuvastatin Calcium 10 mg 01/25/17 22:00 02/06/17 21:07 Crestor - PO Not Given HS ALOK Senna 2 tab 01/30/17 11:38 Senna - PO HS PRN CONSTIPATION Impression 1. MADONNA 2. CKD - creatinine has been elevated on previous labs 3. CHF 4. coumadin toxicity 5. valvular heart disease 6. s/p bio-MVR and AVR 7. hyperlipidemia 8. atrial fibrillation 9. anemia 10. hx of breast cancer 11. renal cyst 12. hypercalcemia Plan - labs not drawn yet, will follow up on labs - cont current management - overall prognosis is poor - cont bipap - will follow Dr Morse
--- NOTE | 2017-02-07 09:44 | PN ---
Progress Note (short form) - Note Progress Note: PULMONARY Saturating well on 50% ventimask. Confused, more agitated today. Last Vital Signs Temp Pulse Resp BP Pulse Ox 98.2 F 69 20 142/62 98 02/07/17 02:00 02/07/17 10:50 02/07/17 02:00 02/07/17 02:00 02/07/17 11:50 Gen: mildly tachypneic on ventimask Heart: RRR Lung: decreased breath sounds at the bases Abd: soft, nontender Ext: less edema CBC, BMP 02/07/17 09:45 02/07/17 09:45 Active Medications Acetaminophen (Tylenol -) 650 mg PO Q6H PRN PRN Reason: FEVER OR PAIN Last Admin: 01/25/17 16:25 Dose: 650 mg Amlodipine Besylate (Norvasc -) 5 mg PO DAILY [facility] Last Admin: 02/07/17 12:21 Dose: Not Given Cinacalcet (Sensipar -) 30 mg PO BID [facility] Last Admin: 02/07/17 12:22 Dose: Not Given Docusate Sodium (Colace -) 100 mg PO BID PRN PRN Reason: CONSTIPATION Dextrose (D5w -) 1,000 mls @ 50 mls/hr IV ASDIR [facility] Last Admin: 02/07/17 12:21 Dose: Not Given Amino Acids (Clinimix -) 1,000 mls @ 42 mls/hr IV Q24H [facility] Methimazole (Tapazole -) 5 mg PO DAILY [facility] Last Admin: 02/07/17 12:24 Dose: Not Given Methylprednisolone Sodium Succinate (Solu-Medrol -) 40 mg IVPB BID [facility] Nebivolol (Bystolic -) 10 mg PO DAILY [facility] Last Admin: 02/07/17 12:21 Dose: Not Given Pantoprazole Sodium (Protonix Packets For Oral Suspension -) 40 mg GT DAILY [facility] Last Admin: 02/07/17 12:22 Dose: Not Given Rosuvastatin Calcium (Crestor -) 10 mg PO HS [facility] Last Admin: 02/06/17 21:07 Dose: Not Given Senna (Senna -) 2 tab PO HS PRN PRN Reason: CONSTIPATION A/P Altered Mental Status Acute on Chronic LV Diastolic Heart Failure Pulmonary HTN Pleural Effusion Compressive Atelectasis Paroxysmal Atrial Flutter s/p AVR/MVR HTN - continue lasix as needed - free water replacement - monitor urine output, creatinine - daily weights, I/Os - will order CXR for AM - rate controlled - O2 to keep SpO2 >90% - BiPAP as needed - aspiration precautions - DVT prophylaxis - poor overall prognosis, continue discussions regarding goals of care Problem List - Problems (1) Altered mental status Code(s): R41.82 - ALTERED MENTAL STATUS, UNSPECIFIED (2) Acute on chronic diastolic CHF (congestive heart failure) Code(s): I50.33 - ACUTE ON CHRONIC DIASTOLIC (CONGESTIVE) HEART FAILURE (3) Uwsiy-vl-bkdovaj kidney injury Code(s): N17.9 - ACUTE KIDNEY FAILURE, UNSPECIFIED N18.9 - CHRONIC KIDNEY DISEASE, UNSPECIFIED (4) Paroxysmal atrial flutter Code(s): I48.92 - UNSPECIFIED ATRIAL FLUTTER (5) Coumadin toxicity Code(s): T45.511A - POISONING BY ANTICOAGULANTS, ACCIDENTAL, INIT Qualifiers: Encounter type: sequela Injury intent: undetermined intent Qualified Code(s): T45.514S - Poisoning by anticoagulants, undetermined, sequela (6) CAD (coronary artery disease) Code(s): I25.10 - ATHSCL HEART DISEASE OF [place] CORONARY ARTERY W/O ANG PCTRS Qualifiers: Coronary Disease-Associated Artery/Lesion type: [place] artery [place] vs. transplanted heart: [place] heart Associated angina: without angina Qualified Code(s): I25.10 - Atherosclerotic heart disease of [place] coronary artery without angina pectoris
[2017-02-07 11:03] LABS: BASOPHIL 0.8 % (0-2.0); EOSINOPHIL 0.6 % (0-4.5); MCHC 30.3 g/dl (32.0-36.0); MEAN CELL VOLUME 82.7 fl (80-96); MEAN PLT VOLUME 9.2 fl (7.5-11.1); NEUTROPHILS 84.6 % (42.8-82.8); PLATELET COUNT 387 K/MM3 (134-434); RDW 16.8 % (11.6-15.6); WHITE BLOOD COUNT 9.3 K/mm3 (4.0-10.0)
[2017-02-07 11:13] LABS: PROTHROMBIN TIME (PATIENT) 92.1 SEC (9.98-11.88)
[2017-02-07 11:20] LABS: INR 8.02 (0.82-1.09)
[2017-02-07 11:28] LABS: ALBUMIN 2.7 g/dl (3.4-5.0); BILIRUBIN,TOTAL 0.6 mg/dL (0.2-1.0); CALCIUM 12.2 mg/dL (8.5-10.1); CREATININE 1.1 mg/dL (0.55-1.02); TOT PROT 6.3 g/dl (6.4-8.2)
[2017-02-07] MEDS: DEXTROSE 5%-WATER - 1,000 ML IV SCH ×2 (12:21→12:42)
[2017-02-07] MEDS: NEBIVOLOL 10 MG TABLET (FP) PO SCH (12:21)
[2017-02-07] MEDS: amLODIPine BESYLATE 5 MG TABLET (FP) PO SCH (12:21)
[2017-02-07] MEDS: CINACALCET HCL 30 MG TAB (FP) PO SCH ×2 (12:22→21:14)
[2017-02-07] MEDS: PANTOPRAZOLE SOD 40 MG SUSPENSION PACKET GT SCH (12:22)
[2017-02-07] MEDS: METHIMAZOLE 5 MG TABLET (FP) PO SCH (12:24)
[2017-02-07] MEDS: methylPREDNISolone NA SUCC 40 MG/1 ML VIAL IVPB SCH ×2 (12:24→21:30)
[2017-02-07] MEDS ORDERED: PHYTONADIONE 10 MG/1 ML AMP SQ ONE (13:13)
[2017-02-07] MEDS ORDERED: AMINO ACIDS 4.25%/D5W 1,000 ML IV SCH (13:15)
--- NOTE | 2017-02-07 13:16 | PN ---
Physical Exam: SUBJECTIVE: Patient seen and examined. mental status improved today taken off bipap this morning and lasted about 3 hours on facemask oxygen now back on BiPAP OBJECTIVE: Vital Signs Period Temp Pulse Resp BP Sys/Grissom Pulse Ox Last 24 Hr 98.2 F-99.3 F 72-88 18-20 138-170/62-74 98-98 GENERAL: The patient is awake, alert, answers questions but inappropriately HEAD: Normal with no signs of trauma. NECK: left sided nodule felt possible to be parathyroid LUNGS: Crackles at bases bilaterally HEART: irregular S1, S2 systolic murmur best heard at left sternal border +JVD ABDOMEN: Soft, nontender, nondistended EXTREMITIES: warm well perfused RUE +edema Neuro: moving all extremities. follows simple commands better than yesterday Laboratory Results - last 24 hr 02/02/17 02/07/17 02/07/17 09:40 09:45 09:45 WBC 9.3 RBC 3.98 Hgb 9.9 L Hct 32.9 MCV 82.7 MCHC 30.3 L RDW 16.8 H Plt Count 387 MPV 9.2 Neutrophils % 84.6 H Lymphocytes % 6.2 L D Monocytes % 7.8 Eosinophils % 0.6 Basophils % 0.8 D INR 8.02 H* Sodium Potassium Chloride Carbon Dioxide Anion Gap BUN Creatinine Creat Clearance w eGFR Random Glucose Calcium Total Bilirubin AST ALT Alkaline Phosphatase Total Protein Albumin PTH Related Protein < 1.1 02/07/17 09:45 WBC RBC Hgb Hct MCV MCHC RDW Plt Count MPV Neutrophils % Lymphocytes % Monocytes % Eosinophils % Basophils % INR Sodium 157 H Potassium 3.6 Chloride 111 H Carbon Dioxide 41 H Anion Gap 5 L BUN 37 H Creatinine 1.1 H Creat Clearance w eGFR 46.98 Random Glucose 103 D Calcium 12.2 H Total Bilirubin 0.6 D AST 26 ALT 15 Alkaline Phosphatase 71 Total Protein 6.3 L Albumin 2.7 L PTH Related Protein Active Medications Generic Name Dose Route Start Last Admin Trade Name Freq PRN Reason Stop Dose Admin Acetaminophen 650 mg 01/25/17 16:17 01/25/17 16:25 Tylenol - PO 650 mg Q6H PRN Administration FEVER OR PAIN Amlodipine Besylate 5 mg 01/29/17 16:16 02/07/17 12:21 Norvasc - PO Not Given DAILY ALOK Cinacalcet 30 mg 02/01/17 22:00 02/07/17 12:22 Sensipar - PO Not Given BID ALOK Docusate Sodium 100 mg 01/30/17 11:38 Colace - PO BID PRN CONSTIPATION Dextrose 1,000 mls @ 50 mls/hr 02/06/17 10:00 02/07/17 12:21 D5w - IV Not Given ASDIR ALOK Methimazole 5 mg 01/26/17 10:00 02/07/17 12:24 Tapazole - PO Not Given DAILY ALOK Methylprednisolone Sodium Succinate 40 mg 02/07/17 22:00 Solu-Medrol - IVPB BID ALOK Nebivolol 10 mg 01/26/17 10:00 02/07/17 12:21 Bystolic - PO Not Given DAILY ALOK Pantoprazole Sodium 40 mg 01/29/17 11:13 02/07/17 12:22 Protonix Packets For Oral Suspension - GT Not Given DAILY ALOK Rosuvastatin Calcium 10 mg 01/25/17 22:00 02/06/17 21:07 Crestor - PO Not Given HS ALOK Senna 2 tab 01/30/17 11:38 Senna - PO HS PRN CONSTIPATION ASSESSMENT/PLAN: 86F with multiple medical problems initially presented with shortness of breath likely secondary to CHF exacerbation Hypoxic hypercapneic respiratory failure: likely from diastolic Acute on chronic congestive heart failure exacerbation Chest CT noted-not significant for pneumonia US-no DVT of upper extremity Possible due to aspiration-speech and swallow eval appreciated and noted keep NPO for now was on facemask for about 3 hours this morning now back on BiPAP pulmonary consult appreciated-will try to wean to face mask O2 as much as possible increase solu-medrol to 40mg BID palliative care consult for goals of care appreciated Acute on Chronic diastolic Congestive Heart Failure Exacerbation hold Lasix patient does not appear fluid overloaded rather she appears dry daily weight I/O [place] for I/O monitoring Cardiology consult appreciated Hypernatremia: continue D5W @ 50ml/hr as patient has free water deficit recheck BMP in AM Altered Mental Status: likely from a combination of electrolyte abnormalities, environment, hypercapnea and hypoxia Needs correction Leukocytosis: WBC was elevated yesterday likely secondary to steroids today is it within normal range all cultures no growth so far do not suspect infectious cause will monitor WBC count Hypercalcemia secondary to primary hyperparathyroidism-calcium continue to increase today is 12.2 Already given calcitonin continue cincalcet PTHrp <1.1 endocrinology consult appreciated and noted recheck calcium in AM Acute on chronic renal failure avoid nephrotoxic meds Cr today 1.2-improved will trend Supratherapeutic INR/coumadin toxicity-continues to increase today is 8.02 will give 5mg subcutaneous Vitamin K repeat INR in AM continue to hold coumadin HTN well controlled-patient not able to take PO meds continue bystolic and norvasc when and if NG tube placed Atrial fibrillation continue bystolic hold coumadin for now HLD -continue crestor 10mg po hs Hyperthyroidism continue methimazole 5mg po dailly FEN: D5W @ 50ml/hr hypernatremia hypercalcemia NPO for now will start clinimix at 42ml/hr PPx: INR elevated protonix Will start clinimix for nutritional support. for now. Will discuss with family the need for an NG tube as patient has not been getting medications. If family is agreeable to NG tube placement will stop clinimix and will start enteral feeds. DNR/DNI palliative care consult Patient seen and case discussed with Dr. Vincent who si the attending on this case. Problem List - Problems (1) Acute exacerbation of CHF (congestive heart failure) Code(s): I50.9 - HEART FAILURE, UNSPECIFIED Qualifiers: Congestive heart failure type: diastolic Qualified Code(s): I50.33 - Acute on chronic diastolic (congestive) heart failure (2) Altered mental status Code(s): R41.82 - ALTERED MENTAL STATUS, UNSPECIFIED (3) Paroxysmal atrial flutter Code(s): I48.92 - UNSPECIFIED ATRIAL FLUTTER (4) A-fib Code(s): I48.91 - UNSPECIFIED ATRIAL FIBRILLATION Qualifiers: Atrial fibrillation type: persistent Qualified Code(s): I48.1 - Persistent atrial fibrillation (5) Acute on chronic diastolic CHF (congestive heart failure) Code(s): I50.33 - ACUTE ON CHRONIC DIASTOLIC (CONGESTIVE) HEART FAILURE (6) Lyphm-aw-wskyqwl kidney injury Code(s): N17.9 - ACUTE KIDNEY FAILURE, UNSPECIFIED N18.9 - CHRONIC KIDNEY DISEASE, UNSPECIFIED (7) Anemia Code(s): D64.9 - ANEMIA, UNSPECIFIED Qualifiers: Anemia type: unspecified type Qualified Code(s): D64.9 - Anemia, unspecified (8) CAD (coronary artery disease) Code(s): I25.10 - ATHSCL HEART DISEASE OF [place] CORONARY ARTERY W/O ANG PCTRS Qualifiers: Coronary Disease-Associated Artery/Lesion type: [place] artery [place] vs. transplanted heart: [place] heart Associated angina: without angina Qualified Code(s): I25.10 - Atherosclerotic heart disease of [place] coronary artery without angina pectoris (9) HLD (hyperlipidemia) Code(s): E78.5 - HYPERLIPIDEMIA, UNSPECIFIED Qualifiers: Hyperlipidemia type: pure hypercholesterolemia Qualified Code(s): E78.00 - Pure hypercholesterolemia, unspecified; E78.0 - Pure hypercholesterolemia (10) Shortness of breath Code(s): R06.02 - SHORTNESS OF BREATH (11) Hypoxemia Code(s): R09.02 - HYPOXEMIA (12) Leukocytosis Code(s): D72.829 - ELEVATED WHITE BLOOD CELL COUNT, UNSPECIFIED (13) Hypernatremia Code(s): E87.0 - HYPEROSMOLALITY AND HYPERNATREMIA (14) Acute hypernatremia Code(s): E87.0 - HYPEROSMOLALITY AND HYPERNATREMIA Visit type - Emergency Visit Emergency Visit: Yes ED Registration Date: 01/25/17 Care time: The patient presented to the Emergency Department on the above date and was hospitalized for further evaluation of their emergent condition. - New Patient This patient is new to me today: No - Critical Care Critical Care patient: No
--- NOTE | 2017-02-07 14:48 | PN ---
Teaching Attending Note Name of Resident: Shade Muñoz ATTENDING PHYSICIAN STATEMENT I saw and evaluated the patient. I reviewed the resident's note and discussed the case with the resident. I agree with the resident's findings and plan as documented. SUBJECTIVE: unable to obtain hx . no events OBJECTIVE: NAD, venti mask on Cv: RRR, minimal JVD Lungs: decreased breath sounds at bases Ext : edema over R arm . no LE edema Assessment/Plan: 86 y/o lady with h/o CHF, COPD , PUlm HTn, bioprosthetic aortic valve replacement and other co-morbidities who presented with SOB and was found to have acute resp failure due to acute D CHF 1- Acute hypoxic , hypercapnic resp failure due to acute on chronic diastolic CHF exacerbation and possibly COPD exa: - Steroids - cont to hold lasix - cont BIPAP support as needed - cont BB 2- Coumadin coagulopathy : INR 8 today . no bleed but it cont to increase. give Vit K 5 mg today 3- P A flutter: hold coumadin due to elevated INR. cont BB 4- MADONNA : due to pre-renal azotemia in the setting of CHF improved 5- Hypercalcemia: likely due to hyperparathyroid. - Cont cinacalcet . - PTHrp nl 6- Dehydration : due to decreased oral intake in setting of diuresis. cont D5w will start clinimix for nutrition will d/w family NG tube for meds and hydration 7-AMS : multi-factorial. resp failure, hypercalcemia , dehydration . correct all the factors. 8- RUE edema . US with no DVT Code status: DNR/DNI palliative care consult appreciated
--- NOTE | 2017-02-07 17:21 | PN ---
Progress Note (short form) - Note Progress Note: Nephrology addendum Laboratory Tests 02/07/17 09:45 Sodium 157 H Potassium 3.6 Chloride 111 H Carbon Dioxide 41 H Anion Gap 5 L BUN 37 H Creatinine 1.1 H Calcium 12.2 H reviewed labs - renal function improving however sodium is rising - calcium remains elevated, pt has not been getting the sensipar as she is unable to swallow. Family did not want ng tube - will follow Dr Morse Problem List - Problems (1) Acute exacerbation of CHF (congestive heart failure) Code(s): I50.9 - HEART FAILURE, UNSPECIFIED Qualifiers: Congestive heart failure type: diastolic Qualified Code(s): I50.33 - Acute on chronic diastolic (congestive) heart failure (2) Hyperthyroidism Code(s): E05.90 - THYROTOXICOSIS, UNSP WITHOUT THYROTOXIC CRISIS OR STORM (3) A-fib Code(s): I48.91 - UNSPECIFIED ATRIAL FIBRILLATION Qualifiers: Atrial fibrillation type: persistent Qualified Code(s): I48.1 - Persistent atrial fibrillation (4) Acute on chronic diastolic CHF (congestive heart failure) Code(s): I50.33 - ACUTE ON CHRONIC DIASTOLIC (CONGESTIVE) HEART FAILURE (5) Anemia Code(s): D64.9 - ANEMIA, UNSPECIFIED Qualifiers: Anemia type: unspecified type Qualified Code(s): D64.9 - Anemia, unspecified (6) Shortness of breath Code(s): R06.02 - SHORTNESS OF BREATH (7) Coumadin toxicity Code(s): T45.511A - POISONING BY ANTICOAGULANTS, ACCIDENTAL, INIT Qualifiers: Encounter type: sequela Injury intent: undetermined intent Qualified Code(s): T45.514S - Poisoning by anticoagulants, undetermined, sequela
[2017-02-07] MEDS: ROSUVASTATIN CA 10 MG TABLET (FP) PO SCH (21:14)
[2017-02-08 07:30] LABS: MCH 24.9 pg (25.7-33.7); MEAN CELL VOLUME 82.9 fl (80-96); MEAN PLT VOLUME 9.4 fl (7.5-11.1); PLATELET COUNT 345 K/MM3 (134-434); RDW 16.9 % (11.6-15.6); WHITE BLOOD COUNT 9.7 K/mm3 (4.0-10.0)
[2017-02-08 07:40] LABS: INR 2.1 (0.82-1.09); PROTHROMBIN TIME (PATIENT) 23.5 SEC (9.98-11.88)
[2017-02-08 07:49] LABS: CALCIUM 11.9 mg/dL (8.5-10.1)
[2017-02-08] MEDS ORDERED: METOPROLOL TARTRATE 5 MG/5 ML VIAL IVPUSH PRN (07:57)
[2017-02-08] MEDS: DEXTROSE 5%-WATER - 1,000 ML IV SCH (08:04)
--- NOTE | 2017-02-08 10:48 | PN ---
Progress Note (short form) - Note Progress Note: S: 86 year old female, with permanent atrial fibrillation, history of coronary artery disease, angina pectoris, organic brain syndrome, hypertension, hyperthyroidism, chronic kidney disease, s/p bioprosthetic aortic and mitral valve replacement. Admitted with left ventricular failure, remains on BIPAP, is poorly responsive and has periods of agitation. Active Medications Generic Name Dose Route Start Last Admin Trade Name Freq PRN Reason Stop Dose Admin Acetaminophen 650 mg 01/25/17 16:17 01/25/17 16:25 Tylenol - PO 650 mg Q6H PRN Administration FEVER OR PAIN Amlodipine Besylate 5 mg 01/29/17 16:16 02/07/17 12:21 Norvasc - PO Not Given DAILY ALOK Cinacalcet 30 mg 02/01/17 22:00 02/07/17 21:14 Sensipar - PO Not Given BID ALOK Docusate Sodium 100 mg 01/30/17 11:38 Colace - PO BID PRN CONSTIPATION Amino Acids 1,000 mls @ 42 mls/hr 02/07/17 13:15 02/07/17 15:41 Clinimix - IV 42 mls/hr Q24H ALOK Administration Dextrose 1,000 mls @ 50 mls/hr 02/08/17 08:00 D5w - IV Q20H ALOK Methimazole 5 mg 01/26/17 10:00 02/07/17 12:24 Tapazole - PO Not Given DAILY ALOK Methylprednisolone Sodium Succinate 40 mg 02/07/17 22:00 02/07/17 21:30 Solu-Medrol - IVPB 40 mg BID ALOK Administration Metoprolol Tartrate 5 mg 02/08/17 07:57 Lopressor Injection - IVPUSH Q4H PRN HYPERTENSION Nebivolol 10 mg 01/26/17 10:00 02/07/17 12:21 Bystolic - PO Not Given DAILY ALOK Pantoprazole Sodium 40 mg 01/29/17 11:13 02/07/17 12:22 Protonix Packets For Oral Suspension - GT Not Given DAILY ALOK Rosuvastatin Calcium 10 mg 01/25/17 22:00 02/07/17 21:14 Crestor - PO Not Given HS ALOK Senna 2 tab 01/30/17 11:38 Senna - PO HS PRN CONSTIPATION O: 86 year old female was in no acute distress, no pallor, cyanosis, clubbing, or jaundice. Last Vital Signs Temp Pulse Resp BP Pulse Ox 97.8 F 58 L 20 174/68 99 02/08/17 06:00 02/08/17 06:00 02/08/17 06:00 02/08/17 06:00 02/07/17 21:00 Neck: Supple, no JVD, negative HJR, carotids were equal and upstrokes were normal, no thyromegaly appreciated. Heart: Heart sounds are obscured by coarse breath sounds. Lungs: Coarse breath sounds, scattered expiratory wheeze. Abdomen: Soft, no tenderness could be elicited, no hepatosplenomegaly appreciated, and no palpable masses were felt. Extremities: No calf tenderness could be elicited. No dependent edema. CBC, BMP 02/08/17 05:35 02/08/17 05:35 Laboratory Results - last 24 hr 02/07/17 02/07/17 02/07/17 09:45 09:45 09:45 WBC 9.3 RBC 3.98 Hgb 9.9 L Hct 32.9 MCV 82.7 MCHC 30.3 L RDW 16.8 H Plt Count 387 MPV 9.2 Neutrophils % 84.6 H Lymphocytes % 6.2 L D Monocytes % 7.8 Eosinophils % 0.6 Basophils % 0.8 D INR 8.02 H* Sodium 157 H Potassium 3.6 Chloride 111 H Carbon Dioxide 41 H Anion Gap 5 L BUN 37 H Creatinine 1.1 H Creat Clearance w eGFR 46.98 Random Glucose 103 D Calcium 12.2 H Total Bilirubin 0.6 D AST 26 ALT 15 Alkaline Phosphatase 71 Total Protein 6.3 L Albumin 2.7 L 02/08/17 02/08/17 02/08/17 05:35 05:35 05:35 WBC 9.7 RBC 3.95 Hgb 9.8 L Hct 32.7 MCV 82.9 MCHC 30.0 L RDW 16.9 H Plt Count 345 MPV 9.4 Neutrophils % Lymphocytes % Monocytes % Eosinophils % Basophils % INR 2.10 H D Sodium 156 H Potassium 4.2 Chloride 113 H Carbon Dioxide 40 H Anion Gap 3 L BUN 41 H Creatinine 1.0 Creat Clearance w eGFR Random Glucose 145 H D Calcium 11.9 H Total Bilirubin AST ALT Alkaline Phosphatase Total Protein Albumin Impression: (1) Hypernatremia, etiology to be determined (2) Persistent Hypercalcemia, hyperparathyroidism needs to be excluded. (3) History of hyperthyroidism Code(s): E05.90 - THYROTOXICOSIS, UNSP WITHOUT THYROTOXIC CRISIS OR STORM (4) Atrial fibrillation Code(s): I48.91 - UNSPECIFIED ATRIAL FIBRILLATION Qualifiers: Atrial fibrillation type: persistent Qualified Code(s): I48.1 - Persistent atrial fibrillation (5) Acute on chronic diastolic CHF (congestive heart failure) Code(s): I50.33 - ACUTE ON CHRONIC DIASTOLIC (CONGESTIVE) HEART FAILURE (6) Ygthm-kl-ubemcfr kidney injury Code(s): N17.9 - ACUTE KIDNEY FAILURE, UNSPECIFIED N18.9 - CHRONIC KIDNEY DISEASE, UNSPECIFIED (7) CAD (coronary artery disease) Code(s): I25.10 - ATHSCL HEART DISEASE OF [place] CORONARY ARTERY W/O ANG PCTRS Qualifiers: Coronary Disease-Associated Artery/Lesion type: [place] artery [place] vs. transplanted heart: [place] heart Associated angina: without angina Qualified Code(s): I25.10 - Atherosclerotic heart disease of [place] coronary artery without angina pectoris (8) HLD (hyperlipidemia) Code(s): E78.5 - HYPERLIPIDEMIA, UNSPECIFIED Qualifiers: Hyperlipidemia type: pure hypercholesterolemia Qualified Code(s): E78.0 - Pure hypercholesterolemia (9) Hypertensive cardiomyopathy Code(s): I11.9 - HYPERTENSIVE HEART DISEASE WITHOUT HEART FAILURE I42.9 - CARDIOMYOPATHY, UNSPECIFIED Qualifiers: Heart failure presence: with heart failure Qualified Code(s): I11.0 - Hypertensive heart disease with heart failure (10) S/P aortic valve replacement with bioprosthetic valve Code(s): Z95.4 - PRESENCE OF OTHER HEART-VALVE REPLACEMENT (11) History of organic brain syndrome Code(s): I67.9 - CEREBROVASCULAR DISEASE, UNSPECIFIED (12) Anemia Recommendations: 1. Correction of hypernatremia. 2. Patient has not been receiving Sensipar. 3. Consider endocrine evaluation. Prognosis: Critical Attestation: Documentation prepared by lEvis Ricks, acting as medical oncologist for Celso Simms MD.
[2017-02-08] MEDS: NEBIVOLOL 10 MG TABLET (FP) PO SCH (11:04)
[2017-02-08] MEDS: CINACALCET HCL 30 MG TAB (FP) PO SCH ×2 (11:05→23:14)
[2017-02-08] MEDS: methylPREDNISolone NA SUCC 40 MG/1 ML VIAL IVPB SCH ×2 (11:05→23:14)
[2017-02-08] MEDS: PANTOPRAZOLE SOD 40 MG SUSPENSION PACKET GT SCH (11:05)
[2017-02-08] MEDS: amLODIPine BESYLATE 5 MG TABLET (FP) PO SCH (11:05)
[2017-02-08] MEDS: METHIMAZOLE 5 MG TABLET (FP) PO SCH (11:05)
--- NOTE | 2017-02-08 11:28 | PN ---
Progress Note, DESIGN TECHNICIAN - Note Progress Note: Bipap removed by NSG for reassessment. Verbal intermittently.Confused, uninhibited with sexually inappropriate statements. No previous psych hx reported. O2 sat 99 on bibap. 95-99% on NC. Swallow delayed but fairly strong w/o cough or vocal wetness. REC: Trial dysphagia puree with single sips of honey thick liquid. Crush medication per psychiatric secretary's guidelines and give in applesauce. 1/2 tspn, feed slowly, observe for swallow reflex. Monitor tolerance.
--- NOTE | 2017-02-08 11:48 | PN ---
Physical Exam: SUBJECTIVE: Patient seen and examined at bedside. much more awake today able to talk but seems delirious OBJECTIVE: Vital Signs Period Temp Pulse Resp BP Sys/[place] Pulse Ox Last 24 Hr 97.8 F-98.4 F 58-96 16-22 133-185/65-117 96-99 GENERAL: The patient is awake, alert, answers questions but inappropriately HEAD: Normal with no signs of trauma. NECK: left sided nodule felt possible to be parathyroid LUNGS: Crackles at bases bilaterally HEART: irregular S1, S2 systolic murmur best heard at left sternal border +JVD ABDOMEN: Soft, nontender, nondistended EXTREMITIES: warm well perfused RUE +edema Neuro: moving all extremities. follows simple commands much better than yesterday Laboratory Results - last 24 hr 02/08/17 02/08/17 02/08/17 05:35 05:35 05:35 WBC 9.7 RBC 3.95 Hgb 9.8 L Hct 32.7 MCV 82.9 MCHC 30.0 L RDW 16.9 H Plt Count 345 MPV 9.4 INR 2.10 H D Sodium 156 H Potassium 4.2 Chloride 113 H Carbon Dioxide 40 H Anion Gap 3 L BUN 41 H Creatinine 1.0 Random Glucose 145 H D Calcium 11.9 H Active Medications Generic Name Dose Route Start Last Admin Trade Name Freq PRN Reason Stop Dose Admin Acetaminophen 650 mg 01/25/17 16:17 01/25/17 16:25 Tylenol - PO 650 mg Q6H PRN Administration FEVER OR PAIN Amlodipine Besylate 5 mg 01/29/17 16:16 02/08/17 11:05 Norvasc - PO Not Given DAILY ALOK Cinacalcet 30 mg 02/01/17 22:00 02/08/17 11:05 Sensipar - PO Not Given BID ALOK Docusate Sodium 100 mg 01/30/17 11:38 Colace - PO BID PRN CONSTIPATION Dextrose 1,000 mls @ 50 mls/hr 02/08/17 08:00 02/08/17 08:04 D5w - IV 50 mls/hr Q20H ALOK Administration Methimazole 5 mg 01/26/17 10:00 02/08/17 11:05 Tapazole - PO Not Given DAILY ALOK Methylprednisolone Sodium Succinate 40 mg 02/07/17 22:00 02/08/17 11:05 Solu-Medrol - IVPB 40 mg BID ALOK Administration Nebivolol 10 mg 01/26/17 10:00 02/08/17 11:04 Bystolic - PO Not Given DAILY ALOK Pantoprazole Sodium 40 mg 01/29/17 11:13 02/08/17 11:05 Protonix Packets For Oral Suspension - GT Not Given DAILY ALOK Rosuvastatin Calcium 10 mg 01/25/17 22:00 02/07/17 21:14 Crestor - PO Not Given HS ALOK Senna 2 tab 01/30/17 11:38 Senna - PO HS PRN CONSTIPATION Warfarin Sodium 5 mg 02/08/17 18:00 Coumadin - PO 02/08/17 18:01 ONCE@1800 ONE ASSESSMENT/PLAN: 86F with multiple medical problems initially presented with shortness of breath likely secondary to CHF exacerbation Hypoxic hypercapneic respiratory failure: likely from diastolic Acute on chronic congestive heart failure exacerbation Chest CT noted-not significant for pneumonia US-no DVT of upper extremity Possible due to aspiration-speech and swallow eval appreciated will advance to dysphagia puree with honey thickened liquids tolerating nasal cannula this morning pulmonary consult appreciated- continue solu-medrol 40mg BID as this seems to be helping her pulmonary status palliative care consult for goals of care appreciated Acute on Chronic diastolic Congestive Heart Failure Exacerbation hold Lasix patient does not appear fluid overloaded rather she appears dry daily weight I/[place] for I/O monitoring Cardiology consult appreciated Hypernatremia: D5W stopped overnight will restart continue D5W @ 50ml/hr as patient has free water deficit recheck BMP in AM Altered Mental Status: likely from a combination of electrolyte abnormalities, environment, hypercapnea and hypoxia Needs correction Leukocytosis: resolved today all cultures no growth final do not suspect infectious cause will monitor WBC count Hypercalcemia secondary to primary hyperparathyroidism-calcium 11.9 today Already given calcitonin continue cincalcet-was not getting it as she was not able to take PO meds now able to take PO meds PTHrp <1.1 endocrinology consult appreciated and noted recheck calcium in AM Acute on chronic renal failure avoid nephrotoxic meds Cr today 1.0 will trend Supratherapeutic INR/coumadin toxicity- yesterday she was given 5mg subcutaneous Vitamin K and INR is now 2.10 repeat INR in AM give coumadin 5mg tonight and dose daily by INR level HTN:today the patient is hypertensive patient was not able to take PO meds continue bystolic and norvasc today as patient is able to swallow now per speech and swallow consult Atrial fibrillation continue bystolic restart coumadin HLD -continue crestor 10mg po hs Hyperthyroidism continue methimazole 5mg po dailly FEN: D5W @ 50ml/hr hypernatremia hypercalcemia start dysphagia puree diet with honey thickened liquids PPx: INR elevated protonix DNR/DNI palliative care consult Patient seen and case discussed with Dr. Godoy who is the attending on this case. Problem List - Problems (1) Acute exacerbation of CHF (congestive heart failure) Code(s): I50.9 - HEART FAILURE, UNSPECIFIED Qualifiers: Congestive heart failure type: diastolic Qualified Code(s): I50.33 - Acute on chronic diastolic (congestive) heart failure (2) Altered mental status Code(s): R41.82 - ALTERED MENTAL STATUS, UNSPECIFIED (3) Paroxysmal atrial flutter Code(s): I48.92 - UNSPECIFIED ATRIAL FLUTTER (4) A-fib Code(s): I48.91 - UNSPECIFIED ATRIAL FIBRILLATION Qualifiers: Atrial fibrillation type: persistent Qualified Code(s): I48.1 - Persistent atrial fibrillation (5) Acute on chronic diastolic CHF (congestive heart failure) Code(s): I50.33 - ACUTE ON CHRONIC DIASTOLIC (CONGESTIVE) HEART FAILURE (6) Ulnkd-mz-shsdktp kidney injury Code(s): N17.9 - ACUTE KIDNEY FAILURE, UNSPECIFIED N18.9 - CHRONIC KIDNEY DISEASE, UNSPECIFIED (7) Anemia Code(s): D64.9 - ANEMIA, UNSPECIFIED Qualifiers: Anemia type: unspecified type Qualified Code(s): D64.9 - Anemia, unspecified (8) CAD (coronary artery disease) Code(s): I25.10 - ATHSCL HEART DISEASE OF [place] CORONARY ARTERY W/O ANG PCTRS Qualifiers: Coronary Disease-Associated Artery/Lesion type: [place] artery [place] vs. transplanted heart: [place] heart Associated angina: without angina Qualified Code(s): I25.10 - Atherosclerotic heart disease of [place] coronary artery without angina pectoris (9) HLD (hyperlipidemia) Code(s): E78.5 - HYPERLIPIDEMIA, UNSPECIFIED Qualifiers: Hyperlipidemia type: pure hypercholesterolemia Qualified Code(s): E78.00 - Pure hypercholesterolemia, unspecified; E78.0 - Pure hypercholesterolemia (10) Shortness of breath Code(s): R06.02 - SHORTNESS OF BREATH (11) Hypoxemia Code(s): R09.02 - HYPOXEMIA (12) Leukocytosis Code(s): D72.829 - ELEVATED WHITE BLOOD CELL COUNT, UNSPECIFIED (13) Hypernatremia Code(s): E87.0 - HYPEROSMOLALITY AND HYPERNATREMIA (14) Acute hypernatremia Code(s): E87.0 - HYPEROSMOLALITY AND HYPERNATREMIA Visit type - Emergency Visit Emergency Visit: Yes ED Registration Date: 01/25/17 Care time: The patient presented to the Emergency Department on the above date and was hospitalized for further evaluation of their emergent condition. - New Patient This patient is new to me today: No - Critical Care Critical Care patient: No
--- NOTE | 2017-02-08 11:55 | PN ---
Progress Note (short form) - Note Progress Note: PULMONARY Saturating well on nasal cannula. Denies shortness of breath or chest pain. Last Vital Signs Temp Pulse Resp BP Pulse Ox 97.8 F 58 L 20 174/68 99 02/08/17 06:00 02/08/17 06:00 02/08/17 06:00 02/08/17 06:00 02/07/17 21:00 Gen: less tachypneic Heart: RRR Lung: decreased breath sounds at the bases Abd: soft, nontender Ext: less edema CBC, BMP 02/08/17 05:35 02/08/17 05:35 Active Medications Acetaminophen (Tylenol -) 650 mg PO Q6H PRN PRN Reason: FEVER OR PAIN Last Admin: 01/25/17 16:25 Dose: 650 mg Amlodipine Besylate (Norvasc -) 5 mg PO DAILY [facility] Last Admin: 02/08/17 11:05 Dose: Not Given Cinacalcet (Sensipar -) 30 mg PO BID [facility] Last Admin: 02/08/17 11:05 Dose: Not Given Docusate Sodium (Colace -) 100 mg PO BID PRN PRN Reason: CONSTIPATION Dextrose (D5w -) 1,000 mls @ 50 mls/hr IV Q20H [facility] Last Admin: 02/08/17 08:04 Dose: 50 mls/hr Methimazole (Tapazole -) 5 mg PO DAILY [facility] Last Admin: 02/08/17 11:05 Dose: Not Given Methylprednisolone Sodium Succinate (Solu-Medrol -) 40 mg IVPB BID [facility] Last Admin: 02/08/17 11:05 Dose: 40 mg Nebivolol (Bystolic -) 10 mg PO DAILY [facility] Last Admin: 02/08/17 11:04 Dose: Not Given Pantoprazole Sodium (Protonix Packets For Oral Suspension -) 40 mg GT DAILY [facility] Last Admin: 02/08/17 11:05 Dose: Not Given Rosuvastatin Calcium (Crestor -) 10 mg PO HS [facility] Last Admin: 02/07/17 21:14 Dose: Not Given Senna (Senna -) 2 tab PO HS PRN PRN Reason: CONSTIPATION Warfarin Sodium (Coumadin -) 5 mg PO ONCE@1800 ONE Stop: 02/08/17 18:01 A/P Altered Mental Status Acute on Chronic LV Diastolic Heart Failure Pulmonary HTN Pleural Effusion Compressive Atelectasis Paroxysmal Atrial Flutter s/p AVR/MVR HTN - continue lasix as needed - free water replacement - monitor urine output, creatinine - daily weights, I/Os - rate controlled - O2 to keep SpO2 >90% - BiPAP as needed - aspiration precautions - DVT prophylaxis - continue discussions regarding goals of care Problem List - Problems (1) Altered mental status Code(s): R41.82 - ALTERED MENTAL STATUS, UNSPECIFIED (2) Acute on chronic diastolic CHF (congestive heart failure) Code(s): I50.33 - ACUTE ON CHRONIC DIASTOLIC (CONGESTIVE) HEART FAILURE (3) Eiq[place]-uq-oggyglb kidney injury Code(s): N17.9 - ACUTE KIDNEY FAILURE, UNSPECIFIED N18.9 - CHRONIC KIDNEY DISEASE, UNSPECIFIED (4) Paroxysmal atrial flutter Code(s): I48.92 - UNSPECIFIED ATRIAL FLUTTER (5) Coumadin toxicity Code(s): T45.511A - POISONING BY ANTICOAGULANTS, ACCIDENTAL, INIT Qualifiers: Qualified Code(s): T45.514S - Poisoning by anticoagulants, undetermined , sequela (6) CAD (coronary artery disease) Code(s): I25.10 - ATHSCL HEART DISEASE OF [place] CORONARY ARTERY W/O ANG PCTRS Qualifiers: Qualified Code(s): I25.10 - Atherosclerotic heart disease of [place] coronary artery without angina pectoris
--- NOTE | 2017-02-08 12:04 | PN ---
Teaching Attending Note Name of Resident: Shade Muñoz ATTENDING PHYSICIAN STATEMENT I saw and evaluated the patient. I reviewed the resident's note and discussed the case with the resident. I agree with the resident's findings and plan as documented. Patient is awake, confused on and off. Vital Signs Temperature 97.8 F 02/08/17 06:00 Pulse Rate 58 L 02/08/17 06:00 Respiratory Rate 20 02/08/17 06:00 Blood Pressure 174/68 02/08/17 06:00 O2 Sat by Pulse Oximetry (%) 99 02/07/17 21:00 CBCD WBC 9.7 K/mm3 (4.0-10.0) 02/08/17 05:35 RBC 3.95 M/mm3 (3.60-5.2) 02/08/17 05:35 Hgb 9.8 GM/dL (10.7-15.3) L 02/08/17 05:35 Hct 32.7 % (32.4-45.2) 02/08/17 05:35 MCV 82.9 fl (80-96) 02/08/17 05:35 MCHC 30.0 g/dl (32.0-36.0) L 02/08/17 05:35 RDW 16.9 % (11.6-15.6) H 02/08/17 05:35 Plt Count 345 K/MM3 (134-434) 02/08/17 05:35 MPV 9.4 fl (7.5-11.1) 02/08/17 05:35 CMP Sodium 156 mmol/L (136-145) H 02/08/17 05:35 Potassium 4.2 mmol/L (3.5-5.1) 02/08/17 05:35 Chloride 113 mmol/L (98-107) H 02/08/17 05:35 Carbon Dioxide 40 mmol/L (21-32) H 02/08/17 05:35 Anion Gap 3 (8-16) L 02/08/17 05:35 BUN 41 mg/dL (7-18) H 02/08/17 05:35 Creatinine 1.0 mg/dL (0.55-1.02) 02/08/17 05:35 Creat Clearance w eGFR 46.98 (>60) 02/07/17 09:45 Random Glucose 145 mg/dL (74-106) H D 02/08/17 05:35 Calcium 11.9 mg/dL (8.5-10.1) H 02/08/17 05:35 Total Bilirubin 0.6 mg/dL (0.2-1.0) D 02/07/17 09:45 AST 26 U/L (15-37) 02/07/17 09:45 ALT 15 U/L (12-78) 02/07/17 09:45 Alkaline Phosphatase 71 U/L (45-117) 02/07/17 09:45 Total Protein 6.3 g/dl (6.4-8.2) L 02/07/17 09:45 Albumin 2.7 g/dl (3.4-5.0) L 02/07/17 09:45 CARDIAC ENZYMES Creatine Kinase 217 IU/L (26-192) H D 01/26/17 07:25 Troponin I 0.03 ng/ml (0.00-0.05) 01/26/17 07:25 Current Medications Generic Name Dose Route Start Last Admin Trade Name Freq PRN Reason Stop Dose Admin Acetaminophen 650 mg 01/25/17 16:17 01/25/17 16:25 Tylenol - PO 650 mg Q6H PRN Administration FEVER OR PAIN Amlodipine Besylate 5 mg 01/29/17 16:16 02/08/17 11:05 Norvasc - PO Not Given DAILY ALOK Cinacalcet 30 mg 02/01/17 22:00 02/08/17 11:05 Sensipar - PO Not Given BID ALOK Docusate Sodium 100 mg 01/30/17 11:38 Colace - PO BID PRN CONSTIPATION Dextrose 1,000 mls @ 50 mls/hr 02/08/17 08:00 02/08/17 08:04 D5w - IV 50 mls/hr Q20H ALOK Administration Methimazole 5 mg 01/26/17 10:00 02/08/17 11:05 Tapazole - PO Not Given DAILY ALOK Methylprednisolone Sodium Succinate 40 mg 02/07/17 22:00 02/08/17 11:05 Solu-Medrol - IVPB 40 mg BID ALOK Administration Nebivolol 10 mg 01/26/17 10:00 02/08/17 11:04 Bystolic - PO Not Given DAILY ALOK Pantoprazole Sodium 40 mg 01/29/17 11:13 02/08/17 11:05 Protonix Packets For Oral Suspension - GT Not Given DAILY ALOK Rosuvastatin Calcium 10 mg 01/25/17 22:00 02/07/17 21:14 Crestor - PO Not Given HS ALOK Senna 2 tab 01/30/17 11:38 Senna - PO HS PRN CONSTIPATION Warfarin Sodium 5 mg 02/08/17 18:00 Coumadin - PO 02/08/17 18:01 ONCE@1800 ONE Home Medications Medication Instructions Recorded Allopurinol [Zyloprim -] 100 mg PO DAILY 12/21/16 Cholecalciferol (Vitamin D3) 50,000 unit PO MONTHLY 12/21/16 [Vitamin D -] Methimazole [Tapazole] 5 mg PO DAILY 12/21/16 Nebivolol HCl [Bystolic] 10 mg PO DAILY 12/21/16 Omeprazole 40 mg PO DAILY 12/21/16 Ranolazine [Ranexa] 500 mg PO BID 12/21/16 Rosuvastatin Calcium [Crestor] 10 mg PO HS 12/21/16 Amlodipine Besylate [Norvasc -] 10 mg PO DAILY #30 tablet 12/23/16 Torsemide [Demadex -] 10 mg PO DAILY #30 tablet 12/23/16 Warfarin Na [Coumadin -] 5 mg PO DAILY #0 12/23/16 Laboratory Tests 01/25/17 01/25/17 01/26/17 12:00 18:00 07:25 INR 21.83 H* 20.07 H* 25.15 H* 02/04/17 02/05/17 02/06/17 05:35 08:20 05:35 INR 4.31 H* 5.84 H* D 7.48 H* 02/07/17 02/08/17 09:45 05:35 INR 8.02 H* 2.10 H D ASSESSMENT AND PLAN: Patient is a 86 y/o lady with h/o CHF, COPD , Pulm HTN with bioprosthetic aortic valve replacement presented with SOB and was found to have acute respiratory failure with difficulty breathing admitted for acute on chronic diastolic CHF. #Acute hypoxic hypercapnic resp failure continues due COPD exacerbation and acute on chronic diastolic CHF exacerbation: On IV Steroids t continue, lasix is on hold since she looks dry, on BIPAP support as needed, on IV Lopressor (BB) now since was not eating or drinking. #Coumadin coagulopathy s/p Supratherapeutic INR from 25---> 6--->9-->11--> 2.26- ->1.9 --> 8.0--> 2.1 today coumadin 5mg tonight. # Change of mental status on and off, multi-factorial. Acute severe hypernatemia, acute hypercalcemia with normal PTHrp Cont cinacalcet , acute dehydration. # Acute Hypernatremia with sodium of 156 today continue D5w, will check with nephrology. # Acute Hypercalcemia wii continue IVF will check the levels in am #Acute on Chronic diastolic CHF Exacerbation with EJF of 51% on 12/23/2016; repeat ECHO reviewed ; off Lasix now , Continue daily weights. #MADONNA on CKD BUN/Cr 62/3.--63/3.4-->65/3.4-->60/2.7-->57/2.3---> 41/1.0 Nephro consult appreciated. # paroxysmal aflutter [id number] ;continue coumadin with INR 2.1 give coumadin 5mg tonigt , repeat INR in am , goal 2.5-3.5. cont BB #s/p RUE edema . US with no DVT #CAD Continue Bystolic closely monitor renal function #HLD crestor 10mg po hs # Left breast ca s/p mastectomy Code status: DNR/DNI palliative care consult appreciated DVT Px: on coumadin
--- NOTE | 2017-02-08 16:39 | PN ---
Progress Note, Physician History of Present Illness: Pt seen and examined at bedside. She remains confused. She is off of bipap. - Current Medication List Current Medications: Active Medications Acetaminophen (Tylenol -) 650 mg PO Q6H PRN PRN Reason: FEVER OR PAIN Last Admin: 01/25/17 16:25 Dose: 650 mg Amlodipine Besylate (Norvasc -) 5 mg PO DAILY [facility] Last Admin: 02/08/17 11:05 Dose: Not Given Cinacalcet (Sensipar -) 30 mg PO BID [facility] Last Admin: 02/08/17 11:05 Dose: Not Given Docusate Sodium (Colace -) 100 mg PO BID PRN PRN Reason: CONSTIPATION Dextrose (D5w -) 1,000 mls @ 50 mls/hr IV Q20H [facility] Last Admin: 02/08/17 08:04 Dose: 50 mls/hr Methimazole (Tapazole -) 5 mg PO DAILY [facility] Last Admin: 02/08/17 11:05 Dose: Not Given Methylprednisolone Sodium Succinate (Solu-Medrol -) 40 mg IVPB BID [facility] Last Admin: 02/08/17 11:05 Dose: 40 mg Nebivolol (Bystolic -) 10 mg PO DAILY [facility] Last Admin: 02/08/17 11:04 Dose: Not Given Pantoprazole Sodium (Protonix Packets For Oral Suspension -) 40 mg GT DAILY [facility] Last Admin: 02/08/17 11:05 Dose: Not Given Rosuvastatin Calcium (Crestor -) 10 mg PO HS [facility] Last Admin: 02/07/17 21:14 Dose: Not Given Senna (Senna -) 2 tab PO HS PRN PRN Reason: CONSTIPATION Warfarin Sodium (Coumadin -) 5 mg PO ONCE@1800 ONE Stop: 02/08/17 18:01 - Objective Vital Signs: Vital Signs Temperature 98 F 02/08/17 14:15 Pulse Rate 62 02/08/17 14:15 Respiratory Rate 20 02/08/17 14:15 Blood Pressure 137/65 02/08/17 14:15 O2 Sat by Pulse Oximetry (%) 94 L 02/08/17 15:00 Constitutional: Yes: Calm Eyes: Yes: Conjunctiva Clear HENT: Yes: Atraumatic Cardiovascular: Yes: S1, S2 Respiratory: Yes: On Nasal O2 Gastrointestinal: Yes: Soft Genitourinary: Yes: Rico Present Musculoskeletal: Yes: Muscle Weakness Edema: Yes Neurological: Yes: Confusion Psychiatric: Yes: Oriented Labs: CBC, BMP 02/08/17 05:35 02/08/17 05:35 INR, PTT INR 2.10 (0.82-1.09) H D 02/08/17 05:35 Problem List - Problems (1) Acute exacerbation of CHF (congestive heart failure) Code(s): I50.9 - HEART FAILURE, UNSPECIFIED Qualifiers: Congestive heart failure type: diastolic Qualified Code(s): I50.33 - Acute on chronic diastolic (congestive) heart failure (2) Hyperthyroidism Code(s): E05.90 - THYROTOXICOSIS, UNSP WITHOUT THYROTOXIC CRISIS OR STORM (3) A-fib Code(s): I48.91 - UNSPECIFIED ATRIAL FIBRILLATION Qualifiers: Atrial fibrillation type: persistent Qualified Code(s): I48.1 - Persistent atrial fibrillation (4) Acute on chronic diastolic CHF (congestive heart failure) Code(s): I50.33 - ACUTE ON CHRONIC DIASTOLIC (CONGESTIVE) HEART FAILURE (5) Anemia Code(s): D64.9 - ANEMIA, UNSPECIFIED Qualifiers: Anemia type: unspecified type Qualified Code(s): D64.9 - Anemia, unspecified (6) Shortness of breath Code(s): R06.02 - SHORTNESS OF BREATH (7) Coumadin toxicity Code(s): T45.511A - POISONING BY ANTICOAGULANTS, ACCIDENTAL, INIT Qualifiers: Encounter type: sequela Injury intent: undetermined intent Qualified Code(s): T45.514S - Poisoning by anticoagulants, undetermined, sequela Assessment/Plan Current Medications Generic Name Dose Route Start Last Admin Trade Name Freq PRN Reason Stop Dose Admin Acetaminophen 650 mg 01/25/17 16:17 01/25/17 16:25 Tylenol - PO 650 mg Q6H PRN Administration FEVER OR PAIN Amlodipine Besylate 5 mg 01/29/17 16:16 02/06/17 10:53 Norvasc - PO Not Given DAILY ALOK Cinacalcet 30 mg 02/01/17 22:00 02/06/17 21:11 Sensipar - PO Not Given BID ALOK Docusate Sodium 100 mg 01/30/17 11:38 Colace - PO BID PRN CONSTIPATION Dextrose 1,000 mls @ 50 mls/hr 02/06/17 10:00 02/06/17 10:46 D5w - IV 50 mls/hr ASDIR ALOK Administration Methimazole 5 mg 01/26/17 10:00 02/06/17 12:25 Tapazole - PO Not Given DAILY ALOK Methylprednisolone Sodium Succinate 40 mg 02/04/17 12:15 02/06/17 10:47 Solu-Medrol - IVPB 40 mg DAILY ALOK Administration Nebivolol 10 mg 01/26/17 10:00 02/06/17 10:53 Bystolic - PO Not Given DAILY ALOK Pantoprazole Sodium 40 mg 01/29/17 11:13 02/06/17 10:53 Protonix Packets For Oral Suspension - GT Not Given DAILY ALOK Rosuvastatin Calcium 10 mg 01/25/17 22:00 02/06/17 21:07 Crestor - PO Not Given HS ALOK Senna 2 tab 01/30/17 11:38 Senna - PO HS PRN CONSTIPATION Impression 1. MADONNA 2. CKD - creatinine has been elevated on previous labs 3. CHF 4. coumadin toxicity 5. valvular heart disease 6. s/p bio-MVR and AVR 7. hyperlipidemia 8. atrial fibrillation 9. anemia 10. hx of breast cancer 11. renal cyst 12. hypercalcemia Plan - renal function is stable - cont current management - she took the sensipar today - monitor calcium levels - overall prognosis is poor - cont bipap as needed - will follow Dr Morse
[2017-02-08] MEDS ORDERED: WARFARIN NA 5 MG TABLET (UD) PO ONE (18:00)
[2017-02-08] MEDS: ACETAMINOPHEN 325 MG TABLET (FP) PO PRN (20:45)
[2017-02-08 21:36] LABS: URINE APPEARANCE CLEAR; URINE BILIRUBIN NEGATIVE (NEGATIVE); URINE COLOR YELLOW; URINE GLUCOSE (UA) NEGATIVE (NEGATIVE); URINE KETONE NEGATIVE (NEGATIVE); URINE LEUK ESTERASE NEGATIVE (NEGATIVE); URINE NITRITE NEGATIVE (NEGATIVE); URINE UROBILINOGEN 4.0 E.U/dl E.U./dl (0.2-1.0)
[2017-02-08 21:42] LABS: URINE BLOOD 2+ (NEGATIVE); URINE PROTEIN 2+ (NEGATIVE)
[2017-02-08 21:43] LABS: URINE BACTERIA RARE /hpf (NONE SEEN); URINE HYALINE CAST 2 /lpf; URINE MUCUS RARE; URINE RBC 15 /hpf (0-3); URINE WBC 3 /hpf (3-5)
[2017-02-08] MEDS ORDERED: PT OWN MED DRAWER 7, Y5N ONE (21:59)
[2017-02-08] MEDS: ROSUVASTATIN CA 10 MG TABLET (FP) PO SCH (23:14)
--- NOTE | 2017-02-09 00:59 | PN ---
Progress Note (short form) - Note Progress Note: Current Active Problems Acute exacerbation of CHF (congestive heart failure) (Acute) Acute hypernatremia (Acute) Altered mental status (Acute) Cerebrovascular disease (Acute) Coumadin toxicity (Acute) Hypercalcemia (Acute) Hypernatremia (Acute) Hyperparathyroidism (Acute) ams Hypoxemia (Acute) Leukocytosis (Acute) Organic brain syndrome (Acute) Paroxysmal atrial flutter (Acute) Respiratory failure (Acute) Tricuspid regurgitation (Acute) Abnormal Lab Results 02/08/17 02/08/17 02/08/17 05:35 05:35 05:35 Hgb 9.8 L MCHC 30.0 L RDW 16.9 H INR 2.10 H D Sodium 156 H Chloride 113 H Carbon Dioxide 40 H Anion Gap 3 L BUN 41 H Random Glucose 145 H D Calcium 11.9 H Urine Protein Urine Blood Urine Urobilinogen 02/08/17 18:00 Hgb MCHC RDW INR Sodium Chloride Carbon Dioxide Anion Gap BUN Random Glucose Calcium Urine Protein 2+ H Urine Blood 2+ H Urine Urobilinogen 4.0 e.u/dl H Laboratory Tests 12/23/16 01/25/17 01/30/17 05:35 12:00 07:50 Sodium Potassium Chloride Carbon Dioxide Anion Gap BUN Creatinine Random Glucose Calcium Albumin TSH 2.76 5.83 H D 3.37 D Free T4 PTH Related Protein 02/01/17 02/02/17 02/02/17 08:25 05:37 09:40 Sodium 154 H Potassium 3.7 Chloride 107 Carbon Dioxide 36 H Anion Gap 11 BUN 47 H Creatinine 1.6 H Random Glucose Calcium 12.1 H Albumin 2.5 L TSH Free T4 PTH Related Protein < 1.1 02/03/17 02/05/17 02/08/17 05:35 08:35 05:35 Sodium 153 H Potassium 3.2 L Chloride 105 Carbon Dioxide 38 H Anion Gap 10 BUN Creatinine 1.3 H 1.0 Random Glucose 107 H Calcium 10.5 H 11.9 H Albumin TSH 2.01 D Free T4 0.93 D PTH Related Protein plan: since no evidence of hyperthyroidism dc tapazole repeat tfts if level of free t4 or tsh change continue sensipar 30mg bid as only safe rx for hyperparathyroidism given overall fragile state suggest neurology consult Problem List - Problems (1) Hyperthyroidism Code(s): E05.90 - THYROTOXICOSIS, UNSP WITHOUT THYROTOXIC CRISIS OR STORM (2) Hypercalcemia Code(s): E83.52 - HYPERCALCEMIA (3) Hyperparathyroidism Code(s): E21.3 - HYPERPARATHYROIDISM, UNSPECIFIED
[2017-02-09] MEDS: DEXTROSE 5%-WATER - 1,000 ML IV SCH (06:34)
--- NOTE | 2017-02-09 10:13 | PN ---
Progress Note, Physician History of Present Illness: Lethargic on bipap. - Current Medication List Current Medications: Active Medications Acetaminophen (Tylenol -) 650 mg PO Q6H PRN PRN Reason: FEVER OR PAIN Last Admin: 02/08/17 20:45 Dose: 650 mg Amlodipine Besylate (Norvasc -) 5 mg PO DAILY [facility] Last Admin: 02/08/17 11:05 Dose: Not Given Cinacalcet (Sensipar -) 30 mg PO BID [facility] Last Admin: 02/08/17 23:14 Dose: Not Given Docusate Sodium (Colace -) 100 mg PO BID PRN PRN Reason: CONSTIPATION Dextrose (D5w -) 1,000 mls @ 50 mls/hr IV Q20H [facility] Last Admin: 02/09/17 06:34 Dose: 50 mls/hr Methylprednisolone Sodium Succinate (Solu-Medrol -) 40 mg IVPB BID [facility] Last Admin: 02/08/17 23:14 Dose: 40 mg Nebivolol (Bystolic -) 10 mg PO DAILY [facility] Last Admin: 02/08/17 11:04 Dose: Not Given Pantoprazole Sodium (Protonix Packets For Oral Suspension -) 40 mg GT DAILY [facility] Last Admin: 02/08/17 11:05 Dose: Not Given Rosuvastatin Calcium (Crestor -) 10 mg PO HS [facility] Last Admin: 02/08/17 23:14 Dose: Not Given Senna (Senna -) 2 tab PO HS PRN PRN Reason: CONSTIPATION - Objective Vital Signs: Vital Signs Temperature 97.8 F 02/09/17 05:00 Pulse Rate 66 02/09/17 05:00 Respiratory Rate 20 02/09/17 05:00 Blood Pressure 145/75 02/09/17 05:00 O2 Sat by Pulse Oximetry (%) 100 02/09/17 06:40 Cardiovascular: Yes: Pulse Irregular, Murmur Respiratory: Yes: Diminished, On BiPap Gastrointestinal: Yes: Normal Bowel Sounds, Soft, Abdomen, Obese Edema: No Labs: CBC, BMP 02/08/17 05:35 02/08/17 05:35 INR, PTT INR 2.10 (0.82-1.09) H D 02/08/17 05:35 - ....Imaging Chest X-ray: Report Reviewed (Stable) Problem List - Problems (1) A-fib Code(s): I48.91 - UNSPECIFIED ATRIAL FIBRILLATION Qualifiers: Atrial fibrillation type: persistent Qualified Code(s): I48.1 - Persistent atrial fibrillation (2) Acute on chronic diastolic CHF (congestive heart failure) Code(s): I50.33 - ACUTE ON CHRONIC DIASTOLIC (CONGESTIVE) HEART FAILURE (3) CAD (coronary artery disease) Code(s): I25.10 - ATHSCL HEART DISEASE OF [place] CORONARY ARTERY W/O ANG PCTRS Qualifiers: Coronary Disease-Associated Artery/Lesion type: [place] artery [place] vs. transplanted heart: [place] heart Associated angina: without angina Qualified Code(s): I25.10 - Atherosclerotic heart disease of [place] coronary artery without angina pectoris (4) HLD (hyperlipidemia) Code(s): E78.5 - HYPERLIPIDEMIA, UNSPECIFIED Qualifiers: Hyperlipidemia type: pure hypercholesterolemia Qualified Code(s): E78.00 - Pure hypercholesterolemia, unspecified; E78.0 - Pure hypercholesterolemia (5) Hypertensive cardiomyopathy Code(s): I11.9 - HYPERTENSIVE HEART DISEASE WITHOUT HEART FAILURE I42.9 - CARDIOMYOPATHY, UNSPECIFIED Qualifiers: Heart failure presence: with heart failure Qualified Code(s): I11.0 - Hypertensive heart disease with heart failure (6) S/P aortic valve replacement with bioprosthetic valve Code(s): Z95.4 - PRESENCE OF OTHER HEART-VALVE REPLACEMENT (8) Shortness of breath Code(s): R06.02 - SHORTNESS OF BREATH (9) Premature ventricular complex Code(s): I49.3 - VENTRICULAR PREMATURE DEPOLARIZATION (10) Cerebrovascular disease Code(s): I67.9 - CEREBROVASCULAR DISEASE, UNSPECIFIED (11) Hypercalcemia Code(s): E83.52 - HYPERCALCEMIA (12) Hyperparathyroidism Code(s): E21.3 - HYPERPARATHYROIDISM, UNSPECIFIED Assessment/Plan 1. Altered Mental Status with hypernatremia 2. Acute on chronic respiratory failure probably multi-factorial; including related to acute on chronic LV diastolic failure, intrinsic lung disease, atelectasis 2. CAD, angina pectoris 3. History of MVR and AVR (Bio-prosthesis) with elevated trans-aortic gradient, restonosis vs. prosthesis-patient mismatch 4. Persistent atrial fibrillation on Coumadin with supra-therapeutic INR, AM INR pending 5. HTN 6. Hyperlipidemia 7. Confusion and disorientation, OBS/dementia 8. Cerebro-vascular disease 9. Hyperthyroidism 10. Hypercalcemia with hyperparathyroidism 11. CKD with hypernatremia 12. Anemia PLAN: 1. Continue to hold Lasix, free water repletion, Sensipar 2. Continue Bystolic 10 qd 3. Continue Norvasc 5 qd 4. Continue Crestor 10 qhs 5. Continue Coumadin per INR 6. Continue BiPAP as needed 7. Overall poor prognosis as outlined above, address goals of care
--- NOTE | 2017-02-09 10:14 | PN ---
Progress Note, [employer] - Note Progress Note: Selected Entries 02/08/17 02/08/17 02/09/17 12:19 20:07 05:00 Lunch NPO Supper 25% Temperature 97.8 F On bipap now, sleeping. Reviewed with nursing: PO trials, once BIPAP removed, with NC, as tolerated.
[2017-02-09] MEDS: methylPREDNISolone NA SUCC 40 MG/1 ML VIAL IVPB SCH ×2 (10:23→21:04)
[2017-02-09] MEDS: NEBIVOLOL 10 MG TABLET (FP) PO SCH (10:51)
[2017-02-09] MEDS: PANTOPRAZOLE SOD 40 MG SUSPENSION PACKET GT SCH (10:52)
[2017-02-09] MEDS: amLODIPine BESYLATE 5 MG TABLET (FP) PO SCH (10:52)
[2017-02-09] MEDS: CINACALCET HCL 30 MG TAB (FP) PO SCH ×2 (10:53→21:05)
--- NOTE | 2017-02-09 13:06 | PN ---
Physical Exam: SUBJECTIVE: Patient seen and examined at bedside did well yesterday on nasal cannula and than at night required BiPAP for desatauration Febrile yesterday burroughs cultured OBJECTIVE: Vital Signs Period Temp Pulse Resp BP Sys/Grissom Pulse Ox Last 24 Hr 97.8 F-99.9 F 62-117 20-20 122-145/47-75 87-100 GENERAL: Lethargic not responding HEAD: Normal with no signs of trauma. NECK: left sided nodule felt possible to be parathyroid LUNGS: Crackles at bases bilaterally HEART: irregular S1, S2 systolic murmur best heard at left sternal border +JVD ABDOMEN: Soft, nontender, nondistended EXTREMITIES: warm well perfused RUE +edema Neuro: lethargic Laboratory Results - last 24 hr 02/08/17 18:00 Urine Color Yellow Urine Appearance Clear Urine pH 5.0 Ur Specific [place] 1.018 Urine Protein 2+ H Urine Glucose (UA) Negative Urine Ketones Negative Urine Blood 2+ H Urine Nitrite Negative Urine Bilirubin Negative Urine Urobilinogen 4.0 e.u/dl H Ur Leukocyte Esterase Negative Urine RBC 15 Urine WBC 3 Ur Epithelial Cells Rare Urine Bacteria Rare Hyaline Casts 2 Urine Mucus Rare Active Medications Generic Name Dose Route Start Last Admin Trade Name Freq PRN Reason Stop Dose Admin Acetaminophen 650 mg 01/25/17 16:17 02/08/17 20:45 Tylenol - PO 650 mg Q6H PRN Administration FEVER OR PAIN Amlodipine Besylate 5 mg 01/29/17 16:16 02/08/17 11:05 Norvasc - PO Not Given DAILY ALOK Cinacalcet 30 mg 02/01/17 22:00 02/08/17 23:14 Sensipar - PO Not Given BID ALOK Docusate Sodium 100 mg 01/30/17 11:38 Colace - PO BID PRN CONSTIPATION Dextrose 1,000 mls @ 50 mls/hr 02/08/17 08:00 02/09/17 06:34 D5w - IV 50 mls/hr Q20H ALOK Administration Methylprednisolone Sodium Succinate 40 mg 02/07/17 22:00 02/09/17 10:23 Solu-Medrol - IVPB 40 mg BID ALOK Administration Nebivolol 10 mg 01/26/17 10:00 02/08/17 11:04 Bystolic - PO Not Given DAILY ALOK Pantoprazole Sodium 40 mg 01/29/17 11:13 02/08/17 11:05 Protonix Packets For Oral Suspension - GT Not Given DAILY [facility] Rosuvastatin Calcium 10 mg 01/25/17 22:00 02/08/17 23:14 Crestor - PO Not Given HS [facility] Senna 2 tab 01/30/17 11:38 Senna - PO HS PRN CONSTIPATION Warfarin Sodium 3 mg 02/09/17 18:00 Coumadin - PO DAILY@1800 [facility] ASSESSMENT/PLAN: 86F with multiple medical problems initially presented with shortness of breath likely secondary to CHF exacerbation Hypoxic hypercapneic respiratory failure: likely from diastolic Acute on chronic congestive heart failure exacerbation Chest CT noted-not significant for pneumonia US-no DVT of upper extremity Possible due to aspiration-speech and swallow eval appreciated will advance to dysphagia puree with honey thickened liquids -unable to eat today lethargic in Bipap pulmonary consult appreciated continue solu-medrol 40mg BID as this seems to be helping her pulmonary status palliative care consult for goals of care appreciated CXR from this morning no significant change Acute on Chronic diastolic Congestive Heart Failure Exacerbation hold Lasix patient does not appear fluid overloaded rather she appears dry daily weight I/O De Oliveira for I/O monitoring Cardiology consult appreciated Hypernatremia: D5W stopped overnight will restart continue D5W @ 50ml/hr as patient has free water deficit recheck BMP Lab pending Altered Mental Status: likely from a combination of electrolyte abnormalities, environment, hypercapnea and hypoxia Needs correction Leukocytosis: CBC from today pending F/U blood cultures and urine culture from yesterday stil pending UA negative D/C de oliveira intial cultures no growth final do not suspect infectious cause will monitor WBC count Hypercalcemia secondary to primary hyperparathyroidism-calcium pending today Already given calcitonin continue cincalcet-was not getting it as she was not able to take PO meds now able to take PO meds got sensipar yesterday but unable to take it today PTHrp <1.1 endocrinology consult appreciated and noted recheck calcium in AM Acute on chronic renal failure-improved avoid nephrotoxic meds Cr pending will trend Supratherapeutic INR/coumadin toxicity- repeat INR pending will give coumadin based ion INR today HTN:better controlled with meds given yesterday patient is currently not able to take PO meds Will give MEoptrolol pushed PRN for BP PO meds when able to tolerate PO Atrial fibrillation continue bystolic restart coumadin HLD -continue crestor 10mg po hs when able to tolerate PO Hyperthyroidism continue methimazole 5mg po dailly when able to take PO FEN: D5W @ 50ml/hr hypernatremia hypercalcemia npo for now Dysphagia puree with honey thickend liquids when mental status improves PPx: Counadin/SCDs protonix DNR/DNI palliative care consult appreciated awaiting bed at [facility] poor prognosis. Problem List - Problems (1) Acute exacerbation of CHF (congestive heart failure) Code(s): I50.9 - HEART FAILURE, UNSPECIFIED Qualifiers: Congestive heart failure type: diastolic Qualified Code(s): I50.33 - Acute on chronic diastolic (congestive) heart failure (2) Altered mental status Code(s): R41.82 - ALTERED MENTAL STATUS, UNSPECIFIED (3) Paroxysmal atrial flutter Code(s): I48.92 - UNSPECIFIED ATRIAL FLUTTER (4) A-fib Code(s): I48.91 - UNSPECIFIED ATRIAL FIBRILLATION Qualifiers: Atrial fibrillation type: persistent Qualified Code(s): I48.1 - Persistent atrial fibrillation (5) Acute on chronic diastolic CHF (congestive heart failure) Code(s): I50.33 - ACUTE ON CHRONIC DIASTOLIC (CONGESTIVE) HEART FAILURE (6) Nilen-gr-bijsezu kidney injury Code(s): N17.9 - ACUTE KIDNEY FAILURE, UNSPECIFIED N18.9 - CHRONIC KIDNEY DISEASE, UNSPECIFIED (7) Anemia Code(s): D64.9 - ANEMIA, UNSPECIFIED Qualifiers: Anemia type: unspecified type Qualified Code(s): D64.9 - Anemia, unspecified (8) CAD (coronary artery disease) Code(s): I25.10 - ATHSCL HEART DISEASE OF [place] CORONARY ARTERY W/O ANG PCTRS Qualifiers: Coronary Disease-Associated Artery/Lesion type: [place] artery [place] vs. transplanted heart: [place] heart Associated angina: without angina Qualified Code(s): I25.10 - Atherosclerotic heart disease of [place] coronary artery without angina pectoris (9) HLD (hyperlipidemia) Code(s): E78.5 - HYPERLIPIDEMIA, UNSPECIFIED Qualifiers: Hyperlipidemia type: pure hypercholesterolemia Qualified Code(s): E78.00 - Pure hypercholesterolemia, unspecified; E78.0 - Pure hypercholesterolemia (10) Shortness of breath Code(s): R06.02 - SHORTNESS OF BREATH (11) Hypoxemia Code(s): R09.02 - HYPOXEMIA (12) Leukocytosis Code(s): D72.829 - ELEVATED WHITE BLOOD CELL COUNT, UNSPECIFIED (13) Hypernatremia Code(s): E87.0 - HYPEROSMOLALITY AND HYPERNATREMIA (14) Acute hypernatremia Code(s): E87.0 - HYPEROSMOLALITY AND HYPERNATREMIA Visit type - Emergency Visit Emergency Visit: Yes ED Registration Date: 01/25/17 Care time: The patient presented to the Emergency Department on the above date and was hospitalized for further evaluation of their emergent condition. - New Patient This patient is new to me today: No - Critical Care Critical Care patient: No
[2017-02-09 13:25] LABS: MCH 24.3 pg (25.7-33.7); MCHC 29.6 g/dl (32.0-36.0); MEAN CELL VOLUME 82.2 fl (80-96); MEAN PLT VOLUME 9.3 fl (7.5-11.1); PLATELET COUNT 348 K/MM3 (134-434); RDW 16.9 % (11.6-15.6); WHITE BLOOD COUNT 13.4 K/mm3 (4.0-10.0)
--- NOTE | 2017-02-09 13:33 | PN ---
Progress Note (short form) - Note Progress Note: PULMONARY More lethargic today. Placed back on BiPAP. No fevers recorded. Last Vital Signs Temp Pulse Resp BP Pulse Ox 98.3 F 87 20 122/47 90 L 02/09/17 09:00 02/09/17 10:35 02/09/17 09:00 02/09/17 09:00 02/09/17 10:35 Gen: lethargic on BiPAP Heart: RRR Lung: decreased breath sounds at the bases Abd: soft, nontender Ext: less edema Active Medications Acetaminophen (Tylenol -) 650 mg PO Q6H PRN PRN Reason: FEVER OR PAIN Last Admin: 02/08/17 20:45 Dose: 650 mg Amlodipine Besylate (Norvasc -) 5 mg PO DAILY [facility] Last Admin: 02/08/17 11:05 Dose: Not Given Cinacalcet (Sensipar -) 30 mg PO BID [facility] Last Admin: 02/08/17 23:14 Dose: Not Given Docusate Sodium (Colace -) 100 mg PO BID PRN PRN Reason: CONSTIPATION Dextrose (D5w -) 1,000 mls @ 50 mls/hr IV Q20H [facility] Last Admin: 02/09/17 06:34 Dose: 50 mls/hr Methylprednisolone Sodium Succinate (Solu-Medrol -) 40 mg IVPB BID [facility] Last Admin: 02/09/17 10:23 Dose: 40 mg Nebivolol (Bystolic -) 10 mg PO DAILY [facility] Last Admin: 02/08/17 11:04 Dose: Not Given Pantoprazole Sodium (Protonix Packets For Oral Suspension -) 40 mg GT DAILY [facility] Last Admin: 02/08/17 11:05 Dose: Not Given Rosuvastatin Calcium (Crestor -) 10 mg PO HS [facility] Last Admin: 02/08/17 23:14 Dose: Not Given Senna (Senna -) 2 tab PO HS PRN PRN Reason: CONSTIPATION Warfarin Sodium (Coumadin -) 3 mg PO DAILY@1800 [facility] A/P Altered Mental Status Acute on Chronic LV Diastolic Heart Failure Pulmonary HTN Pleural Effusion Compressive Atelectasis Paroxysmal Atrial Flutter s/p AVR/MVR HTN - continue lasix as needed - free water replacement - monitor urine output, creatinine - daily weights, I/Os - rate controlled - O2 to keep SpO2 >90% - BiPAP as needed - taper off steroids - aspiration precautions - DVT prophylaxis - continue discussions regarding goals of care Problem List - Problems (1) Altered mental status Code(s): R41.82 - ALTERED MENTAL STATUS, UNSPECIFIED (2) Acute on chronic diastolic CHF (congestive heart failure) Code(s): I50.33 - ACUTE ON CHRONIC DIASTOLIC (CONGESTIVE) HEART FAILURE (3) [id number] kidney injury Code(s): N17.9 - ACUTE KIDNEY FAILURE, UNSPECIFIED N18.9 - CHRONIC KIDNEY DISEASE, UNSPECIFIED (4) Paroxysmal atrial flutter Code(s): I48.92 - UNSPECIFIED ATRIAL FLUTTER (5) Coumadin toxicity Code(s): T45.511A - POISONING BY ANTICOAGULANTS, ACCIDENTAL, INIT Qualifiers: Encounter type: sequela Injury intent: undetermined intent Qualified Code(s): T45.514S - Poisoning by anticoagulants, undetermined, sequela (6) CAD (coronary artery disease) Code(s): I25.10 - ATHSCL HEART DISEASE OF [place] CORONARY ARTERY W/O ANG PCTRS Qualifiers: Coronary Disease-Associated Artery/Lesion type: [place] artery [place] vs. transplanted heart: [place] heart Associated angina: without angina Qualified Code(s): I25.10 - Atherosclerotic heart disease of [place] coronary artery without angina pectoris
[2017-02-09 13:51] LABS: ALBUMIN 2.5 g/dl (3.4-5.0); CALCIUM 12.3 mg/dL (8.5-10.1); MAGNESIUM 2.5 mg/dL (1.8-2.4)
[2017-02-09 13:54] LABS: BILIRUBIN,TOTAL 0.5 mg/dL (0.2-1.0); CREATININE 1.1 mg/dL (0.55-1.02); PHOSPHOROUS 2.3 mg/dL (2.5-4.9); TOT PROT 6.3 g/dl (6.4-8.2)
[2017-02-09 13:58] LABS: INR 1.19 (0.82-1.09); PROTHROMBIN TIME (PATIENT) 13.1 SEC (9.98-11.88)
[2017-02-09] MEDS ORDERED: ACETAMINOPHEN 325 MG TABLET (FP) PO PRN (14:59)
[2017-02-09] MEDS ORDERED: SENNOSIDES 8.6MG TABLET (FP) PO PRN (14:59)
--- NOTE | 2017-02-09 15:45 | HOSP ---
Addendum entered and electronically signed by Shade Muñoz RES 02/09/17 17:24: CT head reviewed large right sided stroke in MCA distribution Spoke to martir her sister her primary decision maker she undertsands the situation all questions answered patient still up for transfer to [facility] Original Note: Subjective - Review of Symptoms Subjective: went to go see patient as she is more awake noticed patient was not moving left side. Able to squeeze and move right hand and move right leg Pupils reactive STAT head CT ordered will follow Physical Examination Vital Signs: Vital Signs Temperature 97.6 F 02/09/17 15:39 Pulse Rate 57 L 02/09/17 15:39 Respiratory Rate 22 02/09/17 15:39 Blood Pressure 132/65 02/09/17 15:39 O2 Sat by Pulse Oximetry (%) 91 L 02/09/17 15:00 Labs: CBC, BMP 02/09/17 12:50 02/09/17 12:50 Visit type - Emergency Visit Emergency Visit: Yes ED Registration Date: 01/25/17 Care time: The patient presented to the Emergency Department on the above date and was hospitalized for further evaluation of their emergent condition. - New Patient This patient is new to me today: No - Critical Care Critical Care patient: No
--- NOTE | 2017-02-09 17:28 | CON.NEURO ---
Consult Consult Specialty:: NEUROLOGY Reason for Consultation:: sudden left side weakness, aphasia - History of Present Illness History of Present Illness: 86 y/o female patient with h/o CHF, COPD , Pulm HTN with bioprosthetic aortic valve replacement was admitted two weeks ago for SOB, acute on chronic diastolic CHF and very high INR of 24h. This afternoon the resident noticed the patient is not moving the left arm and left leg. The last time seen normal, moving the left side was last night by the family. CT head stat was read as right MCA stroke with hypodensity. The patient is not a candidate for ivtpa as last time seen normal was 20h. ago, there is a large hypodensity on CT head, this is a massive stroke. The INR was 2.1 yesterday and the INR is 1.1 today. - History Source History Provided By: Family Member, Medical Record Limitations to Obtaining History: Physical Impairment - Past Medical History Cardio/Vascular: Yes: AFIB, CAD, CHF, HTN, Hyperlipdemia Renal/: Yes: Renal Inusuff - Past Surgical History Past Surgical History: Yes: Mastectomy (left), Valve Replacement - Alcohol/Substance Use Hx Alcohol Use: No - Smoking History Smoking history: Former smoker Have you smoked in the past 12 months: No If you are a former smoker, when did you quit?: 1996 Home Medications - Allergies Allergies/Adverse Reactions: Allergies Allergy/AdvReac Type Severity Reaction Status Date / Time No Known Allergies Allergy Verified 01/25/17 10:51 - Home Medications Home Medications: Ambulatory Orders Allopurinol [Zyloprim -] 100 mg PO DAILY 12/21/16 Cholecalciferol (Vitamin D3) [Vitamin D -] 50,000 unit PO MONTHLY 12/21/16 Methimazole [Tapazole] 5 mg PO DAILY 12/21/16 Nebivolol HCl [Bystolic] 10 mg PO DAILY 12/21/16 Omeprazole 40 mg PO DAILY 12/21/16 Ranolazine [Ranexa] 500 mg PO BID 12/21/16 Rosuvastatin Calcium [Crestor] 10 mg PO HS 12/21/16 Amlodipine Besylate [Norvasc -] 10 mg PO DAILY #30 tablet 12/23/16 Torsemide [Demadex -] 10 mg PO DAILY #30 tablet 12/23/16 Warfarin Na [Coumadin -] 5 mg PO DAILY #0 12/23/16 Family Disease History - Family Disease History Other Family History: non-contributory Review of Systems - Review of Systems Constitutional: reports: No Symptoms Eyes: reports: No Symptoms HENT: reports: No Symptoms Neck: reports: No Symptoms Cardiovascular: reports: Edema, Shortness of Breath Respiratory: reports: Orthopnea, SOB Gastrointestinal: reports: No Symptoms Genitourinary: reports: No Symptoms Breasts: reports: No Symptoms Reported Musculoskeletal: reports: No Symptoms Integumentary: reports: No Symptoms Neurological: reports: No Symptoms Endocrine: reports: No Symptoms Hematology/Lymphatic: reports: No Symptoms Psychiatric: reports: No Symptoms Physical Exam-Neuro Vital Signs: Vital Signs Temperature 97.6 F 02/09/17 15:39 Pulse Rate 57 L 02/09/17 15:39 Respiratory Rate 22 02/09/17 15:39 Blood Pressure 132/65 02/09/17 15:39 O2 Sat by Pulse Oximetry (%) 91 L 02/09/17 15:00 Constitutional: Yes: Moderate Distress Neck: Yes: Supple, Trachea Midline Cardiovascular: Yes: Regular Rate and Rhythm, S1, S2 Respiratory: Yes: On BiPap, Poor Air Entry, SOB, SOB on Exertion Gastrointestinal: Yes: Normal Bowel Sounds, Soft Renal/: Yes: WNL Musculoskeletal: Yes: WNL Psychiatric: Yes: Agitated Labs: CBC, BMP 02/09/17 12:50 02/09/17 12:50 INR, PTT INR 1.19 (0.82-1.09) H D 02/09/17 12:50 - Neuro Exam Level Of Consciousness: Yes: Obtunded Eyes: Yes: PERRLA Speech: Global Aphasia Dominant Hand: Right Cranial Nerves II-XII Intact: No (facial droop) DTR's: 0 Left Bicep, 0 Right Bicep, 0 Left Tricep, 0 Right Tricep, 0 Left Brachioradialis, 0 Right Brachioradialis, 0 Left Achilles, 0 Right Achilles Babinski: Absent Response to light touch: Abnormal (on the left side ) Motor Strength: 0/5: Left Arm, Left Leg, 3/5: Right Arm, Right Leg Gait: Deferred NIH Stroke Scale - Last Known Well Date/Time & Onset Symptom Onset Date: 02/09/17 Symptom Onset Time: 16:00 Date Last Known Well: 02/08/17 Time Last Known Well: 09:00 - Initial Evaluation Best gaze (horizontal eye movement): Forced Deviation Visual Field Testing: Complete Hemianopia Motor Function - Left Arm: No effort against gravity Motor Function - Right Arm: Some effort against gravity Motor Function - Left Leg: No effort against gravity; leg falls to be immediately Motor Function - Right Leg: Some Effort against gravity Sensory (arms, legs, trunk, face): Severe to total sensory loss; pt not aware of being touched Best Language: Severe aphasia;all communication is through fragmentary expression Dysarthria/Articulation: speech so slurred as to be unintelligible; or is mute/ anarthric Extinction and Inattention: Profound felicitas-inattention or extinction to more than one modality - Total Score NIH Stroke Scale Score: 22 Imaging - Results Cat Scan: Report Reviewed, Image Reviewed Problem List - Problems (1) CVA (cerebrovascular accident) Code(s): I63.9 - CEREBRAL INFARCTION, UNSPECIFIED (2) Acute right MCA stroke Code(s): I63.511 - CEREB INFRC D/T UNSP OCCLS OR STENOS OF RIGHT MID CEREB ART Assessment/Plan 86 y/o female patient with h/o CHF, COPD , Pulm HTN with bioprosthetic aortic valve replacement was admitted two weeks ago for SOB, acute on chronic diastolic CHF and very high INR of 24h. This afternoon the resident noticed the patient is not moving the left arm and left leg. The last time seen normal, moving the left side was last night by the family. CT head stat was read as right MCA stroke with hypodensity. The patient is not a candidate for ivtpa as last time seen normal was 20h. ago, there is a large hypodensity on CT head, this is a massive stroke. The INR was 2.1 yesterday and the INR is 1.1 today. NIHS is 22p. with severe aphasia, dysarthria, left side hemiplegia dense. Plan: - the patient is DNR/DNI and she was waiting for a hospice bed in [place]- comfort measures only. - start ASA 81mg. po daily, lovenox sq daily - respiratory distress - managment per medical team - tylenol prn. q 6h. for pain. Thank you for this kind referral.
[2017-02-09] MEDS ORDERED: WARFARIN NA 3 MG TABLET PO SCH (18:00)
--- NOTE | 2017-02-09 19:42 | PN ---
Progress Note, Physician History of Present Illness: Renal f/u Pt had an acute CVA as documented on today's Brain CT Scan Clinimix now D/C ed [facility] - Current Medication List Current Medications: Active Medications Acetaminophen (Tylenol -) 650 mg PO Q6H PRN PRN Reason: FEVER OR PAIN Amlodipine Besylate (Norvasc -) 5 mg PO DAILY [facility] Aspirin (Asa -) 300 mg RC DAILY [facility] Cinacalcet (Sensipar -) 30 mg PO BID [facility] Dextrose (D5w -) 1,000 mls @ 50 mls/hr IV Q20H [facility] Methylprednisolone Sodium Succinate (Solu-Medrol -) 40 mg IVPB BID [facility] Nebivolol (Bystolic -) 10 mg PO DAILY [facility] Pantoprazole Sodium (Protonix Packets For Oral Suspension -) 40 mg GT DAILY [facility] Rosuvastatin Calcium (Crestor -) 10 mg PO HS [facility] Senna (Senna -) 2 tab PO HS PRN PRN Reason: CONSTIPATION - Objective Vital Signs: Vital Signs Temperature 98.8 F 02/09/17 18:05 Pulse Rate 68 02/09/17 18:05 Respiratory Rate 18 02/09/17 18:05 Blood Pressure 157/73 02/09/17 18:05 O2 Sat by Pulse Oximetry (%) 95 02/09/17 17:48 Cardiovascular: Yes: S1, S2, Other (Slightly irregular) Respiratory: Yes: Other (BiPAP Mask in place) Gastrointestinal: Yes: Soft, Abdomen, Obese Edema: Yes Neurological: Yes: Other (Poorly responsive) Labs: CBC, BMP 02/09/17 12:50 02/09/17 12:50 INR, PTT INR 1.19 (0.82-1.09) H D 02/09/17 12:50 Assessment/Plan Impression Hypernatremia Acute on CKD New CVA Impression CHF Valvular heart disease s/p bio-MVR and AVR Atrial fibrillation HLD Anemia Breast cancer Plan D5W increased to 100 cc/hr For hospice placement Dr Velez
[2017-02-09] MEDS: ASPIRIN 300 MG SUPP.RECT RC SCH (20:42)
--- NOTE | 2017-02-09 20:58 | PN ---
Teaching Attending Note Name of Resident: Shade Muñoz ATTENDING PHYSICIAN STATEMENT I saw and evaluated the patient. I reviewed the resident's note and discussed the case with the resident. I agree with the resident's findings and plan as documented. My resident and I went to see the patient ,noticed that she is not moving her left side, but able to squeeze and move right hand and move right leg but not the left. Stat CT of the head ordered, stat neuro consult was placed. Vital Signs Temperature 98.8 F 02/09/17 18:05 Pulse Rate 70 02/09/17 19:56 Respiratory Rate 22 02/09/17 19:56 Blood Pressure 155/77 02/09/17 19:56 O2 Sat by Pulse Oximetry (%) 95 02/09/17 17:48 CBCD WBC 13.4 K/mm3 (4.0-10.0) H D 02/09/17 12:50 RBC 4.14 M/mm3 (3.60-5.2) 02/09/17 12:50 Hgb 10.1 GM/dL (10.7-15.3) L 02/09/17 12:50 Hct 34.0 % (32.4-45.2) 02/09/17 12:50 MCV 82.2 fl (80-96) 02/09/17 12:50 MCHC 29.6 g/dl (32.0-36.0) L 02/09/17 12:50 RDW 16.9 % (11.6-15.6) H 02/09/17 12:50 Plt Count 348 K/MM3 (134-434) 02/09/17 12:50 MPV 9.3 fl (7.5-11.1) 02/09/17 12:50 CMP Sodium 155 mmol/L (136-145) H 02/09/17 12:50 Potassium 3.8 mmol/L (3.5-5.1) 02/09/17 12:50 Chloride 111 mmol/L (98-107) H 02/09/17 12:50 Carbon Dioxide 40 mmol/L (21-32) H 02/09/17 12:50 Anion Gap 4 (8-16) L 02/09/17 12:50 BUN 51 mg/dL (7-18) H D 02/09/17 12:50 Creatinine 1.1 mg/dL (0.55-1.02) H 02/09/17 12:50 Creat Clearance w eGFR 46.98 (>60) 02/09/17 12:50 Random Glucose 113 mg/dL (74-106) H D 02/09/17 12:50 Calcium 12.3 mg/dL (8.5-10.1) H 02/09/17 12:50 Total Bilirubin 0.5 mg/dL (0.2-1.0) 02/09/17 12:50 AST 23 U/L (15-37) 02/09/17 12:50 ALT 17 U/L (12-78) 02/09/17 12:50 Alkaline Phosphatase 69 U/L (45-117) 02/09/17 12:50 Total Protein 6.3 g/dl (6.4-8.2) L 02/09/17 12:50 Albumin 2.5 g/dl (3.4-5.0) L 02/09/17 12:50 CARDIAC ENZYMES Creatine Kinase 217 IU/L (26-192) H D 01/26/17 07:25 Troponin I 0.03 ng/ml (0.00-0.05) 01/26/17 07:25 Current Medications Generic Name Dose Route Start Last Admin Trade Name Freq PRN Reason Stop Dose Admin Acetaminophen 650 mg 02/09/17 14:59 Tylenol - PO Q6H PRN FEVER OR PAIN Amlodipine Besylate 5 mg 02/10/17 10:00 Norvasc - PO DAILY [facility] Aspirin 300 mg 02/09/17 17:15 02/09/17 20:42 Asa - RC 300 mg DAILY [facility] Administration Cinacalcet 30 mg 02/09/17 22:00 Sensipar - PO BID [facility] Heparin Sodium (Porcine) 5,000 unit 02/09/17 22:00 Heparin - SQ TID [facility] Dextrose 1,000 mls @ 100 mls/hr 02/10/17 00:00 D5w - IV ASDIR [facility] Methylprednisolone Sodium Succinate 40 mg 02/09/17 22:00 Solu-Medrol - IVPB BID [facility] Nebivolol 10 mg 02/10/17 10:00 Bystolic - PO DAILY [facility] Pantoprazole Sodium 40 mg 02/10/17 10:00 Protonix Packets For Oral Suspension - GT DAILY [facility] Rosuvastatin Calcium 10 mg 02/09/17 22:00 Crestor - PO HS [facility] Senna 2 tab 02/09/17 14:59 Senna - PO HS PRN CONSTIPATION Home Medications Medication Instructions Recorded Allopurinol [Zyloprim -] 100 mg PO DAILY 12/21/16 Cholecalciferol (Vitamin D3) 50,000 unit PO MONTHLY 12/21/16 [Vitamin D -] Methimazole [Tapazole] 5 mg PO DAILY 12/21/16 Nebivolol HCl [Bystolic] 10 mg PO DAILY 12/21/16 Omeprazole 40 mg PO DAILY 12/21/16 Ranolazine [Ranexa] 500 mg PO BID 12/21/16 Rosuvastatin Calcium [Crestor] 10 mg PO HS 12/21/16 Amlodipine Besylate [Norvasc -] 10 mg PO DAILY #30 tablet 12/23/16 Torsemide [Demadex -] 10 mg PO DAILY #30 tablet 12/23/16 Warfarin Na [Coumadin -] 5 mg PO DAILY #0 12/23/16 Neuro: Pupils reactive ; follows command; Unable to move the left side but able to move the right side. ASSESSMENT AND PLAN: Patient is a 86 y/o lady with h/o CHF, COPD , Pulm HTN with bioprosthetic aortic valve replacement presented with SOB and was found to have acute respiratory failure with difficulty breathing admitted for acute on chronic diastolic CHF. # Left sided weakness r/o Acute CVA ; Neurology consult stat, head CT ordered stat. #Acute hypoxic hypercapnic respiratory failure continues on Bipap due to her COPD exacerbation and acute on chronic diastolic CHF exacerbation: On IV Steroids continue, lasix is on hold since she looks dry, on BIPAP support as needed. # Change of mental status on and off, multi-factorial. # Acute Hypernatremia with sodium of 155 today continue D5w, further managment per nephrology . # Acute Hypercalcemia on Sensipar continue #Acute on Chronic diastolic CHF Exacerbation with EJF of 51% on 12/23/2016; repeat ECHO reviewed ; off Lasix now , Continue daily weights. #MADONNA on CKD BUN/Cr 62/3.--63/3.4-->65/3.4-->60/2.7-->57/2.3---> 41/1.0--51/1.1 Nephro consult appreciated. # paroxysmal aflutter [id number] ; given 5mg coumadin last night INR is 2.1 ; cont BB #s/p RUE edema . US with no DVT #CAD Continue Bystolic closely monitor renal function #HLD crestor 10mg po hs # Left breast ca s/p mastectomy Code status: DNR/DNI; DVT Px: on coumadin
[2017-02-09] MEDS: HEPARIN NA (PORCINE) 5,000 UNITS/ML 1ML VIAL SQ SCH (21:04)
[2017-02-09] MEDS: ROSUVASTATIN CA 10 MG TABLET (FP) PO SCH (21:05)
[2017-02-10] MEDS ORDERED: DEXTROSE 5%-WATER - 1,000 ML IV SCH
[2017-02-10] MEDS: DEXTROSE 5%-WATER - 1,000 ML IV SCH ×2 (00:09→10:37)
[2017-02-10] MEDS: HEPARIN NA (PORCINE) 5,000 UNITS/ML 1ML VIAL SQ SCH ×3 (05:59→21:52)
[2017-02-10 07:09] LABS: BASOPHIL 0.1 % (0-2.0); MCH 24.4 pg (25.7-33.7); MCHC 29.7 g/dl (32.0-36.0); MEAN PLT VOLUME 10.2 fl (7.5-11.1); NEUTROPHILS 92.4 % (42.8-82.8); PLATELET COUNT 236 K/MM3 (134-434); RDW 17.2 % (11.6-15.6); WHITE BLOOD COUNT 13.9 K/mm3 (4.0-10.0)
[2017-02-10 07:36] LABS: CREATININE 1.1 mg/dL (0.55-1.02)
[2017-02-10 07:38] LABS: INR 1.15 (0.82-1.09); PROTHROMBIN TIME (PATIENT) 12.7 SEC (9.98-11.88)
--- NOTE | 2017-02-10 07:48 | PN ---
Teaching Attending Note Name of Resident: Shade Muñoz ATTENDING PHYSICIAN STATEMENT I saw and evaluated the patient. I reviewed the resident's note and discussed the case with the resident. I agree with the resident's findings and plan as documented. Patient is lethargic .follows commands, arousable. Vital Signs Temperature 97.4 F L 02/10/17 06:00 Pulse Rate 68 02/10/17 06:00 Respiratory Rate 20 02/10/17 06:00 Blood Pressure 117/57 02/10/17 06:00 O2 Sat by Pulse Oximetry (%) 96 02/10/17 06:30 CBCD WBC 13.9 K/mm3 (4.0-10.0) H 02/10/17 05:35 RBC 3.77 M/mm3 (3.60-5.2) 02/10/17 05:35 Hgb 9.2 GM/dL (10.7-15.3) L 02/10/17 05:35 Hct 30.9 % (32.4-45.2) L 02/10/17 05:35 MCV 82.0 fl (80-96) 02/10/17 05:35 MCHC 29.7 g/dl (32.0-36.0) L 02/10/17 05:35 RDW 17.2 % (11.6-15.6) H 02/10/17 05:35 Plt Count 236 K/MM3 (134-434) D 02/10/17 05:35 MPV 10.2 fl (7.5-11.1) 02/10/17 05:35 CMP Sodium 155 mmol/L (136-145) H 02/09/17 12:50 Potassium 3.8 mmol/L (3.5-5.1) 02/09/17 12:50 Chloride 111 mmol/L (98-107) H 02/09/17 12:50 Carbon Dioxide 40 mmol/L (21-32) H 02/09/17 12:50 Anion Gap 4 (8-16) L 02/09/17 12:50 BUN 51 mg/dL (7-18) H D 02/09/17 12:50 Creatinine 1.1 mg/dL (0.55-1.02) H 02/09/17 12:50 Creat Clearance w eGFR 46.98 (>60) 02/09/17 12:50 Random Glucose 113 mg/dL (74-106) H D 02/09/17 12:50 Calcium 12.3 mg/dL (8.5-10.1) H 02/09/17 12:50 Total Bilirubin 0.5 mg/dL (0.2-1.0) 02/09/17 12:50 AST 23 U/L (15-37) 02/09/17 12:50 ALT 17 U/L (12-78) 02/09/17 12:50 Alkaline Phosphatase 69 U/L (45-117) 02/09/17 12:50 Total Protein 6.3 g/dl (6.4-8.2) L 02/09/17 12:50 Albumin 2.5 g/dl (3.4-5.0) L 02/09/17 12:50 CARDIAC ENZYMES Creatine Kinase 217 IU/L (26-192) H D 01/26/17 07:25 Troponin I 0.03 ng/ml (0.00-0.05) 01/26/17 07:25 Current Medications Generic Name Dose Route Start Last Admin Trade Name Freq PRN Reason Stop Dose Admin Acetaminophen 650 mg 02/09/17 14:59 Tylenol - PO Q6H PRN FEVER OR PAIN Amlodipine Besylate 5 mg 02/10/17 10:00 Norvasc - PO DAILY [facility] Aspirin 300 mg 02/09/17 17:15 02/09/17 20:42 Asa - RC 300 mg DAILY ALOK Administration Cinacalcet 30 mg 02/09/17 22:00 02/09/17 21:05 Sensipar - PO Not Given BID [facility] Heparin Sodium (Porcine) 5,000 unit 02/09/17 22:00 02/10/17 05:59 Heparin - SQ 5,000 unit TID ALOK Administration Dextrose 1,000 mls @ 100 mls/hr 02/10/17 00:00 02/10/17 00:09 D5w - IV 100 mls/hr ASDIR ALOK Administration Methylprednisolone Sodium Succinate 40 mg 02/09/17 22:00 02/09/17 21:04 Solu-Medrol - IVPB 40 mg BID ALOK Administration Metoprolol Tartrate 5 mg 02/10/17 07:45 Lopressor Injection - IVPB Q4H ALOK Nebivolol 10 mg 02/10/17 10:00 Bystolic - PO DAILY [facility] Pantoprazole Sodium 40 mg 02/10/17 10:00 Protonix Packets For Oral Suspension - GT DAILY ALOK Rosuvastatin Calcium 10 mg 02/09/17 22:00 02/09/17 21:05 Crestor - PO Not Given HS ALOK Senna 2 tab 02/09/17 14:59 Senna - PO HS PRN CONSTIPATION Home Medications Medication Instructions Recorded Allopurinol [Zyloprim -] 100 mg PO DAILY 12/21/16 Cholecalciferol (Vitamin D3) 50,000 unit PO MONTHLY 12/21/16 [Vitamin D -] Methimazole [Tapazole] 5 mg PO DAILY 12/21/16 Nebivolol HCl [Bystolic] 10 mg PO DAILY 12/21/16 Omeprazole 40 mg PO DAILY 12/21/16 Ranolazine [Ranexa] 500 mg PO BID 12/21/16 Rosuvastatin Calcium [Crestor] 10 mg PO HS 12/21/16 Amlodipine Besylate [Norvasc -] 10 mg PO DAILY #30 tablet 12/23/16 Torsemide [Demadex -] 10 mg PO DAILY #30 tablet 12/23/16 Warfarin Na [Coumadin -] 5 mg PO DAILY #0 12/23/16 Neuro: Pupils reactive ; follows command; Unable to move the left side but able to move the right side. lethargic. right side of the eye edematous>left ASSESSMENT AND PLAN: Patient is a 86 y/o lady with h/o CHF, COPD , Pulm HTN with bioprosthetic aortic valve replacement presented with SOB and was found to have acute respiratory failure with difficulty breathing admitted for acute on chronic diastolic CHF. # Acute CVA s/p CT of the head with large MCA stroke. Neurology on the case, added aspirin rectally and Heparin sq, As per neuro since the patient has a large stroke can't be anticoagulated at this time, will hold coumadin #Acute hypoxic hypercapnic respiratory failure continues on Bipap due to her COPD exacerbation and acute on chronic diastolic CHF exacerbation: On IV Steroids continue, on BIPAP support as needed. # Acute Hypernatremia continues with sodium of 155 today continue D5w, further managment per nephrology . # Acute Hypercalcemia on Sensipar continue Nephro on the case #Acute on Chronic diastolic CHF Exacerbation with EJF of 51% on 12/23/2016; repeat ECHO reviewed ; off Lasix now , Continue daily weights. #MADONNA on CKD BUN/Cr 62/3.--63/3.4-->65/3.4-->60/2.7-->57/2.3---> 41/1.0--51/1.1 Nephro consult appreciated. # paroxysmal aflutter [id number] ;Off anticoagulation now since has a large MCA stroke ; cont BB IV Lopressor #s/p RUE edema . US with no DVT #CAD Continue Bystolic closely monitor renal function #HLD crestor 10mg po hs # Left breast ca s/p mastectomy Code status: DNR/DNI; DVT Px: heparin sq only
[2017-02-10] MEDS ORDERED: NEBIVOLOL 10 MG TABLET (FP) PO SCH (10:00)
[2017-02-10] MEDS ORDERED: PT OWN MED DRAWER 7, Y5N ONE (10:25)
[2017-02-10] MEDS: ASPIRIN 300 MG SUPP.RECT RC SCH (10:36)
[2017-02-10] MEDS: methylPREDNISolone NA SUCC 40 MG/1 ML VIAL IVPB SCH ×2 (10:36→21:54)
--- NOTE | 2017-02-10 10:43 | PN ---
Progress Note, Physician History of Present Illness: Renal f/u She remains poorly responsive Awaiting placement for Hospice care - Current Medication List Current Medications: Active Medications Acetaminophen (Tylenol -) 650 mg PO Q6H PRN PRN Reason: FEVER OR PAIN Amlodipine Besylate (Norvasc -) 5 mg PO DAILY [facility] Aspirin (Asa -) 300 mg RC DAILY [facility] Last Admin: 02/09/17 20:42 Dose: 300 mg Cinacalcet (Sensipar -) 30 mg PO BID [facility] Last Admin: 02/09/17 21:05 Dose: Not Given Heparin Sodium (Porcine) (Heparin -) 5,000 unit SQ TID [facility] Last Admin: 02/10/17 05:59 Dose: 5,000 unit Dextrose (D5w -) 1,000 mls @ 100 mls/hr IV ASDIR [facility] Last Admin: 02/10/17 00:09 Dose: 100 mls/hr Methylprednisolone Sodium Succinate (Solu-Medrol -) 40 mg IVPB BID [facility] Last Admin: 02/09/17 21:04 Dose: 40 mg Metoprolol Tartrate (Lopressor Injection -) 5 mg IVPB Q4H-IV [facility] Nebivolol (Bystolic -) 10 mg PO DAILY [facility] Pantoprazole Sodium (Protonix Packets For Oral Suspension -) 40 mg GT DAILY [facility] Rosuvastatin Calcium (Crestor -) 10 mg PO HS [facility] Last Admin: 02/09/17 21:05 Dose: Not Given Senna (Senna -) 2 tab PO HS PRN PRN Reason: CONSTIPATION - Objective Vital Signs: Vital Signs Temperature 97.4 F L 02/10/17 06:00 Pulse Rate 68 02/10/17 06:00 Respiratory Rate 20 02/10/17 06:00 Blood Pressure 117/57 02/10/17 06:00 O2 Sat by Pulse Oximetry (%) 96 02/10/17 06:30 Constitutional: Yes: No Distress Cardiovascular: Yes: S1, S2 Respiratory: Yes: Other (Clear on limited exam) Gastrointestinal: Yes: Soft. No: Distention Edema: Yes Labs: CBC, BMP 02/10/17 05:35 02/10/17 05:35 INR, PTT INR 1.15 (0.82-1.09) H 02/10/17 05:35 Assessment/Plan Impression Hypernatremia improved Acute on CKD New CVA Impression CHF Valvular heart disease s/p bio-MVR and AVR Atrial fibrillation HLD Anemia Breast cancer Plan Continue with increased D5W at100 cc/hr For hospice placement which is to be discussed further with the family as per nursing Dr Velez
[2017-02-10] MEDS: PANTOPRAZOLE SOD 40 MG SUSPENSION PACKET GT SCH (10:47)
[2017-02-10] MEDS: CINACALCET HCL 30 MG TAB (FP) PO SCH (10:47)
[2017-02-10] MEDS: METOPROLOL TARTRATE 5 MG/5 ML VIAL IVPB SCH ×4 (10:47→21:54)
[2017-02-10] MEDS: amLODIPine BESYLATE 5 MG TABLET (FP) PO SCH (10:47)
--- NOTE | 2017-02-10 11:20 | PN ---
Physical Exam: SUBJECTIVE: Patient seen and examined at bedside. lethargic review of systems could not be done s/p stroke yesterday OBJECTIVE: Vital Signs Period Temp Pulse Resp BP Sys/[place] Pulse Ox Last 24 Hr 97.4 F-98.8 F 57-70 18-22 117-157/57-77 90-96 GENERAL: Lethargic not responding HEAD: Normal with no signs of trauma. NECK: left sided nodule felt possible to be parathyroid LUNGS: Crackles at bases bilaterally HEART: irregular S1, S2 systolic murmur best heard at left sternal border +JVD ABDOMEN: Soft, nontender, nondistended EXTREMITIES: warm well perfused RUE +edema Neuro: lethargic PERRLA spontaneously moving right side of body. left leg and arms do not move at all not even in response to pain +scleral edema Laboratory Results - last 24 hr 02/09/17 02/09/17 02/09/17 12:50 12:50 12:50 WBC 13.4 H D RBC 4.14 Hgb 10.1 L Hct 34.0 MCV 82.2 MCHC 29.6 L RDW 16.9 H Plt Count 348 MPV 9.3 Neutrophils % Lymphocytes % Monocytes % Eosinophils % Basophils % INR 1.19 H D Sodium 155 H Potassium 3.8 Chloride 111 H Carbon Dioxide 40 H Anion Gap 4 L BUN 51 H D Creatinine 1.1 H Creat Clearance w eGFR 46.98 Random Glucose 113 H D Calcium 12.3 H Phosphorus 2.3 L Magnesium 2.5 H Total Bilirubin 0.5 AST 23 ALT 17 Alkaline Phosphatase 69 Total Protein 6.3 L Albumin 2.5 L 02/10/17 02/10/17 02/10/17 05:35 05:35 05:35 WBC 13.9 H RBC 3.77 Hgb 9.2 L Hct 30.9 L MCV 82.0 MCHC 29.7 L RDW 17.2 H Plt Count 236 D MPV 10.2 Neutrophils % 92.4 H Lymphocytes % 3.6 L D Monocytes % 3.9 Eosinophils % 0.0 D Basophils % 0.1 INR 1.15 H Sodium 152 H Potassium 4.1 Chloride 110 H Carbon Dioxide 39 H Anion Gap 3 L BUN 47 H Creatinine 1.1 H Creat Clearance w eGFR Random Glucose 153 H D Calcium 12.0 H Phosphorus Magnesium Total Bilirubin AST ALT Alkaline Phosphatase Total Protein Albumin Active Medications Generic Name Dose Route Start Last Admin Trade Name Freq PRN Reason Stop Dose Admin Acetaminophen 650 mg 02/09/17 14:59 Tylenol - PO Q6H PRN FEVER OR PAIN Amlodipine Besylate 5 mg 02/10/17 10:00 02/10/17 10:47 Norvasc - PO Not Given DAILY [facility] Aspirin 300 mg 02/09/17 17:15 02/10/17 10:36 Asa - RC 300 mg DAILY ALOK Administration Cinacalcet 30 mg 02/09/17 22:00 02/10/17 10:47 Sensipar - PO Not Given BID [facility] Heparin Sodium (Porcine) 5,000 unit 02/09/17 22:00 02/10/17 05:59 Heparin - SQ 5,000 unit TID ALOK Administration Dextrose 1,000 mls @ 100 mls/hr 02/10/17 00:00 02/10/17 10:37 D5w - IV 100 mls/hr ASDIR ALOK Administration Methylprednisolone Sodium Succinate 40 mg 02/09/17 22:00 02/10/17 10:36 Solu-Medrol - IVPB 40 mg BID ALOK Administration Metoprolol Tartrate 5 mg 02/10/17 10:00 02/10/17 10:47 Lopressor Injection - IVPB Not Given Q4H-IV [facility] Nebivolol 10 mg 02/10/17 10:00 Bystolic - PO DAILY [facility] Pantoprazole Sodium 40 mg 02/10/17 10:00 02/10/17 10:47 Protonix Packets For Oral Suspension - GT Not Given DAILY [facility] Rosuvastatin Calcium 10 mg 02/09/17 22:00 02/09/17 21:05 Crestor - PO Not Given HS ALOK Senna 2 tab 02/09/17 14:59 Senna - PO HS PRN CONSTIPATION ASSESSMENT/PLAN: 86F with multiple medical problems initially presented with shortness of breath likely secondary to CHF exacerbation Hypoxic hypercapneic respiratory failure: likely from diastolic Acute on chronic congestive heart failure exacerbation Chest CT noted-not significant for pneumonia US-no DVT of upper extremity Possible due to aspiration-speech and swallow eval appreciated will advance to dysphagia puree with honey thickened liquids -unable to eat today lethargic in Bipap pulmonary consult appreciated continue solu-medrol 40mg BID as this seems to be helping her pulmonary status palliative care consult for goals of care appreciated CXR from this morning no significant change CVA: Acute right MCA ischemic stroke likely embolic event from the heart on aspirin will continue HSQ for DVT PPx antricoagulation at this time is contraindication Neurology consult appreciated Acute on Chronic diastolic Congestive Heart Failure Exacerbation hold Lasix patient does not appear fluid overloaded rather she appears dry daily weight I/O De Oliveira for I/O monitoring Cardiology consult appreciated Hypernatremia: continue D5W @ 100ml/hr as patient has free water deficit-increased by nephrology recheck BMP Lab pending Altered Mental Status: likely from a combination of electrolyte abnormalities, environment, hypercapnea and hypoxia Needs correction Leukocytosis: CBC from today pending F/U blood cultures and urine culture from yesterday stil pending UA negative D/C de oliveira intial cultures no growth final do not suspect infectious cause will monitor WBC count Hypercalcemia secondary to primary hyperparathyroidism-calcium pending today Already given calcitonin continue cincalcet-was not getting it as she was not able to take PO meds now able to take PO meds got sensipar yesterday but unable to take it today PTHrp <1.1 endocrinology consult appreciated and noted recheck calcium in AM Acute on chronic renal failure-improved avoid nephrotoxic meds Cr pending will trend Supratherapeutic INR/coumadin toxicity- INR is subtherapeutic at this time anticoagulation is contraindicated per neurology conbtinue aspirin HTN:better controlled with meds given yesterday patient is currently not able to take PO meds Will give Metoprolol IVPB q4h for BP PO meds when able to tolerate PO Atrial fibrillation continue bystolic restart coumadin HLD -continue crestor 10mg po hs when able to tolerate PO Hyperthyroidism continue methimazole 5mg po dailly when able to take PO FEN: D5W @ 100ml/hr hypernatremia hypercalcemia npo for now Dysphagia puree with honey thickened liquids when mental status improves PPx: HSQ/SCDs protonix DNR/DNI palliative care consult appreciated awaiting bed at [facility] poor prognosis. Problem List - Problems (1) Acute exacerbation of CHF (congestive heart failure) Code(s): I50.9 - HEART FAILURE, UNSPECIFIED Qualifiers: Congestive heart failure type: diastolic Qualified Code(s): I50.33 - Acute on chronic diastolic (congestive) heart failure (2) Altered mental status Code(s): R41.82 - ALTERED MENTAL STATUS, UNSPECIFIED (3) Paroxysmal atrial flutter Code(s): I48.92 - UNSPECIFIED ATRIAL FLUTTER (4) A-fib Code(s): I48.91 - UNSPECIFIED ATRIAL FIBRILLATION Qualifiers: Atrial fibrillation type: persistent Qualified Code(s): I48.1 - Persistent atrial fibrillation (5) Acute on chronic diastolic CHF (congestive heart failure) Code(s): I50.33 - ACUTE ON CHRONIC DIASTOLIC (CONGESTIVE) HEART FAILURE (6) [id number] kidney injury Code(s): N17.9 - ACUTE KIDNEY FAILURE, UNSPECIFIED N18.9 - CHRONIC KIDNEY DISEASE, UNSPECIFIED (7) Anemia Code(s): D64.9 - ANEMIA, UNSPECIFIED Qualifiers: Anemia type: unspecified type Qualified Code(s): D64.9 - Anemia, unspecified (8) CAD (coronary artery disease) Code(s): I25.10 - ATHSCL HEART DISEASE OF [place] CORONARY ARTERY W/O ANG PCTRS Qualifiers: Coronary Disease-Associated Artery/Lesion type: [place] artery [place] vs. transplanted heart: [place] heart Associated angina: without angina Qualified Code(s): I25.10 - Atherosclerotic heart disease of [place] coronary artery without angina pectoris (9) HLD (hyperlipidemia) Code(s): E78.5 - HYPERLIPIDEMIA, UNSPECIFIED Qualifiers: Hyperlipidemia type: pure hypercholesterolemia Qualified Code(s): E78.00 - Pure hypercholesterolemia, unspecified; E78.0 - Pure hypercholesterolemia (10) Shortness of breath Code(s): R06.02 - SHORTNESS OF BREATH (11) Hypoxemia Code(s): R09.02 - HYPOXEMIA (12) Leukocytosis Code(s): D72.829 - ELEVATED WHITE BLOOD CELL COUNT, UNSPECIFIED (13) Hypernatremia Code(s): E87.0 - HYPEROSMOLALITY AND HYPERNATREMIA (14) Acute hypernatremia Code(s): E87.0 - HYPEROSMOLALITY AND HYPERNATREMIA Visit type - Emergency Visit Emergency Visit: Yes ED Registration Date: 01/25/17 Care time: The patient presented to the Emergency Department on the above date and was hospitalized for further evaluation of their emergent condition. - New Patient This patient is new to me today: No - Critical Care Critical Care patient: No
--- NOTE | 2017-02-10 11:45 | PN ---
Progress Note, [employer] FACILITATOR - Note Progress Note: Medical events noted. Selected Entries 02/08/17 02/08/17 02/08/17 02:00 06:00 09:00 Temperature 97.8 F 97.8 F 98 F 02/08/17 02/08/17 02/08/17 14:15 17:00 21:00 Temperature 98 F 98.5 F 99.9 F H 02/09/17 02/09/17 02/09/17 05:00 09:00 15:39 Temperature 97.8 F 98.3 F 97.6 F 02/09/17 02/10/17 18:05 06:00 Temperature 98.8 F 97.4 F L Laboratory Tests 02/08/17 02/09/17 02/10/17 05:35 12:50 05:35 WBC 9.7 13.[address] large R MCA infarct. Lethargic since yesterday. Case reviewed with staff. Pending transfer to [place].
--- NOTE | 2017-02-10 15:18 | PN ---
Progress Note, Physician History of Present Illness: pulmonary poorly responsive on bipap. - Current Medication List Current Medications: Active Medications Acetaminophen (Tylenol -) 650 mg PO Q6H PRN PRN Reason: FEVER OR PAIN Amlodipine Besylate (Norvasc -) 5 mg PO DAILY [facility] Last Admin: 02/10/17 10:47 Dose: Not Given Aspirin (Asa -) 300 mg RC DAILY [facility] Last Admin: 02/10/17 10:36 Dose: 300 mg Cinacalcet (Sensipar -) 30 mg PO BID [facility] Last Admin: 02/10/17 10:47 Dose: Not Given Heparin Sodium (Porcine) (Heparin -) 5,000 unit SQ TID [facility] Last Admin: 02/10/17 14:58 Dose: 5,000 unit Dextrose (D5w -) 1,000 mls @ 100 mls/hr IV ASDIR [facility] Last Admin: 02/10/17 10:37 Dose: 100 mls/hr Methylprednisolone Sodium Succinate (Solu-Medrol -) 40 mg IVPB BID [facility] Last Admin: 02/10/17 10:36 Dose: 40 mg Metoprolol Tartrate (Lopressor Injection -) 5 mg IVPB Q4H-IV [facility] Last Admin: 02/10/17 14:58 Dose: 5 mg Nebivolol (Bystolic -) 10 mg PO DAILY [facility] Pantoprazole Sodium (Protonix Packets For Oral Suspension -) 40 mg GT DAILY [facility] Last Admin: 02/10/17 10:47 Dose: Not Given Rosuvastatin Calcium (Crestor -) 10 mg PO HS [facility] Last Admin: 02/09/17 21:05 Dose: Not Given Senna (Senna -) 2 tab PO HS PRN PRN Reason: CONSTIPATION - Objective Vital Signs: Vital Signs Temperature 98 F 02/10/17 13:42 Pulse Rate 63 02/10/17 14:58 Respiratory Rate 21 02/10/17 13:42 Blood Pressure 142/72 02/10/17 14:58 O2 Sat by Pulse Oximetry (%) 94 L 02/10/17 14:30 Constitutional: Yes: Well Nourished, Other (poorly responsive) Eyes: Yes: WNL HENT: Yes: WNL Neck: Yes: WNL Cardiovascular: Yes: Pulse Irregular, S1, S2 Respiratory: Yes: Diminished Gastrointestinal: Yes: Normal Bowel Sounds, Soft Extremities: Yes: WNL Edema: No Labs: CBC, BMP 02/10/17 05:35 02/10/17 05:35 INR, PTT INR 1.15 (0.82-1.09) H 02/10/17 05:35 Assessment/Plan A/P Altered Mental Status Acute on Chronic LV Diastolic Heart Failure Pulmonary HTN Pleural Effusion Compressive Atelectasis Paroxysmal Atrial Flutter s/p AVR/MVR HTN Acute CVA - continue lasix as needed - free water replacement - monitor urine output, creatinine - daily weights, I/Os - O2 to keep SpO2 >90% - BiPAP - taper off steroids - DVT prophylaxis - Prognosis poor Problem List - Problems (1) Altered mental status Code(s): R41.82 - ALTERED MENTAL STATUS, UNSPECIFIED (2) Acute on chronic diastolic CHF (congestive heart failure) Code(s): I50.33 - ACUTE ON CHRONIC DIASTOLIC (CONGESTIVE) HEART FAILURE (3) [id number] kidney injury Code(s): N17.9 - ACUTE KIDNEY FAILURE, UNSPECIFIED N18.9 - CHRONIC KIDNEY DISEASE, UNSPECIFIED (4) Paroxysmal atrial flutter Code(s): I48.92 - UNSPECIFIED ATRIAL FLUTTER (5) Coumadin toxicity Code(s): T45.511A - POISONING BY ANTICOAGULANTS, ACCIDENTAL, INIT Qualifiers: Encounter type: sequela Injury intent: undetermined intent Qualified Code(s): T45.514S - Poisoning by anticoagulants, undetermined, sequela (6) CAD (coronary artery disease) Code(s): I25.10 - ATHSCL HEART DISEASE OF [place] CORONARY ARTERY W/O ANG PCTRS Qualifiers: Coronary Disease-Associated Artery/Lesion type: [place] artery [place] vs. transplanted heart: [place] heart Associated angina: without angina Qualified Code(s): I25.10 - Atherosclerotic heart disease of [place] coronary artery without angina pectoris
--- NOTE | 2017-02-10 15:22 | PN ---
Progress Note, Physician Chief Complaint: left side weakness, aphasia History of Present Illness: 86 y/o female patient with h/o CHF, COPD , Pulm HTN with bioprosthetic aortic valve replacement was admitted two weeks ago for SOB, acute on chronic diastolic CHF and very high INR of 24h. This afternoon the resident noticed the patient is not moving the left arm and left leg. The last time seen normal, moving the left side was last night by the family. CT head stat was read as right MCA stroke with hypodensity. The patient is not a candidate for ivtpa as last time seen normal was 20h. ago, there is a large hypodensity on CT head, this is a massive stroke. The INR was 2.1 yesterday and the INR is 1.1 today. No events overnight. The patient is obtunded, withdraws at pain on the right side. - Current Medication List Current Medications: Active Medications Acetaminophen (Tylenol -) 650 mg PO Q6H PRN PRN Reason: FEVER OR PAIN Amlodipine Besylate (Norvasc -) 5 mg PO DAILY [facility] Last Admin: 02/10/17 10:47 Dose: Not Given Aspirin (Asa -) 300 mg RC DAILY [facility] Last Admin: 02/10/17 10:36 Dose: 300 mg Cinacalcet (Sensipar -) 30 mg PO BID [facility] Last Admin: 02/10/17 10:47 Dose: Not Given Heparin Sodium (Porcine) (Heparin -) 5,000 unit SQ TID [facility] Last Admin: 02/10/17 14:58 Dose: 5,000 unit Dextrose (D5w -) 1,000 mls @ 100 mls/hr IV ASDIR [facility] Last Admin: 02/10/17 10:37 Dose: 100 mls/hr Methylprednisolone Sodium Succinate (Solu-Medrol -) 40 mg IVPB BID [facility] Last Admin: 02/10/17 10:36 Dose: 40 mg Metoprolol Tartrate (Lopressor Injection -) 5 mg IVPB Q4H-IV [facility] Last Admin: 02/10/17 14:58 Dose: 5 mg Nebivolol (Bystolic -) 10 mg PO DAILY [facility] Pantoprazole Sodium (Protonix Packets For Oral Suspension -) 40 mg GT DAILY [facility] Last Admin: 02/10/17 10:47 Dose: Not Given Rosuvastatin Calcium (Crestor -) 10 mg PO HS [facility] Last Admin: 02/09/17 21:05 Dose: Not Given Senna (Senna -) 2 tab PO HS PRN PRN Reason: CONSTIPATION - Objective Vital Signs: Vital Signs Temperature 98 F 02/10/17 13:42 Pulse Rate 63 02/10/17 14:58 Respiratory Rate 21 02/10/17 13:42 Blood Pressure 142/72 02/10/17 14:58 O2 Sat by Pulse Oximetry (%) 94 L 02/10/17 14:30 Constitutional: Yes: Moderate Distress Eyes: Yes: Conjunctiva Clear, EOM Intact, PERRL Neck: Yes: Supple, Trachea Midline Cardiovascular: Yes: Regular Rate and Rhythm, Tachycardia, S1, S2 Respiratory: Yes: On BiPap Gastrointestinal: Yes: Normal Bowel Sounds, Soft Genitourinary: Yes: WNL Breast(s): Yes: WNL Musculoskeletal: Yes: WNL Edema: Yes Edema: LUE: 2+, RUE: 2+, LLE: 2+, RLE: 2+ Peripheral Pulses WNL: Yes Peripheral Pulses: Left Radial: 1+, Right Radial: 1+ Labs: CBC, BMP 02/10/17 05:35 02/10/17 05:35 INR, PTT INR 1.15 (0.82-1.09) H 02/10/17 05:35 - ....Imaging Cat Scan: Report Reviewed, Image Reviewed Problem List - Problems (1) CVA (cerebrovascular accident) Code(s): I63.9 - CEREBRAL INFARCTION, UNSPECIFIED (2) Acute right MCA stroke Code(s): I63.511 - CEREB INFRC D/T UNSP OCCLS OR STENOS OF RIGHT MID CEREB ART Assessment/Plan 86 y/o female patient with h/o CHF, COPD , Pulm HTN with bioprosthetic aortic valve replacement was admitted two weeks ago for SOB, acute on chronic diastolic CHF and very high INR of 24h. This afternoon the resident noticed the patient is not moving the left arm and left leg. The last time seen normal, moving the left side was last night by the family. CT head stat was read as right MCA stroke with hypodensity. The patient is not a candidate for ivtpa as last time seen normal was 20h. ago, there is a large hypodensity on CT head, this is a massive stroke. NIHS is 30p. with severe aphasia, dysarthria, left side hemiplegia dense. Plan: - the patient is DNR/DNI and she was waiting for a hospice bed in [place]- comfort measures only. Have a long discussion with the family yesterday. Discussed about the large right MCA stroke and edema . The stated the patient is DNR /DNI and refused any surgery/ craniectomy . - No stroke work up necessary as the patient had the stroke on the subtherapeutic INR 1.1. - start ASA 81mg. po daily, lovenox sq daily - respiratory distress - management per medical team. Palliative care , consult palliative care. - tylenol prn. q 6h. for pain. - management per palliative care, medical team. Thank you for this kind referral. Please call prn. NIH Stroke Scale - Last Known Well Date/Time & Onset Date Last Known Well: 02/08/17 Time Last Known Well: 21:00 - Initial Evaluation Level of consciousness: Not alert, requires repeat stimulation to attend Ask patient the month and their age: Both incorrect Ask patient to open & close eyes; make fist and let go: Both incorrect Visual field testing: Partial hemianopia Facial paresis (Show teeth/raise eyebrows/close eyes tight): Partial paralysis ( total or near paralysis of lower face) Motor Function: Left Arm: No movement Motor Function: Right Arm: Some effort against gravity Motor Function: Left Leg: No movement Motor Function: Right Leg: Some effort against gravity Limb Ataxia: No ataxia Sensory(Use pinprick test arms,legs,trunk,face/side to side): Severe to total sensory loss Best language (Describe picture, name items, read sentences): Severe aphasia Dysarthria (read several words): Near unintelligible or unable to speak Extinction and Inattention: Profound felicitas-inattention or extinction to more than one modality
--- NOTE | 2017-02-10 16:45 | PN ---
Progress Note, Physician History of Present Illness: Obtunded on bipap. - Current Medication List Current Medications: Active Medications Acetaminophen (Tylenol -) 650 mg PO Q6H PRN PRN Reason: FEVER OR PAIN Amlodipine Besylate (Norvasc -) 5 mg PO DAILY [facility] Last Admin: 02/10/17 10:47 Dose: Not Given Aspirin (Asa -) 300 mg RC DAILY [facility] Last Admin: 02/10/17 10:36 Dose: 300 mg Cinacalcet (Sensipar -) 30 mg PO BID [facility] Last Admin: 02/10/17 10:47 Dose: Not Given Heparin Sodium (Porcine) (Heparin -) 5,000 unit SQ TID [facility] Last Admin: 02/10/17 14:58 Dose: 5,000 unit Dextrose (D5w -) 1,000 mls @ 100 mls/hr IV ASDIR [facility] Last Admin: 02/10/17 10:37 Dose: 100 mls/hr Methylprednisolone Sodium Succinate (Solu-Medrol -) 40 mg IVPB BID [facility] Last Admin: 02/10/17 10:36 Dose: 40 mg Metoprolol Tartrate (Lopressor Injection -) 5 mg IVPB Q4H-IV [facility] Last Admin: 02/10/17 14:58 Dose: 5 mg Nebivolol (Bystolic -) 10 mg PO DAILY [facility] Pantoprazole Sodium (Protonix Packets For Oral Suspension -) 40 mg GT DAILY [facility] Last Admin: 02/10/17 10:47 Dose: Not Given Rosuvastatin Calcium (Crestor -) 10 mg PO HS [facility] Last Admin: 02/09/17 21:05 Dose: Not Given Senna (Senna -) 2 tab PO HS PRN PRN Reason: CONSTIPATION - Objective Vital Signs: Vital Signs Temperature 98 F 02/10/17 13:42 Pulse Rate 63 02/10/17 14:58 Respiratory Rate 21 02/10/17 13:42 Blood Pressure 142/72 02/10/17 14:58 O2 Sat by Pulse Oximetry (%) 94 L 02/10/17 14:30 Constitutional: Yes: No Distress, Calm Neck: Yes: Supple Cardiovascular: Yes: Regular Rate and Rhythm Respiratory: Yes: Regular, Diminished Gastrointestinal: Yes: Normal Bowel Sounds, Soft Edema: No Labs: CBC, BMP 02/10/17 05:35 02/10/17 05:35 INR, PTT INR 1.15 (0.82-1.09) H 02/10/17 05:35 Problem List - Problems (1) A-fib Code(s): I48.91 - UNSPECIFIED ATRIAL FIBRILLATION Qualifiers: Atrial fibrillation type: persistent Qualified Code(s): I48.1 - Persistent atrial fibrillation (2) Acute on chronic diastolic CHF (congestive heart failure) Code(s): I50.33 - ACUTE ON CHRONIC DIASTOLIC (CONGESTIVE) HEART FAILURE (3) CAD (coronary artery disease) Code(s): I25.10 - ATHSCL HEART DISEASE OF [place] CORONARY ARTERY W/O ANG PCTRS Qualifiers: Coronary Disease-Associated Artery/Lesion type: [place] artery [place] vs. transplanted heart: [place] heart Associated angina: without angina Qualified Code(s): I25.10 - Atherosclerotic heart disease of [place] coronary artery without angina pectoris (4) HLD (hyperlipidemia) Code(s): E78.5 - HYPERLIPIDEMIA, UNSPECIFIED Qualifiers: Hyperlipidemia type: pure hypercholesterolemia Qualified Code(s): E78.00 - Pure hypercholesterolemia, unspecified; E78.0 - Pure hypercholesterolemia (5) Hypertensive cardiomyopathy Code(s): I11.9 - HYPERTENSIVE HEART DISEASE WITHOUT HEART FAILURE I42.9 - CARDIOMYOPATHY, UNSPECIFIED Qualifiers: Heart failure presence: with heart failure Qualified Code(s): I11.0 - Hypertensive heart disease with heart failure (6) S/P aortic valve replacement with bioprosthetic valve Code(s): Z95.4 - PRESENCE OF OTHER HEART-VALVE REPLACEMENT (8) Shortness of breath Code(s): R06.02 - SHORTNESS OF BREATH (9) Premature ventricular complex Code(s): I49.3 - VENTRICULAR PREMATURE DEPOLARIZATION (10) Cerebrovascular disease Code(s): I67.9 - CEREBROVASCULAR DISEASE, UNSPECIFIED (11) Hypercalcemia Code(s): E83.52 - HYPERCALCEMIA (12) Hyperparathyroidism Code(s): E21.3 - HYPERPARATHYROIDISM, UNSPECIFIED Assessment/Plan 1. Acute right MCA stroke 2. Altered Mental Status with hypernatremia 3. Acute on chronic respiratory failure probably multi-factorial; including related to acute on chronic LV diastolic failure, intrinsic lung disease, atelectasis 4. CAD, angina pectoris 5. History of MVR and AVR (Bio-prosthesis) with elevated trans-aortic gradient, restonosis vs. prosthesis-patient mismatch 6. Persistent atrial fibrillation on Coumadin with supra-therapeutic INR, AM INR pending 7. HTN 8. Hyperlipidemia 9. OBS/dementia 10. Hyperthyroidism 11. Hypercalcemia with hyperparathyroidism 12. CKD with hypernatremia 13. Anemia PLAN: 1. Continue BiPAP as needed 2. Hospice, palliative care planned 3. Please recall as needed -
[2017-02-11] MEDS: ROSUVASTATIN CA 10 MG TABLET (FP) PO SCH (01:27)
[2017-02-11] MEDS: DEXTROSE 5%-WATER - 1,000 ML IV SCH ×2 (01:28→22:22)
[2017-02-11] MEDS: METOPROLOL TARTRATE 5 MG/5 ML VIAL IVPB SCH ×6 (01:34→22:21)
[2017-02-11] MEDS: CINACALCET HCL 30 MG TAB (FP) PO SCH ×2 (01:44→10:54)
[2017-02-11] MEDS: HEPARIN NA (PORCINE) 5,000 UNITS/ML 1ML VIAL SQ SCH ×3 (05:49→22:21)
[2017-02-11 07:47] LABS: MCH 24.3 pg (25.7-33.7); MCHC 29.7 g/dl (32.0-36.0); MEAN PLT VOLUME 10.3 fl (7.5-11.1); PLATELET COUNT 280 K/MM3 (134-434); RDW 17.2 % (11.6-15.6); WHITE BLOOD COUNT 14.1 K/mm3 (4.0-10.0)
[2017-02-11 07:58] LABS: INR 1.2 (0.82-1.09); PROTHROMBIN TIME (PATIENT) 13.3 SEC (9.98-11.88)
[2017-02-11 09:24] LABS: ALBUMIN 2.3 g/dl (3.4-5.0); BILIRUBIN,TOTAL 0.7 mg/dL (0.2-1.0); CALCIUM 12.1 mg/dL (8.5-10.1); CREATININE 1.1 mg/dL (0.55-1.02)
[2017-02-11 09:32] LABS: THYROID STIMULATING HORMONE 0.65 uIU/ml (0.358-3.74)
[2017-02-11] MEDS: ASPIRIN 300 MG SUPP.RECT RC SCH (10:42)
[2017-02-11] MEDS: amLODIPine BESYLATE 5 MG TABLET (FP) PO SCH (10:51)
[2017-02-11] MEDS: PANTOPRAZOLE SOD 40 MG SUSPENSION PACKET GT SCH (10:52)
[2017-02-11] MEDS: methylPREDNISolone NA SUCC 40 MG/1 ML VIAL IVPB SCH ×2 (12:12→22:21)
[2017-02-11] MEDS ORDERED: GLYCERIN 1 RECTAL SUPPOSITORY, ADULT RC PRN (12:49)
[2017-02-11] MEDS ORDERED: ENALAPRILAT DIHYDRATE 1.25 MG/1 ML VIAL IVPB SCH (13:00)
--- NOTE | 2017-02-11 13:08 | PN ---
Progress Note (short form) - Note Progress Note: Neurology 86 y/o female patient with h/o CHF, COPD , Pulm HTN with bioprosthetic aortic valve replacement was admitted two weeks ago for SOB, acute on chronic diastolic CHF and seen by Dr. [place] and with left arm and left leg. Was not TPA cadndidate due to time of onset. Patient with daughter at bedside. Positive pressure therapy with mask in place. Active Medications Amlodipine Besylate (Norvasc -) 5 mg PO DAILY [facility] Last Admin: 02/11/17 10:51 Dose: Not Given Aspirin (Asa -) 300 mg RC DAILY [facility] Last Admin: 02/11/17 10:42 Dose: 300 mg Cinacalcet (Sensipar -) 30 mg PO BID [facility] Last Admin: 02/11/17 10:54 Dose: Not Given Enalaprilat (Vasotec Injection -) 1.25 mg IVPB Q6H-IV [facility] Glycerin (Glycerin Suppository Adult -) 2 each RC DAILY PRN PRN Reason: CONSTIPATION Heparin Sodium (Porcine) (Heparin -) 5,000 unit SQ TID [facility] Last Admin: 02/11/17 05:49 Dose: 5,000 unit Dextrose (D5w -) 1,000 mls @ 100 mls/hr IV ASDIR [facility] Last Admin: 02/11/17 01:28 Dose: 100 mls/hr Pantoprazole Sodium (Protonix 40mg Ivpb (Pre-Docked)) 100 mls @ 200 mls/hr IVPB DAILY [facility] Methylprednisolone Sodium Succinate (Solu-Medrol -) 40 mg IVPB BID [facility] Last Admin: 02/11/17 12:12 Dose: 40 mg Metoprolol Tartrate (Lopressor Injection -) 5 mg IVPB Q4H-IV [facility] Last Admin: 02/11/17 10:42 Dose: 5 mg Nebivolol (Bystolic -) 10 mg PO DAILY [facility] Rosuvastatin Calcium (Crestor -) 10 mg PO HS [facility] Last Admin: 02/11/17 01:27 Dose: Not Given - Objective Vital Signs: Vital Signs Temperature 98 F 02/10/17 13:42 Pulse Rate 63 02/10/17 14:58 Respiratory Rate 21 02/10/17 13:42 Blood Pressure 142/72 02/10/17 14:58 O2 Sat by Pulse Oximetry (%) 94 L 02/10/17 14:30 Constitutional: Yes: Moderate Distress Eyes: Yes: Conjunctiva Clear, EOM Intact, PERRL Neck: Yes: Supple, Trachea Midline Cardiovascular: Yes: Regular Rate and Rhythm, Tachycardia, S1, S2 Respiratory: Yes: On BiPap Gastrointestinal: Yes: Normal Bowel Sounds, Soft Genitourinary: Yes: WNL Breast(s): Yes: WNL Musculoskeletal: Yes: WNL Edema: Yes Edema: LUE: 2+, RUE: 2+, LLE: 2+, RLE: 2+ Peripheral Pulses WNL: Yes Peripheral Pulses: Left Radial: 1+, Right Radial: 1+ Labs: CBCD WBC 14.1 K/mm3 (4.0-10.0) H 02/11/17 06:10 RBC 4.19 M/mm3 (3.60-5.2) 02/11/17 06:10 Hgb 10.2 GM/dL (10.7-15.3) L D 02/11/17 06:10 Hct 34.4 % (32.4-45.2) 02/11/17 06:10 MCV 82.0 fl (80-96) 02/11/17 06:10 MCHC 29.7 g/dl (32.0-36.0) L 02/11/17 06:10 RDW 17.2 % (11.6-15.6) H 02/11/17 06:10 Plt Count 280 K/MM3 (134-434) 02/11/17 06:10 MPV 10.3 fl (7.5-11.1) 02/11/17 06:10 CMP Sodium 148 mmol/L (136-145) H 02/11/17 06:10 Potassium 4.3 mmol/L (3.5-5.1) 02/11/17 06:10 Chloride 107 mmol/L (98-107) 02/11/17 06:10 Carbon Dioxide 37 mmol/L (21-32) H 02/11/17 06:10 Anion Gap 4 (8-16) L 02/11/17 06:10 BUN 47 mg/dL (7-18) H 02/11/17 06:10 Creatinine 1.1 mg/dL (0.55-1.02) H 02/11/17 06:10 Creat Clearance w eGFR 46.98 (>60) 02/11/17 06:10 Calcium 12.1 mg/dL (8.5-10.1) H 02/11/17 06:10 Total Bilirubin 0.7 mg/dL (0.2-1.0) D 02/11/17 06:10 AST 26 U/L (15-37) 02/11/17 06:10 ALT 17 U/L (12-78) 02/11/17 06:10 Alkaline Phosphatase 72 U/L (45-117) 02/11/17 06:10 Total Protein 6.0 g/dl (6.4-8.2) L 02/11/17 06:10 Albumin 2.3 g/dl (3.4-5.0) L 02/11/17 06:10 - ....Imaging Cat Scan: Report Reviewed, Image Reviewed Problem List - Problems (1) CVA (cerebrovascular accident) Code(s): I63.9 - CEREBRAL INFARCTION, UNSPECIFIED (2) Acute right MCA stroke Code(s): I63.511 - CEREB INFRC D/T UNSP OCCLS OR STENOS OF RIGHT MID CEREB ART Assessment/Plan 86 y/o female patient with h/o CHF, COPD , Pulm HTN with bioprosthetic aortic valve replacement was admitted two weeks ago for SOB, acute on chronic diastolic CHF and seen by Dr. [place] and with left arm and left leg. Was not TPA cadndidate due to time of onset. Patient with daughter at bedside. Positive pressure therapy with mask in place. Plan: - the patient is DNR/DNI and she was waiting for a hospice bed in [place]- comfort measures only. - No stroke work up necessary as the patient had the stroke on the subtherapeutic INR 1.1. - ASA - Continue positive pressure. Palliative care , consult palliative care. - tylenol prn. q 6h. for pain. - management per palliative care, medical team.
--- NOTE | 2017-02-11 13:19 | PN ---
Physical Exam: SUBJECTIVE: Patient seen and examined Patient is nonverbal, not following any commands. OBJECTIVE: Vital Signs Temperature 98.2 F 02/11/17 10:00 Pulse Rate 84 02/11/17 10:42 Respiratory Rate 32 H 02/11/17 10:00 Blood Pressure 168/80 02/11/17 10:42 O2 Sat by Pulse Oximetry (%) 98 02/11/17 10:35 GENERAL: does not follow any command at this time HEAD: Normal with no signs of trauma. EYES: right side of the eye edematous>left ENT: Ears normal, nares patent, on Bipap NECK: Trachea midline, LUNGS: on Bipap , decreased BS BL, HEART: Irregular heart rate , S1, S2 positive JUNG 2/6 . ABDOMEN: Soft, nontender, nondistended, normoactive bowel sounds, no guarding, no rebound, no hepatosplenomegaly, no masses appreciated. EXTREMITIES: 2+ pulses, warm, well-perfused, no edema. NEUROLOGICAL: Unable to follow any command . right side of the eye more edematous>left today PSYCH: does not follow any command SKIN: Warm, dry, normal turgor, no rashes or lesions noted CBCD WBC 14.1 K/mm3 (4.0-10.0) H 02/11/17 06:10 RBC 4.19 M/mm3 (3.60-5.2) 02/11/17 06:10 Hgb 10.2 GM/dL (10.7-15.3) L D 02/11/17 06:10 Hct 34.4 % (32.4-45.2) 02/11/17 06:10 MCV 82.0 fl (80-96) 02/11/17 06:10 MCHC 29.7 g/dl (32.0-36.0) L 02/11/17 06:10 RDW 17.2 % (11.6-15.6) H 02/11/17 06:10 Plt Count 280 K/MM3 (134-434) 02/11/17 06:10 MPV 10.3 fl (7.5-11.1) 02/11/17 06:10 CMP Sodium 148 mmol/L (136-145) H 02/11/17 06:10 Potassium 4.3 mmol/L (3.5-5.1) 02/11/17 06:10 Chloride 107 mmol/L (98-107) 02/11/17 06:10 Carbon Dioxide 37 mmol/L (21-32) H 02/11/17 06:10 Anion Gap 4 (8-16) L 02/11/17 06:10 BUN 47 mg/dL (7-18) H 02/11/17 06:10 Creatinine 1.1 mg/dL (0.55-1.02) H 02/11/17 06:10 Creat Clearance w eGFR 46.98 (>60) 02/11/17 06:10 Random Glucose 158 mg/dL (74-106) H 02/11/17 06:10 Calcium 12.1 mg/dL (8.5-10.1) H 02/11/17 06:10 Total Bilirubin 0.7 mg/dL (0.2-1.0) D 02/11/17 06:10 AST 26 U/L (15-37) 02/11/17 06:10 ALT 17 U/L (12-78) 02/11/17 06:10 Alkaline Phosphatase 72 U/L (45-117) 02/11/17 06:10 Total Protein 6.0 g/dl (6.4-8.2) L 02/11/17 06:10 Albumin 2.3 g/dl (3.4-5.0) L 02/11/17 06:10 CARDIAC ENZYMES Creatine Kinase 217 IU/L (26-192) H D 01/26/17 07:25 Troponin I 0.03 ng/ml (0.00-0.05) 01/26/17 07:25 Active Medications Generic Name Dose Route Start Last Admin Trade Name Freq PRN Reason Stop Dose Admin Amlodipine Besylate 5 mg 02/10/17 10:00 02/11/17 10:51 Norvasc - PO Not Given DAILY [facility] Aspirin 300 mg 02/09/17 17:15 02/11/17 10:42 Asa - RC 300 mg DAILY [facility] Administration Cinacalcet 30 mg 02/09/17 22:00 02/11/17 10:54 Sensipar - PO Not Given BID [facility] Glycerin 2 each 02/11/17 12:49 Glycerin Suppository Adult - RC DAILY PRN CONSTIPATION Heparin Sodium (Porcine) 5,000 unit 02/09/17 22:00 02/11/17 05:49 Heparin - SQ 5,000 unit TID [facility] Administration Hydralazine HCl 10 mg 02/11/17 13:14 Apresoline Injection - IVPB Q6H PRN HYPERTENSION Dextrose 1,000 mls @ 100 mls/hr 02/10/17 00:00 02/11/17 01:28 D5w - IV 100 mls/hr ASDIR [facility] Administration Pantoprazole Sodium 100 mls @ 200 mls/hr 02/11/17 13:00 Protonix 40mg Ivpb (Pre-Docked) IVPB DAILY [facility] Methylprednisolone Sodium Succinate 40 mg 02/09/17 22:00 02/11/17 12:12 Solu-Medrol - IVPB 40 mg BID [facility] Administration Metoprolol Tartrate 5 mg 02/10/17 10:00 02/11/17 10:42 Lopressor Injection - IVPB 5 mg Q4H-IV [facility] Administration Nebivolol 10 mg 02/10/17 10:00 Bystolic - PO DAILY [facility] Rosuvastatin Calcium 10 mg 02/09/17 22:00 02/11/17 01:27 Crestor - PO Not Given [facility] Home Medications Medication Instructions Recorded Allopurinol [Zyloprim -] 100 mg PO DAILY 12/21/16 Cholecalciferol (Vitamin D3) 50,000 unit PO MONTHLY 12/21/16 [Vitamin D -] Methimazole [Tapazole] 5 mg PO DAILY 12/21/16 Nebivolol HCl [Bystolic] 10 mg PO DAILY 12/21/16 Omeprazole 40 mg PO DAILY 12/21/16 Ranolazine [Ranexa] 500 mg PO BID 12/21/16 Rosuvastatin Calcium [Crestor] 10 mg PO HS 12/21/16 Amlodipine Besylate [Norvasc -] 10 mg PO DAILY #30 tablet 12/23/16 Torsemide [Demadex -] 10 mg PO DAILY #30 tablet 12/23/16 Warfarin Na [Coumadin -] 5 mg PO DAILY #0 12/23/16 IMPRESSION: Interval large right middle cerebral artery territory acute/ subacute infarct with involvement of the right basal ganglia with mild mass effect on the right lateral ventricle and without shift towards the left. No intracranial hemorrhage is seen. ASSESSMENT AND PLAN: Patient is a 86 y/o lady with h/o CHF, COPD , Pulm HTN with bioprosthetic aortic valve replacement presented with SOB and was found to have acute respiratory failure with difficulty breathing admitted for acute on chronic diastolic CHF. # Acute CVA; Right large MCA stroke with involvement of the right basal ganglia with mild mass effecton the right lateral ventricle without shift . Neurology on the case, on aspirin rectally and Heparin sq, As per neuro since the patient has a large stroke can't be anticoagulated , will hold coumadin #Acute hypoxic hypercapnic respiratory failure continues on Bipap due to her COPD exacerbation on IV Steroids continue, and BIPAP as needed. # Acute Hypernatremia continues with sodium of 155-->148 today continue D5w, further managment per nephrology . # Acute Hypercalcemia --12.1 today on Sensipar continue Nephro on the case #Acute on Chronic diastolic CHF Exacerbation with EJF of 51% on 12/23/2016; repeat ECHO reviewed ; off Lasix now , Continue daily weights. #MADONNA on CKD BUN/Cr 62/3.--63/3.4-->65/3.4-->60/2.7-->57/2.3---> 41/1.0--51/1.1-- >47/1.1 Nephro consult appreciated. # paroxysmal aflutter [id number] ;Off anticoagulation now since has a large MCA stroke ; cont BB IV Lopressor #s/p RUE edema . US with no DVT #CAD Continue Bystolic closely monitor renal function #HLD crestor 10mg po hs # Left breast ca s/p mastectomy Code status: DNR/DNI; DVT Px: heparin sq only Palliative care Visit type - Emergency Visit Emergency Visit: Yes ED Registration Date: 01/25/17 Care time: The patient presented to the Emergency Department on the above date and was hospitalized for further evaluation of their emergent condition. - New Patient This patient is new to me today: No - Critical Care Critical Care patient: No
--- NOTE | 2017-02-11 13:26 | PN ---
Progress Note, Physician History of Present Illness: Renal f/u She remains poorly responsive Sister and neice at bedside and they apparently still wish to discuss hospice care with other family members - Current Medication List Current Medications: Active Medications Amlodipine Besylate (Norvasc -) 5 mg PO DAILY [facility] Last Admin: 02/11/17 10:51 Dose: Not Given Aspirin (Asa -) 300 mg RC DAILY [facility] Last Admin: 02/11/17 10:42 Dose: 300 mg Cinacalcet (Sensipar -) 30 mg PO BID [facility] Last Admin: 02/11/17 10:54 Dose: Not Given Glycerin (Glycerin Suppository Adult -) 2 each RC DAILY PRN PRN Reason: CONSTIPATION Heparin Sodium (Porcine) (Heparin -) 5,000 unit SQ TID [facility] Last Admin: 02/11/17 05:49 Dose: 5,000 unit Hydralazine HCl (Apresoline Injection -) 10 mg IVPB Q6H PRN PRN Reason: HYPERTENSION Dextrose (D5w -) 1,000 mls @ 100 mls/hr IV ASDIR [facility] Last Admin: 02/11/17 01:28 Dose: 100 mls/hr Pantoprazole Sodium (Protonix 40mg Ivpb (Pre-Docked)) 100 mls @ 200 mls/hr IVPB DAILY [facility] Methylprednisolone Sodium Succinate (Solu-Medrol -) 40 mg IVPB BID [facility] Last Admin: 02/11/17 12:12 Dose: 40 mg Metoprolol Tartrate (Lopressor Injection -) 5 mg IVPB Q4H-IV [facility] Last Admin: 02/11/17 10:42 Dose: 5 mg Nebivolol (Bystolic -) 10 mg PO DAILY [facility] Rosuvastatin Calcium (Crestor -) 10 mg PO HS [facility] Last Admin: 02/11/17 01:27 Dose: Not Given - Objective Vital Signs: Vital Signs Temperature 98.2 F 02/11/17 10:00 Pulse Rate 84 02/11/17 10:42 Respiratory Rate 32 H 02/11/17 10:00 Blood Pressure 168/80 02/11/17 10:42 O2 Sat by Pulse Oximetry (%) 98 02/11/17 10:35 Constitutional: Yes: No Distress Cardiovascular: Yes: S1, S2 Respiratory: Yes: Other (Decreased BS at bases) Gastrointestinal: Yes: Soft. No: Distention Edema: No Labs: CBC, BMP 02/11/17 06:10 02/11/17 06:10 INR, PTT INR 1.20 (0.82-1.09) H 02/11/17 06:10 Assessment/Plan Impression Hypernatremia improving Acute on CKD New CVA Impression CHF Valvular heart disease s/p bio-MVR and AVR Atrial fibrillation HLD Anemia Breast cancer Plan No change in the D5W at 100 cc/hr Family considering hospice care Dr Velez
[2017-02-11] MEDS: PANTOPRAZOLE SODIUM 100 ML IVPB SCH (13:43)
--- NOTE | 2017-02-11 13:56 | PN ---
Progress Note (short form) - Note Progress Note: PULMONARY Lethargic on BiPAP. Family at bedside. Last Vital Signs Temp Pulse Resp BP Pulse Ox 98.2 F 84 32 H 168/80 98 02/11/17 10:00 02/11/17 10:42 02/11/17 10:00 02/11/17 10:42 02/11/17 10:35 Gen: lethargic on BiPAP Heart: RRR Lung: decreased breath sounds at the bases Abd: soft, nontender Ext: + edema CBC, BMP 02/11/17 06:10 02/11/17 06:10 Active Medications Amlodipine Besylate (Norvasc -) 5 mg PO DAILY [facility] Last Admin: 02/11/17 10:51 Dose: Not Given Aspirin (Asa -) 300 mg RC DAILY [facility] Last Admin: 02/11/17 10:42 Dose: 300 mg Cinacalcet (Sensipar -) 30 mg PO BID [facility] Last Admin: 02/11/17 10:54 Dose: Not Given Glycerin (Glycerin Suppository Adult -) 2 each RC DAILY PRN PRN Reason: CONSTIPATION Heparin Sodium (Porcine) (Heparin -) 5,000 unit SQ TID [facility] Last Admin: 02/11/17 13:43 Dose: 5,000 unit Hydralazine HCl (Apresoline Injection -) 10 mg IVPB Q6H PRN PRN Reason: HYPERTENSION Dextrose (D5w -) 1,000 mls @ 100 mls/hr IV ASDIR [facility] Last Admin: 02/11/17 01:28 Dose: 100 mls/hr Pantoprazole Sodium (Protonix 40mg Ivpb (Pre-Docked)) 100 mls @ 200 mls/hr IVPB DAILY [facility] Last Admin: 02/11/17 13:43 Dose: 200 mls/hr Methylprednisolone Sodium Succinate (Solu-Medrol -) 40 mg IVPB BID [facility] Last Admin: 02/11/17 12:12 Dose: 40 mg Metoprolol Tartrate (Lopressor Injection -) 5 mg IVPB Q4H-IV [facility] Last Admin: 02/11/17 10:42 Dose: 5 mg Nebivolol (Bystolic -) 10 mg PO DAILY [facility] Rosuvastatin Calcium (Crestor -) 10 mg PO HS [facility] Last Admin: 02/11/17 01:27 Dose: Not Given A/P Altered Mental Status Acute CVA Acute on Chronic LV Diastolic Heart Failure Pulmonary HTN Pleural Effusion Compressive Atelectasis Paroxysmal Atrial Flutter s/p AVR/MVR HTN - continue supportive care - monitor urine output, creatinine - daily weights, I/Os - rate controlled - O2 to keep SpO2 >90% - BiPAP as needed - taper off steroids - aspiration precautions - DVT prophylaxis - pt DNR/DNI, continue discussions regarding goals of care Problem List - Problems (1) Altered mental status Code(s): R41.82 - ALTERED MENTAL STATUS, UNSPECIFIED (2) Acute on chronic diastolic CHF (congestive heart failure) Code(s): I50.33 - ACUTE ON CHRONIC DIASTOLIC (CONGESTIVE) HEART FAILURE (3) Wruei-dh-sxwtnhn kidney injury Code(s): N17.9 - ACUTE KIDNEY FAILURE, UNSPECIFIED N18.9 - CHRONIC KIDNEY DISEASE, UNSPECIFIED (4) Paroxysmal atrial flutter Code(s): I48.92 - UNSPECIFIED ATRIAL FLUTTER (5) Coumadin toxicity Code(s): T45.511A - POISONING BY ANTICOAGULANTS, ACCIDENTAL, INIT Qualifiers: Encounter type: sequela Injury intent: undetermined intent Qualified Code(s): T45.514S - Poisoning by anticoagulants, undetermined, sequela (6) CAD (coronary artery disease) Code(s): I25.10 - ATHSCL HEART DISEASE OF [place] CORONARY ARTERY W/O ANG PCTRS Qualifiers: Coronary Disease-Associated Artery/Lesion type: [place] artery [place] vs. transplanted heart: [place] heart Associated angina: without angina Qualified Code(s): I25.10 - Atherosclerotic heart disease of [place] coronary artery without angina pectoris
[2017-02-11] MEDS: hydrALAZINE HCL 20 MG/ML VIAL IVPB PRN (22:20)
[2017-02-12] MEDS: DEXTROSE 5%-WATER - 1,000 ML IV SCH (01:36)
[2017-02-12] MEDS: METOPROLOL TARTRATE 5 MG/5 ML VIAL IVPB SCH ×6 (01:37→23:19)
[2017-02-12] MEDS: hydrALAZINE HCL 20 MG/ML VIAL IVPB PRN (06:06)
[2017-02-12] MEDS: HEPARIN NA (PORCINE) 5,000 UNITS/ML 1ML VIAL SQ SCH ×3 (06:08→23:20)
[2017-02-12 08:37] LABS: MCH 24.6 pg (25.7-33.7); MCHC 30.6 g/dl (32.0-36.0); MEAN CELL VOLUME 80.5 fl (80-96); RDW 17.6 % (11.6-15.6); WHITE BLOOD COUNT 20.9 K/mm3 (4.0-10.0)
[2017-02-12 08:56] LABS: INR 1.16 (0.82-1.09); PROTHROMBIN TIME (PATIENT) 12.8 SEC (9.98-11.88)
[2017-02-12 09:04] LABS: BILIRUBIN,TOTAL 1.1 mg/dL (0.2-1.0); CALCIUM 12.9 mg/dL (8.5-10.1); CREATININE 1.3 mg/dL (0.55-1.02)
[2017-02-12] MEDS: methylPREDNISolone NA SUCC 40 MG/1 ML VIAL IVPB SCH ×2 (10:35→23:20)
--- NOTE | 2017-02-12 10:49 | PN ---
Teaching Attending Note Name of Resident: Shade Muñoz ATTENDING PHYSICIAN STATEMENT I saw and evaluated the patient. I reviewed the resident's note and discussed the case with the resident. I agree with the resident's findings and plan as documented. No new changes, patient does not respond to any commands, moves her right arm on tactile stimulation. Vital Signs Temperature 99.4 F 02/12/17 09:00 Pulse Rate 86 02/12/17 09:00 Respiratory Rate 28 H 02/12/17 09:00 Blood Pressure 131/54 02/12/17 09:00 O2 Sat by Pulse Oximetry (%) 98 02/12/17 05:49 CBCD WBC 20.9 K/mm3 (4.0-10.0) H D 02/12/17 08:20 RBC 4.29 M/mm3 (3.60-5.2) 02/12/17 08:20 Hgb 10.6 GM/dL (10.7-15.3) L 02/12/17 08:20 Hct 34.5 % (32.4-45.2) 02/12/17 08:20 MCV 80.5 fl (80-96) 02/12/17 08:20 MCHC 30.6 g/dl (32.0-36.0) L 02/12/17 08:20 RDW 17.6 % (11.6-15.6) H 02/12/17 08:20 Plt Count 280 K/MM3 (134-434) 02/11/17 06:10 MPV 10.5 fl (7.5-11.1) 02/12/17 08:20 CMP Sodium 144 mmol/L (136-145) 02/12/17 08:20 Potassium 3.7 mmol/L (3.5-5.1) 02/12/17 08:20 Chloride 104 mmol/L (98-107) 02/12/17 08:20 Carbon Dioxide 36 mmol/L (21-32) H 02/12/17 08:20 Anion Gap 4 (8-16) L 02/12/17 08:20 BUN 46 mg/dL (7-18) H 02/12/17 08:20 Creatinine 1.3 mg/dL (0.55-1.02) H 02/12/17 08:20 Creat Clearance w eGFR 38.75 (>60) 02/12/17 08:20 Random Glucose 139 mg/dL (74-106) H 02/12/17 08:20 Calcium 12.9 mg/dL (8.5-10.1) H 02/12/17 08:20 Total Bilirubin 1.1 mg/dL (0.2-1.0) H D 02/12/17 08:20 AST 37 U/L (15-37) D 02/12/17 08:20 ALT 26 U/L (12-78) D 02/12/17 08:20 Alkaline Phosphatase 87 U/L (45-117) D 02/12/17 08:20 Total Protein 6.0 g/dl (6.4-8.2) L 02/12/17 08:20 Albumin 2.0 g/dl (3.4-5.0) L 02/12/17 08:20 CARDIAC ENZYMES Creatine Kinase 217 IU/L (26-192) H D 01/26/17 07:25 Troponin I 0.03 ng/ml (0.00-0.05) 01/26/17 07:25 Current Medications Generic Name Dose Route Start Last Admin Trade Name Freq PRN Reason Stop Dose Admin Amlodipine Besylate 5 mg 02/10/17 10:00 02/11/17 10:51 Norvasc - PO Not Given DAILY [facility] Aspirin 300 mg 02/09/17 17:15 02/11/17 10:42 Asa - RC 300 mg DAILY [facility] Administration Cinacalcet 30 mg 02/09/17 22:00 02/11/17 10:54 Sensipar - PO Not Given BID [facility] Glycerin 2 each 02/11/17 12:49 Glycerin Suppository Adult - RC DAILY PRN CONSTIPATION Heparin Sodium (Porcine) 5,000 unit 02/09/17 22:00 02/12/17 06:08 Heparin - SQ 5,000 unit TID [facility] Administration Hydralazine HCl 10 mg 02/11/17 13:14 02/12/17 06:06 Apresoline Injection - IVPB 10 mg Q6H PRN Administration HYPERTENSION Dextrose 1,000 mls @ 100 mls/hr 02/10/17 00:00 02/12/17 01:36 D5w - IV Not Given ASDIR [facility] Pantoprazole Sodium 100 mls @ 200 mls/hr 02/11/17 13:00 02/11/17 13:43 Protonix 40mg Ivpb (Pre-Docked) IVPB 200 mls/hr DAILY [facility] Administration Methylprednisolone Sodium Succinate 40 mg 02/09/17 22:00 02/12/17 10:35 Solu-Medrol - IVPB 40 mg BID [facility] Administration Metoprolol Tartrate 5 mg 02/10/17 10:00 02/12/17 06:07 Lopressor Injection - IVPB Not Given Q4H-IV [facility] Nebivolol 10 mg 02/10/17 10:00 Bystolic - PO DAILY [facility] Rosuvastatin Calcium 10 mg 02/09/17 22:00 02/11/17 01:27 Crestor - PO Not Given HS [facility] Home Medications Medication Instructions Recorded Allopurinol [Zyloprim -] 100 mg PO DAILY 12/21/16 Cholecalciferol (Vitamin D3) 50,000 unit PO MONTHLY 12/21/16 [Vitamin D -] Methimazole [Tapazole] 5 mg PO DAILY 12/21/16 Nebivolol HCl [Bystolic] 10 mg PO DAILY 12/21/16 Omeprazole 40 mg PO DAILY 12/21/16 Ranolazine [Ranexa] 500 mg PO BID 12/21/16 Rosuvastatin Calcium [Crestor] 10 mg PO HS 12/21/16 Amlodipine Besylate [Norvasc -] 10 mg PO DAILY #30 tablet 12/23/16 Torsemide [Demadex -] 10 mg PO DAILY #30 tablet 12/23/16 Warfarin Na [Coumadin -] 5 mg PO DAILY #0 12/23/16 IMPRESSION: Interval large right middle cerebral artery territory acute/ subacute infarct with involvement of the right basal ganglia with mild mass effect on the right lateral ventricle and without shift towards the left. No intracranial hemorrhage is seen. ASSESSMENT AND PLAN: Patient is a 86 y/o lady with h/o CHF, COPD , Pulm HTN with bioprosthetic aortic valve replacement presented with SOB and was found to have acute respiratory failure with difficulty breathing admitted for acute on chronic diastolic CHF. # Acute Leukocytosis possibly due to IV Steroid # Acute CVA; Right large MCA stroke with involvement of the right basal ganglia with mild mass effect on the right lateral ventricle without shift . Neurology on the case, on aspirin rectally and Heparin sq, As per neuro since the patient has a large stroke can't be anticoagulated , will continue to hold coumadin #Acute hypoxic hypercapnic respiratory failure continues on Bipap due to her COPD exacerbation on IV Steroids continue, and BIPAP as needed. # Acute Hypernatremia continues with sodium of 155-->148-->144 today ,will discontinue d5w since patient so edematous . # Acute Hypercalcemia --12.1-->12.9 today on Sensipar continue Nephro on the case. will give her a dose of lasix IV since she is so edematous. #Acute on Chronic diastolic CHF Exacerbation with EJF of 51% on 12/23/2016; repeat ECHO reviewed ; 1x Lasix iv , Continue daily weights. #MADONNA on CKD BUN/Cr 62/3.--63/3.4-->65/3.4-->60/2.7-->57/2.3---> 41/1.0--51/1.1-- >47/1.1-->46/1.3 Nephro consult appreciated. # paroxysmal aflutter [id number] ;Off anticoagulation now since has a large MCA stroke ; cont BB IV Lopressor #s/p RUE edema . US with no DVT #CAD Continue Bystolic closely monitor renal function #HLD crestor 10mg po hs # Left breast ca s/p mastectomy Code status: DNR/DNI; DVT Px: heparin sq only Palliative care consult
[2017-02-12] MEDS ORDERED: DEXTROSE 5%-WATER - 1,000 ML IV SCH (10:55)
[2017-02-12] MEDS: PANTOPRAZOLE SODIUM 100 ML IVPB SCH (11:23)
[2017-02-12] MEDS: ASPIRIN 300 MG SUPP.RECT RC SCH (11:25)
[2017-02-12] MEDS ORDERED: FUROSEMIDE 40 MG/4 ML INJECTABLE VIAL IVPUSH ONE (11:46)
--- NOTE | 2017-02-12 11:50 | PN ---
Physical Exam: SUBJECTIVE: Patient seen and examined at bedside. worsening mental status patient has facial and extremity edema on monday night 02/10/17 when i got home at around 6pm i spent about one hour on the phone discussin her prognosis with chauncey and martir her two sisters. They explained to me they do not want [facility] anymore and will have a family meeting about withdrawing care and starting comfort measures OBJECTIVE: Vital Signs Period Temp Pulse Resp BP Sys/[place] Pulse Ox Last 24 Hr 98.9 F-102 F 73-92 20-28 131-153/54-92 95-98 GENERAL: Lethargic not responding. anasarca HEAD: Normal with no signs of trauma. facial and scleral edema NECK: left sided nodule felt possible to be parathyroid LUNGS: Crackles at bases bilaterally HEART: irregular S1, S2 systolic murmur best heard at left sternal border +JVD ABDOMEN: Soft, nontender, nondistended EXTREMITIES: warm well perfused RUE and LUE +edema Neuro: lethargic could not assess pupils eyes shut from edema. when painful stimulus applied she is moving right side of body. left leg and arms do not move at all not even in response to pain +scleral edema Laboratory Results - last 24 hr 02/11/17 02/12/17 02/12/17 06:10 08:20 08:20 WBC 20.9 H D RBC 4.29 Hgb 10.6 L Hct 34.5 MCV 80.5 MCHC 30.6 L RDW 17.6 H MPV 10.5 INR 1.16 H Sodium Potassium Chloride Carbon Dioxide Anion Gap BUN Creatinine Creat Clearance w eGFR Random Glucose Calcium Total Bilirubin AST ALT Alkaline Phosphatase Total Protein Albumin Free T4 1.20 D 02/12/17 08:20 WBC RBC Hgb Hct MCV MCHC RDW MPV INR Sodium 144 Potassium 3.7 Chloride 104 Carbon Dioxide 36 H Anion Gap 4 L BUN 46 H Creatinine 1.3 H Creat Clearance w eGFR 38.75 Random Glucose 139 H Calcium 12.9 H Total Bilirubin 1.1 H D AST 37 D ALT 26 D Alkaline Phosphatase 87 D Total Protein 6.0 L Albumin 2.0 L Free T4 Active Medications Generic Name Dose Route Start Last Admin Trade Name Freq PRN Reason Stop Dose Admin Amlodipine Besylate 5 mg 02/10/17 10:00 02/11/17 10:51 Norvasc - PO Not Given DAILY [facility] Aspirin 300 mg 02/09/17 17:15 02/12/17 11:25 Asa - RC 300 mg DAILY [facility] Administration Cinacalcet 30 mg 02/09/17 22:00 02/11/17 10:54 Sensipar - PO Not Given BID [facility] Glycerin 2 each 02/11/17 12:49 Glycerin Suppository Adult - RC DAILY PRN CONSTIPATION Heparin Sodium (Porcine) 5,000 unit 02/09/17 22:00 02/12/17 06:08 Heparin - SQ 5,000 unit TID [facility] Administration Hydralazine HCl 10 mg 02/11/17 13:14 02/12/17 06:06 Apresoline Injection - IVPB 10 mg Q6H PRN Administration HYPERTENSION Pantoprazole Sodium 100 mls @ 200 mls/hr 02/11/17 13:00 02/12/17 11:23 Protonix 40mg Ivpb (Pre-Docked) IVPB 200 mls/hr DAILY [facility] Administration Methylprednisolone Sodium Succinate 40 mg 02/09/17 22:00 02/12/17 10:35 Solu-Medrol - IVPB 40 mg BID [facility] Administration Metoprolol Tartrate 5 mg 02/10/17 10:00 02/12/17 11:30 Lopressor Injection - IVPB Not Given Q4H-IV [facility] Nebivolol 10 mg 02/10/17 10:00 Bystolic - PO DAILY [facility] Rosuvastatin Calcium 10 mg 02/09/17 22:00 02/11/17 01:27 Crestor - PO Not Given HS [facility] ASSESSMENT/PLAN: 86F with multiple medical problems initially presented with shortness of breath likely secondary to CHF exacerbation Hypoxic hypercapneic respiratory failure: likely from diastolic Acute on chronic congestive heart failure exacerbation Chest CT noted-not significant for pneumonia US-no DVT of upper extremity Possible due to aspiration-speech and swallow eval appreciated on Bipap pulmonary consult appreciated continue solu-medrol 40mg BID will give one dose of lasix and stop IVF CVA: Acute right MCA ischemic stroke likely embolic event from the heart on aspirin will continue HSQ for DVT PPx anticoagulation at this time is contraindication Neurology consult appreciated Acute on Chronic diastolic Congestive Heart Failure Exacerbation hold Lasix patient does not appear fluid overloaded rather she appears dry daily weight I/O Cardiology consult appreciated Will give one dose of lasix now stop IVF Hypernatremia: now resolved stop D5W recheck BMP Altered Mental Status: likely from a combination of stroke, electrolyte abnormalities, environment, hypercapnea and hypoxia Needs correction Leukocytosis: worsening she is solu-medrol UA negative do not suspect infectious cause will monitor WBC count Hypercalcemia secondary to primary hyperparathyroidism-worsening hypercalcemia Already given calcitonin can not take sensipar as she can not take PO PTHrp <1.1 endocrinology consult appreciated and noted recheck calcium in AM Acute on chronic renal failure-Cr 1.3 avoid nephrotoxic meds will trend Cr Supratherapeutic INR/coumadin toxicity- INR is subtherapeutic at this time anticoagulation is contraindicated per neurology continue aspirin HTN:better controlled with meds given patient is currently not able to take PO meds Will give Metoprolol IVPB q4h for BP Hydralazine IV PRN Atrial fibrillation continue bystolic restart coumadin HLD crestor when able to take PO Hyperthyroidism continue methimazole 5mg po dailly when able to take PO FEN: stop IVF hypernatremia-resolved hypercalcemia-worsened npo PPx: HSQ/SCDs protonix DNR/DNI palliative care consult appreciated Awaiting family decision to withdraw care grave prognosis. Problem List - Problems (1) Acute exacerbation of CHF (congestive heart failure) Code(s): I50.9 - HEART FAILURE, UNSPECIFIED Qualifiers: Congestive heart failure type: diastolic Qualified Code(s): I50.33 - Acute on chronic diastolic (congestive) heart failure (2) Altered mental status Code(s): R41.82 - ALTERED MENTAL STATUS, UNSPECIFIED (3) Paroxysmal atrial flutter Code(s): I48.92 - UNSPECIFIED ATRIAL FLUTTER (4) A-fib Code(s): I48.91 - UNSPECIFIED ATRIAL FIBRILLATION Qualifiers: Atrial fibrillation type: persistent Qualified Code(s): I48.1 - Persistent atrial fibrillation (5) Acute on chronic diastolic CHF (congestive heart failure) Code(s): I50.33 - ACUTE ON CHRONIC DIASTOLIC (CONGESTIVE) HEART FAILURE (6) Xzcqf-ku-cjrhpme kidney injury Code(s): N17.9 - ACUTE KIDNEY FAILURE, UNSPECIFIED N18.9 - CHRONIC KIDNEY DISEASE, UNSPECIFIED (7) Anemia Code(s): D64.9 - ANEMIA, UNSPECIFIED Qualifiers: Anemia type: unspecified type Qualified Code(s): D64.9 - Anemia, unspecified (8) CAD (coronary artery disease) Code(s): I25.10 - ATHSCL HEART DISEASE OF [place] CORONARY ARTERY W/O ANG PCTRS Qualifiers: Coronary Disease-Associated Artery/Lesion type: [place] artery [place] vs. transplanted heart: [place] heart Associated angina: without angina Qualified Code(s): I25.10 - Atherosclerotic heart disease of [place] coronary artery without angina pectoris (9) HLD (hyperlipidemia) Code(s): E78.5 - HYPERLIPIDEMIA, UNSPECIFIED Qualifiers: Hyperlipidemia type: pure hypercholesterolemia Qualified Code(s): E78.00 - Pure hypercholesterolemia, unspecified; E78.0 - Pure hypercholesterolemia (10) Shortness of breath Code(s): R06.02 - SHORTNESS OF BREATH (11) Hypoxemia Code(s): R09.02 - HYPOXEMIA (12) Leukocytosis Code(s): D72.829 - ELEVATED WHITE BLOOD CELL COUNT, UNSPECIFIED (13) Hypernatremia Code(s): E87.0 - HYPEROSMOLALITY AND HYPERNATREMIA (14) Acute hypernatremia Code(s): E87.0 - HYPEROSMOLALITY AND HYPERNATREMIA Visit type - Emergency Visit Emergency Visit: Yes ED Registration Date: 01/25/17 Care time: The patient presented to the Emergency Department on the above date and was hospitalized for further evaluation of their emergent condition. - New Patient This patient is new to me today: No - Critical Care Critical Care patient: No
--- NOTE | 2017-02-12 12:27 | PN ---
Progress Note, Physician History of Present Illness: Renal f/u She remains poorly responsive Family now wants withdrawal of care rather than [facility] Placement - Current Medication List Current Medications: Active Medications Amlodipine Besylate (Norvasc -) 5 mg PO DAILY [facility] Last Admin: 02/11/17 10:51 Dose: Not Given Aspirin (Asa -) 300 mg RC DAILY [facility] Last Admin: 02/12/17 11:25 Dose: 300 mg Cinacalcet (Sensipar -) 30 mg PO BID [facility] Last Admin: 02/11/17 10:54 Dose: Not Given Glycerin (Glycerin Suppository Adult -) 2 each RC DAILY PRN PRN Reason: CONSTIPATION Heparin Sodium (Porcine) (Heparin -) 5,000 unit SQ TID [facility] Last Admin: 02/12/17 06:08 Dose: 5,000 unit Hydralazine HCl (Apresoline Injection -) 10 mg IVPB Q6H PRN PRN Reason: HYPERTENSION Last Admin: 02/12/17 06:06 Dose: 10 mg Pantoprazole Sodium (Protonix 40mg Ivpb (Pre-Docked)) 100 mls @ 200 mls/hr IVPB DAILY [facility] Last Admin: 02/12/17 11:23 Dose: 200 mls/hr Methylprednisolone Sodium Succinate (Solu-Medrol -) 40 mg IVPB BID [facility] Last Admin: 02/12/17 10:35 Dose: 40 mg Metoprolol Tartrate (Lopressor Injection -) 5 mg IVPB Q4H-IV [facility] Last Admin: 02/12/17 11:30 Dose: Not Given Nebivolol (Bystolic -) 10 mg PO DAILY [facility] Rosuvastatin Calcium (Crestor -) 10 mg PO HS [facility] Last Admin: 02/11/17 01:27 Dose: Not Given - Objective Vital Signs: Vital Signs Temperature 102 F H 02/12/17 10:55 Pulse Rate 86 02/12/17 11:10 Respiratory Rate 28 H 02/12/17 10:55 Blood Pressure 131/54 02/12/17 09:00 O2 Sat by Pulse Oximetry (%) 95 02/12/17 11:10 Constitutional: Yes: Calm Cardiovascular: Yes: S1, S2 Respiratory: Yes: Diminished Gastrointestinal: Yes: Soft. No: Distention Edema: LUE: 1+, RUE: 1+ Neurological: Yes: Other (Poorly responsive) Labs: CBC, BMP 02/12/17 08:20 02/12/17 08:20 INR, PTT INR 1.16 (0.82-1.09) H 02/12/17 08:20 Assessment/Plan Impression Hypernatremia improving Acute on CKD New CVA Impression CHF Valvular heart disease s/p bio-MVR and AVR Atrial fibrillation HLD Anemia Breast cancer Plan Since Cr 1.3 change IVF to D5 1/2 NS Family considering withdrawal of care Dr Velez
--- NOTE | 2017-02-12 12:29 | PN ---
Progress Note (short form) - Note Progress Note: PULMONARY Lethargic on BiPAP. Febrile Last Vital Signs Temp Pulse Resp BP Pulse Ox 102 F H 86 28 H 131/54 95 02/12/17 10:55 02/12/17 11:10 02/12/17 10:55 02/12/17 09:00 02/12/17 11:10 Gen: lethargic on BiPAP Heart: RRR Lung: decreased breath sounds at the bases Abd: soft, nontender Ext: + edema CBC, BMP 02/12/17 08:20 02/12/17 08:20 Active Medications Amlodipine Besylate (Norvasc -) 5 mg PO DAILY [facility] Last Admin: 02/11/17 10:51 Dose: Not Given Aspirin (Asa -) 300 mg RC DAILY [facility] Last Admin: 02/12/17 11:25 Dose: 300 mg Cinacalcet (Sensipar -) 30 mg PO BID [facility] Last Admin: 02/11/17 10:54 Dose: Not Given Glycerin (Glycerin Suppository Adult -) 2 each RC DAILY PRN PRN Reason: CONSTIPATION Heparin Sodium (Porcine) (Heparin -) 5,000 unit SQ TID [facility] Last Admin: 02/12/17 06:08 Dose: 5,000 unit Hydralazine HCl (Apresoline Injection -) 10 mg IVPB Q6H PRN PRN Reason: HYPERTENSION Last Admin: 02/12/17 06:06 Dose: 10 mg Pantoprazole Sodium (Protonix 40mg Ivpb (Pre-Docked)) 100 mls @ 200 mls/hr IVPB DAILY [facility] Last Admin: 02/12/17 11:23 Dose: 200 mls/hr Methylprednisolone Sodium Succinate (Solu-Medrol -) 40 mg IVPB BID [facility] Last Admin: 02/12/17 10:35 Dose: 40 mg Metoprolol Tartrate (Lopressor Injection -) 5 mg IVPB Q4H-IV [facility] Last Admin: 02/12/17 11:30 Dose: Not Given Nebivolol (Bystolic -) 10 mg PO DAILY [facility] Rosuvastatin Calcium (Crestor -) 10 mg PO HS [facility] Last Admin: 02/11/17 01:27 Dose: Not Given A/P Altered Mental Status Acute CVA Acute on Chronic LV Diastolic Heart Failure Pulmonary HTN Pleural Effusion Compressive Atelectasis Paroxysmal Atrial Flutter s/p AVR/MVR HTN - continue supportive care - monitor urine output, creatinine - daily weights, I/Os - rate controlled - O2 to keep SpO2 >90% - BiPAP as needed - taper off steroids - aspiration precautions - DVT prophylaxis - pt DNR/DNI, continue discussions regarding goals of care, recommend comfort care Problem List - Problems (1) Altered mental status Code(s): R41.82 - ALTERED MENTAL STATUS, UNSPECIFIED (2) Acute on chronic diastolic CHF (congestive heart failure) Code(s): I50.33 - ACUTE ON CHRONIC DIASTOLIC (CONGESTIVE) HEART FAILURE (3) Jwsni-zl-whxbwwi kidney injury Code(s): N17.9 - ACUTE KIDNEY FAILURE, UNSPECIFIED N18.9 - CHRONIC KIDNEY DISEASE, UNSPECIFIED (4) Paroxysmal atrial flutter Code(s): I48.92 - UNSPECIFIED ATRIAL FLUTTER (5) Coumadin toxicity Code(s): T45.511A - POISONING BY ANTICOAGULANTS, ACCIDENTAL, INIT Qualifiers: Encounter type: sequela Injury intent: undetermined intent Qualified Code(s): T45.514S - Poisoning by anticoagulants, undetermined, sequela (6) CAD (coronary artery disease) Code(s): I25.10 - ATHSCL HEART DISEASE OF [place] CORONARY ARTERY W/O ANG PCTRS Qualifiers: Coronary Disease-Associated Artery/Lesion type: [place] artery [place] vs. transplanted heart: [place] heart Associated angina: without angina Qualified Code(s): I25.10 - Atherosclerotic heart disease of [place] coronary artery without angina pectoris
[2017-02-12] MEDS ORDERED: DEXTROSE 5%-0.45% SALINE 1,000 ML IV SCH (12:30)
[2017-02-12 15:03] LABS: PLATELET COUNT 200 K/MM3 (134-434)
[2017-02-12 15:04] LABS: MEAN PLT VOLUME 10.5 fl (7.5-11.1)
[2017-02-12 15:06] LABS: PLATELET ESTIMATE ADEQUATE (NORMAL)
[2017-02-12] MEDS: ACETAMINOPHEN 1000 MG/100 ML VIAL (NON FORMULARY) IVPB PRN (16:01)
[2017-02-13] MEDS: METOPROLOL TARTRATE 5 MG/5 ML VIAL IVPB SCH ×3 (01:49→09:42)
[2017-02-13] MEDS: ACETAMINOPHEN 1000 MG/100 ML VIAL (NON FORMULARY) IVPB PRN (03:40)
[2017-02-13] MEDS: HEPARIN NA (PORCINE) 5,000 UNITS/ML 1ML VIAL SQ SCH (05:12)
[2017-02-13] MEDS: ASPIRIN 300 MG SUPP.RECT RC SCH (09:42)
[2017-02-13] MEDS: methylPREDNISolone NA SUCC 40 MG/1 ML VIAL IVPB SCH (09:48)
[2017-02-13] MEDS: PANTOPRAZOLE SODIUM 100 ML IVPB SCH (09:48)
[2017-02-13 09:50] VITALS: BP 86/39; PULSE 94; TEMP 99.2
--- NOTE | 2017-02-13 14:21 | DS ---
Physical Exam: SUBJECTIVE: this is a note Called at bedside by RN as patient no longer breathing she was DNR/DNI and today family was planning on withdrawing care and starting comfort care OBJECTIVE: Vital Signs Period Temp Pulse Resp BP Sys/[place] Pulse Ox Last 24 Hr 99.1 F-101.9 F 78-94 20-36 86-146/39-84 91-94 PHYSICAL EXAM no lung sounds no heart sounds no corneal or gag reflex no eklectrical activity on ECG LABS Laboratory Results - last 24 hr 02/12/17 08:20 Plt Count 200 D MPV 10.5 Neutrophils % 78.0 Lymphocytes % 5.0 L D Monocytes % 3.0 L Eosinophils % 0.0 Basophils % 0.0 Band Neutrophils 13.0 H Differential Comment Manual diff done Plasma Cells 1 Platelet Estimate Adequate Platelet Comment Many large plts Basophilic Stippling Occ HOSPITAL COURSE: Date of Admission:01/25/17 Date of Discharge: 02/13/17 86F admitted with altered mental status hypoxia found to have an elevated INR on admission. She also had hypercapneic respiratory failure. Hads a prolonged hospital course complicated by hypercapneic respiratory failure and electrolyte abnormalities. She had hypernatremia and hypercalcemia. she had multiple medical problems initially presented with shortness of breath likely secondary to CHF exacerbation. Her respiratory status was very labile and overall there was little to no improvement. Cheryl also had a very labile INR. She had a large right sided MCA stroke about 2 weeks into her hospital stay. Today patient was supposed to be made comfort care and family wanted all care withdrawn according to the patient's wishes however the patient before comfort measures were taken. Family at bedside when patient . Moral support offered to family. Prayed with family at bedside. Minutes to complete discharge: 45 Discharge Summary Reason For Visit: ACUTE CHRONIC CHF Current Active Problems Acute exacerbation of CHF (congestive heart failure) (Acute) Acute hypernatremia (Acute) Acute right MCA stroke (Acute) Altered mental status (Acute) CVA (cerebrovascular accident) (Acute) Cerebrovascular disease (Acute) Coumadin toxicity (Acute) Hypercalcemia (Acute) Hypernatremia (Acute) Hyperparathyroidism (Acute) Hyperthyroidism (Acute) Hypoxemia (Acute) Leukocytosis (Acute) Organic brain syndrome (Acute) Paroxysmal atrial flutter (Acute) Respiratory failure (Acute) Tricuspid regurgitation (Acute) Condition: - Instructions Referrals: STAFF,NOT ON [Primary Care Provider] - Disposition: - Home Medications Comprehensive Discharge Medication List: Ambulatory Orders Allopurinol [Zyloprim -] 100 mg PO DAILY 12/21/16 Cholecalciferol (Vitamin D3) [Vitamin D -] 50,000 unit PO MONTHLY 12/21/16 Methimazole [Tapazole] 5 mg PO DAILY 12/21/16 Nebivolol HCl [Bystolic] 10 mg PO DAILY 12/21/16 Omeprazole 40 mg PO DAILY 12/21/16 Ranolazine [Ranexa] 500 mg PO BID 12/21/16 Rosuvastatin Calcium [Crestor] 10 mg PO HS 12/21/16 Amlodipine Besylate [Norvasc -] 10 mg PO DAILY #30 tablet 12/23/16 Torsemide [Demadex -] 10 mg PO DAILY #30 tablet 12/23/16 Warfarin Na [Coumadin -] 5 mg PO DAILY #0 12/23/16 Problem List - Problems (1) Acute exacerbation of CHF (congestive heart failure) Code(s): I50.9 - HEART FAILURE, UNSPECIFIED Qualifiers: Congestive heart failure type: diastolic Qualified Code(s): I50.33 - Acute on chronic diastolic (congestive) heart failure (2) Altered mental status Code(s): R41.82 - ALTERED MENTAL STATUS, UNSPECIFIED (3) Paroxysmal atrial flutter Code(s): I48.92 - UNSPECIFIED ATRIAL FLUTTER (4) A-fib Code(s): I48.91 - UNSPECIFIED ATRIAL FIBRILLATION Qualifiers: Atrial fibrillation type: persistent Qualified Code(s): I48.1 - Persistent atrial fibrillation (5) Acute on chronic diastolic CHF (congestive heart failure) Code(s): I50.33 - ACUTE ON CHRONIC DIASTOLIC (CONGESTIVE) HEART FAILURE (6) Suecj-ky-vekqbdh kidney injury Code(s): N17.9 - ACUTE KIDNEY FAILURE, UNSPECIFIED N18.9 - CHRONIC KIDNEY DISEASE, UNSPECIFIED (7) Anemia Code(s): D64.9 - ANEMIA, UNSPECIFIED Qualifiers: Anemia type: unspecified type Qualified Code(s): D64.9 - Anemia, unspecified (8) CAD (coronary artery disease) Code(s): I25.10 - ATHSCL HEART DISEASE OF [place] CORONARY ARTERY W/O ANG PCTRS Qualifiers: Coronary Disease-Associated Artery/Lesion type: [place] artery [place] vs. transplanted heart: [place] heart Associated angina: without angina Qualified Code(s): I25.10 - Atherosclerotic heart disease of [place] coronary artery without angina pectoris (9) HLD (hyperlipidemia) Code(s): E78.5 - HYPERLIPIDEMIA, UNSPECIFIED Qualifiers: Hyperlipidemia type: pure hypercholesterolemia Qualified Code(s): E78.00 - Pure hypercholesterolemia, unspecified; E78.0 - Pure hypercholesterolemia (10) Shortness of breath Code(s): R06.02 - SHORTNESS OF BREATH (11) Hypoxemia Code(s): R09.02 - HYPOXEMIA (12) Leukocytosis Code(s): D72.829 - ELEVATED WHITE BLOOD CELL COUNT, UNSPECIFIED (13) Hypernatremia Code(s): E87.0 - HYPEROSMOLALITY AND HYPERNATREMIA (14) Acute hypernatremia Code(s): E87.0 - HYPEROSMOLALITY AND HYPERNATREMIA This patient is new to me today: No Emergency Visit: No Critical Care patient: No - Discharge Referral Referred to [facility] No
--- NOTE | 2017-02-13 14:53 | PN ---
Teaching Attending Note Name of Resident: Shade Muñoz ATTENDING PHYSICIAN STATEMENT I saw and evaluated the patient. I reviewed the resident's note and discussed the case with the resident. I agree with the resident's findings and plan as documented. Vital Signs Temperature 99.2 F 02/13/17 09:49 Pulse Rate 94 H 02/13/17 09:49 Respiratory Rate 36 H 02/13/17 09:49 Blood Pressure 86/39 02/13/17 09:49 O2 Sat by Pulse Oximetry (%) 91 L 02/13/17 06:00 CBCD WBC 20.9 K/mm3 (4.0-10.0) H D 02/12/17 08:20 RBC 4.29 M/mm3 (3.60-5.2) 02/12/17 08:20 Hgb 10.6 GM/dL (10.7-15.3) L 02/12/17 08:20 Hct 34.5 % (32.4-45.2) 02/12/17 08:20 MCV 80.5 fl (80-96) 02/12/17 08:20 MCHC 30.6 g/dl (32.0-36.0) L 02/12/17 08:20 RDW 17.6 % (11.6-15.6) H 02/12/17 08:20 Plt Count 200 K/MM3 (134-434) D 02/12/17 08:20 MPV 10.5 fl (7.5-11.1) 02/12/17 08:20 CMP Sodium 144 mmol/L (136-145) 02/12/17 08:20 Potassium 3.7 mmol/L (3.5-5.1) 02/12/17 08:20 Chloride 104 mmol/L (98-107) 02/12/17 08:20 Carbon Dioxide 36 mmol/L (21-32) H 02/12/17 08:20 Anion Gap 4 (8-16) L 02/12/17 08:20 BUN 46 mg/dL (7-18) H 02/12/17 08:20 Creatinine 1.3 mg/dL (0.55-1.02) H 02/12/17 08:20 Creat Clearance w eGFR 38.75 (>60) 02/12/17 08:20 Random Glucose 139 mg/dL (74-106) H 02/12/17 08:20 Calcium 12.9 mg/dL (8.5-10.1) H 02/12/17 08:20 Total Bilirubin 1.1 mg/dL (0.2-1.0) H D 02/12/17 08:20 AST 37 U/L (15-37) D 02/12/17 08:20 ALT 26 U/L (12-78) D 02/12/17 08:20 Alkaline Phosphatase 87 U/L (45-117) D 02/12/17 08:20 Total Protein 6.0 g/dl (6.4-8.2) L 02/12/17 08:20 Albumin 2.0 g/dl (3.4-5.0) L 02/12/17 08:20 CARDIAC ENZYMES Creatine Kinase 217 IU/L (26-192) H D 01/26/17 07:25 Troponin I 0.03 ng/ml (0.00-0.05) 01/26/17 07:25 Home Medications Medication Instructions Recorded Allopurinol [Zyloprim -] 100 mg PO DAILY 12/21/16 Cholecalciferol (Vitamin D3) 50,000 unit PO MONTHLY 12/21/16 [Vitamin D -] Methimazole [Tapazole] 5 mg PO DAILY 12/21/16 Nebivolol HCl [Bystolic] 10 mg PO DAILY 12/21/16 Omeprazole 40 mg PO DAILY 12/21/16 Ranolazine [Ranexa] 500 mg PO BID 12/21/16 Rosuvastatin Calcium [Crestor] 10 mg PO HS 12/21/16 Amlodipine Besylate [Norvasc -] 10 mg PO DAILY #30 tablet 12/23/16 Torsemide [Demadex -] 10 mg PO DAILY #30 tablet 12/23/16 Warfarin Na [Coumadin -] 5 mg PO DAILY #0 12/23/16 IMPRESSION: Interval large right middle cerebral artery territory acute/ subacute infarct with involvement of the right basal ganglia with mild mass effect on the right lateral ventricle and without shift towards the left. No intracranial hemorrhage is seen. ASSESSMENT AND PLAN: Patient is a 86 y/o lady with h/o CHF, COPD , Pulm HTN with bioprosthetic aortic valve replacement presented with SOB and was found to have acute respiratory failure with difficulty breathing admitted for acute on chronic diastolic CHF. Patient at 12:55pm prounouced at 12:56 # s/p Acute CVA; Right large MCA stroke with involvement of the right basal ganglia with mild mass effect on the right lateral ventricle without shift . #s/p Acute hypoxic hypercapnic respiratory ; COPD exacerbation. # Acute Hypernatremia continues with sodium of 155-->148-->144 # Acute Hypercalcemia --12.1-->12.9 #s/p Acute on Chronic diastolic CHF Exacerbation with EJF of 51% on 12/23/2016. #s/p MADONNA on CKD BUN/Cr 62/3.--63/3.4-->65/3.4-->60/2.7-->57/2.3---> 41/1.0--51/ 1.1-->47/1.1-->46/1.3 # paroxysmal aflutter [id number] ;Off anticoagulation now since has a large MCA stroke ; cont BB IV Lopressor #s/p RUE edema . US with no DVT #Hx of CAD Continue Bystolic closely monitor renal function #Hx of HLD crestor 10mg po hs #Hx of Left breast ca s/p mastectomy Code status: Patient was DNR/DNI.
== END 2017-02-13 15:13 | disposition expired | DRG 291 ==
LOC: JER 10:47 → JERBED 17:40 → UNDOADMIN 17:51 → J6S 19:43 → J4W 01-26 20:07 → J5S 02-09 14:52
PROVIDERS: ADMIT Internal Medicine; ATTEND Internal Medicine
PROC: 5A09557 Assistance with Respiratory Ventilation, Greater than 96 Consecutive Hours, Continuous Positive Airway Pressure (ICD-10-PCS; principal; 2017-01-31)
DX: I13.0 Hypertensive heart and chronic kidney disease with heart failure and stage 1 through stage 4 chronic kidney disease, or unspecified chronic kidney disease (principal); J96.01 Acute respiratory failure with hypoxia; J96.02 Acute respiratory failure with hypercapnia; I50.31 Acute diastolic (congestive) heart failure; I63.511 Cerebral infarction due to unspecified occlusion or stenosis of right middle cerebral artery; I48.92 Unspecified atrial flutter; J98.11 Atelectasis; J44.1 Chronic obstructive pulmonary disease with (acute) exacerbation; N18.4 Chronic kidney disease, stage 4 (severe); N17.9 Acute kidney failure, unspecified; I69.854 Hemiplegia and hemiparesis following other cerebrovascular disease affecting left non-dominant side; D68.8 Other specified coagulation defects; E87.0 Hyperosmolality and hypernatremia; T45.511A Poisoning by anticoagulants, accidental (unintentional), initial encounter; E78.00 Pure hypercholesterolemia, unspecified; I49.3 Ventricular premature depolarization; I27.2 Other secondary pulmonary hypertension; R29.730 NIHSS score 30; I69.820 Aphasia following other cerebrovascular disease; I42.8 Other cardiomyopathies; I25.10 Atherosclerotic heart disease of native coronary artery without angina pectoris; D63.1 Anemia in chronic kidney disease; E79.0 Hyperuricemia without signs of inflammatory arthritis and tophaceous disease; N28.1 Cyst of kidney, acquired; E87.6 Hypokalemia; I48.2 Chronic atrial fibrillation; E83.52 Hypercalcemia; E86.0 Dehydration; E05.90 Thyrotoxicosis, unspecified without thyrotoxic crisis or storm; Z87.891 Personal history of nicotine dependence; Z85.3 Personal history of malignant neoplasm of breast; Z95.2 Presence of prosthetic heart valve; Z66 Do not resuscitate
CPT/HCPCS: 36415; 36430; 36600; 70450-TC; 71010-TC; 71250-TC; 76775-TC; 76856-TC; 80048; 80053; 81003; 81015; 82040; 82140; 82310; 82330; 82397; 82436; 82550; 82553; 82570; 82607; 82652; 82803; 83735; 83880; 83970; 84100; 84133; 84156; 84300; 84436; 84439; 84443; 84484; 84540; 85025; 85027; 85610; 86850; 86900; 86901; 87040; 87086; 87186; 93005; 93010; 93306-TC; 93970-TC; 94010; 94660; 97116-GP; 97161-GP; 99284-25; J1644; P9017